=== PATIENT | female | born 1975 | race African-American/Black ===

== ENCOUNTER 2023-11-15 10:34 | Outpatient (CLI) | payer BC, SELFPAY ==
[2023-11-15 11:47] LABS: Influenza A QL RT-PCR Negative (Negative); Influenza B QL RT-PCR Negative (Negative); RSV RNA, RT-PCR Negative (Negative); SARS-CoV-2 RNA PCR Negative (Negative)
== END 2023-11-15 10:35 | disposition home or self-care (01) ==
LOC: ANHLAB 10:35
PROVIDERS: PCP Family Medicine; Visit Provider Physician Assistant
DX: J02.9 Acute pharyngitis, unspecified (principal); Z20.822 Contact with and (suspected) exposure to COVID-19
CPT/HCPCS: 87637

== ENCOUNTER 2024-03-08 01:44 | Day surgery (SDC) | payer BC, SELFPAY ==
[2024-02-22 13:15] VITALS: BMI 24.0
[2024-03-08 08:14] VITALS: BP 111/81; PULSE 88; RESP 20; TEMP 36.3; O2SAT 100
[2024-03-08] MEDS: LACTATED RINGERS 1,000 ML 150 ML IV CONT (08:57)
--- NOTE | 2024-03-08 09:19 | WPDANESEPPF ---
Anes - Initial Pre Proc Eval Procedure: Operation Date: 03/08/24 09:30 Proposed Procedures p Screening Colonoscopy - Sp Montes DO Date/Time: 03/08/24 09:19 Surgeon: Sp Montes DO Pre Op Diagnosis: Screening Neoplasm Patient Data Age: 48 Gender: F Height: 1.63 m Weight: 64.4 kg Last Vital Signs Temp 97.4 F L 03/08/24 08:14 Pulse 88 03/08/24 08:14 Resp 20 03/08/24 08:14 BP 111/81 03/08/24 08:14 Pulse Ox 100 03/08/24 08:14 O2 Del Method Nasal Cannula 03/08/24 08:14 O2 Flow Rate 3 03/08/24 08:14 Allergies Allergy/AdvReac Type Severity Reaction Status Date / Time Penicillins Allergy Mild sob Verified 03/08/24 08:13 Home Medications Medication Instructions Recorded Confirmed Type nebulizers (VixOne Nebulizer [facility] [place]) #1 ea 10/28/23 12/13/23 Rx pantoprazole 40 mg tablet,delayed 40 mg PO QAM #90 tabs 10/28/23 02/22/24 Rx release mycophenolate mofetil 500 mg tablet 1,500 mg PO Q12H 12/06/23 02/22/24 History prednisone 5 mg tablet 15 mg PO DIRECTED 12/06/23 02/22/24 History sulfamethoxazole 800 1 tablet PO DAILY 12/13/23 02/22/24 History mg-trimethoprim 160 mg tablet ferrous sulfate 325 mg (65 mg 325 mg PO DAILY #30 tabs 02/08/24 02/22/24 Rx iron) tablet Patient hx anesthesia problems: none Family hx anesthesia problems: none Results Review: All pre-operative results and documents have been reviewed as part of the pre-operative evaluation. [facility] Past Medical History Medical History Acute respiratory failure COVID-19 Influenza B Scleroderma Family History Family History (Updated 02/17/24 @ 12:17 by Radha Hutchinson RN) Mother Hypertension Asthma Grandparent Diabetes mellitus Asthma Father Colon cancer Grandparent Asthma Social History Social History Social History: Single Smoking status: Never smoker Second hand tobacco smoke exposure: No Alcohol intake: current Alcohol use details: Rarely Substance use: never Substance use type: does not use Do You Feel Safe in your Home?: Yes Lack of Transportation: No Lack of Food: Never True Current Housing: I Have Housing Concerned About Future Housing: No Difficulty Paying Gas/Electric Bills: No Difficulty Paying for Meds: No Currently Unemployed: No Education: Don't Know Difficulty w/ Childcare or Family Care: No Living arrangements: with family Occupation/Education: unemployed Gender identity (if verbalized by the patient): Female Sexual Orientation (if Verbalized by the Patient): Straight or Heterosexual Spiritual care concerns: No Anes - Eval Final PreProcedure Day of Procedure 03/08/24 09:19 Patient weight: normal Heart: regular rate and rhythm Lungs: clear to auscultation Airway: Mallampati scale class III Neurological: alert and oriented Last oral intake: >/= 8 hours ASA classification: IV Emergent: no Anesthetic plan: proceed Anesthesia type and monitoring: general GIVS and standard monitoring Results Review: All pre-operative results and documents have been reviewed as part of the pre-operative evaluation. Informed Consent: The patient's anesthetic plan and its attendant risks and benefits were discussed with the patient/family/POA. Questions were solicited and answers provided to the satisfaction of the patient/family/POA.
--- NOTE | 2024-03-08 09:29 | SUR.PREOP ---
DR BARRAGAN NOTIFIED PT HAD BREAKFAST 03/07/24 AT 0800, TOOK BOWEL PREP INSTRUCTED AND CLEAR LIQUID DIET FROM THAT POINT FORWARD, NO NEW ORDERS.
--- NOTE | 2024-03-08 09:34 | PM.IMHP ---
H&P: HPI History of Present Illness Date/Time: 03/08/24 09:34 Chief Complaint: family history of colon cancer Narrative: this is 48 year woman who presents for colonoscopy. She has never had a colonoscopy before. she does have a family history colon cancer in her father. She denies any hematochezia any melena. Review of Systems Review of Systems: All systems reviewed & are unremarkable except as noted in HPI and below Constitutional: Constitutional: Denies chills, Denies fever(s), Denies headache(s) and Denies weight loss Eyes: Eyes: Denies change in vision ENT: Denies dizziness, Denies headache(s), Denies neck mass and Denies throat swelling Cardiovascular: Cardiovascular: Denies chest pain, Denies lightheadedness and Denies dyspnea Respiratory: Respiratory: Denies cough, Denies dyspnea and Denies wheezing Gastrointestinal: Gastrointestinal: Denies abdominal pain, Denies change in bowel habits, Denies nausea and Denies vomiting Genitourinary: Genitourinary: Denies hematuria and Denies dysuria Musculoskeletal: Musculoskeletal: Reports as per HPI Integumentary/Breasts: Skin/Breast: Reports as per HPI Neurologic: Denies dizziness and Denies headache(s) Allergic/Immunologic: Allergic/Immunologic: Denies throat swelling and Denies wheezing [facility] Past Medical History Medical History Acute respiratory failure COVID-19 Influenza B Scleroderma Family History Family History (Updated 02/17/24 @ 12:17 by Radha Hutchinson RN) Mother Hypertension Asthma Grandparent Diabetes mellitus Asthma Father Colon cancer Grandparent Asthma Social History Social History Social History: Single Smoking status: Never smoker Second hand tobacco smoke exposure: No Alcohol intake: current Alcohol use details: Rarely Substance use: never Substance use type: does not use Do You Feel Safe in your Home?: Yes Lack of Transportation: No Lack of Food: Never True Current Housing: I Have Housing Concerned About Future Housing: No Difficulty Paying Gas/Electric Bills: No Difficulty Paying for Meds: No Currently Unemployed: No Education: Don't Know Difficulty w/ Childcare or Family Care: No Living arrangements: with family Occupation/Education: unemployed Gender identity (if verbalized by the patient): Female Sexual Orientation (if Verbalized by the Patient): Straight or Heterosexual Spiritual care concerns: No Meds Home Medications and Allergies Home Medications Medication Instructions Recorded Confirmed Type nebulizers (VixOne Nebulizer [facility] [place]) #1 ea 10/28/23 12/13/23 Rx pantoprazole 40 mg tablet,delayed 40 mg PO QAM #90 tabs 10/28/23 02/22/24 Rx release mycophenolate mofetil 500 mg tablet 1,500 mg PO Q12H 12/06/23 02/22/24 History prednisone 5 mg tablet 15 mg PO DIRECTED 12/06/23 02/22/24 History sulfamethoxazole 800 1 tablet PO DAILY 12/13/23 02/22/24 History mg-trimethoprim 160 mg tablet ferrous sulfate 325 mg (65 mg 325 mg PO DAILY #30 tabs 02/08/24 02/22/24 Rx iron) tablet Allergies Allergy/AdvReac Type Severity Reaction Status Date / Time Penicillins Allergy Mild sob Verified 03/08/24 08:13 Vital Signs Vital Signs - 24 hr 03/08/24 08:14 Temperature 36.3 C L Pulse Rate 88 Respiratory Rate 20 Blood Pressure 111/81 Pulse Oximetry 100 Oxygen Delivery Nasal Cannula Oxygen Flow Rate 3 Exam Const: General: no acute distress and alert Orientation/consciousness: patient oriented x3 HENMT: Head: normocephalic and atraumatic Ears: hearing grossly normal bilaterally Face/Nose/Sinus: Normal nares present Mouth: Yes Normal oral and palatal mucosa present Eyes: Periorbital: periorbital findings normal Sclera: sclerae normal EOM: EOMs intact bilaterally Neck: Neck: normal visual inspection, no lymphadenopathy and trachea
[2024-03-08 09:50] VITALS: BP 82/51; PULSE 88; RESP 15; O2SAT 100
[2024-03-08 10:00] VITALS: BP 92/49; PULSE 85; RESP 21; O2SAT 98
[2024-03-08 10:10] VITALS: BP 105/70; PULSE 87; RESP 22; O2SAT 97
== END 2024-03-08 10:22 | disposition home or self-care (01) ==
PROVIDERS: PCP Family Medicine; Visit Provider Surgery
PROC: 0DJD8ZZ Inspection of Lower Intestinal Tract, Via Natural or Artificial Opening Endoscopic (ICD-10-PCS; CPT 45378; principal; 2024-03-08 09:30)
DX: Z12.11 Encounter for screening for malignant neoplasm of colon (principal); Z80.0 Family history of malignant neoplasm of digestive organs; K52.89 Other specified noninfective gastroenteritis and colitis
CPT/HCPCS: 45380; 88305; J2704; J7120

== ENCOUNTER 2024-04-16 11:35 | Outpatient (CLI) | payer BC, SELFPAY ==
--- NOTE | ~2024-04-16 | MM_ITS ---
EXAMINATION: MM screening yesica BI w yomi HISTORY: Screening TECHNIQUE: Craniocaudal and mediolateral oblique 3-D tomosynthesis images were obtained and synthetic 2-D images were generated. CAD analysis was submitted and interpreted. COMPARISON: No prior mammogram is available for comparison at this institution. BREAST PARENCHYMAL COMPOSITION: Dense: The breasts are heterogeneously dense, which may obscure small masses FINDINGS: There are asymmetries of the left breast. There are no suspicious calcifications or archite ctural distortion. There is no mammographic evidence for malignancy in the right breast. IMPRESSION: 1. Left breast asymmetries. 2. Additional mammographic views and possible breast ultrasound are recommended. BI-RADS Category 0: Incomplete: Needs additional imaging evaluation. Reviewed, dictated and finalized at location B. IMPRESSION: 1. Left breast asymmetries. 2. Additional mammographic views and possible breast ultrasound are recommended . BI-RADS Category 0: Incomplete: Needs additional imaging evaluation.
== END 2024-04-16 11:36 ==
LOC: MICIMG 11:36
PROVIDERS: PCP Family Medicine; Visit Provider Family Medicine
DX: Z12.31 Encounter for screening mammogram for malignant neoplasm of breast (principal); R92.8 Other abnormal and inconclusive findings on diagnostic imaging of breast
CPT/HCPCS: 77063; 77067

== ENCOUNTER 2024-05-10 08:22 | Outpatient (CLI) | payer BC, SELFPAY ==
--- NOTE | ~2024-05-10 | MMUS_ITS ---
EXAMINATION: MM diagnostic yesica LT w yomi, US breast LT limited HISTORY: Upper, outer left breast asymmetry TECHNIQUE: Additional 3-D tomosynthesis images of the upper, outer left breast were performed and syn thetic 2-D images were generated. CAD analysis was submitted and interpreted. High resolution limited left breast ultrasound was performed. COMPARISON: 04/16/2024 BREAST PARENCHYMAL COMPOSITION:Dense: The breasts are heterogeneously dense, which may obscure small masses. FINDINGS: MAMMOGRAPHIC FINDINGS: Spot compression views confirm a persistent round, circumscribed 13 mm upper, outer left breast mass. ULTRASOUND: At the 3:00 position left breast, 8 cm from the nipple, there is a 5 mm circumscribed, wider than mike l, cyst. There is posterior through transmission. At the 2:00 position left breast, 9 cm from the nip ple, there is a similar-appearing 4 mm cyst. There is an additional adjacent 6 mm cyst at this locati on. At the 2:00 position left breast, 7 cm from the nipple, there is a 1.4 cm ovoid circumscribed ane choic simple cyst. There is an adjacent additional 0.5 cm simple cyst. At the 2:00 position, 5 cm fro m the nipple, there is an additional 1.1 cm simple cyst. There is a 4 mm hypoechoic circumscribed wid er than tall mass at the left breast 1:00 position, 5 cm from the nipple. IMPRESSION: Benign cysts and additional 4 mm probable benign mass at the 1:00 position left breast, 5 cm from th e nipple. Six-month follow-up ultrasound recommended to reassess. BI-RADS category 3, probably benign findings. Reviewed, dictated and finalized at location M. IMPRESSION: Benign cysts and additional 4 mm probable benign mass at the 1:00 position lef t breast, 5 cm from the nipple. Six-month follow-up ultrasound recommended to r linwoodteri. BI-RADS category 3, probably benign findings. IMPRESSION: Benign cysts and additional 4 mm probable benign mass at the 1:00 position lef t breast, 5 cm from the nipple. Six-month follow-up ultrasound recommended to r christine. BI-RADS category 3, probably benign findings.
== END 2024-05-10 08:23 | disposition home or self-care (01) ==
PROVIDERS: PCP Family Medicine; Visit Provider Student in an Organized Health Care Education/Training Program
DX: R92.8 Other abnormal and inconclusive findings on diagnostic imaging of breast (principal)
CPT/HCPCS: 76642; 77061; 77065; G0279

== ENCOUNTER 2024-06-15 09:30 | Outpatient (RCR) | payer BC, SELFPAY | END 2024-06-15 23:59 | disposition home or self-care (01) | LOC: ANHCPREHAB 09:30 | PROVIDERS: PCP Family Medicine; Visit Provider Internal Medicine Critical Care Medicine | DX: J84.10 Pulmonary fibrosis, unspecified (principal) | CPT/HCPCS: 94625; G0239 ==

== ENCOUNTER 2024-07-10 10:00 | Outpatient (RCR) | payer BC, SELFPAY | END 2024-07-18 15:46 | disposition home or self-care (01) | LOC: ANHCPREHAB 10:00 | PROVIDERS: PCP Family Medicine; Visit Provider Internal Medicine Critical Care Medicine | DX: J84.10 Pulmonary fibrosis, unspecified (principal) | CPT/HCPCS: G0239 ==

== ENCOUNTER 2024-08-03 09:57 | Outpatient (CLI) | payer BC, SELFPAY ==
--- NOTE | ~2024-08-03 | CT_ITS ---
CT Scan of the Chest without Contrast: Clinical Indication: Interstitial lung disease Technique: Contiguous sections were acquired throughout the chest without intravenous contrast. Dose reduction technique was used on this scan by utilizing automated exposure control and iterative recon struction technique. The dose-length product (DLP) was 144.30 mGy-cm. Findings: There is no evidence of any significant mediastinal, hilar or axillary lymphadenopathy. The mediastin al soft tissues appear normal. There is no evidence of pleural or pericardial effusion. There is bibasilar chronic interstitial disease, interstitial thickening and mild architectural disto rtion, mild bronchiolectasis. Images through the upper abdomen reveal no abnormalities. Impression: Bibasilar chronic interstitial disease, as detailed above. Reviewed, dictated and finalized at location . [employer] TECHNICIAN/DRIVER Impression: Bibasilar chronic interstitial disease, as detailed above.
== END 2024-08-03 09:58 | disposition home or self-care (01) ==
PROVIDERS: PCP Family Medicine
DX: J84.9 Interstitial pulmonary disease, unspecified (principal)
CPT/HCPCS: 71250

== ENCOUNTER 2024-08-08 07:57 | Outpatient (CLI) | payer BC, SELFPAY ==
--- NOTE | 2024-08-08 12:41 | WPDSIXMINUTE ---
Six Minute Walk Procedure Procedure Performed Pulmonary Stress Test (6 min walk) Six Minute Walk Six Minute Walk: This is a 6 minute walk test. The test was performed and interpreted in accordance with the 2014 ERS/ATS task force guidelines. Of note the patient used a wheeled walker and 3 L nasal cannula. Findings: The patient's resting 3 L nasal cannula oxygen saturation measured by pulse oximetry was 100%, the heart rate was 94 bpm, and the modified Nader dyspnea score was 2. Patient ambulated for 183 meters and oxygen saturation remained 99 to 100%. At the end of the study the heart rate was 110 bpm and the modified Nader dyspnea score was 4. The patient did not have hypoxemia at rest or with activity using 3 L nasal cannula. There are no prior studies for comparison.
== END 2024-08-08 07:58 | disposition home or self-care (01) ==
PROVIDERS: PCP Family Medicine; Visit Provider Internal Medicine Critical Care Medicine
DX: J84.10 Pulmonary fibrosis, unspecified (principal)
CPT/HCPCS: 94618

== ENCOUNTER 2024-09-07 10:54 | Outpatient (CLI) | payer MEDICAID, SELFPAY ==
--- NOTE | ~2024-09-07 | US_ITS ---
US pelvic complete w TV Ordering provider: Monique Molina APRN History: . N92.6 - Irregular menstruation, unspecified . Comparison: None. Technique: Transabdominal and endovaginal ultrasound of the pelvis (Doppler ultrasound interrogation techniques used as needed for this exam.) FINDINGS: CERVIX: Normal. UTERUS: Measures 11.1x 7.3x 7.2 cm in length which is within normal limits and is anteverted. Multip le lesions most likely fibroids with the largest measures 3.8 x 4.6 x 3.4 cm. ENDOMETRIUM: Normal in thickness measuring 10.3 mm. (Note: the premenopausal endometrium may measure up to 16 mm when in the secretory phase.) No endometrial masses, cysts or fluid. CUL DE SAC: No free fluid. RIGHT OVARY: Normal in size measuring 4.8x 3.1x 4.3 cm. Normal echotexture. Doppler vascular flow pre sent. Cyst is seen measuring 3.4 x 2.7 x 2.7 cm. LEFT OVARY: Status post oophorectomy according to history with a left adnexal complex lesion measurin g 4.1x 4.3x 3.9 centimeters. IMPRESSION: Multiple fibroids. Slightly prominent endometrium. Correlation with the menstrual stage is advised. R ight ovarian cyst. Left adnexal lesion which is most likely multilocular cyst. Follow-up ultrasound o r CT is advised. Otherwise, normal pelvic ultrasound. Reviewed, dictated and finalized at location A. NG CUTTER IMPRESSION: Multiple fibroids. Slightly prominent endometrium. Correlation with the menstru al stage is advised. Right ovarian cyst. Left adnexal lesion which is most like ly multilocular cyst. Follow-up ultrasound or CT is advised. Otherwise, normal pelvic ultrasound.
== END 2024-09-07 10:55 | disposition home or self-care (01) ==
PROVIDERS: PCP Nurse Practitioner Family; Visit Provider Nurse Practitioner Family
DX: N92.6 Irregular menstruation, unspecified (principal); D25.9 Leiomyoma of uterus, unspecified
CPT/HCPCS: 76830; 76856

== ENCOUNTER 2024-09-25 08:23 | Outpatient (CLI) | payer MEDICAID, SELFPAY ==
--- NOTE | ~2024-09-25 | CT_ITS ---
EXAMINATION: CT abdomen pelvis w con DATE: 09/25/2024 09:28 INDICATION: Left ovarian cyst TECHNIQUE: Computed tomography (CT) of the abdomen and pelvis was performed with 100 mL Omnipaque-350 intravenous contrast. Automated exposure control and iterative reconstruction technique were employe d. The dose-length product was 388.02 mGy-cm. COMPARISON: Pelvic ultrasound dated 09/07/2024 FINDINGS: Mild atelectasis in bilateral lower lungs with tiny left pleural effusion. Heart size is normal. No p ericardial effusion. Cholecystectomy clips at the gallbladder fossa. Liver, spleen, pancreas, bilater al adrenal glands and kidneys are normal. Bowels including the appendix are normal. Bladder is normal . Arcuate uterus with several uterine fibroids the largest a 4.8 x 4.0 cm subserosal fibroid at the l eft side of the fundus. There are complex cystic lesions at the bilateral adnexa which on the left ap pears to represent a serpiginous tubular fluid-filled structures consistent with hydrosalpinx. Left o vary is not visualized and reportedly absent. This could also represent a hydrosalpinx on the right h owever appearance is more equivocal and cannot exclude multiple separate ovarian cysts/follicles or a 4.0 x 2.6 cm complex cyst with a few thin internal septations. No definitive solid enhancing soft ti ssue component. 1.2 cm anechoic nabothian cyst at the cervix. No free intraperitoneal gas or fluid. N o pathologically enlarged abdominal or pelvic lymphadenopathy. Mild lumbar and lower thoracic spondyl osis. IMPRESSION: 1. Complex cystic structures at the bilateral adnexa corresponding to a left-sided hydrosalpinx. On t he right appearance is more equivocal for a second contralateral right-sided hydrosalpinx versus inde pendent ovarian cysts/follicles are complex ovarian cyst with several thin internal septations which could represent a cystadenoma. No solid nodular soft tissue component to raise concern for cystadenoc arcinoma. 2. Fibroid uterus. Reviewed, dictated and finalized at location A. [employer] K[employer]ITTER HAND FRAME IMPRESSION: 1. Complex cystic structures at the bilateral adnexa corresponding to a left-si ded hydrosalpinx. On the right appearance is more equivocal for a second contra lateral right-sided hydrosalpinx versus independent ovarian cysts/follicles are complex ovarian cyst with several thin internal septations which could represe nt a cystadenoma. No solid nodular soft tissue component to raise concern for c ystadenocarcinoma. 2. Fibroid uterus.
== END 2024-09-25 08:24 | disposition home or self-care (01) ==
LOC: MICIMG 08:23
PROVIDERS: PCP Nurse Practitioner Family; Visit Provider Nurse Practitioner Family
DX: N83.292 Other ovarian cyst, left side (principal); D25.2 Subserosal leiomyoma of uterus
CPT/HCPCS: 74177; Q9967

== ENCOUNTER 2024-10-17 14:28 | Outpatient (CLI) | payer MEDICAID, SELFPAY ==
--- OUTSIDE RECORDS SUMMARY | 2024-10-17 16:40 | XMS_ITS | Patient Health Summary ---
Author Organization [facility] Address [address] [place] [address] Care Team Providers Care Tourist Camp Attendant Name Role Phone Amelia Tamayo MD Primary Care Provider + Note from [facility],non-owned Affiliates and Associated Physician Practices is amultiple site organization consisting of ambulatory clinics and hospital sitesin [place], [place], [place]. This disclosure is being madepursuant to the Care Everywhere program and may not contain all information available regarding this patient. Last updated 18.[facility] Allergies * Penicillins(Itching) Medications * Be aware that medications may not be up to date on this document. Alwaysverify current medications with the patient. * FeroSul 325 (65 Fe) MG tablet Take 1 (one) tablet by mouth once daily * albuterol (Proventil;Ventolin) (2.5 MG/3ML) 0.083% nebulizer solution(Started 02/17/2024) Inhale 2.5 (two and one-half) mg by mouth every 4 hours as needed for Shortness of Breath or Wheezing 11 refills by 02/16/2025 * Multiple Vitamins-Minerals (Multi Vitamin/Minerals) TABS Take 1 (one) tablet by mouth once daily * NIFEdipine CR 24hr (Adalat CC) 30 MG tablet(Started 03/14/2024) Take 1 (one) tablet by mouth once daily Take on an empty stomach. 4 refills by 03/14/2025 * tocilizumab (Actemra) 162 MG/0.9ML auto-injector(Started 03/14/2024) Inject 0.9 mL subcutaneously every 7 days for 1 dose * hydrOXYzine HCl (Atarax) 25 MG tablet(Started 05/02/2024) Take 1 (one) tablet by mouth as needed for Itching * nintedanib (Ofev) 150 MG capsule(Started 05/09/2024) Take 1 (one) capsule by mouth 2 times daily with morning and evening meal 11 refills by 05/09/2025 * mycophenolate (Cellcept) 500 MG tablet(Started 08/17/2024) Take 3 (three) tablets by mouth 2 times daily for 90 days 2 refills by 08/17/2025 * pantoprazole EC (Protonix) 40 MG tablet(Started 08/21/2024) Take 1 (one) tablet by mouth once daily for 90 days * predniSONE (Deltasone) 2.5 MG tablet(Started 08/31/2024) Take 3 (three) tablets by mouth once daily for 14 days, THEN 2 (two) tablets once daily for 14 days, THEN 1 (one) tablet once daily for 14 days. * baclofen (Lioresal) 10 MG tablet(Started 09/13/2024) TAKE 1 TABLET BY MOUTH EVERY DAY AT BEDTIME NEEDED FOR MUSCLE SPASM * formoterol (Perforomist) 20 MCG/2ML nebulizer solution(Started 12/08/2023) Inhale 2 mL by mouth as needed * Nebulizers (Supremex[employer] Aerosol Delivery System) [facility](Started 11/01/2023) as directed * Progesterone 200 MG capsule(Started 09/13/2024) Take 1 (one) capsule by mouth at bedtime * albuterol HFA (Proventil; Ventolin; Proair) 108 (90 Base) MCG/ACT inhaler Inhale 2 (two) puffs by mouth every 6 hours as needed * metoclopramide (Reglan) 10 MG tablet(Started 09/21/2024) Take 1 (one) tablet by mouth 3 times daily before meals * nortriptyline (Pamelor) 10 MG capsule(Started 10/15/2024) Take 1 (one) capsule by mouth at bedtime 3 refills by 10/15/2025 * ubrogepant (Ubrelvy) 100 MG tablet(Started 10/15/2024) Take 1 (one) tablet by mouth daily as needed - may repeat one time for Migraine No more than 2 doses in 24 hours. 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 Interstitial lung disorders 02/28/2024 Autoimmune disease 10/12/2023 Pulmonary HTN 10/11/2023 Anemia 10/04/2023 GERD (gastroesophageal reflux disease) Lymphadenopathy 10/04/2023 Positive SHYLA (antinuclear antibody) 10/04/2023 Severe protein-calorie malnutrition 10/04/2023 Dyspnea 10/01/2023 Breast mass 07/27/2023 Menorrhagia 07/27/2023 Acute on chronic respiratory failure 07/26/2023 Chest pain 05/25/2023 Edema 05/25/2023 Acute bronchitis 09/07/2017 Resolved Problems Problem Noted Date Diagnosed Date Resolved Date Asthma exacerbation 12/15/2017 06/20/20 24 Immunizations * INFLUENZA VACCINE, QUADR. (AFLURIA, FLUZONE QUADRIVALENT; 6MO+) (IIV4)(Given 05/23/2018) * INFLUENZA VACCINE, TRIV. (FLUZONE; FLULAVAL; FLUARIX; AFLURIA TRIVALENT; 6MO+), 0.5 ML (IIV3)(Given 05/08/2024) * PNEUMOCOCCAL PCV20 CONJ VAC IM(Given 02/17/2024) Social History Tobacco Use Types Packs/Day Years Used Date Smoking Tobacco: Never Smokeless Tobacco: Never Alcohol Use Standard Drinks/Week Comments Not Currently 0 (1 standard drink = 0.6 oz pur e alcohol) PHQ-2 Answer Date Recorded Patient Health Questionnaire-2 Score 1 05/23/2024 Sex and Gender Information Value Date Recorded Sex Assigned at Not on file Gender Identity Not on file Sexual Orientation Not on file Last Filed Vital Signs Vital Sign Reading Time Taken Comments Blood Pressure 122/76 10/15/2024 2:03 PM [employer] Pulse 103 10/15/2024 2:03 PM [employer] Temperature 36.6 C (97.9 F) 09/25/2024 10:19 AM [employer] Respiratory Rate 22 09/25/2024 10:19 AM [employer] Oxygen Saturation 100% 09/25/2024 10:19 AM [employer] 3L of O2 Inhaled Oxygen Concentration - - Weight 69.9 kg (154 lb) 10/15/2024 2:03 PM [employer] Height 162.6 cm (5' 4 ) 10/15/2024 2:03 PM [employer] Body Mass Index 26.43 10/15/2024 2:03 PM [employer] Procedures * COMPREHENSIVE METABOLIC PANEL(Performed 10/02/2024) Performed for Scleroderma (HCC), ILD (interstitial lung disease) (HCC), Diffuse cutaneous systemic sclerosis (HCC), Therapeutic drug monitoring, 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 therapy (HCC) * CBC W AUTO DIFFERENTIAL(Performed 10/02/2024) Performed for Scleroderma (HCC), ILD (interstitial lung disease) (HCC), Diffuse cutaneous systemic sclerosis (HCC), Therapeutic drug monitoring, 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 therapy (HCC) * COMPREHENSIVE METABOLIC PANEL(Performed 09/26/2024) Performed for Scleroderma (HCC), ILD (interstitial lung disease) (HCC), Diffuse cutaneous systemic sclerosis (HCC), Therapeutic drug monitoring, 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 therapy (HCC) * CBC W AUTO DIFFERENTIAL(Performed 09/26/2024) Performed for Scleroderma (HCC), ILD (interstitial lung disease) (HCC), Diffuse cutaneous systemic sclerosis (HCC), Therapeutic drug monitoring, 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 therapy (HCC) * CT ANGIO BRAIN AND NECK(Performed 09/21/2024) Performed for Chest pain, unspecified type, Benign paroxysmal positional vertigo, unspecified laterality, Tinnitus of both ears, Acute nonintractable headache, unspecified headache type, Nausea and vomiting, unspecified vomiting type * MRI BRAIN WWO CONTRAST(Performed 09/21/2024) Performed for Chest pain, unspecified type * CT HEAD WO CONTRAST(Performed 09/20/2024) Performed for Chest pain, unspecified type * TROPONIN-I HIGH SENSITIVE BASELINE + 1HR(Performed 09/20/2024) * D-DIMER(Performed 09/20/2024) * COMPREHENSIVE METABOLIC PANEL(Performed 09/20/2024) * CBC W AUTO DIFFERENTIAL(Performed 09/20/2024) * SARS-COV-2 (COVID-19) FLU A/B RSV PCR RAPID(Performed 09/20/2024) * XR CHEST 2VW(Performed 09/20/2024) Performed for Chest pain, unspecified type * EKG 12-LEAD(Performed 09/20/2024) Performed for Chest pain, unspecified type * COMPREHENSIVE METABOLIC PANEL(Performed 09/19/2024) Performed for Scleroderma (HCC), ILD (interstitial lung disease) (HCC), Diffuse cutaneous systemic sclerosis (HCC), Therapeutic drug monitoring, 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 therapy (HCC) * CBC W AUTO DIFFERENTIAL(Performed 09/19/2024) Performed for Scleroderma (HCC), ILD (interstitial lung disease) (HCC), Diffuse cutaneous systemic sclerosis (HCC), Therapeutic drug monitoring, 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 therapy (HCC) * CBC W AUTO DIFFERENTIAL(Performed 09/12/2024) Performed for Lymphopenia * COMPREHENSIVE METABOLIC PANEL(Performed 09/12/2024) Performed for Scleroderma (HCC), ILD (interstitial lung disease) (HCC), Diffuse cutaneous systemic sclerosis (HCC), Therapeutic drug monitoring, 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 therapy (HCC) * CBC W AUTO DIFFERENTIAL(Performed 09/05/2024) Performed for Lymphopenia * COMPREHENSIVE METABOLIC PANEL(Performed 09/05/2024) Performed for Scleroderma (HCC), ILD (interstitial lung disease) (HCC), Diffuse cutaneous systemic sclerosis (HCC), Therapeutic drug monitoring, 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 therapy (HCC) * CBC W AUTO DIFFERENTIAL(Performed 08/30/2024) Performed for Lymphopenia * COMPREHENSIVE METABOLIC PANEL(Performed 08/30/2024) Performed for Scleroderma (HCC), ILD (interstitial lung disease) (HCC), Diffuse cutaneous systemic sclerosis (HCC), Therapeutic drug monitoring, 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 therapy (HCC) * CBC W AUTO DIFFERENTIAL(Performed 08/24/2024) Performed for Lymphopenia * COMPREHENSIVE METABOLIC PANEL(Performed 08/24/2024) Performed for Scleroderma (HCC), ILD (interstitial lung disease) (HCC), Diffuse cutaneous systemic sclerosis (HCC), Therapeutic drug monitoring, 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 therapy (HCC) * LIPID PROFILE(Performed 08/17/2024) Performed for Screening for lipoid disorders * COMPREHENSIVE METABOLIC PANEL(Performed 08/17/2024) Performed for Scleroderma (HCC), ILD (interstitial lung disease) (HCC), Diffuse cutaneous systemic sclerosis (HCC), Therapeutic drug monitoring, 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 therapy (HCC) * CBC W AUTO DIFFERENTIAL(Performed 08/17/2024) Performed for Scleroderma (HCC), ILD (interstitial lung disease) (HCC), Diffuse cutaneous systemic sclerosis (HCC), Therapeutic drug monitoring, 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 therapy (HCC) * CBC W AUTO DIFFERENTIAL(Performed 08/08/2024) Performed for Lymphopenia * COMPREHENSIVE METABOLIC PANEL(Performed 08/08/2024) Performed for Scleroderma (HCC), ILD (interstitial lung disease) (HCC), Diffuse cutaneous systemic sclerosis (HCC), Therapeutic drug monitoring, 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 therapy (HCC) * COMPREHENSIVE METABOLIC PANEL(Performed 08/01/2024) Performed for Scleroderma (HCC), ILD (interstitial lung disease) (HCC), Diffuse cutaneous systemic sclerosis (HCC), Therapeutic drug monitoring, 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 therapy (HCC) * CBC W AUTO DIFFERENTIAL(Performed 08/01/2024) Performed for Scleroderma (HCC), ILD (interstitial lung disease) (HCC), Diffuse cutaneous systemic sclerosis (HCC), Therapeutic drug monitoring, 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 therapy (HCC) * POTASSIUM URINE RANDOM(Performed 08/01/2024) Performed for Diffuse cutaneous systemic sclerosis (HCC), Scleroderma (HCC), ILD (interstitial lungdisease) (HCC), Therapeutic drug monitoring, 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 therapy (HCC) * BILIRUBIN DIRECT(Performed 07/20/2024) Performed for ILD (interstitial lung disease) (HCC), Scleroderma (HCC) * COMPREHENSIVE METABOLIC PANEL(Performed 07/20/2024) Performed for Scleroderma (HCC), ILD (interstitial lung disease) (HCC), Diffuse cutaneous systemic sclerosis (HCC), Therapeutic drug monitoring, 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 therapy (HCC) * CBC W AUTO DIFFERENTIAL(Performed 07/20/2024) Performed for Scleroderma (HCC), ILD (interstitial lung disease) (HCC), Diffuse cutaneous systemic sclerosis (HCC), Therapeutic drug monitoring, 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 therapy (HCC) * MAGNESIUM BLOOD(Performed 07/20/2024) Performed for Therapeutic drug monitoring * BILIRUBIN DIRECT(Performed 07/11/2024) Performed for ILD (interstitial lung disease) (HCC), Scleroderma (HCC) * COMPREHENSIVE METABOLIC PANEL(Performed 07/11/2024) Performed for Scleroderma (HCC), ILD (interstitial lung disease) (HCC), Diffuse cutaneous systemic sclerosis (HCC), Therapeutic drug monitoring, 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 therapy (HCC) * CBC W AUTO DIFFERENTIAL(Performed 07/11/2024) Performed for Scleroderma (HCC), ILD (interstitial lung disease) (HCC), Diffuse cutaneous systemic sclerosis (HCC), Therapeutic drug monitoring, 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 therapy (HCC) * ECHO COMPLETE(Performed 07/11/2024) Performed for Scleroderma (HCC), ILD (interstitial lung disease) (HCC), Diffuse cutaneous systemic sclerosis (HCC), Therapeutic drug monitoring, 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 therapy (HCC) * HOME O2 EVAL (DESATURATION SCREEN)(Performed 07/11/2024) Performed for ILD (interstitial lung disease) (HCC), Scleroderma (HCC), Chronic respiratory failurewith hypoxia (HCC) * PFT-LAB(Performed 07/11/2024) Performed for Scleroderma (HCC), ILD (interstitial lung disease) (HCC), Diffuse cutaneous systemic sclerosis (HCC), Therapeutic drug monitoring, 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 therapy (HCC) * BILIRUBIN DIRECT(Performed 05/23/2024) Performed for ILD (interstitial lung disease) (HCC), Scleroderma (HCC) * COMPREHENSIVE METABOLIC PANEL(Performed 05/23/2024) Performed for Scleroderma (HCC), ILD (interstitial lung disease) (HCC) * CBC W AUTO DIFFERENTIAL(Performed 05/23/2024) Performed for Scleroderma (HCC), ILD (interstitial lung disease) (HCC) * FL ESOPHAGRAM(Performed 04/25/2024) Performed for Scleroderma (HCC), ILD (interstitial lung disease) (HCC), Diffuse cutaneous systemic sclerosis (HCC), Therapeutic drug monitoring * COMPLETE PFT W/WO BRONCHODILATOR(Performed 04/12/2024) Performed for ILD (interstitial lung disease) (HCC), Scleroderma (HCC) * SIX MINUTE WALK(Performed 04/12/2024) Performed for ILD (interstitial lung disease) (HCC), Scleroderma (HCC) * CT CHEST WO CONT AND HIRES(Performed 03/21/2024) Performed for ILD (interstitial lung disease) (HCC), Scleroderma (HCC) * URINALYSIS W/MICROSCOPIC REFLEX TO CULTURE(Performed 02/24/2024) Performed for Scleroderma (HCC), ILD (interstitial lung disease) (HCC) * PROTEIN CREATININE RATIO URINE RANDOM PNL(Performed 02/24/2024) Performed for Scleroderma (HCC), ILD (interstitial lung disease) (HCC) * LAB MISC TEST(Performed 02/24/2024) Performed for Scleroderma (HCC) * SHYLA BLOOD SINGLE PATTERN(Performed 02/24/2024) Performed for Scleroderma (HCC), ILD (interstitial lung disease) (HCC) * SHYLA HEP-2 IGG BY IFA(Performed 02/24/2024) Performed for Scleroderma (HCC), ILD (interstitial lung disease) (HCC) * WANG/SAND WHEELER (SHORTY) ANTIBODY IGG(Performed 02/24/2024) Performed for Scleroderma (HCC) * HEPATITIS C ANTIBODY(Performed 02/24/2024) Performed for Scleroderma (HCC), ILD (interstitial lung disease) (HCC) * HEPATITIS B SURFACE ANTIGEN W RFLX CONFIRMATION(Performed 02/24/2024) Performed for Scleroderma (HCC), ILD (interstitial lung disease) (HCC) * HEPATITIS B SURFACE ANTIBODY(Performed 02/24/2024) Performed for Scleroderma (HCC), ILD (interstitial lung disease) (HCC) * HEPATITIS B CORE ANTIBODY TOTAL(Performed 02/24/2024) Performed for Scleroderma (HCC), ILD (interstitial lung disease) (HCC) * MYOSITIS ANTIBODY PANEL COMPREHENSIVE(Performed 02/24/2024) Performed for Scleroderma (HCC), ILD (interstitial lung disease) (HCC) * SCLERODERMA 70 (SCL) ANTIBODY(Performed 02/24/2024) Performed for Scleroderma (HCC), ILD (interstitial lung disease) (HCC) * RNA POLYMERASE III ANTIBODY IGG(Performed 02/24/2024) Performed for Scleroderma (HCC), ILD (interstitial lung disease) (HCC) * PM/SCL-100 ANTIBODY IGG(Performed 02/24/2024) Performed for Scleroderma (HCC), ILD (interstitial lung disease) (HCC) * CENTROMERE ANTIBODY(Performed 02/24/2024) Performed for Scleroderma (HCC), ILD (interstitial lung disease) (HCC) * SHYLA BLOOD SCREEN W/REFLEX TITER(Performed 02/24/2024) Performed for Scleroderma (HCC), ILD (interstitial lung disease) (HCC) * QUANTIFERON-TB GOLD PLUS 4-TUBE(Performed 02/24/2024) Performed for Scleroderma (HCC), ILD (interstitial lung disease) (HCC) * C-REACTIVE PROTEIN(Performed 02/24/2024) Performed for Scleroderma (HCC), ILD (interstitial lung disease) (HCC) * ERYTHROCYTE SEDIMENTATION RATE(Performed 02/24/2024) Performed for Scleroderma (HCC), ILD (interstitial lung disease) (HCC) * COMPREHENSIVE METABOLIC PANEL(Performed 02/24/2024) Performed for Scleroderma (HCC), ILD (interstitial lung disease) (HCC) * CBC W AUTO DIFFERENTIAL(Performed 02/24/2024) Performed for Scleroderma (HCC), ILD (interstitial lung disease) (HCC) Results * (ABNORMAL) CBC WITH DIFFERENTIAL (10/02/2024 10:09 AM [facility]) Only the most recent of15 resultswithin the time period is included. WBC 4.4 4.0 - 10.7 x10E9/L 10/02/2024 11:05 AM [facility] RBC Count 4.17 3.90 - 5.20 x10E12/L 10/02/2024 11:05 AM [facility] Hemoglobin 10.6(L) 11.9 - 15.8 g/dL 10/02/2024 11:05 AM [facility] Hematocrit 34.3(L) 34.8 - 46.1 % 10/02/2024 11:05 AM [facility] MCV 82.3 80.0 - 98.0 fL 10/02/2024 11:05 AM [facility] MCH 25.4(L) 26.7 - 33.6 pg 10/02/2024 11:05 AM [facility] MCHC 30.9(L) 31.7 - 36.3 g/dL 10/02/2024 11:05 AM [facility] RDW-CV 13.2 11.3 - 14.8 % 10/02/2024 11:05 AM [facility] Platelet Count 275 150 - 420 x10E9/L 10/02/2024 11:05 AM [facility] MPV 11.0 7.8 - 11.4 fL 10/02/2024 11:05 AM [facility] Neutrophil % 54.7 41.0 - 74.0 % 10/02/2024 11:05 AM [facility] Lymphocyte % 25.7 17.0 - 47.0 % 10/02/2024 11:05 AM [facility] Monocyte % 15.9(H) 3.0 - 11.0 % 10/02/2024 11:05 AM [facility] Eosinophil % 2.3 0.0 - 7.0 % 10/02/2024 11:05 AM [facility] Basophil % 0.7 0.0 - 1.6 % 10/02/2024 11:05 AM [facility] Immature Granulocytes % 0.7 0.0 - 1.0 % 10/02/2024 11:05 AM [facility] Neutrophil Absolute 2.38 1.60 - 7.50 x10E9/L 10/02/2024 11:05 AM [facility] Lymphocyte Absolute 1.12 1.00 - 4.40 x10E9/L 10/02/2024 11:05 AM [facility] Monocyte Absolute 0.69 0.15 - 1.00 x10E9/L 10/02/2024 11:05 AM [facility] Eosinophil Absolute 0.10 0.00 - 0.60 x10E9/L 10/02/2024 11:05 AM [facility] Basophil Absolute 0.03 0.00 - 0.13 x10E9/L 10/02/2024 11:05 AM [facility] Blood BLOOD SPECIMEN / Unknown Lab Venipuncture / Unknown 10/02/2024 10:09 AM [facility] 10/02/2024 10:51 AM [facility] Kelechi Herrera MD LAB - HEMATOLOGY ORDERABLES [facility] [address] [place] [id number], [facility] [phone] * (ABNORMAL) COMPREHENSIVE METABOLIC PANEL (10/02/2024 10:09 AM [facility]) Only the most recent of15 resultswithin the time period is included. BUN 10 7 - 26 mg/dL 10/02/2024 11:37 AM [facility] Creatinine 1.05(H) 0.56 - 0.96 mg/dL 10/02/2024 11:37 AM [facility] Sodium 137 136 - 145 mmol/L 10/02/2024 11:37 AM [facility] Potassium 4.4 3.5 - 4.5 mmol/L 10/02/2024 11:37 AM [facility] Comment:Hemolysis detected i n this specimen. Hemolysis may cause false elevations in potassium leading to pseudohyperkalemia or masked hypokalemia. Recommend repeat testing if clinically indicated. Chloride 110(H) 98 - 107 mmol/L 10/02/2024 11:37 AM [facility] CO2 20(L) 22 - 29 mmol/L 10/02/2024 11:37 AM [facility] Glucose 83 70 - 99 mg/dL 10/02/2024 11:37 AM [facility] Calcium 8.6 8.4 - 10.2 mg/dL 10/02/2024 11:37 AM [facility] Protein Total 6.8 6.0 - 8.3 g/dL 10/02/2024 11:37 AM [facility] Comment:Hemolysis detected i n this specimen. Hemolysis is known to cause elevations in this analyte. Caution should be exercised in the interpretation of this result. Recommend repeat testing if clinically indicated. Albumin 3.9 3.4 - 5.0 g/dL 10/02/2024 11:37 AM [facility] Bilirubin Total 0.3 0.2 - 1.2 mg/dL 10/02/2024 11:37 AM [facility] Alkaline Phosphatase 50 40 - 150 U/L 10/02/2024 11:37 AM [facility] ALT 14 5 - 55 U/L 10/02/2024 11:37 AM [facility] AST 25 5 - 34 U/L 10/02/2024 11:37 AM [facility] Comment:Hemolysis detected i n this specimen. Hemolysis is known to cause elevations in this analyte. Caution should be exercised in the interpretation of this result. Recommend repeat testing if clinically indicated. Anion Gap 7 6 - 16 10/02/2024 11:37 AM [facility] BUN/Creatinine Ratio 10 7 - 23 09/22 11:37 AM [facility] Osmolality Calculated 282 275 - 295 mOsm/kg 10/02/2024 11:37 AM [facility] Albumin/Globulin Ratio 1.3 1.1 - 2.3 10/02/2024 11:37 AM [facility] eGFR by CKD-EPI 65(L) >=90 mL/min/1 .73 m2 10/02/2024 11:37 AM [facility] Blood BLOOD SPECIMEN / Unknown Lab Venipuncture / Unknown 10/02/2024 10:09 AM [employer] 10/02/2024 11:04 AM [employer] Kelechi Herrera MD LAB - CHEMISTRY ORDERABLES [facility] [address] [place] [address], [facility] [phone] * CT Angio Brain And Neck (09/21/2024 4:17 PM [employer]) Anatomical Region Laterality Modality Head Computed Tomogra phy 09/21/2024 4:29 PM [employer] Impressions 09/21/2024 5:03 PM [employer] IMPRESSION: 1.No acute intracranial hemorrhage. 2.No large arterial occlusions or significant stenoses identified in the head or neck. 3.The dural sinuses appear normal without evidence of thrombus. Viz.AI was used for large vessel occlusion detection. Report dictated by Je Morrow MD, (Case Management Associate). I, Shara Henry MD have personally reviewed and interpreted this examination/study. > Interpreting Provider: Shara Henry MD on 09/21/2024 5:03 PM Narrative 09/21/2024 5:03 PM [employer] PROCEDURE: CT ANGIO BRAIN AND NECK, DATE/TIME OF EXAM: 09/21/2024 4:18 PM, LOCATION [facility] INDICATION: R07.9: Chest pain, unspecified type H81.10: Benign paroxysmal positional vertigo, unspecified laterality H93.13: Tinnitus of both ears R51.9: Acute nonintractable headache, unspecified headache type R11.2: Nausea and vomiting, unspecified vomiting type ADDITIONAL CLINICAL INFORMATION: Ordering Provider Reason For Exam: Aneurysm EXAMINATION: 1. Computed tomographic (CT) angiography of the head without and with contrast 2. CT angiography of the neck with contrast CONTRAST: IOPAMIDOL 76 % IV SOLN:75 mL TECHNIQUE: CT of the head was performed without contrast according to standard protocol. Then CT angiography and venography of the head and neck was obtained after the uneventful administration of 75 mL Isovue-370 intravenous contrast. Three dimensional postprocessing was performed by the technologist and sent to the workstation for review. Stenosis measurements are based on NASCET criteria. CT dose reduction technique was used, including Automated Exposure Control. COMPARISON: CT head 09/20/2024 FINDINGS: Non-angiographic findings: No acute intra- or extra-axial fluid collections are identified. The ventricles are of normal size, shape, and morphology. The basilar cisterns are patent. No mass effect or midline shift is seen. The gonsalves-white matter differentiation is normal. Periventricular white matter hypoattenuation is nonspecific, but can be seen in the setting of chronic small vessel ischemic disease. The visualized portions of the orbits, paranasal sinuses, and mastoids appear normal. No acute fracture is identified. Scattered airspace and dependent opacities in both lungs may represent multifocal pneumonia and associated atelectasis. Please refer to the prior CT of the chest from 08/2023 for details on the intrathoracic findings.. Angiographic findings: The visible aortic arch appears normal. The configuration of the brachiocephalic vessels is typical. The innominate artery and both subclavian arteries appear normal. The right common and internal carotid arteries as well as the right carotid bifurcation appear normal. The left common and internal carotid arteries as well as the left carotid bifurcation appear normal. The cervical vertebral arteries appear normal. The distal internal carotid arteries appear normal. The anterior and middle cerebral arteries appear normal. The distal vertebral arteries appear normal. The basilar artery and posterior cerebral arteries appear normal with origin of both posterior cerebral arteries. No aneurysms, vascular occlusions, or intracranial stenoses are identified. Venographic findings: The dural sinuses appear normal without evidence of thrombus. Procedure Note Shara Henry MD - 09/21/2024 PROCEDURE: CT ANGIO BRAIN AND NECK, DATE/TIME OF EXAM: 09/21/2024 4:18PM, LOCATION [facility] INDICATION: R07.9: Chest pain, unspecified type H81.10: Benign paroxysmal positional vertigo, unspecified laterality H93.13: Tinnitus of both ears R51.9: Acute nonintractable headache, unspecified headache type R11.2: Nausea and vomiting, unspecified vomiting type ADDITIONAL CLINICAL INFORMATION: Ordering Provider Reason For Exam: Aneurysm EXAMINATION: 1. Computed tomographic (CT) angiography of the head without and with contrast 2. CT angiography of the neck with contrast CONTRAST: IOPAMIDOL 76 % IV SOLN:75 mL TECHNIQUE: CT of the head was performed without contrast according to standard protocol. Then CT angiography and venography of the head andneck was obtained after the uneventful administration of 75 mL Isovue-370 intravenous contrast. Three dimensional postprocessing was performed bythe technologist and sent to the workstation for review. Stenosismeasurements are based on NASCET criteria. CT dose reduction technique was used, including Automated Exposure Control. COMPARISON: CT head 09/20/2024 FINDINGS: Non-angiographic findings: No acute intra- or extra-axial fluid collections are identified. The ventricles are of normal size, shape, and morphology. The basilarcisterns are patent. No mass effect or midline shift is seen. The gonsalves-whitematter differentiation is normal. Periventricular white matter hypoattenuationis nonspecific, but can be seen in the setting of chronic small vessel ischemic disease. The visualized portions of the orbits, paranasalsinuses, and mastoids appear normal. No acute fracture is identified. Scattered airspace and dependent opacities in both lungs may represent multifocal pneumonia and associated atelectasis. Please refer to theprior CT of the chest from 08/2023 for details on the intrathoracic findings.. Angiographic findings: The visible aortic arch appears normal. The configuration of the brachiocephalic vessels is typical. The innominate artery and both subclavian arteries appear normal. The right common and internal carotid arteries as well as the right carotid bifurcation appear normal. Theleft common and internal carotid arteries as well as the left carotid bifurcation appear normal. The cervical vertebral arteries appearnormal. The distal internal carotid arteries appear normal. The anterior andmiddle cerebral arteries appear normal. The distal vertebral arteries appear normal. The basilar artery and posterior cerebral arteries appear normal with origin of both posterior cerebral arteries. No aneurysms, vascular occlusions, or intracranial stenoses are identified. Venographic findings: The dural sinuses appear normal without evidence of thrombus. IMPRESSION: 1.No acute intracranial hemorrhage. 2.No large arterial occlusions or significant stenoses identified in the head or neck. 3.The dural sinuses appear normal without evidence of thrombus. Viz.AI was used for large vessel occlusion detection. Report dictated by Je Morrow MD, (Case Management Associate). IShara MD have personally reviewed and interpretedthis examination/study. > Interpreting Provider: Shara Henry MD on 09/21/2024 5:03 PM Bruna Farrell MD CT ORDERABLES * MRI Brain Wwo Contrast (09/21/2024 12:40 PM AUT[employer]OBI[employer]ATION MECHANIC) Anatomical Region Laterality Modality Head Magnetic Resonan ce 09/21/2024 12:5 9 PM [employer]OM[employer]ATION MECHANIC Impressions 09/21/2024 5:05 PM [employer]ATION MECHANIC IMPRESSION: 1.No evidence of restricted diffusion to suggest an acute infarction. 2.No evidence of acute intracranial findings or abnormal enhancement. > Interpreting Provider: Shara Henry MD on 09/21/2024 5:05 PM Narrative 09/21/2024 5:05 PM [employer]ATION MECHANIC PROCEDURE: MRI BRAIN WWO CONTRAST, DATE/TIME OF EXAM: 09/21/2024 12:40 PM, LOCATION [facility] INDICATION: R07.9: Chest pain, unspecified type ADDITIONAL CLINICAL INFORMATION: Ordering Provider Reason For Exam: tinnitus, vertigo Technologist Note: Does the patient have a pacemaker or defibrillator?->No Does the patient have metal implants or stents?->No Additional: None. EXAMINATION: Magnetic resonance imaging (MRI) of the brain without and with contrast CONTRAST: GADOBUTROL 1 MMOL/ML IV SSM SO:6 mL TECHNIQUE: MRI of the brain was performed prior to and following the uneventful administration of 6 mL intravenous GADAVIST contrast according to standard protocol. COMPARISON: CT of the head from 09/20/2024. FINDINGS: No evidence of acute or chronic hemorrhage is identified. No evidence of acute cerebral infarction is seen. The ventricles are of normal size, shape, and morphology. No mass effect or midline shift is seen. Trace periventricular white matter FLAIR hyperintensity is a nonspecific finding. No enhancing lesions are identified. The corpus callosum and sella appear normal. The posterior fossa, brainstem, and craniocervical junction appear normal. The visualized portions of the orbits, paranasal sinuses, and mastoids appear normal. Normal flow voids are demonstrated in the carotid arteries and basilar artery. The calvarium and visualized cervical spine appear normal. Procedure Note Shara Henry MD - 09/21/2024 PROCEDURE: MRI BRAIN WWO CONTRAST, DATE/TIME OF EXAM: 09/21/2024 12:40PM, LOCATION [facility] INDICATION: R07.9: Chest pain, unspecified type ADDITIONAL CLINICAL INFORMATION: Ordering Provider Reason For Exam: tinnitus, vertigo Technologist Note: Does the patient have a pacemaker ordefibrillator?->No Does the patient have metal implants or stents?->No Additional: None. EXAMINATION: Magnetic resonance imaging (MRI) of the brain without andwith contrast CONTRAST: GADOBUTROL 1 MMOL/ML IV SSM SO:6 mL TECHNIQUE: MRI of the brain was performed prior to and following the uneventful administration of 6 mL intravenous GADAVIST contrastaccording to standard protocol. COMPARISON: CT of the head from 09/20/2024. FINDINGS: No evidence of acute or chronic hemorrhage is identified. No evidence of acute cerebral infarction is seen. The ventricles are of normal size, shape, and morphology. No mass effect or midline shift is seen. Trace periventricular white matter FLAIR hyperintensity is a nonspecificfinding. No enhancing lesions are identified. The corpus callosum and sellaappear normal. The posterior fossa, brainstem, and craniocervical junctionappear normal. The visualized portions of the orbits, paranasal sinuses, and mastoids appear normal. Normal flow voids are demonstrated in the carotidarteries and basilar artery. The calvarium and visualized cervical spine appear normal. IMPRESSION: 1.No evidence of restricted diffusion to suggest an acute infarction. 2.No evidence of acute intracranial findings or abnormal enhancement. > Interpreting Provider: Shara Henry MD on 09/21/2024 5:05 PM Harry Monsivais MD MR ORDERABLES * CT HEAD WO CONTRAST ??? Intracranial hemorrhage (09/20/2024 5:50 PM AUT[employer]ATION MECHANIC) Anatomical Region Laterality Modality Head Computed Tomogra phy 09/20/2024 6:23 PM [employer]ATION MECHANIC Impressions 09/20/2024 7:37 PM [employer]ATION MECHANIC IMPRESSION: 1.No acute intracranial hemorrhage, midline shift, or significant mass effect. 2.Please note that CT is insensitive to nonhemorrhagic strokes and MRI of the brain should be considered, if there is clinical concern for acute cerebral infarction. > Dictated by Manas Sandoval DO (Case Management Associate), 09/20/2024 6:23 PM. Shara Mann MD have personally reviewed and interpreted this examination/study. > Interpreting Provider: Shara Henry MD on 09/20/2024 7:37 PM Narrative 09/20/2024 7:37 PM [employer] MECH[employer]IC PROCEDURE: CT HEAD WO CONTRAST, DATE/TIME OF EXAM: 09/20/2024 5:51 PM, LOCATION [facility] INDICATION: R07.9: Chest pain, unspecified type EXAMINATION: Computed tomography (CT) of the head without contrast ADDITIONAL CLINICAL INFORMATION: Ordering Provider Reason For Exam: dizziness TECHNIQUE: CT of the head was performed without contrast according to standard protocol. CT dose reduction technique was used, including Automated Exposure Control. COMPARISON: No prior study is available for comparison at the time of this dictation. FINDINGS: No acute intra- or extra-axial fluid collections are identified. Mild asymmetric enlargement of the right lateral ventricle. The basilar cisterns are patent. No mass effect or midline shift is seen. Physiologic calcification of the right basal ganglia. Nonspecific calcifications along the falx and tentorial leaflets. The gonsalves-white matter differentiation is normal. There is vascular calcification of the carotid siphons. No acute calvarial fracture is identified. The orbits appear normal. There is mild paranasal sinus disease. The mastoid air cells are clear. There are degenerative changes of the SI joints. No soft tissue abnormality is identified. Procedure Note Shara Henry MD - 09/20/2024 PROCEDURE: CT HEAD WO CONTRAST, DATE/TIME OF EXAM: 09/20/2024 5:51 PM, LOCATION [facility] INDICATION: R07.9: Chest pain, unspecified type EXAMINATION: Computed tomography (CT) of the head without contrast ADDITIONAL CLINICAL INFORMATION: Ordering Provider Reason For Exam: dizziness TECHNIQUE: CT of the head was performed without contrast according to standard protocol. CT dose reduction technique was used, including Automated Exposure Control. COMPARISON: No prior study is available for comparison at the time ofthis dictation. FINDINGS: No acute intra- or extra-axial fluid collections are identified. Mild asymmetric enlargement of the right lateral ventricle. The basilarcisterns are patent. No mass effect or midline shift is seen. Physiologic calcification of the right basal ganglia. Nonspecific calcificationsalong the falx and tentorial leaflets. The gonsalves-white matter differentiationis normal. There is vascular calcification of the carotid siphons. No acute calvarial fracture is identified. The orbits appear normal. There ismild paranasal sinus disease. The mastoid air cells are clear. There are degenerative changes of the SI joints. No soft tissue abnormality is identified. IMPRESSION: 1.No acute intracranial hemorrhage, midline shift, or significant mass effect. 2.Please note that CT is insensitive to nonhemorrhagic strokes and MRIof the brain should be considered, if there is clinical concern for acute cerebral infarction. > Dictated by Manas Sandoval DO (Case Management Associate), 09/20/2024 6:23PM. I, Shara Henry MD have personally reviewed and interpretedthis examination/study. > Interpreting Provider: Shara Henry MD on 09/20/2024 7:37 PM Taina Smallwood APRNLUZMARIA CT ORDERABLES * TROPONIN-I HIGH SENSITIVE BASELINE + 1HR (09/20/2024 5:38 PM [employer]ATION MECHANIC) Pathologist [facility] Troponin I High Sensitive <3 <=14 ng/L 09/20/2024 6:59 PM AUTOM[employer]ICE [employer]ATION MECHANIC [facility] Blood BLOOD SPECIMEN / Unknown Venipuncture / Unknown 09/20/2024 5:38 PM AUT[employer]ICE [employer]ATION MECHANIC 09/20/2024 6:07 PM AUTOM[employer]ATION MECHANIC Tania Smallwood APRNFORSYTH [facility] LAB - CONTINUOUS MINER RY ORDERABLES Performing Organization Address [facility]/State/[facility] Co de Phone Number [address] [address], [facility] [phone] * D-DIMER (09/20/2024 5:38 PM AUTOMOBILE SERVICE STATION MECHANIC) Pathologist [facility] D-Dimer Quantitative <0.27 <=0.50 mcg/mL FEU 09/20/2024 6:30 PM AUTOMO[employer]ICE STATION MECHANIC [facility] Comment: In the absence of clinical symptoms, a value less than or equal to 0.5 mcg/mL FEU significantly decreases the probability of PE/DVT (negative predictive value >95%). 1 mcg/mL FEU = 1 Fibrinogen Equivalent Unit (approximates 0.5 mcg/ml of D- Dimer). ISTH DIAGNOSTIC SCORING SYSTEM FOR DIC Score 0 1 2 3 Platelet Count(x10^3/uL) > 100 < 100 < 50 N/A PT Prolongation above upper limit of normal 0-3 3-6 > 6 N/A range (seconds) Fibrinogen (mg/dL) > 100 < 100 N/A N/A D-Dimer (mcg/mL FEU) < 0.50 N/A 0.50-5.0 > 5 Calculate Cumulative Score: > or = 5 :compatible with overt DIC < 5 :suggestive for non-overt DIC N/A = Non applicable Reference: Br. J. Haematol. 145:24-33,2009. Blood BLOOD SPECIMEN / Unknown Venipuncture / Unknown 09/20/2024 5:38 PM AUTOMO[employer]ICE STATION MECHANIC 09/20/2024 6:07 PM AUTOMOBILE [employer]ICE [employer]ATION MECHANIC Tania Lopez Cl MYRICK-INDUCTION MACHINE OPERATOR LAB - COAGULA TION ORDERABLES Performing Organization Address City/[facility]/ZIP Co de Phone Number [address] [phone], [facility] [phone] * SARS-COV-2 (COVID-19) FLU A/B RSV PCR RAPID (09/20/2024 5:36 PM AUTOMOBILE [employer]ICE [employer]ATION MECHANIC) COVID-19 PCR Not detected Not detected 09/20/19 6:44 PM AUTOMOBILE SERVICE STATION MECHANIC [facility] Influenza A PCR Not detected Not detected 09/20/2024 6:44 PM AUTOMOBILE [employer]ICE STATION MECHANIC [facility] Influenza B PCR Not detected Not detected 09/20/2024 6:44 PM [facility] RSV PCR Not detected Not detected 09/20/2024 6:44 PM [facility] Microbiology SPECIMEN FROM NASOPHARYNGEAL STRUCTURE / Unknown Collection / Unknown 09/20/2024 5:36 PM AUTOMOBILE SERVICE STATION MECHANIC 09/20/2024 5:59 PM AUTOMOBILE SERVICE STATION MECHANIC [facility] - 09/20/2024 6:44 PM AUTOMOBILE SERVICE STATION MECHANIC This nucleic acid amplification assay has been authorized by the Food and Drug administration (FDA) under an Emergency Use Authorization (EUA). This test is only authorized for the duration of time the declaration that circumstances exist justifying the authorization of emergency use of in vitro diagnostic tests for detection of SARS-CoV-2 virus and/or diagnosis of COVID-19 infection under section 564(b)(1) of the Act, 21 U.S.C 360bbb-3 (b)(1), unless the authorization is terminated or revoked sooner. Fact Sheets for this EUA assay are available upon request. Tania Lopez Cl BROWNN-INDUCTION MACHINE OPERATOR LAB - MICROBI OLOGY ORDERABLES Performing Organization Address City/[facility]/ZIP Co de Phone Number [address] [id number] [phone] * XR CHEST 2VW (09/20/2024 4:45 PM AUTOMOBILE SERVICE STATION MECHANIC) Anatomical Region Laterality Modality Chest Digital Radiogra phy 09/20/2024 5:49 PM AUTOMOBILE [employer]ICE STATION MECHANIC Narrative 09/21/2024 8:16 AM AUTOMOBILE [employer]ICE STATION MECHANIC PROCEDURE: XR CHEST 2VW, DATE/TIME OF EXAM: 09/20/2024 4:46 PM, LOCATION [facility] INDICATION: R07.9: Chest pain, unspecified type ADDITIONAL CLINICAL INFORMATION: Ordering Provider Reason For Exam: dizziness, chest pain COMPARISON: None. FINDINGS/IMPRESSION: Small left lower lobe infiltrate, which could represent pneumonia, versus atelectasis. Otherwise there is no focal consolidation, pleural effusion, or pneumothorax. The cardiomediastinal silhouette is normal. The bony thorax is intact. Cholecystectomy clips in the right upper quadrant of the abdomen > Dictated by Manas Sandoval DO (Case Management Associate), 09/20/2024 5:49 PM. Katelynn Mann MD have personally reviewed and interpreted this examination/study. > Interpreting Provider: Katelynn Thrasher MD on 09/21/2024 8:16 AM Procedure Note Katelynn Thrasher MD - 09/21/2024 PROCEDURE: XR CHEST 2VW, DATE/TIME OF EXAM: 09/20/2024 4:46 PM, LOCATION [facility] INDICATION: R07.9: Chest pain, unspecified type ADDITIONAL CLINICAL INFORMATION: Ordering Provider Reason For Exam: dizziness, chest pain COMPARISON: None. FINDINGS/IMPRESSION: Small left lower lobe infiltrate, which could represent pneumonia,versus atelectasis. Otherwise there is no focal consolidation, pleuraleffusion, or pneumothorax. The cardiomediastinal silhouette is normal. The bony thorax is intact. Cholecystectomy clips in the right upper quadrant of the abdomen > Dictated by Manas Sandoval DO (Case Management Associate), 09/20/2024 5:49 PM. Katelynn Mann MD have personally reviewed and interpreted this examination/study. > Interpreting Provider: Katelynn Thrasher MD on 09/21/2024 8:16 AM Tania Smallwood DISPUTE COORDINATOR-INDUCTION MACHINE OPERATOR DIAGNOSTIC IM AGING ORDERABLES * EKG 12-LEAD (09/20/2024 4:05 PM AUTOMOBILE [employer]ATION MECHANIC) Ventricular Rate 79 BPM [facility] MUSE Atrial Rate 79 BPM [facility] P-R Interval 160 ms [facility] QRS Duration ms 70 ms [facility] MUSE Q-T Interval ms 388 ms [facility] QTC Calculation (Bezet) 444 ms [facility] MUSE Calculated P [place] 32 degrees SL MUSE Calculated [place] -23 degrees [facility] MUSE Calculated [place] 5 degrees [facility] M[facility] Interpretation EKG NORMAL SINUS RHYTHM LOW VOLTAGE QRS CANNOT RULE OUT ANTERIOR INFARCT , AGE UNDETERMINED ABNORMAL ECG NO PREVIOUS ECGS AVAILABLE Confirmed by MONA MENDIOLA MD ([id number]) on 09/25/2024 8:53:41 PM [facility] MUSE 09/20/2024 4:05 PM [employer]ATION MECHANIC 09/25/2024 8:53 PM AUTOMOBILE [employer]ICE STATION MECHANIC Remigio Kaur MD ECG ORDERABLES [facility] * (ABNORMAL) LIPID PROFILE (08/17/2024 3:57 PM AUTOMOBILE [employer]ICE STATION MECHANIC) Cholesterol Total 273(H) <200 mg/dL 08/17/2024 5:03 PM [facility] HDL 78 >40 mg/dL 08/17/2024 5:03 PM [facility] Comment: ATP III Classification of HDL Cholesterol: <40 mg/dL: Considered a major risk factor. >60 mg/dL: Considered a negative risk factor. LDL Calculated 162(H) <100 mg/dL 08/17/2024 5:03 PM [facility] Comment: ATP III Classification of LDL Cholesterol: <100 mg/dL: Optimal 100 - 129 mg/dL: Near Optimal/Above Optimal 130 - 159 mg/dL: Borderline High 160 - 189 mg/dL: High >190 mg/dL: Very High Triglycerides 166(H) <150 mg/dL 08/17/2024 5:03 PM [facility] Comment: ATP III Classification of Triglycerides: <150 mg/dL: Normal 150 - 199 mg/dL: Borderline High 200 - 400 mg/dL: High >500 mg/dL: Very High Blood BLOOD SPECIMEN / Unknown Lab Venipuncture / Unknown 08/17/2024 3:57 PM [employer]ATION MECHANIC 08/17/2024 4:33 PM [employer]ICE [employer]ATION MECHANIC Ordering Provider Unlisted LAB - CHEM ISTRY ORDERABLES Performing Organization Address City/[facility]/ZIP Co de Phone Number [address] [address], [facility] [phone] * POTASSIUM URINE RANDOM (08/01/2024 2:03 PM AUTOMOBILE SERVICE STATION MECHANIC) Potassium Urine 17.3 Not Established mmol/L 08/01/2024 2:55 PM AUTOMOBILE SERVICE STATION MECHANIC [facility] Urine URINE SPECIMEN OBTAINED BY CLEAN CATCH PROCEDURE / Unknown Collection / Unknown 08/01/2024 2:03 PM AUTOMOBILE SERVICE STATION MECHANIC 08/01/2024 2:23 PM AUTOMOBILE SERVICE STATION MECHANIC Kelechi Herrera MD LAB - URINE CHEM ISTRY ORDERABLES Performing Organization Address [facility]/ZIP Co de Phone Number [address] [address], [facility] [phone] * MAGNESIUM BLOOD (07/20/2024 8:29 AM AUTOMOBILE SERVICE STATION MECHANIC) Magnesium 1.9 1.6 - 2.6 mg/dL 07/20/2024 9:51 AM AUTOMOBILE SERVICE STATION MECHANIC [facility] Blood BLOOD SPECIMEN / Unknown Lab Venipuncture / Unknown 07/20/2024 8:29 AM AUTOMOBILE SERVICE STATION MECHANIC 07/20/2024 9:24 AM AUTOMOBILE SERVICE STATION MECHANIC Kelechi Herrera MD LAB - CHEMISTRY ORDERABLES Performing Organization Address City/[facility]/ZIP Co de Phone Number [address] [phone], [facility] [phone] * BILIRUBIN DIRECT (07/20/2024 8:29 AM AUTOMOBILE SERVICE STATION MECHANIC) Only the most recent of3 resultswithin the time period is included. Bilirubin Conjugated 0.2 0.1 - 0.5 mg/dL 07/20/2024 9:51 AM AUTOMOBILE SERVICE STATION MECHANIC [facility] Blood BLOOD SPECIMEN / Unknown Lab Venipuncture / Unknown 07/20/2024 8:29 AM AUTOMOBILE SERVICE STATION MECHANIC 07/20/2024 9:24 AM AUTOMOBILE SERVICE STATION MECHANIC Mohan Rojas MD LAB - CHEMISTRY [facility] Organization Address City/State/ZIP Co de Phone Number [facility] [address] [place] [address], [facility] [phone] * ECHO COMPLETE (07/11/2024 11:54 AM AUTOMOBILE SERVICE STATION MECHANIC) IVSd 2D 0.901 cm SSM CV FUJ I PACS LVIDd 3.964 cm SSM CV FUJ I PACS LVIDs 2.531 cm SSM CV FUJ I PACS LVOT diam 1.975 cm SSM CV FUJ I PACS LVPWd 1 cm SSM CV FUJ I PACS LV biplane EF 62.561 % SSM CV FUJI PACS LV A2C EF 65.437 % SSM CV FUJ I PACS LV A4C EF 58.743 % SSM CV FUJ I PACS LV EDV A2C 58.326 ml SSM CV FU JI PACS LV EDV A4C 66.499 ml SSM CV FU JI PACS LV ESV A2C 20.159 ml SSM CV FU JI PACS LV ESV A4C 27.435 ml SSM CV FU JI PACS LVOT pk carlyle 119.414 cm/s SSM CV F UJI PACS LVOT VTI 21.662 cm SSM CV FUJ I PACS RVIDd 2.884 cm SSM CV FUJ I PACS RVOT diam Doppler 1.962 cm SSM CV FUJI PACS RVOT pk carlyle 56.675 cm/s SSM CV F UJI PACS RVOT VTI 10.808 cm SSM CV FUJ I PACS LA size 3.309 cm SSM CV FUJ I PACS LA vol BP 30.5 ml SSM CV FUJ I PACS RA area 11.75 cm SSM CV FUJI PACS AV mn grad 3.894 mmHg SSM CV FU JI PACS AV pk carlyle 138.163 cm/s SSM CV FUJ I PACS AV VTI 23.476 cm SSM CV FUJ I PACS MV A pk carlyle 57.89 cm/s SSM CV F UJI PACS MV E pk carllye 72.934 cm/s SSM CV F UJI PACS MV E' lateral carlyle 13.874 cm/s SSM CV FUJI PACS MV mn grad 1.858 mmHg SSM CV FU JI PACS MV VTI 22.129 cm SSM CV FUJ I PACS PV pk carlyle 107.45 cm/s SSM CV FUJ I PACS PV VTI 18.055 cm SSM CV FUJ I PACS TAPSE 2.162 cm SSM CV FUJ I PACS Ascending aorta 2.552 cm SSM CV FUJI PACS IVC Diam Expiration 1.579 cm SSM CV FUJI PACS LA vol index 0.017 l/m SSM CV FUJI PACS Myocardial strain charge 2 unitless SSM CV FUJI PACS Anatomical Region Laterality Modality Ultrasound 07/11/2024 12:2 0 PM [employer]LE [employer]ICE [employer]ATION MECHANIC Narrative 07/11/2024 1:43 PM [employer]ICE [employer]ATION MECHANIC Summary * The left ventricle is normal in size, with normal systolic function and an estimated ejection fraction of 63 % by biplane method of disks. Left ventricular wall motion is normal. * The left ventricular mass is normal with concentric remodeling. * The left ventricular diastolic function is normal. * Right ventricle is at the upper limits of normal in size with normal systolic function. * No hemodynamically significant valve disease. Patient Info Name: Azra Little Age: 48 years : 1975 Gender: Female Ht: 64 in Wt: 152 lb BSA: 1.78 m2 HR: 83 bpm BP: 119 / 75 mmHg Exam Date: 07/11/2024 12:20 PM Patient Status: O/P Study Site: [facility] Primary Location: [facility] Info Technical Quality: Adequate Exam Type: ECHO COMPLETE Indications Please refer to EHR for Exam Diagnosis Codes - Procedure(s) * A complete 2D, color Doppler, spectral Doppler, and M-Mode transthoracic echocardiogram was performed. Staff Referring Physician: Kelechi Herrera Ordering Provider: Kelechi Herrera Attending Physician: Kelechi Herrera On Air Host: Silver Schuler Left Ventricle The left ventricle is normal in size. Left ventricular systolic function is normal with an estimated ejection fraction of 63 % by biplane method of disks. The left ventricular mass is normal with concentric remodeling. Left ventricular segmental wall motion is normal. The left ventricular diastolic function is normal. Right Ventricle The right ventricle is at the upper limits of normal in size. Right ventricular systolic function is normal. Left Atrium The left atrium is normal in size with a left atrial volume index of 17 ml/m2 by BP MOD. Right Atrium The right atrium is normal in size. Atrial Septum Intact interatrial septum visualized by 2D and color Doppler imaging. Aortic Valve The aortic valve is trileaflet. There is no aortic valve stenosis. There is no significant aortic valve regurgitation. Pulmonic Valve The pulmonic valve is grossly normal. There is no pulmonic valve stenosis. There is trace pulmonic regurgitation. Mitral Valve The mitral valve is normal. There is no mitral valve stenosis. There is no significant mitral valve regurgitation. Tricuspid Valve The tricuspid valve is normal. There is no significant tricuspid valve regurgitation. Unable to assess pulmonary pressures due to a lack of tricuspid and pulmonic regurgitation. Inferior Vena Cava The inferior vena cava is normal in size (< 2.1 cm). Pericardium/Pleural There is no pericardial effusion. Aorta The aortic root at the sinus of Valsalva is normal in size. The ascending aorta is normal in size. Measurements Left Ventricular Outflow Tract Name Value Normal LVOT 2D LVOT Diameter 2.0 cm LVOT Area 3.1 cm2 LVOT Doppler LVOT Peak Velocity 1.2 m/s LVOT Peak Gradient 6 mmHg LVOT Mean Velocity 74.89 cm/s LVOT Mean Gradient 3 mmHg LVOT VTI 21.7 cm LVOT VTI/AV VTI Ratio 0.9 LVOT Stroke Volume 66 ml LVOT Stroke Volume Index 37 ml/m2 35-58 LVOT CO 5.5 l/min LVOT CI 3.1 l/min/m2 Pulmonic Valve Name Value Normal PV 2D RVOT Diameter (2D) 2.0 cm 1.7-2.7 RVOT Doppler RVOT Peak Velocity 0.6 m/s RVOT Peak Gradient 1 mmHg RVOT Mean Gradient 1 mmHg PV Doppler PV Peak Velocity 1.1 m/s PV Peak Gradient 5 mmHg PV Mean Gradient 2 mmHg PV Area (Cont Eq VTI) 1.81 cm2 PV Area Index (Cont Eq VTI) 1.02 cm2/m2 PV Area (Cont Eq Carlyle) 1.6 cm2 PV Area Index (Cont Eq Carllye) 0.90 cm2/m2 Mitral Valve Name Value Normal MV Doppler MV Peak Gradient 3 mmHg MV Mean Gradient 2 mmHg MV DI (VTI) 1.02 MV PHT 85 ms MV Area (PHT) 2.59 cm2 4.00-5.00 MV Area (Cont Eq VTI) 3.00 cm2 MV Diastolic Function MV E Peak Velocity 0.7 m/sec MV A Peak Velocity 0.6 m/sec MV E/A 1.3 MV Decel Time (PW) 227 ms MV Annular TDI MV Septal e' Velocity 8 cm/s >=8 MV E/e' (Septal) 9 <=8 MV Lateral e' Velocity 14 cm/s >=10 MV E/e' (Lateral) 5 <=8 MV e' Average 11 cm/s MV E/e' (Average) 7 Tricuspid Valve Name Value Normal TV Annular TDI TV Lateral Shanell s' Velocity 13 cm/s 10-19 Pulmonary Vessels Name Value Normal Pulmonary Veins Pulm Vein Peak Systolic Velocity 64.0 cm/s Pulm Vein Peak Diastolic Velocity 45.5 cm/s Pulm Vein S/D Velocity Ratio 1 Pulm Vein Ar Velocity 26.7 cm/s Aorta Name Value Normal Ascending Aorta Asc Ao Diameter 2.6 cm 1.9-3.5 Asc Ao Diameter Index 1.4 cm/m2 1.0-2.2 Septae/Shunt/Generic Name Value Normal Qp/Qs Qp/Qs 0.5 Venous Name Value Normal IVC/SVC IVC Diameter 1.6 cm <=2.1 Aortic Valve Name Value Normal AV Doppler AV Peak Velocity 1.38 m/s AV Peak Gradient 8 mmHg AV Mean Gradient 4 mmHg AV VTI 23 cm AV Area (Cont Eq VTI) 2.83 cm2 >=2.00 AV Area (Cont Eq Carlyle) 2.65 cm2 AV DI (VTI) 0.92 AV DI (Carlyle) 0.86 AV Regurgitation 2D LVOT Area 3.06 cm2 Ventricles Name Value Normal LV Dimensions 2D/MM IVS Diastolic Thickness (2D) 0.9 cm 0.6-0.9 LVID Diastole (2D) 4.0 cm 3.8-5.2 LVPW Diastolic Thickness (2D) 1.0 cm 0.6-0.9 IVS Systolic Thickness (2D) 1.2 cm LVID Systole (2D) 2.5 cm 2.2-3.5 LVPW Systolic Thickness (2D) 1.5 cm LV Mass (2D Cubed) 108 g 67-162 LV Mass Index (2D Cubed) 61 g/m2 43-95 Relative Wall Thickness (2D) 0.50 <=0.42 LV Fractional Shortening/Ejection Fraction 2D/MM LV Fractional Shortening (2D) 36 % 27-45 LV EF (2D Teicholz) 66 % 54-74 LV Diastolic Volume (4C MOD) 66 ml LV EF (4C MOD) 59 % LV Diastolic Volume (2C MOD) 58 ml LV EF (2C MOD) 65 % LV Diastolic Volume (BP MOD) 63 ml 46-106 LV Diastolic Volume Index (BP MOD) 35 ml/m2 29-61 LV Systolic Volume (BP MOD) 24 ml 14-42 LV Systolic Volume Index (BP MOD) 13 ml/m2 8-24 LV EF (BP MOD) 63 % 54-74 LV Diastolic Length (4C) 7.4 cm LV Systolic Length (4C) 5.9 cm LV Stroke Volume (4C MOD) 39 ml RV Dimensions 2D/MM RVID Diastole (2D) 2.9 cm 2.5-3.5 RVID Systole (2D) 2.3 cm TAPSE 2.2 cm >=1.7 Atria Name Value Normal LA Dimensions LA Dimension (2D) 3.3 cm 2.7-3.8 LA Dimen Index (2D) 1.9 cm/m2 LA Volume (BP MOD) 31 ml LA Volume Index (BP MOD) 17 ml/m2 16-34 RA Dimensions RA Area (4C) 12 cm2 <=18 RA Area (4C) Index 7 cm2/m2 Report Signatures Finalized by Jair Rashid on 07/11/2024 01:43 PM Procedure Note Jair Rashid MD - 07/11/2024 Summary * The left ventricle is normal in size, with normal systolic functionand an estimated ejection fraction of 63 % by biplane method of disks. Left ventricular wall motion is normal. * The left ventricular mass is normal with concentric remodeling. * The left ventricular diastolic function is normal. * Right ventricle is at the upper limits of normal in size with normal systolic function. * No hemodynamically significant valve disease. Patient Info Name: Azra Little Age: 48 years : 1975 Gender: Female Ht: 64 in Wt: 152 lb BSA: 1.78 m2 HR: 83 bpm BP: 119 / 75 mmHg Exam Date: 07/11/2024 12:20 PM Patient Status: O/P Study Site: [facility] Primary Location: [facility] Info Technical Quality: Adequate Exam Type: ECHO COMPLETE Indications Please refer to EHR for Exam Diagnosis Codes - Procedure(s) * A complete 2D, color Doppler, spectral Doppler, and M-Modetransthoracic echocardiogram was performed. Staff Referring Physician: Kelechi Herrera Ordering Provider: Kelechi Herrera Attending Physician: Kelechi Herrera On Air Host: Silver Schuler Left Ventricle The left ventricle is normal in size. Left ventricular systolic functionis normal with an estimated ejection fraction of 63 % by biplane method ofdisks. The left ventricular mass is normal with concentric remodeling. Left ventricular segmental wall motion is normal. The left ventriculardiastolic function is normal. Right Ventricle The right ventricle is at the upper limits of normal in size. Right ventricular systolic function is normal. Left Atrium The left atrium is normal in size with a left atrial volume index of17 ml/m2 by BP MOD. Right Atrium The right atrium is normal in size. Atrial Septum Intact interatrial septum visualized by 2D and color Doppler imaging. Aortic Valve The aortic valve is trileaflet. There is no aortic valve stenosis. Thereis no significant aortic valve regurgitation. Pulmonic Valve The pulmonic valve is grossly normal. There is no pulmonic valvestenosis. There is trace pulmonic regurgitation. Mitral Valve The mitral valve is normal. There is no mitral valve stenosis. There isno significant mitral valve regurgitation. Tricuspid Valve The tricuspid valve is normal. There is no significant tricuspid valve regurgitation. Unable to assess pulmonary pressures due to a lack oftricuspid and pulmonic regurgitation. Inferior Vena Cava The inferior vena cava is normal in size (< 2.1 cm). Pericardium/Pleural There is no pericardial effusion. Aorta The aortic root at the sinus of Valsalva is normal in size. Theascending aorta is normal in size. Measurements Left Ventricular Outflow Tract Name Value Normal LVOT 2D LVOT Diameter 2.0 cm LVOT Area 3.1 cm2 LVOT Doppler LVOT Peak Velocity 1.2 m/s LVOT Peak Gradient 6 mmHg LVOT Mean Velocity 74.89 cm/s LVOT Mean Gradient 3 mmHg LVOT VTI 21.7 cm LVOT VTI/AV VTI Ratio 0.9 LVOT Stroke Volume 66 ml LVOT Stroke Volume Index 37 ml/m2 35-58 LVOT CO 5.5 l/min LVOT CI 3.1 l/min/m2 Pulmonic Valve Name Value Normal PV 2D RVOT Diameter (2D) 2.0 cm 1.7-2.7 RVOT Doppler RVOT Peak Velocity 0.6 m/s RVOT Peak Gradient 1 mmHg RVOT Mean Gradient 1 mmHg PV Doppler PV Peak Velocity 1.1 m/s PV Peak Gradient 5 mmHg PV Mean Gradient 2 mmHg PV Area (Cont Eq VTI) 1.81 cm2 PV Area Index (Cont Eq VTI) 1.02 cm2/m2 PV Area (Cont Eq Carlyle) 1.6 cm2 PV Area Index (Cont Eq Carlyle) 0.90 cm2/m2 Mitral Valve Name Value Normal MV Doppler MV Peak Gradient 3 mmHg MV Mean Gradient 2 mmHg MV DI (VTI) 1.02 MV PHT 85 ms MV Area (PHT) 2.59 cm2 4.00-5.00 MV Area (Cont Eq VTI) 3.00 cm2 MV Diastolic Function MV E Peak Velocity 0.7 m/sec MV A Peak Velocity 0.6 m/sec MV E/A 1.3 MV Decel Time (PW) 227 ms MV Annular TDI MV Septal e' Velocity 8 cm/s >=8 MV E/e' (Septal) 9 <=8 MV Lateral e' Velocity 14 cm/s >=10 MV E/e' (Lateral) 5 <=8 MV e' Average 11 cm/s MV E/e' (Average) 7 Tricuspid Valve Name Value Normal TV Annular TDI TV Lateral Shanell s' Velocity 13 cm/s 10-19 Pulmonary Vessels Name Value Normal Pulmonary Veins Pulm Vein Peak Systolic Velocity 64.0 cm/s Pulm Vein Peak Diastolic Velocity 45.5 cm/s Pulm Vein S/D Velocity Ratio 1 Pulm Vein Ar Velocity 26.7 cm/s Aorta Name Value Normal Ascending Aorta Asc Ao Diameter 2.6 cm 1.9-3.5 Asc Ao Diameter Index 1.4 cm/m2 1.0-2.2 Septae/Shunt/Generic Name Value Normal Qp/Qs Qp/Qs 0.5 Venous Name Value Normal IVC/SVC IVC Diameter 1.6 cm <=2.1 Aortic Valve Name Value Normal AV Doppler AV Peak Velocity 1.38 m/s AV Peak Gradient 8 mmHg AV Mean Gradient 4 mmHg AV VTI 23 cm AV Area (Cont Eq VTI) 2.83 cm2 >=2.00 AV Area (Cont Eq Carlyle) 2.65 cm2 AV DI (VTI) 0.92 AV DI (Carlyle) 0.86 AV Regurgitation 2D LVOT Area 3.06 cm2 Ventricles Name Value Normal LV Dimensions 2D/MM IVS Diastolic Thickness (2D) 0.9 cm 0.6-0.9 LVID Diastole (2D) 4.0 cm 3.8-5.2 LVPW Diastolic Thickness (2D) 1.0 cm 0.6-0.9 IVS Systolic Thickness (2D) 1.2 cm LVID Systole (2D) 2.5 cm 2.2-3.5 LVPW Systolic Thickness (2D) 1.5 cm LV Mass (2D Cubed) 108 g 67-162 LV Mass Index (2D Cubed) 61 g/m2 43-95 Relative Wall Thickness (2D) 0.50 <=0.42 LV Fractional Shortening/Ejection Fraction 2D/MM LV Fractional Shortening (2D) 36 % 27-45 LV EF (2D Teicholz) 66 % 54-74 LV Diastolic Volume (4C MOD) 66 ml LV EF (4C MOD) 59 % LV Diastolic Volume (2C MOD) 58 ml LV EF (2C MOD) 65 % LV Diastolic Volume (BP MOD) 63 ml 46-106 LV Diastolic Volume Index (BP MOD) 35 ml/m2 29-61 LV Systolic Volume (BP MOD) 24 ml 14-42 LV Systolic Volume Index (BP MOD) 13 ml/m2 8-24 LV EF (BP MOD) 63 % 54-74 LV Diastolic Length (4C) 7.4 cm LV Systolic Length (4C) 5.9 cm LV Stroke Volume (4C MOD) 39 ml RV Dimensions 2D/MM RVID Diastole (2D) 2.9 cm 2.5-3.5 RVID Systole (2D) 2.3 cm TAPSE 2.2 cm >=1.7 Atria Name Value Normal LA Dimensions LA Dimension (2D) 3.3 cm 2.7-3.8 LA Dimen Index (2D) 1.9 cm/m2 LA Volume (BP MOD) 31 ml LA Volume Index (BP MOD) 17 ml/m2 16-34 RA Dimensions RA Area (4C) 12 cm2 <=18 RA Area (4C) Index 7 cm2/m2 Report Signatures Finalized by Jair Rashid on 07/11/2024 01:43 PM Kelechi Herrera MD ECHO CUPID * AMBULATORY OXIMETRY (07/11/2024 8:12 AM AUTOMOBILE [employer]ATION MECHANIC) [facility] 07/11/2024 8:12 AM AUTOMOBILE SERVICE STATION MECHANIC [facility] DEPARTMENT OF PULMONARY, CRITICAL CARE, AND SLEEP MEDICINE OXYGEN TITRATION STUDY Azra Little 07/14/2024 INTERPRETATION The test was performed on the treadmill at a speed of 1 mph at room air. The patient was able to complete 4 minutes with lowest SpO2 of 98%. Then the treadmill speed was increased to 2 mph, and oxygen saturation remained above 98 throughout the test. IMPRESSION 1. At the above level of activity the patient's oxygen saturation remained 98 % and above on room air. Manny Marques MD Pulmonary Diseases & Critical Care Fellow Division of Pulmonary, Critical Care and Sleep Medicine [facility] I have reviewed the above study and agree with the interpretation as listed above. Mohan Rojas MD Director Business Travel of Pulmonary & Critical Care Medicine [facility] Pager [phone] Narrative [facility] - 07/11/2024 8:12 AM [employer] MECHANIC Manny Bryant MD 07/14/2024 10:21 AM Mohan Rojas MD RESPIRATORY THERAPY ORDERABLES Performing Organization Address City/State/[facility] Co de Phone Number [facility] [address] [place] [address], [facility] * Complete PFT [facility] P[facility] Lab (07/11/2024 8:12 AM AUTOMOBI[employer] SERVICE [employer]ATION MECHANIC) [facility] - 07/11/2024 8:12 AM AUTOMOBILE SERVICE STATION MECHANIC [facility] DEPARTMENT OF PULMONARY, CRITICAL CARE, AND SLEEP MEDICINE PULMONARY FUNCTION TEST Please see technologist's comments mentioned in the report. INTERPRETATION: SPIROMETRY: FVC: mildly decreased (Z score -2.38). FEV1: mildly decreased (Z score - 2.03). FEV1/FVC ratio is decreased. BRONCHODILATOR RESPONSE: There is no significant response to bronchodilator therapy, however this does not mean the patient would not benefit from bronchodilator therapy. FLOW-VOLUME LOOPS: Inspection of the flow-volume loops shows normal flow-volume loops. LUNG VOLUMES: Lung volumes by body plethysmography show moderately decreased TLC (Z score - 2.81) and normal residual volume DIFFUSION CAPACITY DLCO: Unadjusted for Hb and COHb is severely decreased (Z score - 5.71). IMPRESSION: 1. Mild restrictive ventilatory limitation. 2. There is severely decreased uncorrected DLCO. 3. No significant bronchodilator response, however this does not preclude the use of bronchodilators. 4. Compared with previous study on 04/12/2024, FEV1 increased 240 ml, FVC, TLC, and DLCO all with no significant changes. Manny Marques MD Pulmonary Disease & Critical Care Fellow Division of Pulmonary, Critical Care and Sleep Medicine [facility] I have reviewed the above study and agree with the interpretation as listed above. Mohan Rojas MD Director Business Travel of Pulmonary & Critical Care Medicine [facility] Pager [phone] Narrative [facility] - 07/11/2024 8:12 AM [employer] MECHANIC Manny Bryant MD 07/14/2024 10:21 AM Kelechi Herrera MD RESPIRATORY THER APY ORDERABLES [facility] [address] [place] [address] * FL ESOPHAGRAM (04/25/2024 10:00 AM CDT) Anatomical Region Laterality Modality Chest Radiographic Keke ging 04/25/2024 11:1 2 AM CDT Impressions 04/25/2024 12:23 PM CDT IMPRESSION: Decreased esophageal motility with delayed esophageal emptying. Prominent folds in the distal esophagus suggesting inflammation. > Interpreting Provider: Melissa Lynn MD on 04/25/2024 12:23 PM Narrative 04/25/2024 12:23 PM CDT PROCEDURE: FL ESOPHAGRAM DATE/TIME OF EXAM: 04/25/2024 9:15 AM CLINICAL INFORMATION: None relevant/not provided if blank. 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 COMPARISON: None. TECHNIQUE: Single and double contrast technique with fluoroscopic imaging FLUOROSCOPY DOSE: 44.3 mGy Reference air kerma (ka,r). FINDINGS: Swallowing is normal. There is no aspiration. Esophageal contour and caliber are normal. Prominent folds are seen in the distal esophagus that may indicate inflammation. No esophageal mass, ulcer, or stricture is seen. The patient swallowed a 13 mm barium tablet which advanced to the stomach without delay. Motility is decreased with delayed clearance of contrast from the esophagus. The primary peristaltic wave is interrupted in the mid esophagus and retrograde flow is noted. There is no hiatal hernia. No gastroesophageal reflux is observed with or without provocative maneuvers. Limited imaging of the stomach and duodenum is unremarkable. Procedure Note Melissa Lynn MD - 04/25/2024 PROCEDURE: FL ESOPHAGRAM DATE/TIME OF EXAM: 04/25/2024 9:15 AM CLINICAL INFORMATION: None relevant/not provided if blank. 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 COMPARISON: None. TECHNIQUE: Single and double contrast technique with fluoroscopic imaging FLUOROSCOPY DOSE: 44.3 mGy Reference air kerma (ka,r). FINDINGS: Swallowing is normal. There is no aspiration. Esophageal contour and caliber are normal. Prominent folds are seen in the distal esophagusthat may indicate inflammation. No esophageal mass, ulcer, or stricture isseen. The patient swallowed a 13 mm barium tablet which advanced to thestomach without delay. Motility is decreased with delayed clearance of contrast from the esophagus. The primary peristaltic wave is interrupted in themid esophagus and retrograde flow is noted. There is no hiatal hernia. No gastroesophageal reflux is observed with or without provocativemaneuvers. Limited imaging of the stomach and duodenum is unremarkable. IMPRESSION: Decreased esophageal motility with delayed esophageal emptying. Prominent folds in the distal esophagus suggesting inflammation. > Interpreting Provider: Melissa Lynn MD on 04/25/2024 12:23 PM Kelechi Herrera MD FLUOROSCOPY ALMAZ GEORGE * COMPLETE PFT W/WO BRONCHODILATOR (04/12/2024 1:24 PM CDT) Impressions Roque, Rania, MD - 04/12/2024 1:[address] [facility] DEPARTMENT OF PULMONARY, CRITICAL CARE, AND SLEEP MEDICINE PULMONARY FUNCTION TEST Please see technologist's comments mentioned in the report. INTERPRETATION: SPIROMETRY: FVC: decreased. FEV1: decreased. FEV1/FVC ratio is decreased. BRONCHODILATOR RESPONSE: There is no significant response to bronchodilator therapy, however this does not mean the patient would not benefit from bronchodilator therapy. FLOW-VOLUME LOOPS: Inspection of the flow-volume loops shows small flow volume loop. LUNG VOLUMES: Lung volumes by body plethysmography show decreased TLC and normal residual volume. DIFFUSION CAPACITY DLCO: Unadjusted for Hb and COHb is decreased. DLCO: Corrected for Hb and COHb not performed. AIRWAY RESISTANCE The airway resistance is normal and the specific conductance is normal. ARTERIAL BLOOD GAS ANALYSIS: Not performed. IMPRESSION: 1. Mixed moderate obstructive and restrictive ventilatory limitation 2. There is severely decreased uncorrected DLCO. 3. No significant bronchodilator response, however this does not preclude the use of bronchodilators. 4. There is no previous study available for comparison. Jorge Bhagat MD Pulmonary & Critical Care Fellow Division of Pulmonary, Critical Care, and Sleep Medicine [facility] I have personally reviewed the fellow's interpretation of the test and made any necessary changes when needed. Jaquelin Nevarez MD Director Business Travelresource specialist Division of Pulmonary, Critical Care and Sleep Medicine [facility] Pager: [phone] Narrative Jaquelin Nevarez MD - 04/12/2024 1:24 PM CDT Jorge Grant MD 04/12/2024 1:32 PM Procedure Note Jorge Grant MD - 04/12/2024 1:24 PM CDT Images from the original note were not included. Mohan Rojas MD RESPIRATORY THERAPY ORDERABLES * Six Minute Walk Test [facility] PFT Lab (04/12/2024 11:47 AM CDT) Jaquelin Mello MD - 04/12/2024 11:[address] [facility] DEPARTMENT OF PULMONARY, CRITICAL CARE, AND SLEEP MEDICINE SIX MINUTE WALK TEST Azra Little 04/12/2024 Interpretation: The patient walked for 6 minutes on 4 L/min and covered total distance of 238 meters. On the Nader scale at baseline, reported dyspnea was 1 and fatigue was 3. At the end of the study, the Nader reported dyspnea was 3 and fatigue was 3. There were some tingling sensations in her feet reported, and oxygen saturation remained at 100% throughout the test. IMPRESSION: 1. Total 6 minute walk distance is 238 meters, which is below the lower limit of normal of 455 meters for this patient. 2. There is no available study for comparison. Jorge Bhagat MD Pulmonary & Critical Care Fellow Division of Pulmonary, Critical Care, and Sleep Medicine [facility] I have personally reviewed the fellow's interpretation of the test and made any necessary changes when needed. Jaquelin Nevarez MD Director Business Travelresource specialist Division of Pulmonary, Critical Care and Sleep Medicine [facility] Pager: [phone] Narrative Jaquelin Nevarez MD - 04/12/2024 11:47 AM CDT Jorge Grant MD 04/12/2024 1:32 PM Procedure Note Jorge Grant MD - 04/12/2024 11:47 AM CDT Images from the original note were not included. Mohan Rojas MD RESPIRATORY THERAPY ORDERABLES * CT CHEST WO CONT AND HIRES (03/21/2024 3:08 PM CDT) Anatomical Region Laterality Modality Chest Computed Tomogra phy 03/21/2024 8:59 PM CDT Impressions 03/21/2024 9:04 PM CDT Impression: 1.Reticulations, ground glass opacities and bronchiectasis predominantly involving both lower lobes and more along the periphery representing interstitial lung disease likely NSIP pattern related to the patient's known history of scleroderma. 2.Otherwise no acute process in the chest. > Interpreting Provider: Nik Jennings on 03/21/2024 9:04 PM Narrative 03/21/2024 9:04 PM CDT PROCEDURE: CT CHEST WO CONT AND HIRES, DATE/TIME OF EXAM: 03/21/2024 3:09 PM, LOCATION [facility] INDICATION: J84.9: ILD (interstitial lung disease) (HCC) M34.9: Scleroderma (HCC) ADDITIONAL CLINICAL INFORMATION: Ordering Provider Reason For Exam: Technologist Note: Additional: COMPARISON: None. TECHNIQUE: CT of the chest was performed without contrast according to standard protocol. Then, utilizing a high-resolution algorithm, 1 mm noncontiguous axial images of the chest were obtained in inspiration and expiration. Findings: Evaluation of visceral and vascular structures is degraded due to lack of intravenous contrast administration. Lower Neck and Axillae: Normal. Lungs: Reticulations, ground glass opacities with associated mild bronchiectasis predominantly involving both lower lobes and more along the periphery. No architectural distortion or honeycombing is visible. No air trapping is seen on expiratory images. No pleural fluid or pneumothorax is present. No focal consolidative changes. Heart and Pericardium: The cardiac chambers are normal in size. No pericardial fluid or thickening is present. Mediastinum and Aissatou: No enlarged lymph nodes are present. Thoracic Vasculature: No vascular abnormality is present. Bones and Chest Wall: Bone windows demonstrate no suspicious lytic or blastic lesions. The visible osseous structures are intact. Upper Abdomen: Status post cholecystectomy. Otherwise remaining visible portions of the upper abdominal organs are normal. Procedure Note Nik Jennings MD - 03/21/2024 PROCEDURE: CT CHEST CANDICE LEYVA ELSIE VALERA, DATE/TIME OF EXAM: 43:09 PM, LOCATION [facility] INDICATION: J84.9: ILD (interstitial lung disease) (HCC) M34.9: Scleroderma (HCC) ADDITIONAL CLINICAL INFORMATION: Ordering Provider Reason For Exam: Technologist Note: Additional: COMPARISON: None. TECHNIQUE: CT of the chest was performed without contrast according to standard protocol. Then, utilizing a high-resolution algorithm, 1 mm noncontiguous axial images of the chest were obtained in inspiration and expiration. Findings: Evaluation of visceral and vascular structures is degraded due to lackof intravenous contrast administration. Lower Neck and Axillae: Normal. Lungs: Reticulations, ground glass opacities with associated mildbronchiectasis predominantly involving both lower lobes and more along the periphery.No architectural distortion or honeycombing is visible. No air trapping is seen on expiratory images. No pleural fluid or pneumothorax is present.No focal consolidative changes. Heart and Pericardium: The cardiac chambers are normal in size. No pericardial fluid orthickening is present. Mediastinum and Aissatou: No enlarged lymph nodes are present. Thoracic Vasculature: No vascular abnormality is present. Bones and Chest Wall: Bone windows demonstrate no suspicious lytic or blastic lesions. The visible osseous structures are intact. Upper Abdomen: Status post cholecystectomy. Otherwise remaining visible portions ofthe upper abdominal organs are normal. Impression: 1.Reticulations, ground glass opacities and bronchiectasis predominantly involving both lower lobes and more along the periphery representing interstitial lung disease likely NSIP pattern related to the patient's known history of scleroderma. 2.Otherwise no acute process in the chest. > Interpreting Provider: Nik Jennings on 03/21/2024 9:04 PM Mohan Rojas MD CT ORDERABLES * URINALYSIS W/MICROSCOPIC REFLEX TO CULTURE (02/24/2024 3:26 PM CDT) Color UA Straw Straw, Yellow 02/24/2024 4:09 PM [facility] Clarity UA Clear Clear 02/24/2024 4:09 PM [facility] Specific [place] UA 1.009 1.005 - 1.030 02/24/2024 4:09 PM [facility] pH UA 5.0 5.0 - 8.0 pH 02/24/2024 4:09 PM [facility] Protein UA Negative Negative 02/24/2024 4:09 PM [facility] Glucose UA Negative Negative 02/24/2024 4:09 PM [facility] Ketone UA Negative Negative 02/24/2024 4:09 PM [facility] Bilirubin UA Negative Negative 02/24/2024 4:09 PM [facility] Blood UA Negative Negative 02/24/2024 4:09 PM [facility] Nitrite UA Negative Negative 02/24/2024 4:09 PM [facility] Leukocyte Esterase Negative Negative 02/24/2024 4:09 PM [facility] Urobilinogen UA Negative Negative mg/dL 02/24/2024 4:09 PM [facility] RBC UA 0-2 None Seen, 0-2, 3-5 /HPF 02/24/2024 4:09 PM [facility] WBC UA 0-5 None Seen, 0-5 /HPF 02/24/2024 4:09 PM T [facility] Squamous Epithelial Cells UA 3-5 None Seen, 0-2, 3-5 /HPF 02/24/2024 4:09 PM T [facility] Mucus UA 1+ /LPF 02/24/2024 4:09 PM T [facility] Urine URINE SPECIMEN OBTAINED BY CLEAN CATCH PROCEDURE / Unknown Collection / Unknown 02/24/2024 3:26 PM CDT 02/24/2024 3:58 PM CDT Narrative [facility] - 02/24/2024 4:09 PM CDT Culture Not Indicated Neeraj Sorto MD LAB - URINALYSIS ORD ERABLES Performing Organization Address City/[facility]/ZIP Co de Phone Number [address] [address], [place] [phone] * PROTEIN CREATININE RATIO URINE RANDOM PNL (02/24/2024 3:26 PM CDT) Protein Urine <7 Not Established mg/dL 02/24/2024 4:32 PM [facility] Creatinine Urine 52.80 Not Established mg/dL 02/24/2024 4:32 PM [facility] Protein/Creatinin e Ratio Urine 02/24/2024 4:32 PM T [facility] Comment:Unable to calculate ratio because the analyte concentration is outside the instrument measuring range. Urine URINE SPECIMEN OBTAINED BY CLEAN CATCH PROCEDURE / Unknown Collection / Unknown 02/24/2024 3:26 PM CDT 02/24/2024 3:58 PM CDT Neeraj Sorto MD LAB - URINE CHEMISTR Y ORDERABLES Performing Organization Address City/[facility]/ZIP Co de Phone Number [address] [address], [place] [phone] * LAB MISC TEST (02/24/2024 3:01 PM CDT) Pathologist [facility] Test Name Sclerosis 12 AB Panel 03/07/2024 6:48 AM CDT [facility] Test Result See Scanned Report 03/07/2024 6:48 AM CDT [facility] Comment Ref Lab [facility] 03/07/2024 6:48 AM CDT [facility] Blood BLOOD SPECIMEN / Unknown Lab Venipuncture / Unknown 02/24/2024 3:01 PM CDT 02/24/2024 3:57 PM CDT Neeraj Sorto MD LAB SEND OUT Performing Organization Address City/[facility]/ZIP Co de Phone Number [facility] [address] [place] [address] * (ABNORMAL) SHYLA BLOOD SINGLE PATTERN (02/24/2024 2:54 PM CDT) [facility] SHYLA Pattern Homogeneo us(A) 02/27/2024 10:32 PM CDT [facility] ([facility]) SHYLA Titer 1:2560(A) 02/27/2024 10:32 PM CDT [facility] ([facility]) Comment: Performed By: [facility] [address] [place] [address] Supervisor Elementary Education: Michele Latif MD, PhD CLIA Number: [id number] Blood BLOOD SPECIMEN / Unknown Lab Venipuncture / Unknown 02/24/2024 2:54 PM CDT 02/24/2024 3:56 PM CDT Neeraj Sorto MD LAB - CHEMISTRY ALMAZ GEORGE [facility] ([facility]) [address] * (ABNORMAL) SHYLA HEP-2 IGG BY IFA (02/24/2024 2:54 PM CDT) [facility] SHYLA HEp-2 IgG Detected (H) <1:80 02/27/2024 10:32 PM CDT [facility] ([facility]) SHYLA Interpretive Comment See Note 02/27/2024 10:32 PM CDT [facility] ([facility]) Comment: Homogeneous Pattern Clinical associations: SLE, drug-induced SLE or ALANNAH. Main autoantibodies: Anti-dsDNA, anti-histones or anti-chromatin (anti-nucleosome) List of Abbreviations Antisynthetase syndrome (ARS), chronic active hepatitis (CAH), inflammatory myopathies (IM) [dermatomyositis (DM), polymyositis (PM), necrotizing autoimmune myopathy (NAM)', interstitial lung disease (ILD), juvenile idiopathic arthritis (ALANNAH), mixed connective tissue disease (MCTD), primary biliary cholangitis (PBC), rheumatoid arthritis (RA), systemic autoimmune rheumatic diseases (SARD), Sjogren syndrome (SjS), systemic lupus erythematosus (SLE), systemic sclerosis (SSc), undifferentiated connective tissue disease (UCTD). INTERPRETIVE INFORMATION: SHYLA Interpretive Comment Presence of antinuclear antibodies (SHYLA) is a hallmark feature of systemic autoimmune rheumatic diseases (SARD). However, SHYLA lacks diagnostic specificity and is associated with a variety of diseases (cancers, autoimmune, infectious, and inflammatory conditions) and may also occur in healthy individuals in varying prevalence. The lack of diagnostic specificity requires confirmation of positive SHYLA by more specific serologic tests. SHYLA (nuclear reactivity) positive patterns reported include centromere, homogeneous, nuclear dots, nucleolar, or speckled. SHYLA (cytoplasmic reactivity) positive patterns reported include reticular/AMA, discrete/GW body-like, polar/golgi-like, cytoplasmic speckled or rods and rings. All positive patterns are reported to endpoint titers (1:2560). Reported patterns may help guide differential diagnosis, although they may not be specific for individual antibodies or diseases. Mitotic staining patterns not reported. Negative results do not necessarily rule out SARD. Performed By: [facility] [address] [place] [address] Supervisor Elementary Education: Michele Latif MD, PhD CLIA Number: [id number] Blood BLOOD SPECIMEN / Unknown Lab Venipuncture / Unknown 02/24/2024 2:54 PM CDT 02/24/2024 3:56 PM CDT Neeraj Sorto MD LAB - SEROLOGY ORDER JERE [facility] ([facility]) [address] [place] [address], [facility] * WAGN/SAND WHEELER (SHORTY) ANTIBODY IGG (02/24/2024 2:54 PM CDT) Pathologist [facility] Wang/SAND WHEELER (SHORTY) Antibody IgG 3 0 - 19 Units 02/27/2024 2:18 PM CDT [facility]) Comment: INTERPRETIVE INFORMATION: Wang/SAND WHEELER (SHORTY) Antibody, IgG 19 Units or Less ............. Negative 20 to 39 Units ............... Weak Positive 40 to 80 Units ............... Moderate Positive 81 Units or greater .......... Strong Positive Wang/SAND WHEELER antibodies are frequently seen in patients with mixed connective tissue disease (MCTD) and are also associated with other systemic autoimmune rheumatic diseases (SARDs) such as systemic lupus erythematosus (SLE), systemic sclerosis, and myositis. Antibodies targeting the Wang/SAND WHEELER antigenic complex also recognize Wang antigens, therefore, the Wang antibody response must be considered when interpreting these results. Performed By: [facility] [address] [place] [address] Supervisor Elementary Education: Michele Latif MD, PhD CLIA Number: [id number] Blood BLOOD SPECIMEN / Unknown Lab Venipuncture / Unknown 02/24/2024 2:54 PM CDT 02/24/2024 3:56 PM CDT Neeraj Sorto MD LAB - CHEMISTRY ALMAZ GEORGE [facility] Organization Address City/State/ZIP Co de Phone Number [facility]) [address] [place] [address], [facility] * QUANTIFERON-TB GOLD PLUS 4-TUBE (02/24/2024 2:54 PM CDT) [facility] QuantiFERON Mitogen Minus NIL 9.96 IU/mL 02/27/2024 12:03 AM CDT [facility]) QuantiFERON Nil Value 0.04 IU/mL 02/27/2024 12:03 AM CDT [facility]) QuantiFERON Plus TB1 Minus NIL 0.00 <=0.34 IU/mL 02/27/2024 12:03 AM CDT [facility] ([facility]) QuantiFERON Plus TB2 Minus NIL 0.00 <=0.34 IU/mL 02/27/2024 12:03 AM CDT [facility] ([facility]) QuantiFERON-TB Gold Plus Negative Negative 02/27/2024 12:03 AM CDT [facility]) Comment: INTERPRETIVE INFORMATION:Quantiferon TB Gold Plus Interferon gamma release is measured for specimens from each of the four collection tubes. A qualitative result (Negative, Positive, or Indeterminate) is based on interpretation of the four values: NIL, MITOGEN minus NIL (MITOGEN-NIL), TB1 minus NIL (TB1-NIL), and TB2 minus NIL (TB2-NIL). The NIL value represents nonspecific reactivity produced by the patient specimen. The MITOGEN-NIL value serves as the positive control for the patient specimen, demonstrating successful lymphocyte activity. The TB1-NIL tube specifically detects CD4+ lymphocyte reactivity, specifically stimulated by the TB1 antigens. The TB2-NIL tube detects both CD4+ and CD8+ lymphocyte reactivity, stimulated by TB2 antigens. An overall Negative result does not completely rule out TB infection. A false-positive result in the absence of other clinical evidence of TB infection is not uncommon. Refer to: Updated Guidelines for Using Interferon Gamma Release Assays to Detect Mycobacterium tuberculosis Infection -- [place], 2010 (http://www.cdc.gov/mmwr/preview/mmwrhtml/cj4444a9.htm), for more information concerning test performance in low-prevalence populations and use in occupational screening. Performed By: [facility] [address] [place] [address] Supervisor Elementary Education: Michele Latif MD, PhD CLIA Number: [id number] Blood BLOOD SPECIMEN / Unknown Lab Venipuncture / Unknown 02/24/2024 2:54 PM CDT 02/24/2024 3:58 PM CDT Neeraj Sorto MD LAB - CHEMISTRY AL[facility] GEOR[facility]) [address] [place] [address] * MYOSITIS ANTIBODY PANEL COMPREHENSIVE (02/24/2024 2:54 PM CDT) SAE1 (SUMO activating enzyme) Ab Negative Negative 03/05/2024 3:26 PM CDT [facility] ([facility]) NXP2 (Nuclear matrix protein-2) Ab Negative Negative 03/05/2024 3:26 PM CDT [facility] ([facility]) MDA5 (CADM-140) Ab Negative Negative 2023 3:26 PM CDT [facility] ([facility]) TIF-1 gamma (155 kDa) Ab Negative Negative 03/05/2024 3:26 PM CDT [facility] ([facility]) Myositis Panel Interpretive Data See Note 03/05/2024 3:26 PM CDT [facility] ([facility]) Comment: INTERPRETIVE INFORMATION: Extended Myositis Panel If present, myositis-specific antibodies (MSA) are specific for myositis, and may be useful in establishing diagnosis as well as prognosis. MSAs are generally regarded as mutually exclusive with rare exceptions; the occurrence of two or more MSAs should be carefully evaluated in the context of patient's clinical presentation. Myositis-associated antibodies (MAA) may be found in patients with CTD including overlap syndromes, and are generally not specific for myositis. The following table will help in identifying the association of any antibodies found as either MSAs or Mario. Antibody Specificity . . . . . . . . . . . . MSA . . . . MAA SSA 52 (Ro) (SHORTY) Antibody IgG . . . . . . . . . . . . . X SSA 60 (Ro) (SHORTY) Antibody IgG . . . . . . . . . . . . . X Wang/SAND WHEELER (SHORTY) Ab, IgG . . . . . . . . . . . . . . . . X Destiny-1 (histidyl-tRNA synthetase) Ab, IgG . . X PL-12 (alanyl-tRNA synthetase) Antibody . . X PL-7 (threonyl-tRNA synthetase) Antibody . . X EJ (glycyl-tRNA synthetase) Antibody . . . . X OJ (isoleucyl-tRNA synthetase) Antibody . . X SRP (Signal Recognition Particle) Ab . . . . X Ku Antibody . . . . . . . . . . . . . . . . . . . . . . X PM/SCL 100 Antibody, IgG . . . . . . . . . . . . . . . . X Fibrillarin (U3 SAND WHEELER) Ab, IgG . . . . . . . . . . . . . . X Mi-2 (nuclear helicase protein) Antibody . . X P155/140 Antibody . . . . . . . . . . . . . X TIF-1 gamma (155 kDa) Ab . . . . . . . . . . X SAE1 (SUMO activating enzyme) Ab . . . . . . X MDA5 (CADM-140) Ab . . . . . . . . . . . . X NXP2 (Nuclear matrix proten-2)Ab . . . . . . X This test was developed and its performance characteristics determined by [facility]. It has not been cleared or approved by the US Food and Drug Administration. This test was performed in a CLIA certified laboratory and is intended for clinical purposes. Mi-2 Antibody Negative Negative 03/05/2024 3:26 PM CDT [facility]) P155/140 Antibody Negative Negative 024 3:26 PM CDT [facility]) PL-12 Antibody Negative Negative 03/05/2024 3:26 PM CDT [facility]) PL-7 Antibody Negative Negative 03/05/2024 3:26 PM CDT [facility]) OJ Antibody Negative Negative 03/05/2024 3:26 PM CDT [facility]) EJ Antibody Negative Negative 03/05/2024 3:26 PM CDT [facility]) SRP Antibody Negative Negative 03/05/2024 3:26 PM CDT [facility]) Destiny-1 Antibody IgG 1 0 - 40 AU/mL 03/05/2024 3:26 PM CDT [facility]) Comment: INTERPRETIVE INFORMATION: Destiny-1 Antibody, IgG 29 AU/mL or less.........Negative 30-40 AU/mL..............Equivocal 41 AU/mL or greater......Positive Presence of Destiny-1 (antihistidyl transfer RNA [t-RNA' synthetase) antibody is associated with polymyositis and may also be seen in patients with dermatomyositis. Destiny-1 antibody is associated with pulmonary involvement (interstitial lung disease), Raynaud phenomenon, arthritis, and cooker mechanic's hands (implicated in antisynthetase syndrome). KU Antibody Negative Negative 03/05/2024 3:26 PM CDT [facility] ([facility]) Wang/SAND WHEELER (SHORTY) Antibody IgG 2 0 - 19 Units 03/05/2024 3:26 PM CDT [facility] ([facility]) Comment: INTERPRETIVE INFORMATION: Wang/SAND WHEELER (SHORTY) Antibody, IgG 19 Units or Less ............. Negative 20 to 39 Units ............... Weak Positive 40 to 80 Units ............... Moderate Positive 81 Units or greater .......... Strong Positive Wang/SAND WHEELER antibodies are frequently seen in patients with mixed connective tissue disease (MCTD) and are also associated with other systemic autoimmune rheumatic diseases (SARDs) such as systemic lupus erythematosus (SLE), systemic sclerosis, and myositis. Antibodies targeting the Wang/SAND WHEELER antigenic complex also recognize Wang antigens, therefore, the Wang antibody response must be considered when interpreting these results. PM/Scl 100 Antibody IgG Negative Negative 03/05/2024 3:26 PM CDT [facility] ([facility]) Comment: INTERPRETIVE INFORMATION: PM/Scl-100 Antibody, IgG by Immunoblot The presence of PM/Scl-100 IgG antibody along with a positive SHYLA IFA nucleolar pattern is associated with connective tissue diseases such as polymyositis (PM), dermatomyositis (DM), systemic sclerosis (SSc), and polymyositis/systemic sclerosis overlap syndrome. The clinical relevance of PM/Scl-100 IgG antibody with a negative SHYLA IFA nucleolar pattern is unknown. PM/Scl-100 is the main target epitope of the PM/Scl complex, although antibodies to other targets not detected by this assay may occur. This test was developed and its performance characteristics determined by [facility]. It has not been cleared or approved by the US Food and Drug Administration. This test was performed in a CLIA certified laboratory and is intended for clinical purposes. SS-A 52 Antibody 2 0 - 40 AU/mL 03/05/2024 3:26 PM CDT [facility] ([facility]) Comment: INTERPRETIVE INFORMATION: SSA-52 (Ro52) (SHORTY) Antibody, IgG 29 AU/mL or Less ............. Negative 30 - 40 AU/mL ................ Equivocal 41 AU/mL or Greater .......... Positive SSA-52 (Ro52) and/or SSA-60 (Ro60) antibodies are associated with a diagnosis of Sjogren syndrome, systemic lupus erythematosus (SLE), and systemic sclerosis. SSA-52 antibody overlaps significantly with the major SSc-related antibodies. SSA-52 (Ro52) antibody occurs frequently in patients with inflammatory myopathies, often in the presence of interstitial lung disease. SS-A 60 Antibody 0 0 - 40 AU/mL 03/05/2024 3:26 PM T [facility] ([facility]) Comment: REFERENCE INTERVAL: SSA-60 (Ro60) (SHORTY) Antibody, IgG 29 AU/mL or Less ............. Negative 30 - 40 AU/mL ................ Equivocal 41 AU/mL or Greater .......... Positive Fibrillarin (U3 SAND WHEELER) Antibody IgG Negative Negative 03/05/2024 3:26 PM T [facility] ([facility]) Comment: Interpretive Information: Fibrillarin (U3 SAND WHEELER) Antibody, IgG The presence of fibrillarin (U3-SAND WHEELER) IgG antibodies in association with an SHYLA IFA nucleolar pattern is suggestive of systemic sclerosis (SSc). In SSc, these antibodies are associated with distinct clinical features, such as younger age at disease onset, frequent internal organ involvement (pulmonary hypertension, myositis and renal disease). Fibrillarin antibodies are detected more frequently in patients with SSc compared to other ethnic groups. Strong correlation with SHYLA IFA results is recommended. In a multi-ethnic cohort of SSc patients (n=98), U3-SAND WHEELER antibodies detected by immunoblot had an agreement of 98.9 percent with the gold standard immunoprecipitation (IP) assay. Approximately 71 percent (5/7) of the borderline U3-SAND WHEELER results with SHYLA nucleolar pattern in this cohort were IP negative. This test was developed and its performance characteristics determined by [facility]. It has not been cleared or approved by the US Food and Drug Administration. This test was performed in a CLIA certified laboratory and is intended for clinical purposes. Performed By: [facility] [address] [place] [address] Supervisor Elementary Education: Michele Latif MD, PhD CLIA Number: [id number] Blood BLOOD SPECIMEN / Unknown Lab Venipuncture / Unknown 02/24/2024 2:54 PM CDT 02/24/2024 3:56 PM CDT Neeraj Sorto MD LAB - CHEMISTRY ALMAZ GEOR[facility]) [address] [place] [address], [facility] * RNA POLYMERASE III ANTIBODY IGG (02/24/2024 2:54 PM CDT) RNA Polymerase 3 Antibody IgG 15 0 - 19 Units 02/25/2024 11:06 PM CDT [facility] ([facility]) Comment: INTERPRETIVE INFORMATION: RNA Polymerase III Antibody, IgG 19 Units or less ......Negative 20 - 39 Units .........Weak Positive 40 - 80 Units .........Moderate Positive 81 Units or greater ...Strong Positive The presence of RNA polymerase III IgG antibody, when considered in conjunction with other laboratory and clinical findings, is an aid in the diagnosis of systemic sclerosis (SSc) with increased incidence of skin involvement and renal crisis with the diffuse cutaneous form of SSc. RNA polymerase III IgG antibody occur in about 11-23 percent of SSc patients, and typically in the absence of anti-centromere and anti-Scl-70 antibodies. A negative result indicates no detectable IgG antibodies to the dominant antigen of RNA polymerase III and does not rule out the possibility of SSc. False-positive results may also occur due to non-specific binding of immune complexes. Strong clinical correlation is recommended. If clinical suspicion remains, consider additional testing for other antibodies associated with SSc, including centromere, Scl-70, U3-SAND WHEELER, PM/Scl, or Th/To. Performed By: [facility] [address] [place] [address] Supervisor Elementary Education: Michele Latif MD, PhD CLIA Number: [id number] Blood BLOOD SPECIMEN / Unknown Lab Venipuncture / Unknown 02/24/2024 2:54 PM CDT 02/24/2024 3:56 PM CDT Neeraj Sorto MD LAB - SEROLOGY ORDER JERE [facility]) [address] * C-REACTIVE PROTEIN (02/24/2024 2:54 PM CDT) C-Reactive Protein <0.5 <=0.5 mg/dL 02/24/2024 4:57 PM CDT [facility] Blood BLOOD SPECIMEN / Unknown Lab Venipuncture / Unknown 02/24/2024 2:54 PM CDT 02/24/2024 4:05 PM CDT Neeraj Sorto MD LAB - CHEMISTRY ORDE RABLES [facility] [address] [address], [facility] [phone] * (ABNORMAL) SHYLA BLOOD SCREEN W/REFLEX TITER (02/24/2024 2:54 PM CDT) SHYLA IgG Detected (A) None Detected 02/25/2024 10:35 PM CDT [facility] ([facility]) Comment: Antibodies to Anti-Nuclear Antibodies (SHYLA) detected. Additional testing to follow. INTERPRETIVE INFORMATION: Anti-Nuclear Antibodies (SHYLA), IgG by MATIAS Antinuclear Antibodies (SHYLA), IgG by MATIAS: SHYLA specimens are screened using enzyme-linked immunosorbent assay (MATIAS) methodology. All MATIAS results reported as Detected are further tested by indirect fluorescent assay (IFA) using HEp-2 substrate with an IgG-specific conjugate. The SHYLA MATIAS screen is designed to detect antibodies against dsDNA, histones, SS-A (Ro), SS-B (La), Wang, Wang/SAND WHEELER, Scl-70, Destiny-1, centromeric proteins, other antigens extracted from the HEp-2 cell nucleus. SHYLA MATIAS assays have been reported to have lower sensitivities than SHYLA IFA for systemic autoimmune rheumatic diseases (SARD). Negative results do not necessarily rule out SARD. Performed By: [facility] [address] [place] [address] Supervisor Elementary Education: Michele Latif MD, PhD CLIA Number: [id number] Blood BLOOD SPECIMEN / Unknown Lab Venipuncture / Unknown 02/24/2024 2:54 PM CDT 02/24/2024 3:56 PM CDT Neeraj Sorto MD LAB - CHEMISTRY ORDE RABLES Performing Organization Address [facility] Co de Phone Number [facility]) [address] * PM/SCL-100 ANTIBODY IGG (02/24/2024 2:54 PM CDT) PM/Scl 100 Antibody IgG Negative Negative 02/26/2024 6:12 PM CDT [facility] ([facility]) Comment: INTERPRETIVE INFORMATION: PM/Scl-100 Antibody, IgG by Immunoblot The presence of PM/Scl-100 IgG antibody along with a positive SHYLA IFA nucleolar pattern is associated with connective tissue diseases such as polymyositis (PM), dermatomyositis (DM), systemic sclerosis (SSc), and polymyositis/systemic sclerosis overlap syndrome. The clinical relevance of PM/Scl-100 IgG antibody with a negative SHYLA IFA nucleolar pattern is unknown. PM/Scl-100 is the main target epitope of the PM/Scl complex, although antibodies to other targets not detected by this assay may occur. This test was developed and its performance characteristics determined by [facility]. It has not been cleared or approved by the [place] Food and Drug Administration. This test was performed in a CLIA certified laboratory and is intended for clinical purposes. Performed By: [facility] [address] [place] [address] Supervisor Elementary Education: Michele Latif MD, PhD CLIA Number: [id number] Blood BLOOD SPECIMEN / Unknown Lab Venipuncture / Unknown 02/24/2024 2:54 PM CDT 02/24/2024 3:57 PM CDT Neeraj Sorto MD LAB - SEROLOGY ORDER JERE Performing Organization Address City/[facility]/ZIP Co de Phone Number [facility] ([facility]) [address] * CENTROMERE ANTIBODY (02/24/2024 2:54 PM CDT) Centromere Antibody 1 0 - 40 AU/mL 02/26/2024 3:46 PM CDT [facility] [facility]) Comment: INTERPRETIVE INFORMATION: Centromere Ab, IgG 29 AU/mL or Less ............. Negative 30 - 40 AU/mL ................ Equivocal 41 AU/mL or Greater .......... Positive When detected by this multiplex bead assay, the presence of centromere antibodies is mainly associated with CREST syndrome, a variant of systemic sclerosis (SSc). These antibodies target the centromere B, a dominant antigen of the centromeric complex associated with the centromere pattern observed in antinuclear antibody (SHYLA) testing by IFA. Centromere antibodies may also be seen in a varying percentage of patients with other autoimmune diseases, including diffuse cutaneous SSc, Raynaud syndrome, interstitial pulmonary fibrosis, autoimmune liver disease, systemic lupus erythematosus (SLE) and rheumatoid arthritis (RA). A negative result indicates no detectable IgG antibodies to centromere B. If the result is negative but clinical suspicion for SSc is strong, consider testing for SHYLA by IFA along with other antibodies associated with SSc, including Scl-70, U3-SAND WHEELER, PM/Scl, or Th/To. Performed By: [facility] [address] [place] [address] Supervisor Elementary Education: Michele Latif MD, PhD CLIA Number: [id number] Blood BLOOD SPECIMEN / Unknown Lab Venipuncture / Unknown 02/24/2024 2:54 PM CDT 02/24/2024 3:56 PM CDT Neeraj Sorto MD LAB - CHEMISTRY ALMAZ [facility] Gust[facility]) [address] [place] [address], [facility] * (ABNORMAL) SCLERODERMA 70 (SCL) ANTIBODY (02/24/2024 2:54 PM CDT) Pathologist [facility] SCL-70 Antibody 178(H) 0 - 40 AU/mL 02/26/2024 3:46 PM CDT [facility] ([facility]) Comment: INTERPRETIVE INFORMATION: Scleroderma (Scl-70) (SHORTY) Ab, IgG 29 AU/mL or Less ............. Negative 30 - 40 AU/mL ................ Equivocal 41 AU/mL or Greater .......... Positive The presence of Scl-70 antibodies (also referred to as topoisomerase I, roxana-I or SAMUEL) is considered diagnostic for systemic sclerosis (SSc). Scl-70 antibodies alone are detected in about 20 percent of SSc patients and are associated with the diffuse form of the disease, which may include specific organ involvement and poor prognosis. Scl-70 antibodies have also been reported in a varying percentage of patients with systemic lupus erythematosus (SLE). Scl-70 (roxana-1) is a DNA binding protein and anti-DNA/DNA complexes in the sera of SLE patients may bind to roxana-I, leading to a false-positive result. The presence of Scl-70 antibody in sera may also be due to contamination of recombinant Scl-70 with DNA derived from cellular material used in immunoassays. Strong clinical correlation is recommended if both Scl-70 and dsDNA antibodies are detected. Negative results do not necessarily rule out the presence of SSc. If clinical suspicion remains, consider further testing for centromere, RNA polymerase III and U3-SAND WHEELER, PM/Scl, or Th/To antibodies. Performed By: [facility] [address] [place] [address] Supervisor Elementary Education: Michele Latif MD, PhD CLIA Number: [id number] Blood BLOOD SPECIMEN / Unknown Lab Venipuncture / Unknown 02/24/2024 2:54 PM CDT 02/24/2024 3:56 PM CDT Neeraj Sorto MD LAB - CHEMISTRY [facility] Organization Address City/State/ZIP Co de Phone Number [facility] ([facility]) [address] [place] [address], [facility] * (ABNORMAL) ERYTHROCYTE SEDIMENTATION RATE (02/24/2024 2:54 PM CDT) Erythrocyte Sedimentation Rate Westergren 62(H) 0 - 20 MM/HR 02/24/2024 4:56 PM CDT [facility] Blood BLOOD SPECIMEN / Unknown Lab Venipuncture / Unknown 02/24/2024 2:54 PM CDT 02/24/2024 4:06 PM CDT Neeraj Sorto MD LAB - HEMATOLOGY ORD KERI Performing Organization Address City/[facility]/ZIP Co de Phone Number [address] [address], [facility] [phone] * HEPATITIS B SURFACE ANTIBODY (02/24/2024 2:54 PM CDT) Hepatitis B Virus Surface Antibody Non-react roman Non-react roman 02/24/2024 5:13 PM CDT [facility] Comment: < 8 mIU/mL Hepatitis B surface Antibody (HBsAb). Nonreactive for HBsAb - individual is considered not immune to Hepatitis B Virus infection. Hepatitis B Surface Antibody Quantitative 1.2 <8.0 mIU/mL 02/24/2024 5:13 PM CDT [facility] Comment: Hepatitis B Surface Antibody Numeric Result Interpretation: Nonreactive: <8.0 mIU/mL Indeterminate: 8.0 - 12.0 mIU/mL Reactive: >12.0 mIU/mL Blood BLOOD SPECIMEN / Unknown Lab Venipuncture / Unknown 02/24/2024 2:54 PM CDT 02/24/2024 3:56 PM CDT Neeraj Sorto MD LAB - CHEMISTRY ORDBubba GEORGE [address] [address], [facility] [phone] * HEPATITIS B CORE ANTIBODY TOTAL (02/24/2024 2:54 PM CDT) HBc Antibody Total Non-reacti ve Non-reacti ve 02/24/2024 5:13 PM CDT [facility] Blood BLOOD SPECIMEN / Unknown Lab Venipuncture / Unknown 02/24/2024 2:54 PM CDT 02/24/2024 3:56 PM CDT Neeraj Sorto MD LAB - CHEMISTRY ORDBubba RABLES [facility] [address] [place] [address], [place] [phone] * HEPATITIS B SURFACE ANTIGEN W RFLX CONFIRMATION (02/24/2024 2:54 PM CDT) Hepatitis B Virus Surface Antigen Non-reacti ve Non-reacti ve 02/24/2024 5:13 PM CDT [facility] Blood BLOOD SPECIMEN / Unknown Lab Venipuncture / Unknown 02/24/2024 2:54 PM CDT 02/24/2024 3:56 PM CDT Neeraj Sorto MD LAB - CHEMISTRY [facility]MAZ [facility] Performing Organization Address City/[facility]/ZIP Co de Phone Number [address] [address], [place] [phone] * HEPATITIS C ANTIBODY (02/24/2024 2:54 PM CDT) Pathologist [facility] Hepatitis C Antibody Non-react roman Non-reac tive 02/24/2024 5:13 PM CDT [facility] Comment:Hepatitis C Antibody screen indicates no serologic evidence of past or current infection with Hepatitis C Virus. Patients with unexplained liver disease who are immunocompromised or suspected of having acute Hepatitis C infection may benefit from Nucleic Acid Test (MATT) for Hepatitis C Viral RNA to confirm Hepatitis C status. Blood BLOOD SPECIMEN / Unknown Lab Venipuncture / Unknown 02/24/2024 2:54 PM CDT 02/24/2024 3:56 PM CDT Neeraj Sorto MD LAB - CHEMISTRY [facility]MAZ [facility] [address] [address], [place] [phone] Care Teams Tourist [employer] Attendant Relationship Specialty Start Date End Date Amelia Tamayo MD [address] [facility] [address] [place] [id number] PCP - General Family Medicine 6/28/24
--- OUTSIDE RECORDS SUMMARY | 2024-10-17 16:40 | XMS_ITS | Referral Summary ---
Author Organization [facility] Address [address] [place] [address] Care Team Providers Care Medical Investigator Name Role Phone Amelia Tamayo MD Primary Care Provider + Source Comments [facility],non-owned Affiliates and Associated Physician Practices is amultiple site organization consisting of ambulatory clinics and hospital sitesin [place], [place], [place] and [place]. This disclosure is being madepursuant to the Care Everywhere program and may not contain all information available regarding this patient. Last updated 18.[facility] Encounters Date Type Department Care Team Description 10/15/2024 Travel 10/15/2024 2:00 PM RESIDENTIAL CARE OFFICER Office Visit [facility] - Neurology [address] [facility], [place] [address] Tricia Serrano MD Vestibular migraine (Primary Dx) 10/02/2024 Travel 10/02/2024 9:50 AM RESIDENTIAL CARE OFFICER - 10/02/2024 11:59 PM RESIDENTIAL CARE OFFICER Hospital Encounter [facility] [address] [place] [address] Discharge Disposition: Home or Self Care 09/26/2024 Travel 09/26/2024 11:45 AM RESIDENTIAL CARE OFFICER - 09/26/2024 11:59 PM RESIDENTIAL CARE OFFICER Hospital Encounter [facility] [address] [place] [address] Discharge Disposition: Home or Self Care 09/25/2024 Travel 09/25/2024 10:01 AM RESIDENTIAL CARE OFFICER - 09/25/2024 11:59 PM RESIDENTIAL CARE OFFICER Hospital Encounter [facility] [address] [place] [address] Unknown, Provider Kelechi Herrera MD Rheumatology Discharge Disposition: Home or Self Care 09/24/2024 Telephone [facility] - Rheumatology [address] [place] [phone] Kelechi Herrera MD Question 09/21/2024 2:16 AM RESIDENTIAL CARE OFFICER - 09/21/2024 8:34 PM [facility] Emergency [facility] EMERGENCY DEPARTMENT [address] [place] [phone] Harry Monsivais MD Bitter, Cindy C, MD Demars, Esteban Santoyo MD Benign paroxysmal positional vertigo, unspecified laterality (Primary Dx); Chest pain, unspecified type; Tinnitus of both ears; Acute nonintractable headache, unspecified headache type; Nausea and vomiting, unspecified vomiting type; Abnormal uterine bleeding Discharge Disposition: Home or Self Care 09/20/2024 Travel 09/20/2024 Telephone [facility] - Rheumatology [address] [place] [phone] Kelechi Herrera MD [facility] 09/19/2024 Travel 09/19/2024 11:05 AM RESIDENTIAL CARE OFFICER - 09/19/2024 11:59 PM [facility] Hospital Encounter [facility] [address] [place] [phone] Discharge Disposition: Home or Self Care 09/18/2024 Travel 09/18/2024 11:00 AM RESIDENTIAL CARE OFFICER Office Visit [facility] - Pulmonology [address], [address] [phone] Mohan Rojas MD ILD (interstitial lung disease) (HCC) (Primary Dx); Scleroderma (HCC); Chronic respiratory failure with hypoxia (HCC); Immunization counseling 09/12/2024 Travel 09/12/2024 11:30 AM RESIDENTIAL CARE OFFICER - 09/12/2024 11:59 PM RESIDENTIAL CARE OFFICER Hospital Encounter [facility] [address] [place] [address] Discharge Disposition: Home or Self Care 09/05/2024 Travel 09/05/2024 11:18 AM RESIDENTIAL CARE OFFICER - 09/05/2024 11:59 PM RESIDENTIAL CARE OFFICER Hospital Encounter [facility] [address] [place] [address] Discharge Disposition: Home or Self Care 08/31/2024 Orders Only [facility] - Rheumatology [address] [place] [phone] Kelechi Herrera MD Diffuse cutaneous systemic sclerosis (HCC); Scleroderma (HCC); ILD (interstitial lung disease) (HCC); Therapeutic drug monitoring; 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 therapy (HCC) 08/30/2024 1:10 PM RESIDENTIAL CARE OFFICER - 08/30/2024 11:59 PM RESIDENTIAL CARE OFFICER Hospital Encounter [facility] [address] [place] [address] Discharge Disposition: Home or Self Care 08/29/2024 Refill [facility] - Rheumatology [address] [place] [phone] Kelechi Herrera MD MEDICATION REFILL 08/28/2024 Travel 08/28/2024 11:00 AM RESIDENTIAL CARE OFFICER - 08/28/2024 11:59 PM RESIDENTIAL CARE OFFICER Hospital Encounter [facility] [address] [place] [phone] Unknown, Provider Discharge Disposition: Home or Self Care 08/24/2024 Travel 08/24/2024 3:25 PM RESIDENTIAL CARE OFFICER - 08/24/2024 11:59 PM RESIDENTIAL CARE OFFICER Hospital Encounter [facility] [address] [place] [address] Discharge Disposition: Home or Self Care 08/21/2024 Refill [facility] - Rheumatology [address] [place] [phone] Kelechi Herrera MD MEDICATION REFILL 08/17/2024 Travel 08/17/2024 3:10 PM RESIDENTIAL CARE OFFICER - 08/17/2024 11:59 PM RESIDENTIAL CARE OFFICER Hospital Encounter [facility] [address] [place] [address] Discharge Disposition: Home or Self Care 08/17/2024 Refill [facility] - Rheumatology [address] [place] [phone] Kelechi Herrera MD MEDICATION REFILL 08/16/2024 Refill [facility] - Rheumatology [address] [place] [phone] Kelechi Herrera MD MEDICATION REFILL 08/08/2024 Travel 08/08/2024 9:15 AM RESIDENTIAL CARE OFFICER - 08/08/2024 11:59 PM RESIDENTIAL CARE OFFICER Hospital Encounter [facility] [address] [place] [address] Discharge Disposition: Home or Self Care 08/02/2024 Telephone [facility] - Rheumatology [address] [place] [phone] Kelechi Herrera MD Update 08/01/2024 1:25 PM RESIDENTIAL CARE OFFICER - 08/01/2024 11:59 PM RESIDENTIAL CARE OFFICER Hospital Encounter [facility] [address] [place] [address] Discharge Disposition: Home or Self Care 08/01/2024 Travel 08/01/2024 11:30 AM RESIDENTIAL CARE OFFICER Office Visit [facility] - Rheumatology [address] [place] [phone] Kelechi Herrera MD Diffuse cutaneous systemic sclerosis (HCC) (Primary Dx); Scleroderma (HCC); ILD (interstitial lung disease) (HCC); Therapeutic drug monitoring; 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 therapy (HCC) 07/31/2024 Telephone [facility] - Rheumatology [address] [place] [phone] Kelechi Herrera MD General 07/31/2024 Telephone [facility] - Rheumatology [address] [place] [phone] Kelechi Herrera MD Imaging 07/30/2024 Telephone [facility] - Rheumatology [address] [place] [phone] Kelechi Herrera MD Referral Request 07/24/2024 Orders Only [facility] - Rheumatology [address] [place] [address] Kelechi Herrera MD ILD (interstitial lung disease) ([facility]) 07/24/2024 Travel 07/24/2024 10:05 AM RESIDENTIAL CARE OFFICER - 07/24/2024 11:59 PM RESIDENTIAL CARE OFFICER Hospital Encounter [facility] [address] [place] [address] Unknown, Provider Discharge Disposition: Home or Self Care 07/20/2024 Travel 07/20/2024 8:20 AM RESIDENTIAL CARE OFFICER - 07/20/2024 11:59 PM [facility] Hospital Encounter [facility] [address] [place] [address] Discharge Disposition: Home or Self Care from Last 3 Months Allergies Active Allergy Reactions Criticality Noted Date Comments Penicillins Itching 02/17/2024 Medications * Be aware that medications may not be up to date on this document. Alwaysverify current medications with the patient. Medication Sig Dispensed Refills Start Date End Date Status FeroSul 325 (65 Fe) MG tablet Take 1 (one) tablet by mouth once daily Active albuterol (Proventil;Mignon franco) (2.5 MG/3ML) 0.083% nebulizer solutionIndicati ons:ILD (interstitial lung disease) ([facility]),Scleroderm a ([facility]) Inhale 2.5 (two and one-half) mg by mouth every 4 hours as needed for Shortness of Breath or Wheezing 540 mL 11 02/17/2024 Active Additional Information Patient not taking.Reported on 09/18/2024 Multiple Vitamins-Mineral s (Multi Vitamin/Minerals ) TABS Take 1 (one) tablet by mouth once daily Active NIFEdipine CR 24hr (Adalat CC) 30 MG tabletIndication s:Scleroderma (HCC),ILD (interstitial lung disease) (HCC),Diffuse cutaneous systemic sclerosis (HCC),Therapeuti c drug monitoring Take 1 (one) tablet by mouth once daily Take on an empty stomach. 90 tablet 4 03/14/2024 Active tocilizumab (Actemra) 162 MG/0.9ML auto-injector Inject 0.9 mL subcutaneously every 7 days for 1 dose 03/14/2024 Active hydrOXYzine HCl (Atarax) 25 MG tablet Take 1 (one) tablet by mouth as needed for Itching 05/02/2024 Active nintedanib (Ofev) 150 MG capsuleIndicatio ns:ILD (interstitial lung disease) (HCC) Take 1 (one) capsule by mouth 2 times daily with morning and evening meal 60 capsule 11 05/09/2024 05/09/2025 Active Additional Information Patient not taking.Reported on 09/18/2024 mycophenolate (Cellcept) 500 MG tablet Take 3 (three) tablets by mouth 2 times daily for 90 days 180 tablet 2 08/17/2024 11/15/2024 Active pantoprazole EC (Protonix) 40 MG tabletIndication s:Scleroderma (HCC),ILD (interstitial lung disease) (HCC),Diffuse cutaneous systemic sclerosis (HCC),Therapeuti c drug monitoring Take 1 (one) tablet by mouth once daily for 90 days 90 tablet 08/21/2024 11/19/2024 Active predniSONE (Deltasone) 2.5 MG tabletIndication s:Diffuse cutaneous systemic sclerosis (HCC),Scleroderm a (HCC),ILD (interstitial lung disease) (HCC),Therapeuti c drug monitoring,Immun osuppression due to drug therapy (HCC) Take 3 (three) tablets by mouth once daily for 14 days, THEN 2 (two) tablets once daily for 14 days, THEN 1 (one) tablet once daily for 14 days. 84 tablet 08/31/2024 Active baclofen (Lioresal) 10 MG tablet TAKE 1 TABLET BY MOUTH EVERY DAY AT BEDTIME NEEDED FOR MUSCLE SPASM 09/13/2024 Active formoterol (Perforomist) 20 MCG/2ML nebulizer solution Inhale 2 mL by mouth as needed 12/08/2023 Active Nebulizers (Vios Aerosol Delivery System) MISC as directed 11/01/2023 Active Progesterone 200 MG capsule Take 1 (one) capsule by mouth at bedtime 09/13/2024 Active albuterol HFA (Proventil; Ventolin; Proair) 108 (90 Base) MCG/ACT inhaler Inhale 2 (two) puffs by mouth every 6 hours as needed Active metoclopramide (Reglan) 10 MG tablet Take 1 (one) tablet by mouth 3 times daily before meals 12 tablet 09/21/2024 Active nortriptyline (Pamelor) 10 MG capsuleIndicatio ns:Vestibular migraine Take 1 (one) capsule by mouth at bedtime 30 capsule 3 10/15/2024 Active ubrogepant (Ubrelvy) 100 MG tabletIndication s:Vestibular migraine Take 1 (one) tablet by mouth daily as needed - may repeat one time for Migraine No more than 2 doses in 24 hours. 12 tablet 3 10/15/2024 11/14/2024 Active Active Problems Problem Noted Date Diagnosed Date [...] Date Asthma exacerbation 12/15/2017 06/20/20 24 Immunizations Name Administration Dates Next Due INFLUENZA VACCINE, QUADR. (A FLURIA, FLUZONE QUADRIVALENT; 6MO+) (IIV4) 05/23/2018 INFLUENZA VACCINE, TRIV. (FL UZONE; FLULAVAL; FLUARIX; AFLURIA TRIVALENT; 6MO+), 0.5 ML (IIV3) 05/08/2024 PNEUMOCOCCAL PCV20 CONJ VAC IM 02/17/2024 Social History Tobacco Use Types Packs/Day Years [...] Comments Blood Pressure 122/76 10/15/2024 2:03 PM RESIDENTIAL CARE OFFICER Pulse 103 10/15/2024 2:03 PM RESIDENTIAL CARE OFFICER Temperature 36.6 C (97.9 F) 09/25/2024 10:19 AM RESIDENTIAL CARE OFFICER Respiratory Rate 22 09/25/2024 10:19 AM RESIDENTIAL CARE OFFICER Oxygen Saturation 100% 09/25/2024 10:19 AM RESIDENTIAL CARE OFFICER 3L of O2 Inhaled Oxygen Concentration - - Weight 69.9 kg (154 lb) 10/15/2024 2:03 PM RESIDENTIAL CARE OFFICER Height 162.6 cm (5' 4 ) 10/15/2024 2:03 PM RESIDENTIAL CARE OFFICER Body Mass Index 26.43 10/15/2024 2:03 PM RESIDENTIAL CARE OFFICER Plan of Treatment Upcoming Encounters Date Type Department Care Team (Late st Contact Info) Description 10/23/2024 11:00 AM RESIDENTIAL CARE OFFICER Hospital Encounter [facility] [address] [place] [phone] Unknown, Provider 10/31/2024 9:30 AM CDT Office Visit [facility] - Rheumatology [facility] [facility], [place] [phone] Kelechi Herrera MD [address] [place] [address] 11/20/2024 11:00 AM CDT Appointment [facility] [address] [place] [phone] Unknown, Provider 12/05/2024 9:30 AM CDT Office Visit [facility] - GI [facility] [facility], [place] [phone] Neeraj Pennington MD [address] [place] [phone] 12/11/2024 11:00 AM CDT Office Visit [facility] - Pulmonology [address], [facility] [address] [place] [phone] Mohan Rojas MD [address] [place] [address] [address] DIV OF PULM/[place] [address] 02/18/2025 1:00 PM CDT Office Visit [facility] - Neurology [address] [facility], [facility] [place] [phone] Tricia Serrano MD [address] [place] [address] Goals Goal Patient Goal Type Associated Problems Recent Progress Patient-Stated? Author Medication Management General On track( 024 11:23 AM CDT) No Meaghan Mead, RN Note: Expected end date: ongoing Interventions: Take all medications as prescribed Procedures Procedure Name Priority Date/Time Associated Diagnosis Comments COMPREHENSIVE METABOLIC PANEL Routine 10/02/2024 10:09 AM RESIDENTIAL CARE OFFICER Scleroderma (HCC) ILD (interstitial lung disease) (HCC) Diffuse cutaneous systemic sclerosis (HCC) Therapeutic drug monitoring 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 therapy (HCC) CBC W AUTO DIFFERENTIAL Routine 10/02/2024 10:09 AM RESIDENTIAL CARE OFFICER Scleroderma (HCC) ILD (interstitial lung disease) (HCC) Diffuse cutaneous systemic sclerosis (HCC) Therapeutic drug monitoring 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 therapy (HCC) COMPREHENSIVE METABOLIC PANEL Routine 09/26/2024 1:01 PM RESIDENTIAL CARE OFFICER Scleroderma (HCC) ILD (interstitial lung disease) (HCC) Diffuse cutaneous systemic sclerosis (HCC) Therapeutic drug monitoring 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 therapy (HCC) CBC W AUTO DIFFERENTIAL Routine 09/26/2024 1:01 PM RESIDENTIAL CARE OFFICER Scleroderma (HCC) ILD (interstitial lung disease) (HCC) Diffuse cutaneous systemic sclerosis (HCC) Therapeutic drug monitoring 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 therapy (HCC) CT ANGIO BRAIN AND NECK STAT 09/21/2024 4:17 PM RESIDENTIAL CARE OFFICER Chest pain, unspecified type Benign paroxysmal positional vertigo, unspecified laterality Tinnitus of both ears Acute nonintractable headache, unspecified headache type Nausea and vomiting, unspecified vomiting type MRI BRAIN WWO CONTRAST STAT 09/21/2024 12:40 PM RESIDENTIAL CARE OFFICER Chest pain, unspecified type CT HEAD WO CONTRAST STAT 09/20/2024 5 :50 PM RESIDENTIAL CARE OFFICER Chest pain, unspecified type TROPONIN-I HIGH SENSITIVE BASELINE + 1HR STAT 09/20/2024 5:38 PM RESIDENTIAL CARE OFFICER D-DIMER STAT 09/20/2024 5:38 PM RESIDENTIAL CARE OFFICER COMPREHENSIVE METABOLIC PANEL STAT 09/20/2024 5:38 PM RESIDENTIAL CARE OFFICER CBC W AUTO DIFFERENTIAL STAT 09/20/2024 5:38 PM RESIDENTIAL CARE OFFICER SARS-COV-2 (COVID-19) FLU A/B RSV PCR RAPID STAT 09/20/2024 5:36 PM RESIDENTIAL CARE OFFICER XR CHEST 2VW STAT 09/20/2024 4:45 PM RESIDENTIAL CARE OFFICER Chest pain, unspecified type EKG 12-LEAD Routine 09/20/2024 4:05 PM RESIDENTIAL CARE OFFICER Chest pain, unspecified type COMPREHENSIVE METABOLIC PANEL Routine 09/19/2024 11:22 AM RESIDENTIAL CARE OFFICER Scleroderma (HCC) ILD (interstitial lung disease) (HCC) Diffuse cutaneous systemic sclerosis (HCC) Therapeutic drug monitoring 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 therapy (HCC) CBC W AUTO DIFFERENTIAL Routine 09/19/2024 11:22 AM RESIDENTIAL CARE OFFICER Scleroderma (HCC) ILD (interstitial lung disease) (HCC) Diffuse cutaneous systemic sclerosis (HCC) Therapeutic drug monitoring 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 therapy (HCC) CBC W AUTO DIFFERENTIAL Routine 09/12/2024 12:33 PM RESIDENTIAL CARE OFFICER Lymphopenia COMPREHENSIVE METABOLIC PANEL Routine 09/12/2024 12:33 PM RESIDENTIAL CARE OFFICER Scleroderma (HCC) ILD (interstitial lung disease) (HCC) Diffuse cutaneous systemic sclerosis (HCC) Therapeutic drug monitoring 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 therapy (HCC) CBC W AUTO DIFFERENTIAL Routine 09/05/2024 11:47 AM RESIDENTIAL CARE OFFICER Lymphopenia COMPREHENSIVE METABOLIC PANEL Routine 09/05/2024 11:47 AM RESIDENTIAL CARE OFFICER Scleroderma (HCC) ILD (interstitial lung disease) (HCC) Diffuse cutaneous systemic sclerosis (HCC) Therapeutic drug monitoring 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 therapy (HCC) CBC W AUTO DIFFERENTIAL Routine 08/30/2024 1:31 PM RESIDENTIAL CARE OFFICER Lymphopenia COMPREHENSIVE METABOLIC PANEL Routine 08/30/2024 1:31 PM RESIDENTIAL CARE OFFICER Scleroderma (HCC) ILD (interstitial lung disease) (HCC) Diffuse cutaneous systemic sclerosis (HCC) Therapeutic drug monitoring 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 therapy (HCC) CBC W AUTO DIFFERENTIAL Routine 08/24/2024 3:51 PM RESIDENTIAL CARE OFFICER Lymphopenia COMPREHENSIVE METABOLIC PANEL Routine 08/24/2024 3:51 PM RESIDENTIAL CARE OFFICER Scleroderma (HCC) ILD (interstitial lung disease) (HCC) Diffuse cutaneous systemic sclerosis (HCC) Therapeutic drug monitoring 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 therapy (HCC) LIPID PROFILE Routine 08/17/2024 3:57 PM RESIDENTIAL CARE OFFICER Screening for lipoid disorders COMPREHENSIVE METABOLIC PANEL Routine 08/17/2024 3:57 PM RESIDENTIAL CARE OFFICER Scleroderma (HCC) ILD (interstitial lung disease) (HCC) Diffuse cutaneous systemic sclerosis (HCC) Therapeutic drug monitoring 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 therapy (HCC) CBC W AUTO DIFFERENTIAL Routine 08/17/2024 3:57 PM RESIDENTIAL CARE OFFICER Scleroderma (HCC) ILD (interstitial lung disease) (HCC) Diffuse cutaneous systemic sclerosis (HCC) Therapeutic drug monitoring 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 therapy (HCC) CBC W AUTO DIFFERENTIAL Routine 08/08/2024 9:32 AM RESIDENTIAL CARE OFFICER Lymphopenia COMPREHENSIVE METABOLIC PANEL Routine 08/08/2024 9:32 AM RESIDENTIAL CARE OFFICER Scleroderma (HCC) ILD (interstitial lung disease) (HCC) Diffuse cutaneous systemic sclerosis (HCC) Therapeutic drug monitoring 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 therapy (HCC) COMPREHENSIVE METABOLIC PANEL Routine 08/01/2024 2:03 PM RESIDENTIAL CARE OFFICER Scleroderma (HCC) ILD (interstitial lung disease) (HCC) Diffuse cutaneous systemic sclerosis (HCC) Therapeutic drug monitoring 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 therapy (HCC) CBC W AUTO DIFFERENTIAL Routine 08/01/2024 2:03 PM RESIDENTIAL CARE OFFICER Scleroderma (HCC) ILD (interstitial lung disease) (HCC) Diffuse cutaneous systemic sclerosis (HCC) Therapeutic drug monitoring 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 therapy (HCC) POTASSIUM URINE RANDOM Routine 08/01/2024 2:03 PM RESIDENTIAL CARE OFFICER Diffuse cutaneous systemic sclerosis (HCC) Scleroderma (HCC) ILD (interstitial lung disease) (HCC) Therapeutic drug monitoring 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 therapy (HCC) BILIRUBIN DIRECT Routine 07/20/2024 8:29 AM RESIDENTIAL CARE OFFICER ILD (interstitial lung disease) (HCC) Scleroderma (HCC) COMPREHENSIVE METABOLIC PANEL Routine 07/20/2024 8:29 AM RESIDENTIAL CARE OFFICER Scleroderma (HCC) ILD (interstitial lung disease) (HCC) Diffuse cutaneous systemic sclerosis (HCC) Therapeutic drug monitoring 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 therapy (HCC) CBC W AUTO DIFFERENTIAL Routine 07/20/2024 8:29 AM RESIDENTIAL CARE OFFICER Scleroderma (HCC) ILD (interstitial lung disease) (HCC) Diffuse cutaneous systemic sclerosis (HCC) Therapeutic drug monitoring 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 therapy (HCC) MAGNESIUM BLOOD Routine 07/20/2024 8:29 AM RESIDENTIAL CARE OFFICER Therapeutic drug monitoring HEPATITIS C ANTIBODY Routine 02/24/2024 2:54 PM CDT Scleroderma (HCC) ILD (interstitial lung disease) (HCC) from Last 3 Months or Most Recently Relevant to Health Maintenance Results * (ABNORMAL) CBC WITH DIFFERENTIAL (10/02/2024 10:09 AM RESIDENTIAL CARE OFFICER) Only the most recent of12 resultswithin the time period is included. Pathologist [facility] WBC 4.4 4.0 - 10.7 x10E9/L 10/02/2024 11:05 AM [facility] RBC Count 4.17 3.90 - 5.20 x10E12/L 10/02/2024 11:05 AM [facility] Hemoglobin 10.6(L) 11.9 - 15.8 g/dL 10/02/2024 11:05 AM [facility] Hematocrit 34.3(L) 34.8 - 46.1 % 10/02/2024 11:05 AM [facility] MCV 82.3 80.0 - 98.0 fL 10/02/2024 11:05 AM [facility] MCH 25.4(L) 26.7 - 33.6 pg 10/02/2024 11:05 AM [facility] MCHC 30.9(L) 31.7 - 36.3 g/dL 10/02/2024 11:05 AM [facility] RDW-CV 13.2 11.3 - 14.8 % 10/02/2024 11:05 AM [facility] Platelet Count 275 150 - 420 x10E9/L 10/02/2024 11:05 AM [facility] MPV 11.0 7.8 - 11.4 fL 10/02/2024 11:05 AM [facility] Neutrophil % 54.7 41.0 - 74.0 % 10/02/2024 11:05 AM [facility] Lymphocyte % 25.7 17.0 - 47.0 % 10/02/2024 11:05 AM [facility] Monocyte % 15.9(H) 3.0 - 11.0 % 10/02/2024 11:05 AM [facility] Eosinophil % 2.3 0.0 - 7.0 % 10/02/2024 11:05 AM [facility] Basophil % 0.7 0.0 - 1.6 % 10/02/2024 11:05 AM [facility] Immature Granulocytes % 0.7 0.0 - 1.0 % 10/02/2024 11:05 AM [facility] Neutrophil Absolute 2.38 1.60 - 7.50 x10E9/L 10/02/2024 11:05 AM [facility] Lymphocyte Absolute 1.12 1.00 - 4.40 x10E9/L 10/02/2024 11:05 AM [facility] Monocyte Absolute 0.69 0.15 - 1.00 x10E9/L 10/02/2024 11:05 AM [facility] Eosinophil Absolute 0.10 0.00 - 0.60 x10E9/L 10/02/2024 11:05 AM [facility] Basophil Absolute 0.03 0.00 - 0.13 x10E9/L 10/02/2024 11:05 AM [facility] Blood BLOOD SPECIMEN / Unknown Lab Venipuncture / Unknown 10/02/2024 10:09 AM [facility] 10/02/2024 10:51 AM [facility] Kelechi Herrera MD LAB - HEMATOLOGY [facility] [address] [place] [phone], [facility] [phone] * (ABNORMAL) COMPREHENSIVE METABOLIC PANEL (10/02/2024 10:09 AM [facility]) Only the most recent of12 resultswithin the time period is included. BUN 10 7 - 26 mg/dL 10/02/2024 11:37 AM [facility] Creatinine 1.05(H) 0.56 - 0.96 mg/dL 10/02/2024 11:37 AM [facility] Sodium 137 136 - 145 mmol/L 10/02/2024 11:37 AM [facility] Potassium 4.4 3.5 - 4.5 mmol/L 10/02/2024 11:37 AM [facility] Comment:Hemolysis detected i n this specimen. Hemolysis may cause false elevations in potassium leading to pseudohyperkalemia or masked hypokalemia. Recommend repeat testing if clinically indicated. Chloride 110(H) 98 - 107 mmol/L 10/02/2024 11:37 AM [facility] CO2 20(L) 22 - 29 mmol/L 10/02/2024 11:37 AM [facility] Glucose 83 70 - 99 mg/dL 10/02/2024 11:37 AM [facility] Calcium 8.6 8.4 - 10.2 mg/dL 10/02/2024 11:37 AM [facility] Protein Total 6.8 6.0 - 8.3 g/dL 10/02/2024 11:37 AM [facility] Comment:Hemolysis detected i n this specimen. Hemolysis is known to cause elevations in this analyte. Caution should be exercised in the interpretation of this result. Recommend repeat testing if clinically indicated. Albumin 3.9 3.4 - 5.0 g/dL 10/02/2024 11:37 AM [facility] Bilirubin Total 0.3 0.2 - 1.2 mg/dL 10/02/2024 11:37 AM [facility] Alkaline Phosphatase 50 40 - 150 U/L 10/02/2024 11:37 AM [facility] ALT 14 5 - 55 U/L 10/02/2024 11:37 AM [facility] AST 25 5 - 34 U/L 10/02/2024 11:37 AM [facility] Comment:Hemolysis detected i n this specimen. Hemolysis is known to cause elevations in this analyte. Caution should be exercised in the interpretation of this result. Recommend repeat testing if clinically indicated. Anion Gap 7 6 - 16 10/02/2024 11:37 AM [facility] BUN/Creatinine Ratio 10 7 - 23 09/22 11:37 AM [facility] Osmolality Calculated 282 275 - 295 mOsm/kg 10/02/2024 11:37 AM [facility] Albumin/Globulin Ratio 1.3 1.1 - 2.3 10/02/2024 11:37 AM [facility] eGFR by CKD-EPI 65(L) >=90 mL/min/1 .73 m2 10/02/2024 11:37 AM [facility] Blood BLOOD SPECIMEN / Unknown Lab Venipuncture / Unknown 10/02/2024 10:09 AM RESIDENTIAL CARE OFFICER 10/02/2024 11:04 AM [facility] Kelechi Herrera MD LAB - CHEMISTRY ORDERABLES [facility] [address] [place] [address], [facility] [phone] * CT Angio Brain And Neck (09/21/2024 4:17 PM RESIDENTIAL CARE OFFICER) Anatomical Region Laterality Modality Head Computed Tomogra phy 09/21/2024 4:29 PM RESIDENTIAL CARE OFFICER Impressions 09/21/2024 5:03 PM RESIDENTIAL CARE OFFICER IMPRESSION: 1.No acute intracranial hemorrhage. 2.No large arterial occlusions or significant stenoses identified in the head or neck. 3.The dural sinuses appear normal without evidence of thrombus. Viz.AI was used for large vessel occlusion detection. Report dictated by Je Morrow MD, (Card Stripper). I, Shara Henry MD have personally reviewed and interpreted this examination/study. > Interpreting Provider: Shara Henry MD on 09/21/2024 5:03 PM Narrative 09/21/2024 5:03 PM RESIDENTIAL CARE OFFICER PROCEDURE: CT ANGIO BRAIN AND NECK, DATE/TIME OF EXAM: 09/21/2024 4:18 PM, LOCATION [facility] INDICATION: R07.9: Chest pain, unspecified type [...] NECK, DATE/TIME OF EXAM: 09/21/2024 4:18PM, LOCATION [facility] INDICATION: R07.9: Chest pain, unspecified type [...] detection. Report dictated by Je Morrow MD, (Card Stripper). I, Shara Henry MD have personally reviewed and interpretedthis examination/study. > Interpreting Provider: Shara Henry MD on 09/21/2024 5:03 PM [address]una Farrell MD CT ORDERABLES * MRI Brain Wwo Contrast (09/21/2024 12:40 PM RESIDENTIAL CARE OFFICER) Anatomical Region Laterality Modality Head Magnetic Resonan ce 09/21/2024 12:5 9 PM RESIDENTIAL CARE OFFICER Impressions 09/21/2024 5:05 PM RESIDENTIAL CARE OFFICER IMPRESSION: 1.No evidence of restricted diffusion to suggest an acute infarction. 2.No evidence of acute intracranial findings or abnormal enhancement. > Interpreting Provider: Shara Henry MD on 09/21/2024 5:05 PM Narrative 09/21/2024 5:05 PM RESIDENTIAL CARE OFFICER PROCEDURE: MRI BRAIN WWO CONTRAST, DATE/TIME OF EXAM: 09/21/2024 12:40 PM, LOCATION [facility] INDICATION: R07.9: Chest pain, unspecified type [...] CONTRAST, DATE/TIME OF EXAM: 09/21/2024 12:40PM, LOCATION [facility] INDICATION: R07.9: Chest pain, unspecified type [...] CONTRAST ??? Intracranial hemorrhage (09/20/2024 5:50 PM RESIDENTIAL CARE OFFICER) Anatomical Region Laterality Modality Head Computed Tomogra phy 09/20/2024 6:23 PM RESIDENTIAL CARE OFFICER Impressions 09/20/2024 7:37 PM RESIDENTIAL CARE OFFICER IMPRESSION: 1.No acute intracranial hemorrhage, midline shift, or significant mass effect. 2.Please note that CT is insensitive to nonhemorrhagic strokes and MRI of the brain should be considered, if there is clinical concern for acute cerebral infarction. > Dictated by Manas Sandoval DO (Card Stripper), 09/20/2024 6:23 PM. IShara MD have personally reviewed and interpreted this examination/study. > Interpreting Provider: Shara Henry MD on 09/20/2024 7:37 PM Narrative 09/20/2024 7:37 PM RESIDENTIAL CARE OFFICER PROCEDURE: CT HEAD WO CONTRAST, DATE/TIME OF EXAM: 09/20/2024 5:51 PM, LOCATION [facility] INDICATION: R07.9: Chest pain, unspecified type [...] DATE/TIME OF EXAM: 09/20/2024 5:51 PM, LOCATION [facility] INDICATION: R07.9: Chest pain, unspecified type [...] infarction. > Dictated by Manas Sandoval DO (Card Stripper), 09/20/2024 6:23PM. I, Shara Henry MD have personally reviewed and interpretedthis examination/study. > Interpreting Provider: Shara Henry MD on 09/20/2024 7:[address] ORDERABLES * TROPONIN-I HIGH SENSITIVE BASELINE + 1HR (09/20/2024 5:38 PM RESIDENTIAL CARE OFFICER) [facility] Troponin I High Sensitive <3 <=14 ng/L 09/20/2024 6:59 PM RESIDENTIAL CARE OFFICER [facility] Blood BLOOD SPECIMEN / Unknown Venipuncture / Unknown 09/20/2024 5:38 PM RESIDENTIAL CARE OFFICER 09/20/2024 6:07 PM RESIDENTIAL CARE OFFICER [facility] - SOLDERING MACHINE OPERATOR RY ORDERABLES Performing Organization Address City/State/[facility] Co de Phone Number [facility] [address] [place] [phone], [facility] [phone] * D-DIMER (09/20/2024 5:38 PM RESIDENTIAL CARE OFFICER) [facility] D-Dimer Quantitative <0.27 <=0.50 mcg/mL FEU 09/20/2024 6:30 PM RESIDENTIAL CARE OFFICER [facility] Comment: In the absence of clinical symptoms, [...] Unknown Venipuncture / Unknown 09/20/2024 5:38 PM RESIDENTIAL CARE OFFICER 09/20/2024 6:07 PM RESIDENTIAL CARE OFFICER Tania Smallwood SENIOR SOFTWARE QA ANALYST-PROBATION AND PAROLE OFFICER LAB - [facility] ORDERABLES [address] [address], [facility] [phone] * SARS-COV-2 (COVID-19) FLU A/B RSV PCR RAPID (09/20/2024 5:36 PM RESIDENTIAL CARE OFFICER) COVID-19 PCR Not detected Not detected 09/20/19 6:44 PM RESIDENTIAL CARE OFFICER [facility] Influenza A PCR Not detected Not detected 09/20/2024 6:44 PM RESIDENTIAL CARE OFFICER [facility] Influenza B PCR Not detected Not detected 09/20/2024 6:44 PM RESIDENTIAL CARE OFFICER [facility] RSV PCR Not detected Not detected 09/20/2024 6:44 PM RESIDENTIAL CARE OFFICER [facility] Microbiology SPECIMEN FROM NASOPHARYNGEAL STRUCTURE / Unknown Collection / Unknown 09/20/2024 5:36 PM RESIDENTIAL CARE OFFICER 09/20/2024 5:59 PM RESIDENTIAL CARE OFFICER Narrative [facility] - 09/20/2024 6:44 PM RESIDENTIAL CARE OFFICER This nucleic acid amplification assay has been [...] EUA assay are available upon request. Tania Smallwood SENIOR SOFTWARE QA ANALYST-PROBATION AND PAROLE OFFICER LAB - [facility] OLOGY ORDERABLES Performing Organization Address City/State/[facility] Co de Phone Number [facility] [address] [place] [phone], [facility] [phone] * XR CHEST 2VW (09/20/2024 4:45 PM RESIDENTIAL CARE OFFICER) Anatomical Region Laterality Modality Chest Digital Radiogra phy 09/20/2024 5:49 PM RESIDENTIAL CARE OFFICER Narrative 09/21/2024 8:16 AM RESIDENTIAL CARE OFFICER PROCEDURE: XR CHEST 2VW, DATE/TIME OF EXAM: 09/20/2024 4:46 PM, LOCATION [facility] INDICATION: R07.9: Chest pain, unspecified type [...] abdomen > Dictated by Manas Sandoval DO (Card Stripper), 09/20/2024 5:49 PM. Katelynn Mann MD have personally reviewed and interpreted this examination/study. > Interpreting Provider: Katelynn Thrasher MD on 09/21/2024 8:16 AM Procedure Note Katelynn Thrasher MD - 09/21/2024 PROCEDURE: XR CHEST 2VW, DATE/TIME OF EXAM: 09/20/2024 4:46 PM, LOCATION [facility] INDICATION: R07.9: Chest pain, unspecified type [...] abdomen > Dictated by Manas Sandoval DO (Card Stripper), 09/20/2024 5:49 PM. Katelynn Mann MD have personally reviewed and interpreted this examination/study. > Interpreting Provider: Katelynn Thrasher MD on 09/21/2024 8:16 AM Tania Smallwood APRN-PROBATION AND PAROLE OFFICER DIAGNOSTIC IM AGING ORDERABLES * EKG 12-LEAD (09/20/2024 4:05 PM RESIDENTIAL CARE OFFICER) Ventricular Rate 79 BPM [facility] Atrial Rate 79 BPM [facility] P-R Interval 160 ms [facility] QRS Duration ms 70 ms [facility] Q-T Interval ms 388 ms [facility] QTC Calculation (Bezet) 444 ms [facility] Calculated P [place] 32 degrees [facility] Calculated R [place] -23 degrees [facility] Calculated T [place] 5 degrees [facility] MUSE Interpretation EKG NORMAL SINUS RHYTHM LOW VOLTAGE QRS CANNOT RULE OUT ANTERIOR INFARCT , AGE UNDETERMINED ABNORMAL ECG NO PREVIOUS ECGS AVAILABLE Confirmed by MONA MENDIOLA MD ([id number]) on 09/25/2024 8:53:41 PM [facility] MUSE 09/20/2024 4:05 PM RESIDENTIAL CARE OFFICER 09/25/2024 8:53 PM RESIDENTIAL CARE OFFICER Remigio Kaur MD ECG ORDERABLES [facility] MUSE * (ABNORMAL) LIPID PROFILE (08/17/2024 3:57 PM RESIDENTIAL CARE OFFICER) Cholesterol Total 273(H) <200 mg/dL 08/17/2024 5:03 PM [facility] HDL 78 >40 mg/dL 08/17/2024 5:03 PM [facility] Comment: ATP III Classification of HDL Cholesterol: <40 mg/dL: Considered a major risk factor. >60 mg/dL: Considered a negative risk factor. LDL Calculated 162(H) <100 mg/dL 08/17/2024 5:03 PM [facility] Comment: ATP III Classification of LDL Cholesterol: <100 mg/dL: Optimal 100 - 129 mg/dL: Near Optimal/Above Optimal 130 - 159 mg/dL: Borderline High 160 - 189 mg/dL: High >190 mg/dL: Very High Triglycerides 166(H) <150 mg/dL 08/17/2024 5:03 PM [facility] Comment: ATP III Classification of Triglycerides: <150 mg/dL: Normal 150 - 199 mg/dL: Borderline High 200 - 400 mg/dL: High >500 mg/dL: Very High Blood BLOOD SPECIMEN / Unknown Lab Venipuncture / Unknown 08/17/2024 3:57 PM RESIDENTIAL CARE OFFICER 08/17/2024 4:33 PM RESIDENTIAL CARE OFFICER Ordering Provider Unlisted LAB - CHEM ISTRY ORDERABLES [facility] [address] [place] [address], [facility] [phone] * POTASSIUM URINE RANDOM (08/01/2024 2:03 PM RESIDENTIAL CARE OFFICER) Potassium Urine 17.3 Not Established mmol/L 08/01/2024 2:55 PM RESIDENTIAL CARE OFFICER [facility] Urine URINE SPECIMEN OBTAINED BY CLEAN CATCH PROCEDURE / Unknown Collection / Unknown 08/01/2024 2:03 PM RESIDENTIAL CARE OFFICER 08/01/2024 2:23 PM RESIDENTIAL CARE OFFICER Kelechi Herrera MD LAB - URINE CHEM ISTRY ORDERABLES Performing Organization Address City/[facility]/ZIP Co de Phone Number [address] [address], [facility] [phone] * MAGNESIUM BLOOD (07/20/2024 8:29 AM RESIDENTIAL CARE OFFICER) Magnesium 1.9 1.6 - 2.6 mg/dL 07/20/2024 9:51 AM RESIDENTIAL CARE OFFICER [facility] Blood BLOOD SPECIMEN / Unknown Lab Venipuncture / Unknown 07/20/2024 8:29 AM RESIDENTIAL CARE OFFICER 07/20/2024 9:24 AM RESIDENTIAL CARE OFFICER Kelechi Herrera MD LAB - CHEMISTRY ORDERABLES Performing Organization Address [facility]/ZIP Co de Phone Number [address] [address], [place] [phone] * BILIRUBIN DIRECT (07/20/2024 8:29 AM RESIDENTIAL CARE OFFICER) Bilirubin Conjugated 0.2 0.1 - 0.5 mg/dL 07/20/2024 9:51 AM RESIDENTIAL CARE OFFICER [facility] Blood BLOOD SPECIMEN / Unknown Lab Venipuncture / Unknown 07/20/2024 8:29 AM RESIDENTIAL CARE OFFICER 07/20/2024 9:24 AM RESIDENTIAL CARE OFFICER Mohan Rojas MD LAB - CHEMISTRY [facility] Performing Organization Address City/[facility]/ZIP Co de Phone Number [address] [address], [place] [phone] * HEPATITIS C ANTIBODY (02/24/2024 2:54 PM CDT) Hepatitis C Antibody Non-react roman Non-reac tive 02/24/2024 5:13 PM CDT [facility] Comment:Hepatitis C Antibody screen indicates no [...] Sorto MD LAB - CHEMISTRY [facility] [address] [place] [address], [facility] [phone] from Last 3 Months or Most Recently Relevant to Health Maintenance Care Teams Medical Investigator Relationship Specialty Start Date End Date Amelia Tamayo MD [address] [place] [address] PCP - General Family Medicine 02/17/24
--- OUTSIDE RECORDS SUMMARY | 2024-10-17 16:40 | XMS_ITS | Referral Summary ---
Author Organization [facility] al Address [address] [place] [address] Care Team Providers Care Partner Marketing Intern Name Role Phone Amelia Tamayo MD Primary Care Provider Titi Moss MD Unavailable [phone] Allergies Active Allergy Reactions Criticality Noted Date Comments Penicillins Rash,Unknown Medium 07/21/2014 Rash Medications fluticasone propionate (FLONASE) 50 mcg/actuation nasal spray Administer 2 sprays into each nostril daily 1 each 4 Active guaiFENesin (ROBITUSSIN) syrup 100 mg/5 mL Take 20 mL (400 mg total) by mouth 4 (four) times a day as needed for cough 473 mL 4 Active lidocaine (ASPERCREME) 4 % adhesive patch,medicated Place 1 patch on the skin daily 30 patch 4 Active loperamide (IMODIUM) 2 mg capsule Take 1 capsule (2 mg total) by mouth 4 (four) times a day as needed for diarrhea 30 capsule [address] (PROTONIX) 40 mg EC tabletIndication s:Stress Ulcer Prophylaxis Take 1 tablet (40 mg total) by mouth daily 90 tablet 4 Active ramelteon (ROZEREM) 8 mg tabletIndication s:Sleep-Onset Insomnia Take 1 tablet (8 mg total) by mouth nightly as needed for sleep 30 tablet 4 Active sodium chloride (OCEAN) 0.65 % nasal spray Administer 1 spray into each nostril every 2 (two) hours as needed for congestion 15 mL 11 4 10/21/19 25 Active albuterol HFA (PROVENTIL HFA,VENTOLIN HFA,PROAIR HFA) 90 mcg/actuation inhaler Inhale 2 puffs every 6 (six) hours as needed for wheezing 4 Active oxygenIndication s:Dyspnea,may increase to 9 L as needed for dyspnea Inhale 3 L/min continuously. Indications: trouble breathing, may increase to 9 L as needed for dyspnea Active mycophenolate mofetil (CELLCEPT) 500 mg tabletIndication s:Interstitial Lung Disease,Sclerode rma,scleroderma Take 3 tablets (1,500 mg total) by mouth 2 (two) times a day 180 tablet 3 4 Active sulfamethoxazole -trimethoprim (BACTRIM DS) 800-160 mg per tablet Take one tablet daily 90 tablet 4 Active Active Problems Problem Noted Date Diagnosed Date ILD (interstitial lung disease) ([facility]) 2023 Assessment & Plan (11/29/2023 10:49 AM CDT): -Continue Cellcept 3gm total daily, prednisone 15mg daily -w/ fibrotic change on imaging, NSIP pattern. Diffuse systemic sclerosis ([facility]) 11/05/2023 Assessment & Plan (11/29/2023 11:52 AM CDT): Previously presented with worsening dyspnea and weight loss, diagnosed with diffuse systemic sclerosis at 10/15 admission. Was to follow with Rheumatology outpatient, but seems to have issues regarding her insurance. - continue PPI prophylaxis, Bactrim prophylaxis - given history and CXR, will opt to continue MMF at this current time - cont 15 mg pred Autoimmune disease ([facility]) 10/12/2023 Assessment & Plan (10/19/2023 5:46 PM CONFIGURATION ANALYST): Dffuse systemic sclerosis, s/p IVIG for progressive UE skin tightening. SHYLA 1:1280, +SHORTY, +Scl-70, sclerodactyly, skin tightening distal UE, weakness, hand joint pains, hand skin roughness, hand and back increased pigmentation, posterior neck vitelligo, Raynaud's, patulous esophagus, dry mouth, ILD, PH, pleural and pericardial effusions, UA w PRBC and protein. Recommendations: See acute respiratory failure problem regarding immunosuppression (steroids, mycophenolate, and s/p IVIG). Follow up and immunosuppression per rheum. Myomarker panel pending. Evaluation of esophageal function as an outpatient Assessment & Plan (10/18/2023 12:59 PM CONFIGURATION ANALYST): Dffuse systemic sclerosis, s/p IVIG for progressive UE skin tightening. SHYLA 1:1280, +SHORTY, +Scl-70, sclerodactyly, skin tightening distal UE, weakness, hand joint pains, hand skin roughness, hand and back increased pigmentation, posterior neck vitelligo, Raynaud's, patulous esophagus, dry mouth, ILD, PH, pleural and pericardial effusions, UA w PRBC and protein. Recommendations: See acute respiratory failure problem regarding immunosuppression (steroids, mycophenolate, and s/p IVIG). Follow up and immunosuppression per rheum. Myomarker panel pending. Evaluation of esophageal function as an outpatient Assessment & Plan (10/12/2023 12:44 PM CONFIGURATION ANALYST): Dffuse systemic sclerosis, s/p IVIG for progressive UE skin tightening. SHYLA 1:1280, +SHORTY, +Scl-70, sclerodactyly, skin tightening distal UE, weakness, hand joint pains, hand skin roughness, hand and back increased pigmentation, Raynaud's, patulous esophagus, dry mouth, ILD, PH, pleural and pericardial effusions, UA w PRBC and protein. -Followup and immunosuppression per rheum. -Followup ANCAreflex testing. -Check myomarker panel. -Check spot urine protein. -Evaluation of esophageal function as an outpatient Pulmonary HTN 10/11/2023 Assessment & Plan (11/30/2023 4:19 PM CDT): Prior TTE 10/14 during acute illness showed elevated right-sided pressures, likely iso hypoxemia (organizing pneumonia) and some degree of volume overload. Repeat TTE this admission (4/8) was unremarkable. Given her systemic sclerosis, she underwent RHC 11/29 that was essentially unremarkable CI 3.3 (Alex), 4.4 (Thermodilution); PCWP 6; mean PAP 21; RAP 4. - Serial outpatient TTEs as part of systemic sclerosis management to screen for development of pHTN in the future. Assessment & Plan (11/29/2023 10:48 AM CDT): -prior TTE 10/14 during acute illness w/ elevated right-sided pressures, resolved on TTE 11/27 -discussed with PH service, given persistent O2 requirement and scleroderma, proceed wit RHC 11/27. Assessment & Plan (10/19/2023 5:46 PM CONFIGURATION ANALYST): TTE this admission with e/o acute RV strain and PASP 50 mmHg. Bubble study negative. Prior TTE in July normal. PE protocol CT negative for PE and bilateral LE venous duplex neg for DVT. FH unprovoked recurrent VTE. Suspect her elevated pulmonary pressures and RV strain are likely 2/2 her acute lung injury, but she may have some underlying CTD-associated PH. Recommendations: Maintain euvolemia. Recommend further evaluation as an outpatient once her acute lung injury has resolved, including repeat TTE. Assessment & Plan (10/18/2023 12:57 PM CONFIGURATION ANALYST): TTE this admission with e/o acute RV strain and PASP 50 mmHg. Bubble study negative. Prior TTE in July normal. PE protocol CT negative for PE and bilateral LE venous duplex neg for DVT. FH unprovoked recurrent VTE. Suspect her elevated pulmonary pressures and RV strain are likely 2/2 her acute lung injury, but she may have some underlying CTD-associated PH. Recommendations: Maintain euvolemia. Recommend further evaluation as an outpatient once her acute lung injury has resolved, including repeat TTE. Assessment & Plan (10/12/2023 12:32 PM CONFIGURATION ANALYST): TTE this admission with e/o acute RV strain and PASP 50 mmHg. Prior TTE in July normal. PE protocol CT negative for PE and bilateral LE venous duplex neg for DVT. FH unprovoked recurrent VTE. Suspect her elevated pulmonary pressures and RV strain are likely 2/2 her acute lung injury. However, given her history of scleroderma she warrants further evaluation as an outpatient once her acute lung injury has resolved. - Check ANCAreflex. - Check spot urine protein. - Maintain euvolemia. - Will plan for outpatient pulmonary follow up with repeat TTE at that time. Acute respiratory failure 10/04/2023 Assessment & Plan (10/21/2023 6:30 PM CONFIGURATION ANALYST): Azra Little is a 48 year old female with a history of recently diagnosed systemic sclerosis currently admitted with acute hypoxemic respiratory failure which appears to primarily be caused by post-viral organizing pneumonia (recent COVID19 and influenza infections). Contributing factors have included underlying ILD, atelectasis, volume overload with pleural effusions, and possible underlying pulmonary HTN. Her hypoxemia at rest has improved, following treated for influenza with oseltamivir, treatment of COVID19 with remdesivir, empiric pneumonia coverage (vancomycin/cefepime), and initiation of steroids, both for COVID19 infection and organizing pneumonia. She is now stable on room air at rest, though significantly short of breath and hypoxemic with exertion. She appears to be responding to steroids; however, prolonged use poses a risk of scleroderma renal crisis. Thus, per discussion with rheumatology, plan is to dose escalate mycophenolate as tolerated in effort to reduce steroid regimen. Steroids received to date: Dexamethasone 6 mg daily (10/08-10/11). Prednisone 40 mg daily daily (10/12-10/17), 30 mg (10/18-). Mycophenolate, as per rheumatology Recommendations: Continue prednisone 30 mg daily for 7 days, then reduce to 20 mg daily until seen by pulmonology in clinic. Bactrim for PJP prophylaxis. Mycophenolate management per rheumatology. Supplemental O2 9 LPM w/ exertion via HFNC. Maintain euvolemia. DVT prophylaxis. PT/OT PFT, 6 min walk, and chest CT as an outpatient Assessment & Plan (10/18/2023 12:51 PM CONFIGURATION ANALYST): Azra Little is a 48 year old female with a history of recently diagnosed systemic sclerosis currently admitted with acute hypoxemic respiratory failure which appears to primarily be caused by post-viral organizing pneumonia (recent COVID19 and influenza infections). Contributing factors have included underlying ILD, atelectasis, volume overload with pleural effusions, and possible underlying pulmonary HTN. Her hypoxemia at rest has improved, following treated for influenza with oseltamivir, treatment of COVID19 with remdesivir, empiric pneumonia coverage (vancomycin/cefepime), and initiation of steroids, both for COVID19 infection and organizing pneumonia. She is now stable on room air at rest, though significantly short of breath and hypoxemic with exertion. She appears to be responding to steroids; however, prolonged use poses a risk of scleroderma renal crisis. Thus, per discussion with rheumatology, plan is to dose escalate mycophenolate as tolerated in effort to reduce steroid regimen. Steroids received to date: Dexamethasone 6 mg daily (10/08-10/11). Prednisone 40 mg daily daily (10/12-10/17), 30 mg (10/18). Mycophenolate Recommendations: Continue Prednisone at current dose for at least a week Monitor renal function and blood pressure closely. Bactrim for PJP prophylaxis. Mycophenolate management per rheumatology. Supplemental O2 9 LPM w exertion via HFNC. Maintain euvolemia. DVT prophylaxis. PT/OT PFT, 6 min walk, and chest CT as an outpatient Assessment & Plan (10/12/2023 12:22 PM CONFIGURATION ANALYST): Admitted with acute hypoxemic respiratory failure requiring ICU admission and BiPAP. Acute hypoxemic respiratory failure has a multifactorial in etiology, and is due to influenza infection with pneumonia and possibly secondary bacterial pneumonia, hospital-acquired COVID-19 with probable organizing pneumonia (OP), atelectasis, volume overload with pleural effusions, and pulmonary HTN. May have had some underlying ILD. Hypoxemia at rest improved, but may have hypoxemia with exertion. Still very dyspneic, tachypneic, and tachycardic, especially with exertion. -See COVID-19 problem re steroid Rx. - Finish course of oseltamivir. - Supplemental oxygen, as needed. - Maintain euvolemia - DVT prophlaxis - PT/OT - Follow SpO2 - Oxygen assessment prior to hospital discharge Assessment & Plan (10/09/2023 9:53 AM CONFIGURATION ANALYST): -presenting with shortness of breath for approximately 6 months, worsening two days prior to presentation -RVP + influenza A, continue oseltamivir (Getting a total of 20 doses -> did extend a few days based on full dosing calculations) -stop Cefe/Vanc (received 5 days) -chest CT (10/04) consistent with airspace opacities consistent with worsening organizing lung injury and new moderate right and small left effusions -Sputum on 10/08 with Flu and COVID -TTE (10/05) with new pulmonary hypertension and RV dysfunction -limited TTE negative for PFO -PRN diuresis for goal net negative ~500cc to 1L -continues on 2L NC, continue to wean as tolerated for SpO2 >92%. -see COVID Assessment & Plan (10/06/2023 1:11 PM CONFIGURATION ANALYST): Acute-onset SOB on subacute SOB/NICHOLAS/BLEE x 4-6 months. Arrived to ED febrile 39.8 is respiratory distress RR 50+, required BIPAP. Troponin peaked 59 then down- trended. CTPE negative for PE but with patchy posterior GGOs and multifocal injury, likely PNA, less likely ILD. Positive for Flu B. - Flu B positive, droplet precautions, continue tamiflu for full course - TTE 08/13 with normal RV, LVEF 65%, normal diatolic function , BCx NGTD, UA with w 0-5 WBCs - s/p vanc x 1, then CTX/azithro. Abx stopped due to Flu+ then patient re- fevered, so CTX restarted. - weaned from BIPAP -> 2L NC, but increased to 4l on 10/03 as she was hypoxic. continue to wean as tolerated with aggressive pulmonary toilet/nebulizers , will obtain walking O2 before discharge -Patient complains of worsening shortness of breath since arriving to the floor. She had hypoxic episode overnight which required increasing the oxygen from 2 L to 4 L and improvement in saturations. She also spiked a fever yesterday evening. Blood cultures were obtained. reports intermittent fever at home for months -CT chest on 10/04 showed Interval progression of extensive airspace opacities consistentwith worsening organizing lung injury/diffuse alveolar damage that may be related to patient's influenza diagnosis. 2. New moderate right and small left effusions. New small pericardial fluid. Findings are suggestive of generalized volume overload. -switched antibiotics from ceftriaxone to vancomycin and cefepime(already received 3 days of azithromycin) --unable to perform pleurocentesis due to inadequate fluid pocket -rheumatology is consulted, plan as in scleroderma -TTE pending to evaluate pericardial effusion Positive SHYLA (antinuclear antibody), probable sc leroderma 10/04/2023 Assessment & Plan (10/09/2023 9:52 AM CONFIGURATION ANALYST): -presenting with progressive NICHOLAS and exercise intolerance, episodic ALEJANDRO, episodic rash on upper extremities and chest. -serologies notable for positive SHYLA and anti-Scl70. -s/p IVIG for 4 days -rheumatology following Assessment & Plan (10/04/2023 5:37 PM CONFIGURATION ANALYST): Presenting with 5-6 months of progressive NICHOLAS and exercise intolerance, episodic ALEJANDRO, episodic rash on upper extremities and chest. Saw PCP, serologies w/ positive SHYLA, anti-Scl70. Rx HCQ but never took. Here w/ skin thickening, new GERD, progressive NICHOLAS, now resp failure. No pulm HTN on TTE Jul 2023. - rheumatology is consulted, recommended IVIG for 4 days. -will obtain T spot, hepatitis panel, antiphospholipid antibody panel before starting IVIG. Anemia 10/04/2023 Assessment & Plan (10/07/2023 11:15 AM CONFIGURATION ANALYST): -baseline Hgb 9-10. -continue enteral iron q48 hours -cbc daily Assessment & Plan (10/04/2023 12:25 AM CONFIGURATION ANALYST): Recent baseline Hgb 9-10s, admitted at 10.5 -> 8.8, likely secondary to admission hemoconcentration and subsequent phlebotomy, no clinical signs of bleeding. Fe 12, ferritin 133, TIBC 198, Tsat 6. - on PO iron, space to every other day - can consider IV iron after no longer infected GERD (gastroesophageal reflux disease) Assessment & Plan (10/07/2023 11:15 AM CONFIGURATION ANALYST): -daily PPI Assessment & Plan (10/04/2023 12:26 AM CONFIGURATION ANALYST): Having reflux symptoms, concerning for relation to scleroderma. - start PPI (new med) Lymphadenopathy 10/04/2023 Assessment & Plan (10/12/2023 12:26 PM CONFIGURATION ANALYST): Chest and axillary adenopathy probably reactive. To be reassessed with next chest CT. Assessment & Plan (10/07/2023 11:15 AM CONFIGURATION ANALYST): -recurrent scans with mediastinal LAD, questionable breast LAD. -recommend outpatient mammogram Assessment & Plan (10/04/2023 12:26 AM CONFIGURATION ANALYST): Recurrent scans with mediastinal LAD, questionable breast LAD. - outpatient mammogram Severe protein-calorie malnutrition (CMS/HCC) Assessment & Plan (10/07/2023 11:15 AM CONFIGURATION ANALYST): -nutrition consult -encourage PO intake and nutritional supplements Dyspnea, unspecified type 10/01/2023 Breast mass 07/27/2023 Assessment & Plan (07/27/2023 10:50 AM CONFIGURATION ANALYST): CT with breast asymmetry with axillary LN enlargement, suspicious given location at upper outer quadrant of breast. Has a prior history of having bilateral cystic changes in breast and dense breast on mammogram 2019, but unilaterally and axillary LN was not present and hence is new. - US breast pending - Oncology follow up as needed after US on discharge Menorrhagia 07/27/2023 Assessment & Plan (07/27/2023 10:27 AM CONFIGURATION ANALYST): Associated with metromenorrhagia in setting if uterine fibroids. CBC with hemoglobin at 10 from 12 2 months ago in setting of menorrhagia. Has been on iron supplement but haven't been taking it. - rec follow up with her SUIT ATTENDANT Acute on chronic respiratory failure (CMS/HCC) 1 09/26/2022 Assessment & Plan (11/30/2023 4:16 PM CDT): 48F w/ recently-diagnosed diffuse systemic sclerosis (anti-SCL70+), GERD/patulous esophagus likely 2/2 SS, PARAG, and childhood asthma. She was diagnosed with diffuse SS while admitted Sep 2023 with acute hypox resp failure felt primarily 2/2 post- viral organizing pneumonia (recent COVID-19, influenza infections). Additional contributing factors of ILD, atelectasis, volume overload with pleural effusions, and possible pHTN. Following treatment with oseltamivir, remdes, cefe/vanc, and steroids, she had walking O2 assessment of 0L rest, 3L exertion, and she was discharged 10/21. She was readmitted 11/23 with mildly worsened hypoxemia. Overall, the inflammatory changes (GGOs / consolidations) on Ms. Little's CT have improved from prior. There are some newer fibrotic changes, which may be progression of previously-seen inflammation. From a pulm standpoint, we are okay with decreased prednisone dosing (20 => 15 qDay) to decrease risk of scleroderma renal crisis, as advised by rheumatology. Similarly, we have a lower concern for infection; other than her home TMP-SMX, defer abx and bronchoscopy at this time. Admission NT-proBNP 81 and repeat TTE 11/27 unremarkable (including normal PASP), but given her systemic sclerosis and persistent dyspnea/hypoxemia with minimal exertion, RHC was performed. RHC 11/29 was essentially unremarkable, with CI 3.3 (Alex), 4.4 (Thermodilution); PCWP 6; mean PAP 21; RAP 4. She is pending PFTs, mostly to establish a baseline, which ideally would be completed prior to discharge. Unfortunately, she is still trying to coordinate with her insurance to find out whether she can follow with [facility] rheum/pulm as an outpatient; if so, we are happy to see her in clinic, and this would be optimal since the majority of her workup has been performed at [facility]. In summary, our recommendations are as follows: - Would discharge on current immunosuppression (MMF 1500 BID, prednisone 15 qDay). - Would discharge on TMP-SMX PPx and PPI. - Hope to complete PFTs prior to discharge to establish baseline. - Outpatient f/u with pulm and rheum within 1-2 months; as discussed above, this is pending patient's insurance, but ideally she would follow-up in our pulmonary clinic for continuity of care. Assessment & Plan (11/29/2023 10:47 AM CDT): 48F w/ recently-diagnosed diffuse systemic sclerosis (anti-SCL70+), GERD/patulous esophagus likely 2/2 SS, PARAG, and childhood asthma. She was diagnosed with diffuse SS while admitted Sep 2023 with acute hypox resp failure felt primarily 2/2 post- viral organizing pneumonia (recent COVID-19, influenza infections). Additional contributing factors of ILD, atelectasis, volume overload with pleural effusions, and possible pHTN. Following treatment with oseltamivir, remdes, cefe/vanc, and steroids, she had walking O2 assessment of 0L rest, 3L exertion, and she was discharged 10/21. She is now readmitted 11/23 with mildly worsened hypoxemia. Overall, the inflammatory changes (GGOs / consolidations) on Ms. Little's CT have improved from prior. There are some newer fibrotic changes, which may be progression of previously-seen inflammation. From a pulm standpoint, we are okay with decreased prednisone dosing (20 => 15 qDay) to decrease risk of scleroderma renal crisis, as advised by rheumatology. Similarly, we have a lower concern for infection; other than her home TMP-SMX, defer abx and bronchoscopy at this time. Admission NT-proBNP 81 and repeat TTE 11/27 unremarkable (including normal PASP), but given that if she does have pHTN on RHC, she likely would be a candidate for pulmonary vasodilators, will plan to perform RHC. In summary, our recommendations are as follows: - RHC pending (ordered 11/27) - From a pulm standpoint, okay to decrease pred 20 => 15 mg daily ; continue MMF 1500 BID. - PFTs pending. - Continue TMP-SMX PPx and PPI. - needs outpatient pulmonary follow-up Assessment & Plan (12/01/2023 10:36 AM CDT): Patient with known recent diagnosis of systemic sclerosis and prior lung injury from flu/COVID with concern for interstitial lung disease presenting with progressive worsening shortness of breath, NICHOLAS, orthopnea. Home 4L rest, 5L exertion. On bedside evaluation on admission with 4 L oxygen requirement since baseline but clearly short of breath. Differential includes worsening interstitial lung disease in setting of rheumatologic process, infectious process on immunosuppression, organizing pneumonia given recent infection, worsening pulmonary hypertension, consider PE. HRCT with contrast showed no PE, but groundglass opacity and consolidative lung opacities, traction bronchiectasis and new volume loss in a nonspecific interstitial PNA pattern, possible interstitial PNA. She also had improving volume overload, with decreasing bl pleural effusions and decreased pericardial fluid pneumonia pattern. RVP negative. - per pulm and rheum c/s: - lower c/f infection at this time, will hold off on Ab and cont immunosuppression - sputum pneumonia PCR neg and PJP DFA ordered but not collected - histo/blasto negative - PFTs pending-- to be done today - decreased prednisone 20 to 15 per pulm/rheum, cont at 15 mg/day - nl TTE w bubble, nl PASP - RHC nl, no pHTN - Pulm has signed off, okay for dc, will likely be medically ready for dc later today Assessment & Plan (07/28/2023 1:19 PM CONFIGURATION ANALYST): Admitted with worsening exertional dyspnea, orthopnea, bendopnea, PND. COVID-19 negative. Exam with labored breathing / tachypnea, mild lower extremity edema. Chest x-ray with bibasilar atelectasis. CT contrast without PE with enlarged left axillary lymph node and asymmetry of left breast tissue with possible new 1.5 cm nodule in the left outer upper quadrant. - monitoring for observation of chest pain / dyspnea - telemetry - LE DOP w/o DVT - TTE > LVEF 65%, normal diastolic function - delta trop negative, BNP 58, TSH 1.04, VBG normal, CMP w/o Gap - may require amb ref to pulmonology / PFT / spirometry. - recent rheum panel now positive for Scl70 and SHYLA > amb ref to rheumatology Chest pain 05/25/2023 Edema 05/25/2023 Assessment & Plan (07/27/2023 2:41 PM CONFIGURATION ANALYST): Mild, intermittent LE edema. Patient endorses current upper extremity edema I cannot recognize on exam. - continue compression stocking - LE dop negative Asthma exacerbation 12/15/2017 Assessment & Plan (07/28/2023 1:20 PM CONFIGURATION ANALYST): Prior asthma history, reporting shortness of breath, tachypnea. Has not had an recognizable exacerbation since age 16, typically with chest tightness and wheezing. - DuoNebs - Prednisone 40 mg > will not continue at discharge - She is not been on inhaler, may benefit from combined albuterol / ICS flovent- like inhaler on discharge. Acute bronchitis 09/07/2017 Resolved Problems Problem Noted Date Diagnosed Date Resolved Date Flu 10/09/2023 10/14/2023 Assessment & Plan (10/18/2023 12:55 PM CONFIGURATION ANALYST): Diagnosed on admission after presenting with AHRF requiring ICU admission and BiPAP. Treated with Tamiflu 09/30-10/12. See acute hypoxemic respiratory failure problem. Assessment & Plan (10/11/2023 1:09 PM CONFIGURATION ANALYST): Diagnosed on admission after presenting with AHRF requiring ICU admission and BiPAP. Has been on Tamiflu since 09/30. - Continue Tamiflu Assessment & Plan (10/09/2023 10:35 AM CONFIGURATION ANALYST): -Will receive a total of 20 doses of tamiflu COVID 10/09/2023 10/14/2023 Assessment & Plan (10/18/2023 1:13 PM CONFIGURATION ANALYST): Patient developed worsening SOB with worsening infiltrates on CT on 10/04, requiring transfer to the ICU. Repeat RVP on 10/08 positive for COVID. Received remdesivir and dexamethasone. 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 See acute hypoxemic respiratory failure problem. Assessment & Plan (10/18/2023 12:54 PM CONFIGURATION ANALYST): Patient developed worsening SOB with worsening infiltrates on CT on 10/04, requiring transfer to the ICU. Repeat RVP on 10/08 positive for COVID. +COVID Ab test. Received remdesivir and dexamethasone. 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 See acute hypoxemic respiratory failure problem. Assessment & Plan (10/12/2023 12:25 PM CONFIGURATION ANALYST): Patient developed worsening SOB with worsening infiltrates on CT on 10/04, requiring transfer to the ICU. Repeat RVP on 10/08 positive for COVID. Received remdesivir and dexamethasone. - Recommend transition from dexamethsone 6mg daily for now to oral prednisone 40 mg po daily for organizing pneumonia, with plans for a steroids taper over a few months (depends on clinical course). - Watch for scleroderma renal crisis. - May warrant PJP prophylaxis based on final steroid plan. Assessment & Plan (10/10/2023 2:47 PM CONFIGURATION ANALYST): + 10/08 -Dexamethasone (discussed with rheumatology and monitoring for scleroderma renal crisis) and remdesivir -IS and OOBTC and acapella Pulmonary hypertension 10/06/202310/07 Assessment & Plan (10/06/2023 6:21 PM CONFIGURATION ANALYST): -Noted on TTE 10/06 EF 66%, PASP 50, with small effusion -Pulmonology consulted Acute kidney injury 10/04/2023 10/07/19 24 Assessment & Plan (10/06/2023 10:19 PM CONFIGURATION ANALYST): Creatine down trending Assessment & Plan (10/04/2023 12:25 AM CONFIGURATION ANALYST): Baseline normal, arrived 1.2, resolved to baseline after 2L IVF in ED. Immunizations Immunization Administration Dates Next Due Influenza, Quadrivalent, Split, Intramuscular Social History Tobacco Use Types Packs/Day Years Used Date Smoking Tobacco: Never Tobacco Cessation:Counseling Given: Not Answered Alcohol Use Standard Drinks/Week Comments Yes 0 (1 standard drink = 0.6 oz pur e alcohol) occassionaly OASIS D0700: Social Isolation Answer Da te Recorded Frequency of experiencing loneliness or isolatio n Never 10/28/2023 [facility] Utilities Answer Date Recorded In the past 12 months has th e [employer], gas, oil, or water [employer] threatened to shut off services in your home? No 12/02/2023 Social Connection and Isolat ion Panel [NHANES] Answer Date Recorded In a typical week, how many times do you talk on the phone with family, friends, or neighbors? More than three times a week 12/02/2023 How often do you get togethe r with friends or relatives? More than three times a week 12/02/2023 How often do you attend chur ch or episcopal services? 1 to 4 times per year 12/02/2023 Do you belong to any clubs o r organizations such as tenriism groups, unions, fraternal or athletic groups, or school groups? Yes 12/02/2023 How often do you attend meet ings of the clubs or organizations you belong to? More than 4 times per year 12/02/2023 Are you , , di vorced, , never , or living with a partner? Never 12/02/2023 AUDIT-C Answer Date Recorded Q1: How often do you have a drink containing alcohol? Never 11/30/2023 Q2: How many drinks containi ng alcohol do you have on a typical day when you are drinking? Patient does not drink Q3: How often do you have si x or more drinks on one occasion? Never 11/30/2023 Overall Financial Resource Strain (CARDIA) Answe r Date Recorded How hard is it for you to pa y for the very basics like food, housing, medical care, and heating? Not very hard 12/02/2023 Hunger Vital Sign Answer Date Recorded Within the past 12 months, y ou worried that your food would run out before you got the money to buy more. Never true 12/02/19 24 Within the past 12 months, t he food you bought just didn't last and you didn't have money to get more. Never true 12/02/2023 PRAPARE - Transportation Answer Date Re corded In the past 12 months, has l ack of transportation kept you from medical appointments or from getting medications? No 11/20 In the past 12 months, has l ack of transportation kept you from meetings, work, or from getting things needed for daily living? No 12/02/2023 Housing Stability Vital Sign Answer Kike e Recorded In the last 12 months, was t here a time when you were not able to pay the mortgage or rent on time? No 12/02/2023 In the last 12 months, how many places have you lived? 1 12/02/2023 In the last 12 months, was t here a time when you did not have a steady place to sleep or slept in a mcc (including now)? No 12/02/2023 Personal Safety Answer Date Recorded Have you ever been in or are you currently in a harmful physical or emotional relationship or is someone making you feel afraid or unsafe? Denies 11/24/2023 Comments Unknown Sex and Gender Information Value Date Recorded Sex Assigned at Not on file Legal Sex Female 9:11 PM CONFIGURATION ANALYST Gender Identity Not on file Sexual Orientation Not on file Last Filed Vital Signs Vital Sign Reading Time Taken Comments Blood Pressure 123/78 12/21/2023 1:07 PM CDT Pulse 100 12/21/2023 1:07 PM CDT Temperature 36.5 C (97.7 F) 12/21/2023 1:07 PM CDT Respiratory Rate 19 12/21/2023 1:07 PM CDT Oxygen Saturation 97% 12/21/2023 1:07 PM CDT Inhaled Oxygen Concentration - - Weight 62.5 kg (137 lb 11.2 oz) 11/24/2023 7:14 PM CDT Height 162.6 cm (5' 4 ) 11/24/2023 6:44 PM CDT Body Mass Index 23.64 11/24/2023 6:44 PM CDT Plan of Treatment Not on file Procedures Procedure Name Priority Date/Time Associated Diagnosis Comments HEPATITIS PANEL, ACUTE STAT 10/04/2023 5:46 PM CONFIGURATION ANALYST SCREENING MAMMOGRAM BILATERAL W PAOLO 05/14/2019 8:21 AM CDT from Last 3 Months or Most Recently Relevant to Health Maintenance Results * (ABNORMAL) Hepatitis panel, acute Blood (10/04/2023 5:46 PM CONFIGURATION ANALYST) Hep A IgM Reactive(A) Nonreactive [facility] Hep B core IgM Nonreactive Nonreactive [facility] Hep C Ab Nonreactive Nonreactive [facility] Comment:Antibodies to HCV no t detected. Does NOT exclude the possibility of recent exposure to HCV. Current interpretive data was last revised on 22 HepBsAg Nonreactive Nonreactive [facility] Blood 10/04/2023 5:46 PM CONFIGURATION ANALYST 10/04/2023 6:23 PM CONFIGURATION ANALYST us Chelly Salcido MD LAB MICROBIOLOGY - GENERAL O RDERABLES Final Result [facility] Department [place] [address] * Screening Mammogram Bilateral W Paolo (05/14/2019 8:21 AM CDT) Anatomical Region Laterality Modality Breast Bilateral Mammography 05/14/2019 8:27 AM CDT Narrative 05/14/2019 9:18 AM CDT Patient Name: AZRA LITTLE Dr: Naila Franklin MDO.B: 1975 Exam Date: 05/14/19820 Age: 43 Sex: Female MR#: [id number] Loc: RADIOLOGY REPORT Order #[id number] [facility] Argelia Bilat Screening 3D Signed - MG BILATERAL DIGITAL SCREENING MAMMOGRAM 3D/2D WITH MEDIOLATERAL OBLIQUE CRANIOCAUDAL: 05/14/2019 The study was acquired using full field digital technology and interpreted from soft copy. 2D digital mammographic views, as well as 3D digital tomosynthesis were performed in the CC and MLO projections. CLINICAL: Routine mammogram. Denies any problems today. No personal history of breast cancer. No family history of breast cancer. COMPARISONS: Comparison is made to exam dated: 03/06/2018 mammogram - [facility]. BREAST TISSUE: The tissue of both breasts is heterogeneously dense, which may obscure small masses. FINDINGS: There are multiple waxing/waning, round/oval masses with partially circumscribed, partially obscured margins present within both breasts. These are considered benign (favored to represent cysts) given their morphology, multiplicity, bilaterally, and fluctuating nature. No suspicious masses, suspicious calcifications, or other suspicious findings are seen in either breast. There has been no suspicious change involving either breast. IMPRESSION: BI-RAD 2 BENIGN There is no mammographic evidence of malignancy. A 1 year screening mammogram is recommended. The patient has been or will be contacted. We recommend annual screening mammography for women at average risk of breast cancer beginning at age 40, based on guidelines of the [employer] (ACR Practice Parameter for the Performance of Screening and Diagnostic Mammography) and [employer]. For women with an elevated risk of breast cancer, please refer to the ACR Practice Parameter for specific screening recommendations. The patient will be entered into a reminder system with a target due date of 1 year for her next screening exam. Electronically signed by: Esdras Salgado M.D., md/:05/14/2019 09:18:42 Supervisor Assembly And Packing: Gail RAMIRES(R)(Jcarlos), [facility] letter sent: Normal Exam Reading location: BI-RADS: 2 Benign REPORT ELECTRONICALLY SIGNED IN OTHER VENDOR SYSTEM Resulting Agency Comment O Procedure Note Esdras Salgado MD - 05/14/2019 Patient Name: AZRA LITTLE Dr: Naila Franklin MD D.O.B: 1975 Exam Date: 05/14/19 0821 Age: 43 Sex: Female MR#: [id number] Loc: RADIOLOGY REPORT Order #[id number] [facility] Argelia Bilat Screening 3D Signed - MG BILATERAL DIGITAL SCREENING MAMMOGRAM 3D/2D WITH MEDIOLATERAL OBLIQUE CRANIOCAUDAL: 05/14/2019 The study was acquired using full field digital technology andinterpreted from soft copy. 2D digital mammographic views, as well as 3D digital tomosynthesis were performed in the CC and MLO projections. CLINICAL: Routine mammogram. Denies any problems today. No personalhistory of breast cancer. No family history of breast cancer. COMPARISONS: Comparison is made to exam dated: 03/06/2018 [facility]. BREAST TISSUE: The tissue of both breasts is heterogeneously dense, whichmay obscure small masses. FINDINGS: There are multiple waxing/waning, round/oval masses withpartially circumscribed, partially obscured margins present within both breasts.These are considered benign (favored to represent cysts) given theirmorphology, multiplicity, bilaterally, and fluctuating nature. No suspicious masses, suspicious calcifications, or other suspicious findings are seen ineither breast. There has been no suspicious change involving either breast. IMPRESSION: BI-RAD 2 BENIGN There is no mammographic evidence of malignancy. A 1 year screeningmammogram is recommended. The patient has been or will be contacted. We recommend annual screening mammography for women at average risk ofbreast cancer beginning at age 40, based on guidelines of the [employer] (ACR Practice Parameter for the Performance of Screening and Diagnostic Mammography) and [employer]. For women with an elevated risk of breast cancer, pleaserefer to the ACR Practice Parameter for specific screening recommendations. The patient will be entered into a reminder system with a target due dateof 1 year for her next screening exam. Electronically signed by: Esdras Salgado M.D., md/:05/14/2019 09:18:42 Supervisor Assembly And Packing: Gail Dominguez RT(R)(M), [facility] letter sent: Normal Exam Reading location: BI-RADS: 2 Benign REPORT ELECTRONICALLY SIGNED IN OTHER VENDOR SYSTEM Naila Franklin MD IMG MAMMO PROCEDURES Final Re sult from Last 3 Months or Most Recently Relevant to Health Maintenance Insurance [facility] Advance Directives For more information, please contact: [phone] * Full Code (Latest Code Status on File) Date Activated Date Inactivated Comments 11/24/2023 7:16 PM 12/01/2023 9:01 PM * Full Code Date Activated Date Inactivated Comments 10/01/2023 3:54 PM 10/22/2023 5:23 PM * Full Code Date Activated Date Inactivated Comments 07/26/2023 9:54 PM 07/28/2023 9:43 PM Care Teams Partner Marketing Intern Relationship Specialty Start Date End Date Amelia Tamayo MD [address] [facility] [address] [facility] [address] [place] [address] PCP - General Family Medicine 10/31/23 Titi Moss MD [address] [facility] [address] [place] [address] Family Medicine 12/28/23
--- OUTSIDE RECORDS SUMMARY | 2024-10-17 16:40 | XMS_ITS | Clinical Summary ---
Author Organization [facility] Address [address] [facility] [place] [address] Care Team Providers Care Clinical Specialty Rep Name Role Phone Amelia Tamayo MD Primary Care Provider + Source Comments [facility],non-owned Affiliates and Associated Physician Practices is amultiple site organization consisting of ambulatory clinics and hospital sitesin [place], [place], [place] and [place]. This disclosure is being madepursuant to the Care Everywhere program and may not contain all information available regarding this patient. Last updated 18.[employer] [facility] Allergies Active Allergy Reactions Criticality Noted Date [...] 0.083% nebulizer solutionIndicati ons:ILD (interstitial lung disease) (HCC),Scleroderm a (HCC) Inhale 2.5 (two and one-half) mg by [...] Resolved Date Asthma exacerbation 12/15/2017 06/20/20 24 Encounters Date Type Department Care Team Description 10/15/2024 2:00 PM SAFETY MANAGER Office Visit [facility] - Neurology [address] [facility] [place] [address] Tricia Serrano MD Vestibular migraine (Primary Dx) 10/15/2024 Travel 10/02/2024 9:50 AM SAFETY MANAGER - 10/02/2024 11:59 PM [facility] Hospital Encounter [facility] [address] [place] [address] Discharge Disposition: Home or Self Care 10/02/2024 Travel 09/26/2024 11:45 AM SAFETY MANAGER - 09/26/2024 11:59 PM SAFETY MANAGER Hospital Encounter [facility] [address] [place] [address] Discharge Disposition: Home or Self Care 09/26/2024 Travel 09/25/2024 10:01 AM SAFETY MANAGER - 09/25/2024 11:59 PM SAFETY MANAGER Hospital Encounter [facility] [address] [place] [address] Unknown, Provider Kelechi Herrera MD Rheumatology Discharge Disposition: Home or Self Care 09/25/2024 Travel 09/24/2024 Telephone [facility] - Rheumatology [address] [place] [phone] Kelechi Herrera MD [facility] 09/21/2024 2:16 AM SAFETY MANAGER - 09/21/2024 8:34 PM [facility] Emergency [facility] [address] [place] [address] Harry Monsivais MD Bitter, Cindy C, MD Demars, Andrew Hamilton, MD Benign paroxysmal positional vertigo, unspecified laterality (Primary Dx); Chest pain, unspecified type; Tinnitus of both ears; Acute nonintractable headache, unspecified headache type; Nausea and vomiting, unspecified vomiting type; Abnormal uterine bleeding Discharge Disposition: Home or Self Care 09/20/2024 Travel 09/20/2024 Telephone [facility] - Rheumatology [address] [place] [phone] Kelechi Herrera MD [facility] 09/19/2024 11:05 AM SAFETY MANAGER - 09/19/2024 11:59 PM SAFETY MANAGER Hospital Encounter [facility] [address] [place] [address] Discharge Disposition: Home or Self Care 09/19/2024 Travel 09/18/2024 11:00 AM SAFETY MANAGER Office Visit [facility] - Pulmonology [address], [facility] [address] [place] [address] Mohan Rojas MD ILD (interstitial lung disease) (HCC) (Primary Dx); Scleroderma (HCC); Chronic respiratory failure with hypoxia (HCC); Immunization counseling 09/18/2024 Travel 09/12/2024 11:30 AM SAFETY MANAGER - 09/12/2024 11:59 PM SAFETY MANAGER Hospital Encounter [facility] [address] [place] [address] Discharge Disposition: Home or Self Care 09/12/2024 Travel 09/05/2024 11:18 AM SAFETY MANAGER - 09/05/2024 11:59 PM SAFETY MANAGER Hospital Encounter [facility] [address] [place] [address] Discharge Disposition: Home or Self Care 09/05/2024 Travel 08/31/2024 Orders Only [facility] - Rheumatology [address] [place] [phone] Kelechi Herrera MD Diffuse cutaneous systemic sclerosis (HCC); Scleroderma (HCC); ILD (interstitial lung disease) (HCC); Therapeutic drug monitoring; 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 therapy (HCC) 08/30/2024 1:10 PM SAFETY MANAGER - 08/30/2024 11:59 PM SAFETY MANAGER Hospital Encounter [facility] [address] [place] [address] Discharge Disposition: Home or Self Care 08/29/2024 Refill [facility] Rheumatology [address] [place] [phone] Kelechi Herrera MD MEDICATION REFILL 08/28/2024 11:00 AM SAFETY MANAGER - 08/28/2024 11:59 PM SAFETY MANAGER Hospital Encounter [facility] [address] [place] [address] Unknown, Provider Discharge Disposition: Home or Self Care 08/28/2024 Travel 08/24/2024 3:25 PM SAFETY MANAGER - 08/24/2024 11:59 PM SAFETY MANAGER Hospital Encounter [facility] [address] [place] [address] Discharge Disposition: Home or Self Care 08/24/2024 Travel 08/21/2024 Refill [facility] Rheumatology [address] [place] [phone] Kelechi Herrera MD MEDICATION REFILL 08/17/2024 3:10 PM SAFETY MANAGER - 08/17/2024 11:59 PM SAFETY MANAGER Hospital Encounter [facility] [address] [place] [address] Discharge Disposition: Home or Self Care 08/17/2024 Travel 08/17/2024 Refill [facility] Rheumatology [address] [place] [phone] Kelechi Herrera MD MEDICATION REFILL 08/16/2024 Refill [facility] Rheumatology [address] [place] [phone] Kelechi Herrera MD MEDICATION REFILL 08/08/2024 9:15 AM SAFETY MANAGER - 08/08/2024 11:59 PM SAFETY MANAGER Hospital Encounter [facility] [address] [place] [address] Discharge Disposition: Home or Self Care 08/08/2024 Travel 08/02/2024 Telephone [facility] - Rheumatology [address] [place] [phone] Kelechi Herrera MD Update 08/01/2024 1:25 PM SAFETY MANAGER - 08/01/2024 11:59 PM SAFETY MANAGER Hospital Encounter [facility] [address] [place] [address] Discharge Disposition: Home or Self Care 08/01/2024 11:30 AM SAFETY MANAGER Office Visit [facility] - Rheumatology [address] [place] [phone] Kelechi Herrera MD Diffuse cutaneous systemic sclerosis (HCC) (Primary Dx); Scleroderma (HCC); ILD (interstitial lung disease) (HCC); Therapeutic drug monitoring; 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 therapy (HCC) 08/01/2024 Travel 07/31/2024 Telephone [facility] [address] [place] [phone] Kelechi Herrera MD General 07/31/2024 Telephone [facility] - Rheumatology [address] [place] [address] Kelechi Herrera MD Imaging 07/30/2024 Telephone [facility]umatology [address] [place] [phone] Kelechi Herrera MD Referral Request 07/24/2024 10:05 AM SAFETY MANAGER - 07/24/2024 11:59 PM SAFETY MANAGER Hospital Encounter [facility] [address] [place] [address] Unknown, Provider Discharge Disposition: Home or Self Care 07/24/2024 Orders Only [facility] - Rheumatology [address] [place] [phone] Kelechi Herrera MD ILD (interstitial lung disease) ([facility]) 07/24/2024 Travel 07/20/2024 8:20 AM SAFETY MANAGER - 07/20/2024 11:59 PM SAFETY MANAGER Hospital Encounter [facility] [address] [place] [address] Discharge Disposition: Home or Self Care 07/20/2024 Travel from Last 3 Months Immunizations Name Administration Dates Next Due INFLUENZA VACCINE, QUADR. (A FLURIA, FLUZONE QUADRIVALENT; 6MO+) (IIV4) 05/23/2018 INFLUENZA VACCINE, TRIV. (FL UZONE; FLULAVAL; FLUARIX; AFLURIA TRIVALENT; 6MO+), 0.5 ML (IIV3) 05/08/2024 PNEUMOCOCCAL PCV20 CONJ VAC IM 02/17/2024 Family History Medical History Relation Name Comments Asthma Father of status asthmaticus Cancer - Colon Father Asthma Maternal Grandmother Asthma Paternal Grandfather Diabetes - Type 2 Paternal Grandmother Arthritis - Rheumatoid Neg Hx CAD (Coronary Artery Disease) Neg Hx CVA Neg Hx Lupus Neg Hx Scleroderma Neg Hx Relation Name Status Comments Father Maternal Grandmother Paternal Grandfather Paternal Grandmother Social History Tobacco Use Types Packs/Day Years [...] Comments Blood Pressure 122/76 10/15/2024 2:03 PM SAFETY MANAGER Pulse 103 10/15/2024 2:03 PM SAFETY MANAGER Temperature 36.6 C (97.9 F) 09/25/2024 10:19 AM SAFETY MANAGER Respiratory Rate 22 09/25/2024 10:19 AM SAFETY MANAGER Oxygen Saturation 100% 09/25/2024 10:19 AM SAFETY MANAGER 3L of O2 Inhaled Oxygen Concentration - - Weight 69.9 kg (154 lb) 10/15/2024 2:03 PM SAFETY MANAGER Height 162.6 cm (5' 4 ) 10/15/2024 2:03 PM SAFETY MANAGER Body Mass Index 26.43 10/15/2024 2:03 PM SAFETY MANAGER Plan of Treatment Upcoming Encounters Date Type Department Care Team (Late st Contact Info) Description 10/23/2024 11:00 AM SAFETY MANAGER Hospital Encounter [facility] [address] [place] [address] Unknown, Provider 10/31/2024 9:30 AM CDT Office Visit [facility] - Rheumatology [address] [place] [address] Kelechi Herrera MD [address] [place] [address] 11/20/2024 11:00 AM CDT Appointment [facility] [address] [place] [address] Unknown, Provider 12/05/2024 9:30 AM CDT Office Visit [facility] - GI [address] [place] [address] Neeraj Pennington MD [facility] [place] [address] 12/11/2024 11:00 AM CDT Office Visit [facility] - Pulmonology [address] [place] [address] Mohan Rojas MD [facility] [facility] 2L DIV OF PULM/[place] [address] 02/18/2025 1:00 PM CDT Office Visit [facility] - Neurology [address] [facility] [place] [phone] Tricia Serrano MD [address] [place] [address] Health Maintenance Due Date Last Done Comments COLOGUARD (AGES 45-75) - COLON CA SCREENING 1974 COLON MONITORING 1974 COLONOSCOPY - COLON CA SCREENING 1974 CT COLONOGRAPHY - COLON CA SCREENING 1974 Colorectal Cancer Screening 1974 FIT - COLON CA SCREENING 1974 FLEX SIG - COLON CA SCREENING 1974 PAP SMEAR 1974 HIV SCREENING 1989 DTAP/TDAP/TD VACCINES (1 - Tdap) 1993 HEPATITIS B VACCINE (1 of 3 - 19+ 3-dose series) 1993 ZOSTER VACCINE (1 of 2) 1993 MAMMOGRAM 05/14/2021 05/14/2019, 04/23, 03/06/2018 COVID-19 VACCINE (2 - Moderna risk series) 06/22/2024 05/25/2024 DEPRESSION SCREENING 08/22/2024 02/24/2024 SCREENING FOR DIABETES 10/02/2027 , 09/26/2024, 09/20/2024, Additional history exists LIPID TESTING 08/17/2029 08/17/2024 PNEUMOCOCCAL VACCINE 50+ Completed 02/17/2024 HEPATITIS C SCREENING Completed 02/24/2024 INFLUENZA VACCINE Completed 05/08/2024, 05/23/2018 HIB VACCINE Aged Out No longer eligi ble based on patient's age to complete this topic HPV VACCINE Aged Out No longer eligi ble based on patient's age to complete this topic MENINGOCOCCAL (Group B) VACCINE Aged Out No longer eligible based on patient's age to complete this topic MENINGOCOCCAL VACCINE Aged Out No cyndi dionicio eligible based on patient's age to complete this topic Goals Goal Patient Goal Type Associated Problems Recent Progress Patient-Stated? Author Medication Management General On track( 024 11:23 AM CDT) No Meaghan Mead RN Note: Expected end date: ongoing Interventions: Take all medications as prescribed Procedures Procedure Name Priority Date/Time Associated Diagnosis Comments COMPREHENSIVE METABOLIC PANEL Routine 10/02/2024 10:09 AM SAFETY MANAGER Scleroderma (HCC) ILD (interstitial lung disease) (HCC) Diffuse cutaneous systemic sclerosis (HCC) Therapeutic drug monitoring 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 therapy (HCC) CBC W AUTO DIFFERENTIAL Routine 10/02/2024 10:09 AM SAFETY MANAGER Scleroderma (HCC) ILD (interstitial lung disease) (HCC) Diffuse cutaneous systemic sclerosis (HCC) Therapeutic drug monitoring 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 therapy (HCC) COMPREHENSIVE METABOLIC PANEL Routine 09/26/2024 1:01 PM SAFETY MANAGER Scleroderma (HCC) ILD (interstitial lung disease) (HCC) Diffuse cutaneous systemic sclerosis (HCC) Therapeutic drug monitoring 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 therapy (HCC) CBC W AUTO DIFFERENTIAL Routine 09/26/2024 1:01 PM SAFETY MANAGER Scleroderma (HCC) ILD (interstitial lung disease) (HCC) Diffuse cutaneous systemic sclerosis (HCC) Therapeutic drug monitoring 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 therapy (HCC) CT ANGIO BRAIN AND NECK STAT 09/21/2024 4:17 PM SAFETY MANAGER Chest pain, unspecified type Benign paroxysmal positional vertigo, unspecified laterality Tinnitus of both ears Acute nonintractable headache, unspecified headache type Nausea and vomiting, unspecified vomiting type MRI BRAIN WWO CONTRAST STAT 09/21/2024 12:40 PM SAFETY MANAGER Chest pain, unspecified type CT HEAD WO CONTRAST STAT 09/20/2024 5 :50 PM SAFETY MANAGER Chest pain, unspecified type TROPONIN-I HIGH SENSITIVE BASELINE + 1HR STAT 09/20/2024 5:38 PM SAFETY MANAGER D-DIMER STAT 09/20/2024 5:38 PM SAFETY MANAGER COMPREHENSIVE METABOLIC PANEL STAT 09/20/2024 5:38 PM SAFETY MANAGER CBC W AUTO DIFFERENTIAL STAT 09/20/2024 5:38 PM SAFETY MANAGER SARS-COV-2 (COVID-19) FLU A/B RSV PCR RAPID STAT 09/20/2024 5:36 PM SAFETY MANAGER XR CHEST 2VW STAT 09/20/2024 4:45 PM SAFETY MANAGER Chest pain, unspecified type EKG 12-LEAD Routine 09/20/2024 4:05 PM SAFETY MANAGER Chest pain, unspecified type COMPREHENSIVE METABOLIC PANEL Routine 09/19/2024 11:22 AM SAFETY MANAGER Scleroderma (HCC) ILD (interstitial lung disease) (HCC) Diffuse cutaneous systemic sclerosis (HCC) Therapeutic drug monitoring 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 therapy (HCC) CBC W AUTO DIFFERENTIAL Routine 09/19/2024 11:22 AM SAFETY MANAGER Scleroderma (HCC) ILD (interstitial lung disease) (HCC) Diffuse cutaneous systemic sclerosis (HCC) Therapeutic drug monitoring 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 therapy (HCC) CBC W AUTO DIFFERENTIAL Routine 09/12/2024 12:33 PM SAFETY MANAGER Lymphopenia COMPREHENSIVE METABOLIC PANEL Routine 09/12/2024 12:33 PM SAFETY MANAGER Scleroderma (HCC) ILD (interstitial lung disease) (HCC) Diffuse cutaneous systemic sclerosis (HCC) Therapeutic drug monitoring 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 therapy (HCC) CBC W AUTO DIFFERENTIAL Routine 09/05/2024 11:47 AM SAFETY MANAGER Lymphopenia COMPREHENSIVE METABOLIC PANEL Routine 09/05/2024 11:47 AM SAFETY MANAGER Scleroderma (HCC) ILD (interstitial lung disease) (HCC) Diffuse cutaneous systemic sclerosis (HCC) Therapeutic drug monitoring 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 therapy (HCC) CBC W AUTO DIFFERENTIAL Routine 08/30/2024 1:31 PM SAFETY MANAGER Lymphopenia COMPREHENSIVE METABOLIC PANEL Routine 08/30/2024 1:31 PM SAFETY MANAGER Scleroderma (HCC) ILD (interstitial lung disease) (HCC) Diffuse cutaneous systemic sclerosis (HCC) Therapeutic drug monitoring 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 therapy (HCC) CBC W AUTO DIFFERENTIAL Routine 08/24/2024 3:51 PM SAFETY MANAGER Lymphopenia COMPREHENSIVE METABOLIC PANEL Routine 08/24/2024 3:51 PM SAFETY MANAGER Scleroderma (HCC) ILD (interstitial lung disease) (HCC) Diffuse cutaneous systemic sclerosis (HCC) Therapeutic drug monitoring 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 therapy (HCC) LIPID PROFILE Routine 08/17/2024 3:57 PM SAFETY MANAGER Screening for lipoid disorders COMPREHENSIVE METABOLIC PANEL Routine 08/17/2024 3:57 PM SAFETY MANAGER Scleroderma (HCC) ILD (interstitial lung disease) (HCC) Diffuse cutaneous systemic sclerosis (HCC) Therapeutic drug monitoring 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 therapy (HCC) CBC W AUTO DIFFERENTIAL Routine 08/17/2024 3:57 PM SAFETY MANAGER Scleroderma (HCC) ILD (interstitial lung disease) (HCC) Diffuse cutaneous systemic sclerosis (HCC) Therapeutic drug monitoring 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 therapy (HCC) CBC W AUTO DIFFERENTIAL Routine 08/08/2024 9:32 AM SAFETY MANAGER Lymphopenia COMPREHENSIVE METABOLIC PANEL Routine 08/08/2024 9:32 AM SAFETY MANAGER Scleroderma (HCC) ILD (interstitial lung disease) (HCC) Diffuse cutaneous systemic sclerosis (HCC) Therapeutic drug monitoring 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 therapy (HCC) COMPREHENSIVE METABOLIC PANEL Routine 08/01/2024 2:03 PM SAFETY MANAGER Scleroderma (HCC) ILD (interstitial lung disease) (HCC) Diffuse cutaneous systemic sclerosis (HCC) Therapeutic drug monitoring 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 therapy (HCC) CBC W AUTO DIFFERENTIAL Routine 08/01/2024 2:03 PM SAFETY MANAGER Scleroderma (HCC) ILD (interstitial lung disease) (HCC) Diffuse cutaneous systemic sclerosis (HCC) Therapeutic drug monitoring 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 therapy (HCC) POTASSIUM URINE RANDOM Routine 08/01/2024 2:03 PM SAFETY MANAGER Diffuse cutaneous systemic sclerosis (HCC) Scleroderma (HCC) ILD (interstitial lung disease) (HCC) Therapeutic drug monitoring 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 therapy (HCC) BILIRUBIN DIRECT Routine 07/20/2024 8:29 AM SAFETY MANAGER ILD (interstitial lung disease) (HCC) Scleroderma (HCC) COMPREHENSIVE METABOLIC PANEL Routine 07/20/2024 8:29 AM SAFETY MANAGER Scleroderma (HCC) ILD (interstitial lung disease) (HCC) Diffuse cutaneous systemic sclerosis (HCC) Therapeutic drug monitoring 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 therapy (HCC) CBC W AUTO DIFFERENTIAL Routine 07/20/2024 8:29 AM SAFETY MANAGER Scleroderma (HCC) ILD (interstitial lung disease) (HCC) Diffuse cutaneous systemic sclerosis (HCC) Therapeutic drug monitoring 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 therapy (HCC) MAGNESIUM BLOOD Routine 07/20/2024 8:29 AM SAFETY MANAGER Therapeutic drug monitoring HEPATITIS C ANTIBODY Routine 02/24/2024 2:54 PM CDT Scleroderma (HCC) ILD (interstitial lung disease) (HCC) from Last 3 Months or Most Recently Relevant to Health Maintenance Results * (ABNORMAL) CBC WITH DIFFERENTIAL (10/02/2024 10:09 AM SAFETY MANAGER) Only the most recent of12 resultswithin the time period is included. WBC 4.4 4.0 - 10.7 x10E9/L 10/02/2024 11:05 AM [facility] RBC Count 4.17 3.90 - 5.20 x10E12/L 10/02/2024 11:05 AM [facility] Hemoglobin 10.6(L) 11.9 - 15.8 g/dL 10/02/2024 11:05 AM [facility] Hematocrit 34.3(L) 34.8 - 46.1 % 10/02/2024 11:05 AM [facility] MCV 82.3 80.0 - 98.0 fL 10/02/2024 11:05 AM [facility] MCH 25.4(L) 26.7 - 33.6 pg 10/02/2024 11:05 AM [facility] MCHC 30.9(L) 31.7 - 36.3 g/dL 10/02/2024 11:05 AM [facility] RDW-CV 13.2 11.3 - 14.8 % 10/02/2024 11:05 AM [facility] Platelet Count 275 150 - 420 x10E9/L 10/02/2024 11:05 AM [facility] MPV 11.0 7.8 - 11.4 fL 10/02/2024 11:05 AM [facility] Neutrophil % 54.7 41.0 - 74.0 % 10/02/2024 11:05 AM [facility] Lymphocyte % 25.7 17.0 - 47.0 % 10/02/2024 11:05 AM [facility] Monocyte % 15.9(H) 3.0 - 11.0 % 10/02/2024 11:05 AM [facility] Eosinophil % 2.3 0.0 - 7.0 % 10/02/2024 11:05 AM [facility] Basophil % 0.7 0.0 - 1.6 % 10/02/2024 11:05 AM [facility] Immature Granulocytes % 0.7 0.0 - 1.0 % 10/02/2024 11:05 AM [facility] Neutrophil Absolute 2.38 1.60 - 7.50 x10E9/L 10/02/2024 11:05 AM [facility] Lymphocyte Absolute 1.12 1.00 - 4.40 x10E9/L 10/02/2024 11:05 AM [facility] Monocyte Absolute 0.69 0.15 - 1.00 x10E9/L 10/02/2024 11:05 AM [facility] Eosinophil Absolute 0.10 0.00 - 0.60 x10E9/L 10/02/2024 11:05 AM [facility] Basophil Absolute 0.03 0.00 - 0.13 x10E9/L 10/02/2024 11:05 AM [facility] Blood BLOOD SPECIMEN / Unknown Lab Venipuncture / Unknown 10/02/2024 10:09 AM SAFETY MANAGER 10/02/2024 10:51 AM [facility] Kelechi Herrera MD LAB - HEMATOLOGY ORDERABLES [facility] [address] [place] [address], [facility] [phone] * (ABNORMAL) COMPREHENSIVE METABOLIC PANEL (10/02/2024 10:09 AM [facility]) Only the most recent of12 resultswithin the time period is included. BUN 10 7 - 26 mg/dL 10/02/2024 11:37 AM [facility] Creatinine 1.05(H) 0.56 - 0.96 mg/dL 10/02/2024 11:37 AM [facility] Sodium 137 136 - 145 mmol/L 10/02/2024 11:37 AM [facility] Potassium 4.4 3.5 - 4.5 mmol/L 10/02/2024 11:37 AM [facility] Comment:Hemolysis detected i n this specimen. Hemolysis may cause false elevations in potassium leading to pseudohyperkalemia or masked hypokalemia. Recommend repeat testing if clinically indicated. Chloride 110(H) 98 - 107 mmol/L 10/02/2024 11:37 AM [facility] CO2 20(L) 22 - 29 mmol/L 10/02/2024 11:37 AM [facility] Glucose 83 70 - 99 mg/dL 10/02/2024 11:37 AM [facility] Calcium 8.6 8.4 - 10.2 mg/dL 10/02/2024 11:37 AM [facility] Protein Total 6.8 6.0 - 8.3 g/dL 10/02/2024 11:37 AM [facility] Comment:Hemolysis detected i n this specimen. Hemolysis is known to cause elevations in this analyte. Caution should be exercised in the interpretation of this result. Recommend repeat testing if clinically indicated. Albumin 3.9 3.4 - 5.0 g/dL 10/02/2024 11:37 AM [facility] Bilirubin Total 0.3 0.2 - 1.2 mg/dL 10/02/2024 11:37 AM [facility] Alkaline Phosphatase 50 40 - 150 U/L 10/02/2024 11:37 AM [facility] ALT 14 5 - 55 U/L 10/02/2024 11:37 AM [facility] AST 25 5 - 34 U/L 10/02/2024 11:37 AM [facility] Comment:Hemolysis detected i n this specimen. Hemolysis is known to cause elevations in this analyte. Caution should be exercised in the interpretation of this result. Recommend repeat testing if clinically indicated. Anion Gap 7 6 - 16 10/02/2024 11:37 AM [facility] BUN/Creatinine Ratio 10 7 - 23 09/22 11:37 AM [facility] Osmolality Calculated 282 275 - 295 mOsm/kg 10/02/2024 11:37 AM [facility] Albumin/Globulin Ratio 1.3 1.1 - 2.3 10/02/2024 11:37 AM [facility] eGFR by CKD-EPI 65(L) >=90 mL/min/1 .73 m2 10/02/2024 11:37 AM [facility] Blood BLOOD SPECIMEN / Unknown Lab Venipuncture / Unknown 10/02/2024 10:09 AM SAFETY MANAGER 10/02/2024 11:04 AM SAFETY MANAGER Kelechi Herrera MD LAB - CHEMISTRY ORDERABLES [facility] [address] [place] [address], [facility] [phone] * CT Angio Brain And Neck (09/21/2024 4:17 PM SAFETY MANAGER) Anatomical Region Laterality Modality Head Computed Tomogra phy 09/21/2024 4:29 PM SAFETY MANAGER Impressions 09/21/2024 5:03 PM SAFETY MANAGER IMPRESSION: 1.No acute intracranial hemorrhage. 2.No large arterial occlusions or significant stenoses identified in the head or neck. 3.The dural sinuses appear normal without evidence of thrombus. Viz.AI was used for large vessel occlusion detection. Report dictated by Je Morrow MD, (Senior Copywriter). IShara MD have personally reviewed and interpreted this examination/study. > Interpreting Provider: Shara Henry MD on 09/21/2024 5:03 PM Narrative 09/21/2024 5:03 PM SAFETY MANAGER PROCEDURE: CT ANGIO BRAIN AND NECK, DATE/TIME OF EXAM: 09/21/2024 4:18 PM, LOCATION [facility] INDICATION: R07.9: Chest pain, unspecified type [...] NECK, DATE/TIME OF EXAM: 09/21/2024 4:18PM, LOCATION [facility] INDICATION: R07.9: Chest pain, unspecified type [...] detection. Report dictated by Je Morrow MD, (Senior Copywriter). IShara MD have personally reviewed and interpretedthis examination/study. > Interpreting Provider: Shara Henry MD on 09/21/2024 5:03 PM Bruna Farrell MD CT ORDERABLES * MRI Brain Wwo Contrast (09/21/2024 12:40 PM SAFETY MANAGER) Anatomical Region Laterality Modality Head Magnetic Resonan ce 09/21/2024 12:5 9 PM SAFETY MANAGER Impressions 09/21/2024 5:05 PM SAFETY MANAGER IMPRESSION: 1.No evidence of restricted diffusion to suggest an acute infarction. 2.No evidence of acute intracranial findings or abnormal enhancement. > Interpreting Provider: Shara Henry MD on 09/21/2024 5:05 PM Narrative 09/21/2024 5:05 PM SAFETY MANAGER PROCEDURE: MRI BRAIN WWO CONTRAST, DATE/TIME OF EXAM: 09/21/2024 12:40 PM, LOCATION [facility] INDICATION: R07.9: Chest pain, unspecified type [...] CONTRAST, DATE/TIME OF EXAM: 09/21/2024 12:40PM, LOCATION [facility] INDICATION: R07.9: Chest pain, unspecified type [...] CONTRAST ??? Intracranial hemorrhage (09/20/2024 5:50 PM SAFETY MANAGER) Anatomical Region Laterality Modality Head Computed Tomogra phy 09/20/2024 6:23 PM SAFETY MANAGER Impressions 09/20/2024 7:37 PM SAFETY MANAGER IMPRESSION: 1.No acute intracranial hemorrhage, midline shift, or significant mass effect. 2.Please note that CT is insensitive to nonhemorrhagic strokes and MRI of the brain should be considered, if there is clinical concern for acute cerebral infarction. > Dictated by Manas Sandoval DO (Senior Copywriter), 09/20/2024 6:23 PM. I, Shara Henry MD have personally reviewed and interpreted this examination/study. > Interpreting Provider: Shara Henry MD on 09/20/2024 7:37 PM Narrative 09/20/2024 7:37 PM SAFETY MANAGER PROCEDURE: CT HEAD WO CONTRAST, DATE/TIME OF EXAM: 09/20/2024 5:51 PM, LOCATION [facility] INDICATION: R07.9: Chest pain, unspecified type [...] DATE/TIME OF EXAM: 09/20/2024 5:51 PM, LOCATION [facility] INDICATION: R07.9: Chest pain, unspecified type [...] infarction. > Dictated by Manas Sandoval DO (Senior Copywriter), 09/20/2024 6:23PM. Shara Mann MD have personally reviewed and interpretedthis examination/study. > Interpreting Provider: Shara Henry MD on 09/20/2024 7:[address] ORDERABLES * TROPONIN-I HIGH SENSITIVE BASELINE + 1HR (09/20/2024 5:38 PM SAFETY MANAGER) Pathologist [facility] Troponin I High Sensitive <3 <=14 ng/L 09/20/2024 6:59 PM SAFETY MANAGER [facility] Blood BLOOD SPECIMEN / Unknown Venipuncture / Unknown 09/20/2024 5:38 PM SAFETY MANAGER 09/20/2024 6:07 PM SAFETY MANAGER [facility] G[facility] - HEAV[employer] CUSTODIAN RY ORDERABLES [address] [address], [facility] [phone] * D-DIMER (09/20/2024 5:38 PM SAFETY MANAGER) [facility] D-Dimer Quantitative <0.27 <=0.50 mcg/mL FEU 09/20/2024 6:30 PM SAFETY MANAGER [facility] Comment: In the absence of clinical [...] Unknown Venipuncture / Unknown 09/20/2024 5:38 PM SAFETY MANAGER 09/20/2024 6:07 PM SAFETY MANAGER Tania Smallwood APRN-DIRECTOR OF SALES AND MARKETING LAB - [place] [facility] ORDERABLES [address] [address], [facility] [phone] * SARS-COV-2 (COVID-19) FLU A/B RSV PCR RAPID (09/20/2024 5:36 PM SAFETY MANAGER) COVID-19 PCR Not detected Not detected 09/20/19 6:44 PM SAFETY MANAGER [facility] Influenza A PCR Not detected Not detected 09/20/2024 6:44 PM [facility] Influenza B PCR Not detected Not detected 09/20/2024 6:44 PM [facility] RSV PCR Not detected Not detected 09/20/2024 6:44 PM SAFETY MANAGER [facility] Microbiology SPECIMEN FROM NASOPHARYNGEAL STRUCTURE / Unknown Collection / Unknown 09/20/2024 5:36 PM SAFETY MANAGER 09/20/2024 5:59 PM SAFETY MANAGER Narrative [facility] - 09/20/2024 6:44 PM SAFETY MANAGER This nucleic acid amplification assay has been [...] assay are available upon request. Tania Smallwood BELLING MACHINE OPERATOR-DIRECTOR OF SALES AND MARKETING LAB - [facility] OLOGY ORDERABLES [facility] [address] [place] [address], [facility] [phone] * XR CHEST 2VW (09/20/2024 4:45 PM SAFETY MANAGER) Anatomical Region Laterality Modality Chest Digital Radiogra phy 09/20/2024 5:49 PM SAFETY MANAGER Narrative 09/21/2024 8:16 AM SAFETY MANAGER PROCEDURE: XR CHEST 2VW, DATE/TIME OF EXAM: 09/20/2024 4:46 PM, LOCATION [facility] INDICATION: R07.9: Chest pain, unspecified type [...] abdomen > Dictated by Manas Sandoval DO (Senior Copywriter), 09/20/2024 5:49 PM. Katelynn Mann MD have personally reviewed and interpreted this examination/study. > Interpreting Provider: Katelynn Thrasher MD on 09/21/2024 8:16 AM Procedure Note Katelynn Thrasher MD - 09/21/2024 PROCEDURE: XR CHEST 2VW, DATE/TIME OF EXAM: 09/20/2024 4:46 PM, LOCATION [facility] INDICATION: R07.9: Chest pain, unspecified type [...] abdomen > Dictated by Manas Sandoval DO (Senior Copywriter), 09/20/2024 5:49 PM. Katelynn Mann MD have personally reviewed and interpreted this examination/study. > Interpreting Provider: Katelynn Thrasher MD on 09/21/2024 8:16 AM Tania Smallwood APRN-DIRECTOR OF SALES AND MARKETING DIAGNOSTIC IM [facility]ING ORDERABLES * EKG 12-LEAD (09/20/2024 4:05 PM SAFETY MANAGER) Ventricular Rate 79 BPM [facility] Atrial Rate 79 BPM [facility] P-R Interval 160 ms [facility] QRS Duration ms 70 ms [facility] Q-T Interval ms 388 ms [facility] QTC Calculation (Bezet) 444 ms [facility] Calculated P [place] 32 degrees [facility] Calculated R [place] -23 degrees [facility] Calculated T [place] 5 degrees [facility] Interpretation EKG NORMAL SINUS RHYTHM LOW VOLTAGE QRS CANNOT RULE OUT ANTERIOR INFARCT , AGE UNDETERMINED ABNORMAL ECG NO PREVIOUS ECGS AVAILABLE Confirmed by MONA MENDIOLA MD ([id number]) on 09/25/2024 8:53:41 PM [facility] MUSE 09/20/2024 4:05 PM SAFETY MANAGER 09/25/2024 8:53 PM SAFETY MANAGER Remigio Kaur MD ECG ORDERABLES Performing Organization Address City/[facility]/ZIP Co de Phone Number [facility] MUSE * (ABNORMAL) LIPID PROFILE (08/17/2024 3:57 PM SAFETY MANAGER) Cholesterol Total 273(H) <200 mg/dL 08/17/2024 5:03 PM [facility] HDL 78 >40 mg/dL 08/17/2024 5:03 PM [facility] Comment: ATP III Classification of HDL Cholesterol: <40 mg/dL: Considered a major risk factor. >60 mg/dL: Considered a negative risk factor. LDL Calculated 162(H) <100 mg/dL 08/17/2024 5:03 PM [facility] Comment: ATP III Classification of LDL Cholesterol: <100 mg/dL: Optimal 100 - 129 mg/dL: Near Optimal/Above Optimal 130 - 159 mg/dL: Borderline High 160 - 189 mg/dL: High >190 mg/dL: Very High Triglycerides 166(H) <150 mg/dL 08/17/2024 5:03 PM [facility] Comment: ATP III Classification of Triglycerides: <150 mg/dL: Normal 150 - 199 mg/dL: Borderline High 200 - 400 mg/dL: High >500 mg/dL: Very High Blood BLOOD SPECIMEN / Unknown Lab Venipuncture / Unknown 08/17/2024 3:57 PM SAFETY MANAGER 08/17/2024 4:33 PM SAFETY MANAGER Ordering Provider Unlisted LAB - CHEM ISTRY ORDERABLES [facility] [address] [place] [id number], [facility] [phone] * POTASSIUM URINE RANDOM (08/01/2024 2:03 PM SAFETY MANAGER) Potassium Urine 17.3 Not Established mmol/L 08/01/2024 2:55 PM SAFETY MANAGER [facility] Urine URINE SPECIMEN OBTAINED BY CLEAN CATCH PROCEDURE / Unknown Collection / Unknown 08/01/2024 2:03 PM SAFETY MANAGER 08/01/2024 2:23 PM SAFETY MANAGER Kelechi Herrera MD LAB - URINE CHEM ISTRY ORDERABLES Performing Organization Address City/[facility]/ZIP Co de Phone Number [address] [address], [place] [phone] * MAGNESIUM BLOOD (07/20/2024 8:29 AM SAFETY MANAGER) Magnesium 1.9 1.6 - 2.6 mg/dL 07/20/2024 9:51 AM SAFETY MANAGER [facility] Blood BLOOD SPECIMEN / Unknown Lab Venipuncture / Unknown 07/20/2024 8:29 AM SAFETY MANAGER 07/20/2024 9:24 AM SAFETY MANAGER Kelechi Herrera MD LAB - CHEMISTRY ORDERABLES Performing Organization Address [facility]/ZIP Co de Phone Number [address] [address], [place] [phone] * BILIRUBIN DIRECT (07/20/2024 8:29 AM SAFETY MANAGER) Bilirubin Conjugated 0.2 0.1 - 0.5 mg/dL 07/20/2024 9:51 AM SAFETY MANAGER [facility] Blood BLOOD SPECIMEN / Unknown Lab Venipuncture / Unknown 07/20/2024 8:29 AM SAFETY MANAGER 07/20/2024 9:24 AM SAFETY MANAGER Mohan Rojas MD LAB - CHEMISTRY [place] [place] Performing Organization Address City/[facility]/ZIP Co de Phone Number [address] [address], [place] [phone] * HEPATITIS C ANTIBODY (02/24/2024 2:54 PM CDT) Hepatitis C Antibody Non-react roman Non-reac tive 02/24/2024 5:13 PM CDT [facility] Comment:Hepatitis C Antibody screen indicates no [...] Sorto MD LAB - CHEMISTRY [place] [facility] [address] [place] [address], [facility] [phone] from Last 3 Months or Most Recently Relevant to Health Maintenance Care Teams Clinical Specialty Rep Relationship Specialty Start Date End Date Amelia Tamayo MD [address] [place] [id number] PCP - General Family Medicine 02/17/24
--- OUTSIDE RECORDS SUMMARY | 2024-10-17 16:40 | XMS_ITS | Clinical Summary ---
Author Organization [facility] Address [address] [place] [address] Care Team Providers Care Mobile Solutions Architect Name Role Phone Titi Moss MD Primary Care Provider Allergies Active Allergy Reactions Criticality Noted Date Comments Penicillins Unknown 05/10/2020 Medications multi vitamin/mineral s (THERA-M ENHANCED) tablet Take 1 tablet by mouth daily. Active vitamin D3, cholecalciferol , 10 mcg tablet Take 1 tablet (10 mcg total) by mouth daily. Active ferrous sulfate, 65 mg elemental, 325 (65 FE) MG tablet Take 1 tablet (325 mg total) by mouth daily with breakfast. Active albuterol sulfate HFA (VENTOLIN HFA) 108 (90 Base) MCG/ACT inhaler every 4 (four) hours. Active omega-3 fatty acid (FISH OIL) 500 MG capsule Take 1 capsule (500 mg total) by mouth daily. Active Ascorbic Acid (ANALI-C OR) Take by mouth daily. Active Active Problems Problem Noted Date Diagnosed Date Chest pain 05/25/2023 Edema 05/25/2023 Family History Medical History Relation Comments Cancer Father Relation Status Comments Father Social History Tobacco Use Types Packs/Day Years Used Date Smoking Tobacco: Never Smokeless Tobacco: Never Tobacco Cessation:Counseling Given: Not Answered Alcohol Use Standard Drinks/Week Comments Yes 0 (1 standard drink = 0.6 oz pur e alcohol) Socially Comments No Sex and Gender Information Value Date Recorded Sex Assigned at Not on file Legal Sex Female 8:15 PM CDT Gender Identity Not on file Sexual Orientation Not on file Last Filed Vital Signs Vital Sign Reading Time Taken Comments Blood Pressure 108/70 05/25/2023 10:52 AM CDT Pulse 82 05/25/2023 10:52 AM CDT Temperature 36.7 C (98.1 F) 05/15/2023 6:30 PM CDT Respiratory Rate 17 05/15/2023 5:40 PM CDT Oxygen Saturation 97% 05/25/2023 10:52 AM CDT Inhaled Oxygen Concentration - - Weight 76.2 kg (168 lb) 05/25/2023 10:52 AM CDT Height 162.6 cm (5' 4 ) 05/25/2023 10:52 AM CDT Body Mass Index 28.84 05/25/2023 10:52 AM CDT Plan of Treatment Health Maintenance Due Date Last Done Comments Cervical Cancer Screening Pa p Smear (Age 30 to 64) Every 3 Years 1974 Colorectal Cancer Screening Colonoscopy (10 Years) 1974 Annual Physical 1977 Hepatitis C 1992 DTaP, Tdap and Td Vaccines ( 1 - Tdap) 1993 Hepatitis B Vaccines (1 of 3 - 19+ 3-dose series) 1993 Cervical Cancer Screening Pa p with HPV Testing (Age 30 to 64) Every 5 Years 2004 Cervical Cancer Screening with HPV 2004 Mammogram Screening 2014 COVID-19 Vaccine ( - 2023-2 5 season) 2024 Influenza Adult (#1) 2024 05/23/2018 Zoster Vaccines (1 of 2) 2024 Meningococcal B Vaccine Aged Out No l onger eligible based on patient's age to complete this topic Meningococcal Vaccine Aged Out No cyndi dionicio eligible based on patient's age to complete this topic Pneumococcal Vaccine: Pediat rics (0 to 5 Years) and At-Risk Patients (6 to 64 Years) Aged Out No longer eligi ble based on patient's age to complete this topic RSV Immunizations Under 20 Months Aged Out No longer eligible based on patient's age to complete this topic Insurance [facility] Care Teams Mobile Solutions Architect Relationship Specialty Start Date End Date Titi Moss MD [address] [id number] PCP - General FAMILY PRACTICE 09/08/23
--- OUTSIDE RECORDS SUMMARY | 2024-10-17 16:40 | XMS_ITS | Clinical Summary ---
Author Organization [facility] al Address [address] [place] [address] Care Team Providers Care Instrument Engineer Name Role Phone Amelia Tamayo MD Primary Care Provider Titi Moss MD Unavailable [phone] Allergies Active Allergy Reactions Criticality Noted [...] Date Diagnosed Date ILD (interstitial lung disease) ([facility]) 2023 Assessment & Plan (11/29/2023 10:49 AM CDT): -Continue Cellcept 3gm total daily, prednisone 15mg daily -w/ fibrotic change on imaging, NSIP pattern. 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 Assessment & Plan (10/19/2023 5:46 PM ENVIRONMENTAL SERVICES MANAGER): TTE this admission with e/o acute RV [...] TTE. Assessment & Plan (10/18/2023 12:57 PM ENVIRONMENTAL SERVICES MANAGER): TTE this admission with e/o acute RV [...] TTE. Assessment & Plan (10/12/2023 12:32 PM ENVIRONMENTAL SERVICES MANAGER): TTE this admission with e/o acute RV [...] 10/04/2023 Assessment & Plan (10/21/2023 6:30 PM ENVIRONMENTAL SERVICES MANAGER): Azra Little is a 48 year old [...] outpatient Assessment & Plan (10/18/2023 12:51 PM ENVIRONMENTAL SERVICES MANAGER): Azra Little is a 48 year old [...] outpatient Assessment & Plan (10/12/2023 12:22 PM ENVIRONMENTAL SERVICES MANAGER): Admitted with acute hypoxemic respiratory failure requiring [...] discharge Assessment & Plan (10/09/2023 9:53 AM ENVIRONMENTAL SERVICES MANAGER): -presenting with shortness of breath for approximately [...] COVID Assessment & Plan (10/06/2023 1:11 PM ENVIRONMENTAL SERVICES MANAGER): Acute-onset SOB on subacute SOB/NICHOLAS/BLEE x 4-6 [...] 10/04/2023 Assessment & Plan (10/09/2023 9:52 AM ENVIRONMENTAL SERVICES MANAGER): -presenting with progressive NICHOLAS and exercise intolerance, episodic ALEJANDRO, episodic rash on upper extremities and chest. -serologies notable for positive SHYLA and anti-Scl70. -s/p IVIG for 4 days -rheumatology following Assessment & Plan (10/04/2023 5:37 PM ENVIRONMENTAL SERVICES MANAGER): Presenting with 5-6 months of progressive NICHOLAS [...] 10/04/2023 Assessment & Plan (10/07/2023 11:15 AM ENVIRONMENTAL SERVICES MANAGER): -baseline Hgb 9-10. -continue enteral iron q48 hours -cbc daily Assessment & Plan (10/04/2023 12:25 AM ENVIRONMENTAL SERVICES MANAGER): Recent baseline Hgb 9-10s, admitted at 10.5 -> 8.8, likely secondary to admission hemoconcentration and subsequent phlebotomy, no clinical signs of bleeding. Fe 12, ferritin 133, TIBC 198, Tsat 6. - on PO iron, space to every other day - can consider IV iron after no longer infected GERD (gastroesophageal reflux disease) Assessment & Plan (10/07/2023 11:15 AM ENVIRONMENTAL SERVICES MANAGER): -daily PPI Assessment & Plan (10/04/2023 12:26 AM ENVIRONMENTAL SERVICES MANAGER): Having reflux symptoms, concerning for relation to scleroderma. - start PPI (new med) Lymphadenopathy 10/04/2023 Assessment & Plan (10/12/2023 12:26 PM ENVIRONMENTAL SERVICES MANAGER): Chest and axillary adenopathy probably reactive. To be reassessed with next chest CT. Assessment & Plan (10/07/2023 11:15 AM ENVIRONMENTAL SERVICES MANAGER): -recurrent scans with mediastinal LAD, questionable breast LAD. -recommend outpatient mammogram Assessment & Plan (10/04/2023 12:26 AM ENVIRONMENTAL SERVICES MANAGER): Recurrent scans with mediastinal LAD, questionable breast LAD. - outpatient mammogram Severe protein-calorie malnutrition (CMS/HCC) Assessment & Plan (10/07/2023 11:15 AM ENVIRONMENTAL SERVICES MANAGER): -nutrition consult -encourage PO intake and nutritional supplements Dyspnea, unspecified type 10/01/2023 Breast mass 07/27/2023 Assessment & Plan (07/27/2023 10:50 AM ENVIRONMENTAL SERVICES MANAGER): CT with breast asymmetry with axillary LN [...] 07/27/2023 Assessment & Plan (07/27/2023 10:27 AM ENVIRONMENTAL SERVICES MANAGER): Associated with metromenorrhagia in setting if uterine fibroids. CBC with hemoglobin at 10 from 12 2 months ago in setting of menorrhagia. Has been on iron supplement but haven't been taking it. - rec follow up with her [employer] Acute on chronic respiratory failure (CMS/HCC) 1 [...] find out whether she can follow with [facility] rheum/pulm as an outpatient; if so, we are happy to see her in clinic, and this would be optimal since the majority of her workup has been performed at [facility]. In summary, our recommendations are as follows: [...] today Assessment & Plan (07/28/2023 1:19 PM ENVIRONMENTAL SERVICES MANAGER): Admitted with worsening exertional dyspnea, orthopnea, bendopnea, [...] 05/25/2023 Assessment & Plan (07/27/2023 2:41 PM ENVIRONMENTAL SERVICES MANAGER): Mild, intermittent LE edema. Patient endorses current upper extremity edema I cannot recognize on exam. - continue compression stocking - LE dop negative Asthma exacerbation 12/15/2017 Assessment & Plan (07/28/2023 1:20 PM ENVIRONMENTAL SERVICES MANAGER): Prior asthma history, reporting shortness of breath, [...] 10/14/2023 Assessment & Plan (10/18/2023 12:55 PM ENVIRONMENTAL SERVICES MANAGER): Diagnosed on admission after presenting with AHRF requiring ICU admission and BiPAP. Treated with Tamiflu 09/30-10/12. See acute hypoxemic respiratory failure problem. Assessment & Plan (10/11/2023 1:09 PM ENVIRONMENTAL SERVICES MANAGER): Diagnosed on admission after presenting with AHRF requiring ICU admission and BiPAP. Has been on Tamiflu since 09/30. - Continue Tamiflu Assessment & Plan (10/09/2023 10:35 AM ENVIRONMENTAL SERVICES MANAGER): -Will receive a total of 20 doses of tamiflu COVID 10/09/2023 10/14/2023 Assessment & Plan (10/18/2023 1:13 PM ENVIRONMENTAL SERVICES MANAGER): Patient developed worsening SOB with worsening infiltrates on CT on 10/04, requiring transfer to the ICU. Repeat RVP on 10/08 positive for COVID. Received remdesivir and dexamethasone. 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 See acute hypoxemic respiratory failure problem. Assessment & Plan (10/18/2023 12:54 PM ENVIRONMENTAL SERVICES MANAGER): Patient developed worsening SOB with worsening infiltrates on CT on 10/04, requiring transfer to the ICU. Repeat RVP on 10/08 positive for COVID. +COVID Ab test. Received remdesivir and dexamethasone. 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 See acute hypoxemic respiratory failure problem. Assessment & Plan (10/12/2023 12:25 PM ENVIRONMENTAL SERVICES MANAGER): Patient developed worsening SOB with worsening infiltrates [...] plan. Assessment & Plan (10/10/2023 2:47 PM ENVIRONMENTAL SERVICES MANAGER): + 10/08 -Dexamethasone (discussed with rheumatology and monitoring for scleroderma renal crisis) and remdesivir -IS and OOBTC and acapella Pulmonary hypertension 10/06/202310/07 Assessment & Plan (10/06/2023 6:21 PM ENVIRONMENTAL SERVICES MANAGER): -Noted on TTE 10/06 EF 66%, PASP 50, with small effusion -Pulmonology consulted Acute kidney injury 10/04/2023 10/07/19 24 Assessment & Plan (10/06/2023 10:19 PM ENVIRONMENTAL SERVICES MANAGER): Creatine down trending Assessment & Plan (10/04/2023 12:25 AM ENVIRONMENTAL SERVICES MANAGER): Baseline normal, arrived 1.2, resolved to baseline after 2L IVF in ED. Immunizations Immunization Administration Dates Next Due Influenza, Quadrivalent, Split, Intramuscular Surgical History Surgery Date Site/Laterality Comments PARTIAL HYSTERECTOMY CHOLECYSTECTOMY Medical History Medical History Date Comments Asthma Anemia Social History Tobacco Use Types Packs/Day Years Used Date Smoking Tobacco: Never Tobacco Cessation:Counseling Given: Not Answered Alcohol Use Standard Drinks/Week Comments Yes 0 (1 standard drink = 0.6 oz pur e alcohol) occassionaly OASIS D0700: Social Isolation Answer Da te Recorded Frequency of experiencing loneliness or isolatio n Never 10/28/2023 [facility] Utilities Answer Date Recorded In the past 12 months has e [employer], gas, oil, or water [employer] threatened to shut off services in your [...] often do you attend chur ch or religion services? 1 to 4 times per year 12/02/2023 Do you belong to any clubs o r organizations such as yarsani groups, unions, fraternal or athletic groups, or [...] place to sleep or slept in a [place] (including now)? No 12/02/2023 Personal Safety Answer Date Recorded Have you ever been in or are you currently in a harmful physical or emotional relationship or is someone making you feel afraid or unsafe? Denies 11/24/2023 Comments Unknown Sex and Gender Information Value Date Recorded Sex Assigned at Not on file Legal Sex Female 9:11 PM ENVIRONMENTAL SERVICES MANAGER Gender Identity Not on file Sexual Orientation Not on file Obstetrics History Last Filed Vital Signs Vital Sign Reading [...] 11/24/2023 6:44 PM CDT Plan of Treatment Health Maintenance Due Date Last Done Comments Cervical Cancer Screening 1974 Colon Cancer Screening-Colonoscopy 1974 Depression Screening 1974 DTaP/Tdap/Td Vaccine (1 - Tdap) 1985 Hepatitis B Screening 1992 Regular Well Visit/Exam 18-64 1992 Pneumococcal vaccine <65 (1 of 2 - PCV) 1993 Zoster Vaccine (1 of 2) 1993 Breast Cancer Screening-Mammogram 05/14/2020 05/14/2019, 05/14/2019, 03/06/2018 Hepatitis C Screening Completed 10/04/2023 Influenza Vaccine Completed 05/08/2024, 05/23/2018 Procedures Procedure Name Priority Date/Time Associated Diagnosis Comments HEPATITIS PANEL, ACUTE STAT 10/04/2023 5:46 PM ENVIRONMENTAL SERVICES MANAGER SCREENING MAMMOGRAM BILATERAL W [place]OLO 05/14/2019 8:21 AM CDT from Last 3 Months or Most Recently Relevant to Health Maintenance Results * (ABNORMAL) Hepatitis panel, acute Blood (10/04/2023 5:46 PM ENVIRONMENTAL SERVICES MANAGER) Hep A IgM Reactive(A) Nonreactive [facility] Hep B core IgM Nonreactive Nonreactive [facility] Hep C Ab Nonreactive Nonreactive [facility] Comment:Antibodies to HCV no t detected. Does NOT exclude the possibility of recent exposure to HCV. Current interpretive data was last revised on 22 HepBsAg Nonreactive Nonreactive [facility] Blood 10/04/2023 5:46 PM ENVIRONMENTAL SERVICES MANAGER 10/04/2023 6:23 PM ENVIRONMENTAL SERVICES MANAGER us Chelly Salcido MD LAB MICROBIOLOGY - GENERAL O RDERABLES Final Result [facility] Department [place] [address] * Screening Mammogram Bilateral [place] (05/14/2019 8:21 AM CDT) Anatomical Region Laterality Modality Breast Bilateral Mammography 05/14/2019 8:27 AM CDT Narrative 05/14/2019 9:18 AM CDT Patient Name: AZRA LITTLE Dr: Naila Franklin MD D.O.B: 1975 Exam Date: 05/14/19820 Age: 43 Sex: Female MR#: [id number] Loc: RADIOLOGY REPORT Order #[id number] [facility] Argelia Bilat Screening 3D Signed - MG [...] made to exam dated: 03/06/2018 mammogram - [facility]. BREAST TISSUE: The tissue of both breasts [...] age 39, based on guidelines of the [place] [employer] (ACR Practice Parameter for the Performance of Screening and Diagnostic Mammography) and [place] [employer]. For women with an elevated risk of breast cancer, please refer to the ACR Practice Parameter for specific screening recommendations. The patient will be entered into a reminder system with a target due date of 1 year for her next screening exam. Electronically signed by: Esdras Salgado M.D., md/:05/14/2019 09:18:42 [employer] Sales Representative: Gail ROSENBERG (R)), [facility] letter sent: Normal Exam Reading location: BI-RADS: 2 Benign REPORT ELECTRONICALLY SIGNED IN OTHER VENDOR SYSTEM Resulting Agency Comment O Procedure Note Esdras Salgado MD - 05/14/2019 Patient Name: AZRA LITTLE Dr: Naila Franklin MD D.O.B: 1975 Exam Date: 05/14/19820 Age: 43 Sex: Female MR#: [id number] Loc: RADIOLOGY REPORT Order #[id number] [facility] Argelia Bilat Screening 3D Signed - MG [...] is made to exam dated: 03/06/2018 mammogram -[facility]. BREAST TISSUE: The tissue of both breasts [...] age 40, based on guidelines of the [place] [employer] (ACR Practice Parameter for the Performance of Screening and Diagnostic Mammography) and [place] [employer]. For women with an elevated risk of breast cancer, pleaserefer to the ACR Practice Parameter for specific screening recommendations. The patient will be entered into a reminder system with a target due dateof 1 year for her next screening exam. Electronically signed by: Esdras Salgado M.D., md/:05/14/2019 09:18:42 [employer] Sales Representative: Gail LAWRENCE)(M), [facility] letter sent: Normal Exam Reading location: BI-RADS: 2 Benign REPORT ELECTRONICALLY SIGNED IN OTHER VENDOR SYSTEM Naila Franklin MD IMG MAMMO PROCEDURES Final Re sult from Last 3 Months or Most Recently Relevant to Health Maintenance Insurance [facility] Advance Directives For more information, please contact: [phone] * Full Code (Latest Code Status on File) Date Activated Date Inactivated Comments 11/24/2023 7:16 PM 12/01/2023 9:01 PM * Full Code Date Activated Date Inactivated Comments 10/01/2023 3:54 PM 10/22/2023 5:23 PM * Full Code Date Activated Date Inactivated Comments 07/26/2023 9:54 PM 07/28/2023 9:43 PM Care Teams Instrument Engineer Relationship Specialty Start Date End Date Amelia Tamayo MD [address] [place] [id number] PCP - General Family Medicine 10/31/23 Titi Moss MD [address] [address] Family Medicine 12/28/23
[2024-10-18 09:53] LABS: CA-125 16 U/mL (<35)
== END 2024-10-17 14:29 | disposition home or self-care (01) ==
LOC: ANHLAB 14:29
PROVIDERS: PCP Nurse Practitioner Family; Visit Provider Nurse Practitioner Obstetrics & Gynecology
DX: R19.09 Other intra-abdominal and pelvic swelling, mass and lump (principal)
CPT/HCPCS: 36415; 86304

== ENCOUNTER 2024-10-25 07:47 | Outpatient (CLI) | payer OTHER, SELFPAY ==
--- OUTSIDE RECORDS SUMMARY | 2024-10-25 07:52 | XMS_ITS | Data Portability ---
[facility] [address] [place] [address] Care Team Providers Care Criminal Investigator Customs Name Role Phone TITI BLACK Primary Care Provider Assessment No assessment recorded. Plan of Treatment Reminders Order Date Submit Date Provider Last Modified By Organization Details Last Modified Time Details Appointments None recorded. Lab pap, IG + reflex HPV 2023 024 [facility], [address] [place] [address], [address], [place], [address], 4 11:12:00 inflammatio n panel, serum or plasma 2022 023 [facility], [address] [place] [address], [address], [place], [address], 3 05:10:[address] referral - Systemic sclerosis with worsening SOB, to rule out ILD 2023 024 [facility], [address] [place] [address], [id number], 4 08:44:44 Procedures None recorded. Surgeries None recorded. Imaging XR, chest, 2 view 2023 024 [facility], [facility], [place], [address], 4 13:23:59 MAMMO, diagnostic, digital, unilateral 2022 023 [facility], [facility], [place], [address], 3 13:27:24 MAMMO, screening, bilateral 2018 019 RONI Not available 9 10:34:52 Medication Orders hydroxychlo roquine 200 mg tablet 2023 024 [id number], [address] [place] [address], [id number], 4 17:10:54 prednisone 20 mg tablet 2022 023 [facility][id number], [address] [place] [address], [id number], 3 12:08:13 Bactrim DS 800 mg-160 mg tablet 2019 020 [facility], [facility], [address] [place] [address], [id number], 11:48:33 Patient TargetsNo targets recorded. Patient Instructions Encounter Date Encounter Id Patient Instructions Last Modified By Organization Details Last Modified Time 06/24/2023 [id number] I was present and available in the family medicine clinic to discuss the patient's care during the appointment and the case was discussed with me. I agree with the resident's assessment and plan as documented. HL [email or web address] Not available 06/29/2023 10:51:01 08/03/2023 [id number] I certify that I was present for case discussion in the Family Medicine preceptor room at the time of this encounter. I have reviewed the note and agree with the findings, assessment, and plan except as I have documented below. Follow up as listed. All labs/imaging/con sults to be followed by the ordering provider. Festus Perkins, , [facility], Staff Physician. juan Not available 08/08/2023 14:13:36 09/08/2023 [id number] I certify that I was present for case discussion in the Family Medicine preceptor room at the time of this encounter. I have reviewed the note and agree with the findings, assessment, and plan except as I have documented below. Follow up as listed. All labs/imaging/con sults to be followed by the ordering provider. Festus Perkins, , [facility], Staff Physician. juan Not available 2023 14:00:56 Reason for Referral Community Manager Referral for D yspnea Systemic sclerosis with worsening SOB, to rule out ILD Referring Physician: Titi Black, Sap Pp Consultant, Encounter Date: 09/08/2023 Results Created Date Observation Date Name Description Value Unit Range Abnormal Flag Note LastModifiedBy Organization Detail LastModifiedTime 06/24/2006/25/2023 ESR-W ES+CR P sedimentatio n rate-westerg erica 35 mm/HR 0-32 above high normal Not Available [facility] [address] [place], [address], 06/25/2023 05:10:33 06/24/2006/25/2023 ESR-W ES+CR P C-reactive protein, quant 7 mg/L 0-10 Not Available [facility] [address] [place], [address], 06/25/2023 05:10:33 07/01/20 23 07/04/2023 SHYLA W/RFX TO ALL IF POSIT ROXANN SHYLA direct Positi ve negati ve abnormal Not Available [facility] [address] [place], [address], 07/04/2023 13:09:19 07/01/2007/02/2023 RHEUM ATOID FACTO R (RF) rheumatoid factor (rf) <10.0 IU/mL <14.0 Not Available [facility] [address] [place], [address], 07/04/2023 13:09:19 07/01/20 23 07/04/2023 ANTIN UCLEA R AB 11 BY MULTI PLEX anti-DNA (ds) Ab qn 1 IU/mL 0-9 Negat roxann <5 Equiv ocal 5 - 9 Posit roxann >9 Not Available [facility] [address] [place], [address], 07/04/2023 13:09:18 07/01/20 23 07/04/2023 ANTIN UCLEA R AB 11 BY MULTI PLEX preparer antibodies <0.2 ai 0.0-0. 9 Not Available [facility] [address] [place], [address], 07/04/2023 13:09:18 07/01/20 23 07/04/2023 ANTIN UCLEA R AB 11 BY MULTI PLEX varela antibodies <0.2 Not Available [facility] [address] [facility], , [address], 07/04/2023 13:09:18 07/01/20 23 07/04/2023 ANTIN UCLEA R AB 11 BY MULTI PLEX varela/preparer antibodies <0.2 Not Available [facility] [address] [place], [address], 07/04/2023 13:09:18 07/01/20 23 07/04/2023 ANTIN UCLEA R AB 11 BY MULTI PLEX antisclerode rma-70 antibodies >8.0 above high normal Not Available [facility] [address] [place], [address], 07/04/2023 13:09:18 07/01/20 23 07/04/2023 ANTIN UCLEA R AB 11 BY MULTI PLEX sjogren's anti-ss-A 0.2 ai 0.0-0. 9 Not Available [facility] [address] [place], [address], 07/04/2023 13:09:18 07/01/20 23 07/04/2023 ANTIN UCLEA R AB 11 BY MULTI PLEX sjogren's anti-ss-B <0.2 ai 0.0-0. 9 Not Available [facility] [address] [facility], , [address], 07/04/2023 13:09:18 07/01/2007/04/2023 ANTIN UCLEA R AB 11 BY MULTI PLEX antichromati n antibodies <0.2 Not Available [facility] [address] [facility], , [address], 07/04/2023 13:09:18 07/01/2007/04/2023 ANTIN UCLEA R AB 11 BY MULTI PLEX antiribosoma l P antibodies <0.2 Not Available [facility] [address] [facility], , [address], 07/04/2023 13:09:18 07/01/20 23 07/04/2023 ANTIN UCLEA R AB 11 BY MULTI PLEX anti-destiny-1 <0.2 Not Available [facility] [address] [facility], , [address], 07/04/2023 13:09:18 07/01/20 23 07/04/2023 ANTIN UCLEA R AB 11 BY MULTI PLEX anti-centrom ere B antibodies <0.2 Not Available [facility] ([facility] [address] [facility], , [address], 07/04/2023 13:09:18 07/01/2007/04/2023 ANTIN UCLEA R AB 11 BY MULTI PLEX see below: Anival Marshall ntibo dy Disea se Assoc iatio n Condi tion Frequ ency _ ____ ____ Antin uclea r Antib allie, SLE, mixed conne ctive Direc t (SHYLA- D) tissu e disea ses _ ____ ____ dsDNA SLE 40 - 60% _ ____ ____ Chrom atin Drug induc ed SLE 90% SLE 48 - 97% _ ____ ____ SSA (Ro) SLE 25 - 35% Sjogr en's Syndr ome 40 - 70% Neona mike Lupus 100% _ ____ ____ SSB (La) SLE 10% Sjogr en's Syndr ome 30% _ ___ ____ Sm (anti -Chucky h) SLE 15 - 30% _ ___ ____ CUSTOMER STRATEGY MANAGER Mixed Conne ctive Tissu e Disea se 95% (U1 nRNP, SLE 30 - 50% anti- ribon ucleo prote in) Polym yosit is and/o r Chapin tomyo sitis 20% _ ____ ____ Scl-7 0 (anti DNA Scler oderm a (diff use) 20 - 35% topoi josep ase) Crest 13% _ ____ ____ Destiny-1 Polym yosit is and/o r Chapin tomyo sitis 20 - 40% _ ____ ____ Centr omere B Scler oderm a - Crest varia nt 80% _ ____ ____ Ribos omal P SLE 10 - 20% Not Available [facility] ([facility]) [address] [place], [address], 07/04/2023 13:09:18 09/08/19 24 09/08/2023 IGP,A PTIMA HPV,A GE GDLN age gdln acog testing 30-65 Not Available [facility] ([facility]) [address] [place], [address], 09/12/2023 11:11:59 09/08/19 24 09/09/2023 IGP, APTIM A HPV, RFX 16/18 ,45 HPV aptima Negati ve negati ve This nucle ic acid ampli ficat ion test detec ts fourt een high- risk HPV types (16,1 8,31, 33,35 ,39,4 5,51, 52,56 ,58,5 9,66, 68) witho ut diffe renti ation . Not Available [facility] [address] [place], [address], 09/12/2023 11:12:10 09/08/19 24 09/12/2023 IGP, APTIM A HPV, RFX 16/18 ,45 diagnosis: Anival rob NEGAT ROXANN FOR INTRA EPITH ELIAL RUBA Pulliam OR FLORENTINO ALEJO . Not Available [facility] [address] [facility], , [address], 09/12/2023 11:12:10 09/08/19 24 09/12/2023 IGP, APTIM A HPV, RFX 16/18 ,45 specimen adequacy: Anival t Satis facto ry for evalu ation . Endoc ervic al and/o r squam ous metap lasti c cells (endo cervi claudia compo nent) are prese nt. Not Available [facility] [address] [facility], , [address], 09/12/2023 11:12:10 09/08/19 24 09/12/2023 IGP, APTIM A HPV, RFX 16/18 ,45 clinician provided ICD10: Anival rob Z12.4 Not Available [facility] [address] [place], [address], 09/12/2023 11:12:10 09/08/19 24 09/12/2023 IGP, APTIM A HPV, RFX 16/18 ,45 performed by: Anival pulliam, Cytot echmichael colin t (ASCP ) Not Available [facility] [address] [place], [address], 09/12/2023 11:12:10 09/08/19 24 09/12/2023 IGP, APTIM A HPV, RFX 16/18 ,45 . . Not Available [facility] [address] [facility], , [address], 09/12/2023 11:12:10 09/08/19 24 09/12/2023 IGP, APTIM A HPV, RFX 16/18 ,45 note: Commen t The Pap smear is a scree dinh test desig trang to aid in the detec tion of curt ligna nt and malig nant condi tions of the uteri ne cervi x. It is not a diagn ostic proce dure and shoul d not be used as the sole means of detec ting cervi claudia cance r. Both false -posi tive and false -nega tive repor ts do occur . Not Available [facility] [address] [facility], , [address], 09/12/2023 11:12:10 09/08/19 24 09/12/2023 IGP, APTIM A HPV, RFX 16/18 ,45 test methodology: Commen t This liqui d based ThinP rep(R ) pap test was scree trang with the use of an image guide newton systyuly m. Not Available [facility] [address] [facility], , [address], 09/12/2023 11:12:10 09/08/19 24 09/12/2023 IGP, APTIM A HPV, RFX 16/18 ,45 HPV genotype reflex Commen t Crite shivam not met, HPV Genot ype not perfo rmed. Not Available [facility] [address] [facility], , [address], 09/12/2023 11:12:10 05/14/20 19 05/14/2019 MAMMO , carl tao, bilat eral No observ ation record ed. [email or web address] [facility] [address] [place], [address], 05/17/2019 15:59:36 07/10/20 23 xr hand RT 3V [facility] [address] [facility] [place] [address] INDICA TION: Swelli ng of finger s of both hands COMPAR KAVITHA: None TECHNI QUE: PA, obliqu e, and latera l right hand views; PA, obliqu e, and latera l right wrist views FINDIN GS: No acute fractu re, disloc ation, or other acute bony abnorm ality identi fied. No eviden ce of bone erosio n or elda bone destru ction. No remark able arthri tic change s. Soft tissue s unrema rkable . IMPRES JONO: 1. Negati ve right hand series . 2. Negati ve right wrist series . Referr ed By: Rhonda turner Signed By: David peterson on 2022 1:19 AM Interp reted By: David peterson, 2022 1:18 AM h[facility] [address] [facility], [place], [address], 07/13/2023 17:06:52 07/10/20 23 xr wrist RT min 3V [facility] [place] [address] INDICA TION: Swelli ng of finger s of both hands COMPAR KAVITHA: None TECHNI QUE: PA, obliqu e, and latera l right hand views; PA, obliqu e, and latera l right wrist views FINDIN GS: No acute fractu re, disloc ation, or other acute bony abnorm ality identi fied. No eviden ce of bone erosio n or elda bone destru ction. No remark able arthri tic change s. Soft tissue s unrema rkable . IMPRES JONO: 1. Negati ve right hand series . 2. Negati ve right wrist series . Referr ed By: Electr onical ly Signed By: David peterson on 2022 1:19 AM Interp reted By: David peterson, 2022 1:18 AM [facility] [address] [facility], [place], [address], 07/13/2023 17:06:53 07/10/20 23 XR, wrist + hand [facility] [place] [address] INDICA TION: Swelli ng of finger s of both hands COMPAR KAVITHA: None TECHNI QUE: PA, obliqu e, and latera l hand views; PA, obliqu e, and latera l left wrist views. FINDIN GS: No acute fractu re, disloc ation, or other acute bony abnorm ality identi fied. No eviden ce of bone erosio n or elda bone destru ction. No remark able arthri tic change s. Soft tissue s unrema rkable . IMPRES JONO: 1. Negati ve left hand series . 2. Negati ve left wrist series . Referr ed By: Rhonda onical ly Signed By: David peterson on 2022 1:20 AM Interp reted By: David peterson, 2022 1:20 AM [facility] Scheduling [facility], [place], [address], 09/02/2023 16:21:55 07/10/20 23 XR, wrist + hand [facility] [place] [address] INDICA TION: Swelli ng of finger s of both hands COMPAR KAVITHA: None TECHNI QUE: PA, obliqu e, and latera l hand views; PA, obliqu e, and latera l left wrist views. FINDIN GS: No acute fractu re, disloc ation, or other acute bony abnorm ality identi fied. No eviden ce of bone erosio n or elda bone destru ction. No remark able arthri tic change s. Soft tissue s unrema rkable . IMPRES JONO: 1. Negati ve left hand series . 2. Negati ve left wrist series . Referr ed By: Rhonda onnitin ly Signed By: David peterson on 2022 1:20 AM Interp reted By: David peterson, 2022 1:20 [facility], [place], [address], 07/13/2023 17:06:53 09/08/19 24 XR, chest , 2 view [facility] [address] [facility] [address] Examin ation: Chest x-ray 2 view Access ion: [id number] Exam date/t ritika: 024 4:22 PM Reason For Exam: dyspne a Compar kavitha: 023 Techni que: PA and latera l views of the chest were obtain ed. Findin gs: The cardia c silhou ette, medias tinal contou rs, and pulmon janis vessel s appear normal . The lungs are clear. No pneumo thorax . No consol idatio ns or effusi ons are seen. =====I MPRESS ION:== === 1. No radiog raphic eviden ce of active diseas e the chest. ====== ====== ====== === Ordere d By: LETY cardenasical ly Signed By: Selena pulliam MD on 5:01 PM Interp reted By: Selena pulliam MD, 5:01 PM nasima [facility] Scheduling [address] [facility] [address] [facility], [place], [address], 10/25/2023 13:24:00 Result Notes None recorded. Problems Name Problem SNOMED Code Status Onset Date Resolution Date Notes Provider Name and Address Organization Details Recorded Time Acute bronchitis 63425900 Active 2017 Denton Isaacs PA-C Attn: Accounting ,[address] , [place], [address] , [facility] 8 20:17:20 Asthma 673806738 Active 2017 Seema Jamil [place] null, [place] - [place] 8 11:54:06 Problem Notes None recorded. Procedures Surgical History Date Name Laterality Status Provider Name and Address Organization Details Recorded Time 02/18/20 18 Most Recent Mammogram completed Taras Garcia MA [facility] 03/29/2018 11:42:52 01/18/20 18 Date of Last Pap Smear completed Taras Garcia MA [facility] 03/29/2018 11:42:43 08/22/18 94 Cholecystectomy completed Naila Franklin [place] - [facility] 03/09/2018 12:59:38 Imaging Results Imaging Date Name Status LastModified by Organiz ation Details LastModified Time 05/14/2019 MAMMO, screening, bilateral completed [address] [place], [address], 05/17/2019 15:59:36 07/10/2023 xr hand RT 3V completed [address], [address], 07/13/2023 17:06:52 07/10/2023 xr wrist RT min 3V completed [address], [address], 07/13/2023 17:06:53 07/10/2023 XR, wrist + hand completed [facility], [place], [address], 09/02/2023 16:21:55 07/10/2023 XR, wrist + hand completed [facility] [address] [facility] [facility] [address], [place], [address], 07/13/2023 17:06:53 09/08/2023 XR, chest, 2 view completed [email or web address] [address] [facility], [place], [address], 10/25/2023 13:24:00 Procedure Notes None recorded. Medical Equipment None Reported. Allergies Allergen ID Allergen Name Allergen Category Reaction Reaction Severity Criticality Documentation Date Start Date Code Code System Note Provider Name and Address Organization Details Recorded Time 479513 Product containin g penicilli n (product) medicatio n rash Not available Not available 09/08/2017 93020 8001 SNOMED Not Available Not Available Not Available Medications Name Sig Start Date Stop Date Status Note LastModified by Organization Details LastModified Time promethazin e-DM 6.25 mg-15 mg/5 mL oral syrup Take 5 mL every 6 hours by oral route as needed for 10 days. 03/09 completed Not Available Not Available Not Available azithromyci n 250 mg tablet TAKE 2 TABLETS (500 MG) BY ORAL ROUTE ONCE DAILY FOR 1 DAY THEN 1 TABLET (250 MG) BY ORAL ROUTE ONCE DAILY FOR 4 DAYS 12/15 completed Not Available Not Available Not Available ibuprofen 800 mg tablet Take 1 tablet 3 times a day by oral route with meals for 10 days. 06/24 completed Not Available Not Available Not Available fluconazole 150 mg tablet Take 1 tablet 3 times a week by oral route for 7 days. 03/09 completed Not Available Not Available Not Available prednisone 20 mg tablet Take 2 tablets every day by oral route as directed for 5 days. 08/10 completed Not Available Not Available Not Available Pyridium 100 mg tablet Take 1 tablet 3 times a day by oral route for 3 days. 03/09 completed Not Available Not Available Not Available metronidazo le 500 mg tablet Take 1 tablet twice a day by oral route as directed for 7 days. 03/09 completed Not Available Not Available Not Available sulfamethox azole 800 mg-trimetho prim 160 mg tablet TAKE 1 TABLET BY MOUTH TWICE DAILY 06/24 completed Not Available Not Available Not Available benzonatate 100 mg capsule TAKE 1 CAPSULE BY MOUTH THREE TIMES DAILY FOR 10 DAYS 08/03 completed Not Available Not Available Not Available ferrous sulfate 325 mg (65 mg iron) tablet TAKE 1 TABLET BY MOUTH TWICE DAILY BEFORE MEALS 08/03 completed Not Available Not Available Not Available nystatin 100,000 unit/gram topical cream APLLY ONE APPLICATI ON TOPICALLY THREE TIMES DAILY FOR 7 -14 DAYS 08/03 completed Not Available Not Available Not Available polymyxin B sulfate 10,000 unit-trimet hoprim 1 mg/mL eye drops INSTILL 1 DROP IN LEFT EYE EVERY 4 HOURS FOR 7 DAYS 08/03 completed Not Available Not Available Not Available furosemide 20 mg tablet TAKE 1/2 TABLET BY MOUTH EVERY MORNING FOR 5 DAYS 06/24 completed Not Available Not Available Not Available ergocalcife rol (vitamin D2) 1,250 mcg (50,000 unit) capsule TAKE ONE CAPSULE BY MOUTH EVERY WEEK 08/03 completed Not Available Not Available Not Available hydroxychlo roquine 200 mg tablet TAKE 1 TABLET BY MOUTH EVERY DAY WITH A MEAL active Not Available Not Available No t Available cefdinir 300 mg capsule TAKE 1 CAPSULE BY MOUTH EVERY 12 HOURS FOR 10 DAYS 06/24 completed Not Available Not Available Not Available naproxen 500 mg tablet Take 1 tablet twice a day by oral route. active Not Available Not Available No t Available Ventolin HFA 90 mcg/actuati on aerosol inhaler Inhale 2 puffs every 4 hours by inhalatio n route as directed. 2017 active Not Available Not Available Not Avai lable nitrofurant oin monohydrate /macrocryst als 100 mg capsule TAKE 1 CAPSULE BY MOUTH TWICE DAILY FOR 7 DAYS 08/03 completed Not Available Not Available Not Available Vitals Date Recorded Body height Body mass index (BMI) Body weight Systolic blood pressure Diastolic blood pressure Provider Name and Address Organization Details Last Updated DateTime 04/02/2019 162.56 cm 27.9 kg/m2 99399.1 2 g 120 mm[Hg] 72 mm[Hg] Darnisheontae Fawn, MA [facility] 9 11:56:59 Date Recorded Body height Body mass index (BMI) Body weight Heart rate Oxygen saturation Oxygen saturation in Arterial blood by Pulse oximetry Body temperature Systolic blood pressure Diastolic blood pressure Provider Name and Address Organization Details Last Updated DateTime 3 162.56 cm 28.7 kg/m2 02459.9 8 g 101 /min 96 % 96 % 98 [degF] 109 mm[Hg] 74 mm[Hg] Gordo Aguilar MA [facility] 3 10:49:52 Date Recorded Heart rate Systolic blood pressure Diastolic blood pressure Provider Name and Address Organization Details Last Updated DateTime 06/24/2023 99 /min 113 mm[Hg] 76 mm[Hg] Titi Black MD Attn: Accounting,[address] [place] [address], [phone], [facility] 06/24/2023 11:29:44 Date Recorded Body height Body mass index (BMI) Body weight Body temperature Oxygen saturation Oxygen saturation in Arterial blood by Pulse oximetry Heart rate Systolic blood pressure Diastolic blood pressure Provider Name and Address Organization Details Last Updated DateTime 3 162.56 cm 29.4 kg/m2 85310.3 5 g 98.2 [degF] 96 % 96 % 102 /min 120 mm[Hg] 73 mm[Hg] Jennifer Pool MA [facility] 3 11:14:17 Date Recorded Body height Body mass index (BMI) Body weight Oxygen saturation Oxygen saturation in Arterial blood by Pulse oximetry Heart rate Body temperature Systolic blood pressure Diastolic blood pressure Provider Name and Address Organization Details Last Updated DateTime 4 162.56 cm 26 kg/m2 13318.9 g 98 % 98 % 92 /min 98.2 [degF] 104 mm[Hg] 69 mm[Hg] Veronica Kirkland MA [facility] 4 16:21:05 Social History Question Answer Notes LastModified by Organizat ion Details LastModified Time Tobacco Smoking Status Never Smoker Kedar renee, [facility] 09/08/2017 20:08:41 Do You Have An Advance Directive? No No Blood Card Information not available 01/17/2018 What Is Your Level Of Alcohol Consumption? Occasional Information not available 01/17/2018 Is Blood Transfusion Acceptable In An Emergency? No Information not available 01/17/2018 What Is Your Level Of Caffeine Consumption? Moderate Mostly Tea Every Now And Then Soda. PT Stated She Is Trying To Stick With Water Information not available 01/17/2018 How Much Tobacco Do You Chew? None Information not available 01/17/2018 Are You Currently Employed? Yes Information not available 01/17/2018 What Type Of Diet Are You Following? 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 Alone Information not available 01/17/2018 What Was The Date Of Your Most Recent Tobacco Screening? 09/08/2023 [email or web address] Information not available 09/08/2023 How Many Children Do You Have? 1 Information not available 01/17/2018 Performs Monthly Self-breast Exam? No Information not available 01/17/2018 Do You Use Protection During Sex? Usually Information not available 01/17/2018 What Is Your Relationship Status? Information not available 01/17/2018 Seat Belts Used Routinely Yes Information not available 01/17/2018 Are You Sexually Active? Yes Information not available 01/17/2018 How Much Tobacco Do You Smoke? No [email or web address] Information not available 12/15/2017 General Stress Level Medium Information not available 01/17/2018 Do You Use Any Illicit Or Recreational Drugs? No [email or web address] Information not available 06/24/2023 Do You Use Sunscreen Routinely? No Information not available 01/17/2018 Sex: Unknown Functional Status Question Answer Note LastModified by Organizat ion Details LastModified Time What is your exercise level? Occasional Got new trademil pt plans on more Information not available 01/17/2018 Mental Status None recorded. Family History Relationship Description Onset Age of this Age Resolved Age Notes LastModified by Organization Details LastModified Time Mother Essential hypertension [email or web address] Not available 11:54:22 Mother Pulmonary embolism [email or web address] Not available 12/15 11:54:49 Father Asthma [email or web address] Not available 12/15/2017 11:54:59 Father Malignant tumor of colon [email or web address] Not available 12/15 11:55:08 Medical History Condition Response Coronary Artery Disease N Other N High Blood Pressure N Atrial Fibrillation N Breast Cancer N Lung Disease N Depression N COPD N Blood Clots N Breast Problem N Anesthesia Complications N Headaches/Migraines N Anxiety Disorder N Muscle, Joint, or Bone Problems N Infertility N Polyps N Acid Reflux (GERD) N Cancer N Stroke N Endometriosis N High Cholesterol N Liver Disease N Headaches N Thyroid Problems N Kidney or Bladder Problems N GI Problems N Acne N Eating Disorder N Skin Problems N Anemia N Heart Attack ([place]) N Diabetes N Ovarian Cancer N Blood Transfusions N Seizures/Epilepsy N Abuse/Domestic Violence N Asthma Y Allergies N Hepatitis N Heart Disease N Pre-Eclampsia N Heart Failure N Osteoporosis N Gynecological History Statement/Question Response Flow Moderate STIs/STDs N HPV Vaccine N Duration of Flow (days) 5 Most Recent Mammogram 02/17/2018 Age at Menarche 12 Current Control Method None Age at First Child 22 Frequency of Cycle (Q days) 28 Sexually Active? Y Menses Monthly Y Date of Last Pap Smear 01/17/2018 Sexual Problems? N LMP Definite Desired Control Method Condoms Obstetrics History GPAL:G 1 P 1 0 0 1 Type Value Full Term 1 Living 1 Total 1 Immunizations Vaccine Type Date Status Note Provider Nam e and Address Organization Details Recorded Time Influenza, split virus, quadrivalent, preservative 8 completed Not Available [facility] 09/08/2019 02:46:10 Past Encounters Encounter ID Performer Location Encounter Start Date Encounter Closed Date Diagnosis/Indication Diagnosis SNOMED-CT Code Diagnosis ICD10 Code Diagnosis Note [id number] Denton Isaacs PA-C [address] [address] 09/08/2017 19:51:30 09/12/2017 15:43:03 Acute bronchitis 82395292 J20.9 [id number] Destini David [address] [address] 11/26/2017 12:35:32 11/28/2017 09:01:06 Acute urinary tract infection 610064779 N39.0 [id number] Selena [place], [address] [address] 12/15/2017 11:36:51 12/30/2017 09:06:43 Dysuria 56375587 R30.0 w/ back pain and trace hematuria. Will culture Body mass index 25-29 - overweight 762705564 Z68.27 BMI=27.5, discussed increasing physical activity and incorporat ing healthier meal choices. Depression screening 171 442769 Z13.89 PHQ9=0, negative Mild inter mittent asthma 302791342 J45.20 Stable, refilled inhaler Bacterial vaginosis 4197 31281 N76.0 pos. hx. Discussed treatment and PRN follow-up, in addition to hygeine. [id number] Selena Samayoa [address] [address] 01/13/2018 11:03:40 01/23/2018 15:30:18 Urinary tract infectious disease 95805150 N39.0 dysuria and trace leukocytes and blood on dip Fatigue 43352729 R53.83 worsening. Discussed workup. Discussed sleep hygeine and stress reduction/ management . Mild inter mittent asthma 772778189 J45.20 Stable, Discussed rescue inhaler use PRN [id number] Naila [address] [address] 01/17/2018 10:53:29 01/17/2018 16:12:26 Gynecologic examination 27357182 Z01.419 Enlarged uterus 07276708 4 N85.2 Pelvic US. RTC to discuss results 2 - 3 weeks. [id number] Selena [place], [address] [address] 02/09/2018 16:12:50 02/10/2018 09:03:19 Microscopic hematuria 545184162 R31.21 UA positive for moderate blood in urineNo CVA tenderness /STDs negatie on papHad trasvagina l ultrasound with results of fibroids. Has an appt with [facility] on 02/14 to follow-up with results Anemia 928627937 D64.9 Iron saturation 12Hg 11.4, Hct 33.5Discus sed management and required follow-up. .. as per above she does have some hematuria, which can all be playing a role in anemia.Pt verbalized understand hilario ofproposed plan of care. Vitamin D deficiency 347 95276 E55.9 Vit level 19Pt verbalized understand ing and importance of follow-up [id number] [address] [address] 02/14/2018 14:01:09 02/16/2018 12:59:35 Uterine leiomyoma 43558506 D25.9 Mass of ovary 677925912 R19.09 RTC in 2-3 weeks. [id number] [place] [address] 03/09/2018 12:32:56 03/29/2018 11:38:42 Pelvic mass 25914939 R19.00 MRI with7 cm left dermoid cyst and uterine fibroids. Discussed the nature of dermoids as noncancero us growths. Will need surgical interventi on to possibly include hysterecto my. [id number] [address] [address] 03/29/2018 11:29:13 03/29/2018 12:07:43 Benign teratoma of ovary 096163109 D27.9 Discussed size of dermoid with possible abdominal procedure instead of laproscopy . Will get surgical clearance and RTC for scheduling . Will think about hysterecto my. [id number] SRIDEVI Wan [address] [address] 03/31/2018 11:40:57 04/03/2018 09:20:30 Pre-surgery evaluation 782852946 Z01.818 Will have surgery to correct/re move Vitamin D deficiency 347 59075 E55.9 Last Vit level 19Repeat level, continue 50,000 units once weekly [id number] [address] [address] 04/20/2018 12:18:51 05/23/2018 11:21:37 Benign teratoma of ovary 151497771 D27.9 Discussed size of dermoid. Plans for laproscopy with possible conversion to laprotomy. Reviewed risks, benefits and alternativ es. Does not want hysterecto my. [id number] SRIDEVI Wan [address] [address] 05/23/2018 09:45:04 05/25/2018 09:47:06 Hypercholesterolemia 56163262 E78.00 CH 231; LDL 170. She is eating a lot of pork. Discussed cutting back. Pt. wants to trial lifestyle chnages and exercise for 3 months Administra tion of influenza vaccine 25484919 Z23 Informed consent. Discussed care instructio n Overweight 994400578 E66 .3 27.3, encouraged exercise 3-5 days a week. [id number] [address] [address] 06/27/2018 12:54:11 06/28/2018 14:25:25 Endometriosis of pelvic peritoneum 992619856 N80.3 Postoperative visit 1836 42710 Z09 No signs of infection. Discussed final pathology. Continue NSAIDs prn for pain. RTC in 2 weeks, sooner if problems. Dysuria 58474278 R30.0 Dipstick without nitrites. Small wbcs. [id number] [address] [address] 07/11/2018 10:56:54 07/12/2018 09:49:35 Postoperative visit 289563794 Z09 No signs of infection. Return to work next week. F/U prn [id number] [address] [address] 04/02/2019 11:31:03 04/02/2019 14:42:58 Screening mammography 64172410 Z12.[id number] [address] 01/08/2020 10:36:03 01/08/2020 18:33:22 Dysuria 91793810 R30.0 -Phone visit during COVID 19 -presumed UTI. -Bactrim X 5 days. -Contact office if no improvemen t. [id number] Monique sinclair MD [place] [address] [address] [facility] [address] [place] [address] 06/24/2023 10:13:53 07/05/2023 10:34:52 Swelling of bilateral lower limbs 295122765 M79.89 Swelling of bilateral LL present for 3 weeks. Had 2 ER visits on 05/15 and 06/06 and all workup is negative including trops, pro-BNP, EKG and D-dimer, albumin and Hemoglobin . Seen Cardiology (Dr. Hall) for further workup and pt can't afford to pay the cost of Echo. O/E 1+ pitting edema extending from ankle to lower 2/3rd of leg. 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 Encouraged to use compressio n stockings and order placed Bilateral swelling of finger of hands 1488785303 7102481 R22.33 H/o swollen fingers of both hands x 3 weeks with intermitte nt pain and stiffness during morning. Differenti als would be RA and OA- Pending ESR and CRP [id number] ANDRE PERKINS , [place] [address] [address] [facility] [address] [place] [address] 08/03/2023 11:06:47 08/10/2023 11:18:42 Mass of left breast 5949154358 7472440 N63.20 possible breast nodule - 07/28 CT showed prominent L axillary LN with asymmetric tissue and possible 1.5 cm nodule in left upper outer breast, recommende d correlatio n with dedicated breast imaging. A breast ultrasound was not able to be done inpatient. Also, Mammograms also not done inpatient. Tachycardia 6406580 R00. 0 This is likely 2/2 to anemia.Had full cardiac work up during hospitaliz ation that showed ECHO with > LVEF 65%, normal diastolic function. Delta trop negative, BNP 58, TSH 1.04, VBG normal, CMP w/o Gap. EKG normal as well.Needs to see rheum for futher eval Pain of bi lateral hands 2538899663 9697818 M79.641 2/2 to scleroderm a. physical exams findings present too,. There is a struggle with insurance and paying to get into see rheum for DMARDs. Will trial steroids for right now until she is able to figure out how to see rheum. I dont think MRI is warrented right now as it would not change disease management right now. [id number] ANDRE PERKINS , [facility] [address] [facility] [address] [place] [address] 09/08/2023 16:02:33 09/15/2023 09:24:25 Screening for malignant neoplasm of cervix 046262379 Z12.4 Last pap smear in 2018, results normalPap smear done today in the clinic. pt denied STD testingF/u with results. Dyspnea 333434800 R06.00 Acute, worsening recently. Not sure what was the cause. Pt complains of intermitte nt tactile temps with SOB. Denies cough with sputum, sore throat or sick contacts. Denied testing for COVID and FLU in clinic. Covid and Flu vaccinated OSH. So, the differenti als this time would be worsening systemic sclerosis ( component of Pulm fibrosis) vs URTI vs less likely cardiac origin- Chest x ray pending- Pulmonolog y referral to rule out Pulmonary fibrosis with PFTs Systemic sclerosis 27289 008 M34.9 Pt recently diagnosed with systemic sclerosis with Scl-70 positive abs. Currently working on insurance approval for Rheum referral. States her hand pain and stiffness better. Has worsening SOB recently. pt knew the prognosis of systemic sclerosis with out treatment and requested to be started on medication s until she sees Rheum- Hydroxychl oroquine started Health Concerns Section Related Observation LastModified by Organization Detai ls LastModified Time None Recorded Concern Status LastModified by Organization Details LastModified Time None Recorded Advance Directives Directive N: No Blood card Payers Encounter Date Sequence Insurance Name Policy Number Policy Costello Covered Member ID Costello Member ID Guarantor Name 04/02/2019 1 *SELF PAY* Ly nna Leyva-Pay ne 01/08/2020 1 *SELF PAY* Ly nna Leyva-Pay ne 06/24/2023 1 *SELF PAY* Ly nna Leyva-Pay ne 08/03/2023 1 *SELF PAY* Ly nna Leyva-Pay ne 09/08/2023 1 *SELF PAY* Ly nna Leyva-Pay ne Notes Date Note Type Note Provider Name and Address Organization Details Recorded Time 9 text/html 43 y.o.here with [facility] for breast exam and MMG order. No complaints. Some pain with cycles. History of uterine fibroids. Naila renee, [facility] 04/02/2019 14:42:50 0 text/html 44 y.o. for phone visit. Reports that she thinks she has a UTI. Feels similar to other UTIs. Has back pain and dysuria. No fever, chills or N/V. Naila renee, [facility] 01/08/2020 18:33:14 3 text/html Ms. Oquendo is a new patient here for ER f/u swollen legs and hands. Has been present for 3 weeks. was in the ED on 06/06 and her workup has been negative including trops, d-dimer, pro-BNP. Noticed increased swollen legs at the end of the day and better after propping up the legs with pillows at night. Has noticing swollen fingers bilaterally and her finger rings is not fitting her any more. has pain her fingers intermittently. Family history negative for connective disorders including RAHer job includes Mostly sitting and works as a school bus driverDenies CP, SOB, Palpitations, fever, skin rashes, blurred vision, weakness, tingling, numbness or LOC Monique Rodrigez MD Attn: Accounting,[address] [place], [address], [facility] 07/01/2023 09:01:16 3 text/html 47 year old female with a medical history significant for pediatric asthma and menorrhagia her for ED follow up from 07/26/23 with CC of 3 month hx of progressive shortness of breath and exercise intolerance, episodic lower extremity edema, swelling and skin change at upper extremities, episodes of rash at chest and upper extremities resulting in hyperpigmentation, and AM knee pain that warms up with use. PCP office visit showed SHYLA pos and anti-Scl70 positive She also had SOB and worsening exertional dyspnea, orthopnea, bendopnea, PND. COVID-19 negative in ED. Chest x-ray with bibasilar atelectasis. CT contrast without PE with enlarged left axillary lymph node and asymmetry of left breast tissue with possible new 1.5 cm nodule in the left outer upper quadrant. Also had some noted anemia and Mild, intermittent LE edema. She says that since she is self pay, she has been unable to get into rheum and is working on getting signed up for insurance so she can see them. Says her hand pain is improved with gloves still has sx's. the swelling in her legs has gone done too with compression socks. No N/V today SOB is improved. No severe radiatign chest pain. Still able to ambulate and work with her hands. Has some fatigue. FESTUS PERKINS DO Attn: Accounting,[address] [facility], [place], [address], [facility] 08/08/2023 14:13:40 4 text/html Ms. Little is here for pap smear. PMHx of systemic sclerosis , currently working on establishing care with RheumatologyDenies abnormal vaginal discharge or pruritis of vulva. Last pap 2018 and normalC/o increased SOB recently and worsening with walking. Has intermittent tactile fevers. Denies sick contacts or recent travel. Mentions her hand pain better and has been taking aleve intermittently 1-2 pills/dayCovid and flu shot was taken OSH FESTUS PERKINS DO Attn: Accounting,[address] [facility], [place], [address], [place] [facility] 2023 14:01:04 OBGyn Episode No OBEpisode recorded.
--- OUTSIDE RECORDS SUMMARY | 2024-10-25 07:52 | XMS_ITS | Clinical Summary ---
Author Organization [facility] Address [address] [place] [address] Care Team Providers Care Nursing Specialist Name Role Phone Titi Moss MD Primary Care Provider [phone] Allergies Active Allergy Reactions Criticality Noted Date [...] patient's age to complete this topic Insurance [facility] Care Teams Nursing Specialist Relationship Specialty Start Date End Date Titi Moss MD PCP - General FAMILY PRACTICE 09/08/23
--- OUTSIDE RECORDS SUMMARY | 2024-10-25 07:53 | XMS_ITS | Clinical Summary ---
Author Organization [facility] al Address [address] [place] [address] Care Team Providers Care Transmission Engineer Name Role Phone Amelia Tamayo MD Primary Care Provider Titi Moss MD Unavailable Allergies Active Allergy Reactions Criticality Noted Date [...] needed for sleep 30 tablet 4 Active albuterol HFA (PROVENTIL HFA,VENTOLIN HFA,PROAIR HFA) [...] one tablet daily 90 tablet 4 Active sodium chloride (OCEAN) 0.65 % nasal spray Administer 1 spray into each nostril every 2 (two) hours as needed for congestion 15 mL 11 4 10/21/19 25 Active Problems Problem Noted Date Diagnosed Date ILD (interstitial lung disease) 11/24/2023 Assessment & Plan (11/29/2023 10:49 AM CDT): -Continue Cellcept 3gm total daily, prednisone 15mg daily -w/ fibrotic change on imaging, NSIP pattern. Diffuse systemic sclerosis 11/05/2023 Assessment & Plan (11/29/2023 11:52 AM [...] - cont 15 mg pred Autoimmune disease 10/12/2023 Assessment & Plan (10/19/2023 5:46 PM STATISTICAL ENGINEER): Dffuse systemic sclerosis, s/p IVIG for progressive [...] outpatient Assessment & Plan (10/18/2023 12:59 PM STATISTICAL ENGINEER): Dffuse systemic sclerosis, s/p IVIG for progressive [...] outpatient Assessment & Plan (10/12/2023 12:44 PM STATISTICAL ENGINEER): Dffuse systemic sclerosis, s/p IVIG for progressive [...] of volume overload. Repeat TTE this admission (11/27) was unremarkable. Given her systemic sclerosis, she [...] 11/27. Assessment & Plan (10/19/2023 5:46 PM STATISTICAL ENGINEER): TTE this admission with e/o acute RV [...] TTE. Assessment & Plan (10/18/2023 12:57 PM STATISTICAL ENGINEER): TTE this admission with e/o acute RV [...] TTE. Assessment & Plan (10/12/2023 12:32 PM STATISTICAL ENGINEER): TTE this admission with e/o acute RV [...] 10/04/2023 Assessment & Plan (10/21/2023 6:30 PM STATISTICAL ENGINEER): Azra Little is a 48 year old [...] outpatient Assessment & Plan (10/18/2023 12:51 PM STATISTICAL ENGINEER): Azra Little is a 48 year old [...] outpatient Assessment & Plan (10/12/2023 12:22 PM STATISTICAL ENGINEER): Admitted with acute hypoxemic respiratory failure requiring [...] discharge Assessment & Plan (10/09/2023 9:53 AM STATISTICAL ENGINEER): -presenting with shortness of breath for approximately [...] COVID Assessment & Plan (10/06/2023 1:11 PM STATISTICAL ENGINEER): Acute-onset SOB on subacute SOB/NICHOLAS/BLEE x 4-6 [...] 10/04/2023 Assessment & Plan (10/09/2023 9:52 AM STATISTICAL ENGINEER): -presenting with progressive NICHOLAS and exercise intolerance, episodic ALEJANDRO, episodic rash on upper extremities and chest. -serologies notable for positive SHYLA and anti-Scl70. -s/p IVIG for 4 days -rheumatology following Assessment & Plan (10/04/2023 5:37 PM STATISTICAL ENGINEER): Presenting with 5-6 months of progressive NICHOLAS [...] 10/04/2023 Assessment & Plan (10/07/2023 11:15 AM STATISTICAL ENGINEER): -baseline Hgb 9-10. -continue enteral iron q48 hours -cbc daily Assessment & Plan (10/04/2023 12:25 AM STATISTICAL ENGINEER): Recent baseline Hgb 9-10s, admitted at 10.5 -> 8.8, likely secondary to admission hemoconcentration and subsequent phlebotomy, no clinical signs of bleeding. Fe 12, ferritin 133, TIBC 198, Tsat 6. - on PO iron, space to every other day - can consider IV iron after no longer infected GERD (gastroesophageal reflux disease) Assessment & Plan (10/07/2023 11:15 AM STATISTICAL ENGINEER): -daily PPI Assessment & Plan (10/04/2023 12:26 AM STATISTICAL ENGINEER): Having reflux symptoms, concerning for relation to scleroderma. - start PPI (new med) Lymphadenopathy 10/04/2023 Assessment & Plan (10/12/2023 12:26 PM STATISTICAL ENGINEER): Chest and axillary adenopathy probably reactive. To be reassessed with next chest CT. Assessment & Plan (10/07/2023 11:15 AM STATISTICAL ENGINEER): -recurrent scans with mediastinal LAD, questionable breast LAD. -recommend outpatient mammogram Assessment & Plan (10/04/2023 12:26 AM STATISTICAL ENGINEER): Recurrent scans with mediastinal LAD, questionable breast LAD. - outpatient mammogram Severe protein-calorie malnutrition 10/04/2023 Assessment & Plan (10/07/2023 11:15 AM STATISTICAL ENGINEER): -nutrition consult -encourage PO intake and nutritional supplements Dyspnea, unspecified type 10/01/2023 Breast mass 07/27/2023 Assessment & Plan (07/27/2023 10:50 AM STATISTICAL ENGINEER): CT with breast asymmetry with axillary LN [...] 07/27/2023 Assessment & Plan (07/27/2023 10:27 AM STATISTICAL ENGINEER): Associated with metromenorrhagia in setting if uterine fibroids. CBC with hemoglobin at 10 from 12 2 months ago in setting of menorrhagia. Has been on iron supplement but haven't been taking it. - rec follow up with her [employer]PER[employer] Acute on chronic respiratory failure 07/26/2023 Assessment & Plan (11/30/2023 4:16 PM CDT): [...] find out whether she can follow with [facility] rheum/pulm as an outpatient; if so, we are happy to see her in clinic, and this would be optimal since the majority of her workup has been performed at [facility]. In summary, our recommendations are as follows: [...] today Assessment & Plan (07/28/2023 1:19 PM STATISTICAL ENGINEER): Admitted with worsening exertional dyspnea, orthopnea, bendopnea, [...] 05/25/2023 Assessment & Plan (07/27/2023 2:41 PM STATISTICAL ENGINEER): Mild, intermittent LE edema. Patient endorses current upper extremity edema I cannot recognize on exam. - continue compression stocking - LE dop negative Asthma exacerbation 12/15/2017 Assessment & Plan (07/28/2023 1:20 PM STATISTICAL ENGINEER): Prior asthma history, reporting shortness of breath, [...] 10/14/2023 Assessment & Plan (10/18/2023 12:55 PM STATISTICAL ENGINEER): Diagnosed on admission after presenting with AHRF requiring ICU admission and BiPAP. Treated with Tamiflu 09/30-10/12. See acute hypoxemic respiratory failure problem. Assessment & Plan (10/11/2023 1:09 PM STATISTICAL ENGINEER): Diagnosed on admission after presenting with AHRF requiring ICU admission and BiPAP. Has been on Tamiflu since 09/30. - Continue Tamiflu Assessment & Plan (10/09/2023 10:35 AM STATISTICAL ENGINEER): -Will receive a total of 20 doses of tamiflu COVID 10/09/2023 10/14/2023 Assessment & Plan (10/18/2023 1:13 PM STATISTICAL ENGINEER): Patient developed worsening SOB with worsening infiltrates on CT on 10/04, requiring transfer to the ICU. Repeat RVP on 10/08 positive for COVID. Received remdesivir and dexamethasone. 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 See acute hypoxemic respiratory failure problem. Assessment & Plan (10/18/2023 12:54 PM STATISTICAL ENGINEER): Patient developed worsening SOB with worsening infiltrates on CT on 10/04, requiring transfer to the ICU. Repeat RVP on 10/08 positive for COVID. +COVID Ab test. Received remdesivir and dexamethasone. 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 See acute hypoxemic respiratory failure problem. Assessment & Plan (10/12/2023 12:25 PM STATISTICAL ENGINEER): Patient developed worsening SOB with worsening infiltrates [...] plan. Assessment & Plan (10/10/2023 2:47 PM STATISTICAL ENGINEER): + / -Dexamethasone (discussed with rheumatology and monitoring for scleroderma renal crisis) and remdesivir -IS and OOBTC and acapella Pulmonary hypertension 10/06/202310/07 Assessment & Plan (10/06/2023 6:21 PM STATISTICAL ENGINEER): -Noted on TTE 10/06 EF 66%, PASP 50, with small effusion -Pulmonology consulted Acute kidney injury 10/04/2023 10/07/19 24 Assessment & Plan (10/06/2023 10:19 PM STATISTICAL ENGINEER): Creatine down trending Assessment & Plan (10/04/2023 12:25 AM STATISTICAL ENGINEER): Baseline normal, arrived 1.2, resolved to baseline [...] experiencing loneliness or isolatio n Never 10/28/2023 [facility] Utilities Answer Date Recorded In the past 12 months has e [place], gas, oil, or water [employer] threatened to shut off services in your [...] often do you attend chur ch or nondenominational services? 1 to 4 times per year 12/02/2023 Do you belong to any clubs o r organizations such as zoroastrian groups, unions, fraternal or athletic groups, or [...] place to sleep or slept in a jail (including now)? No 12/02/2023 Personal Safety Answer Date Recorded Have you ever been in or are you currently in a harmful physical or emotional relationship or is someone making you feel afraid or unsafe? Denies 11/24/2023 Comments Unknown Sex and Gender Information Value Date Recorded Sex Assigned at Not on file Legal Sex Female 9:11 PM STATISTICAL ENGINEER Gender Identity Not on file Sexual Orientation [...] HEPATITIS PANEL, ACUTE STAT 10/04/2023 5:46 PM STATISTICAL ENGINEER SCREENING MAMMOGRAM BILATERAL W PAOLO 05/14/2019 8:21 AM CDT from Last 3 Months or Most Recently Relevant to Health Maintenance Results * (ABNORMAL) Hepatitis panel, acute Blood (10/04/2023 5:46 PM STATISTICAL ENGINEER) Hep A IgM Reactive(A) Nonreactive [facility] Hep B core IgM Nonreactive Nonreactive [facility] Hep C Ab Nonreactive Nonreactive [facility] Comment:Antibodies to HCV no t detected. Does NOT exclude the possibility of recent exposure to HCV. Current interpretive data was last revised on 22 HepBsAg Nonreactive Nonreactive [facility] Blood 10/04/2023 5:46 PM STATISTICAL ENGINEER 10/04/2023 6:23 PM STATISTICAL ENGINEER us Chelly Salcido MD LAB MICROBIOLOGY - GENERAL O RDERABLES Final Result [facility] Department [place] [address] * Screening Mammogram Bilateral [place] (05/14/2019 8:21 AM CDT) Anatomical Region Laterality Modality Breast Bilateral Mammography 05/14/2019 8:27 AM CDT Narrative 05/14/2019 9:18 AM CDT Patient Name: AZRA LITTLE Dr: Naila Franklin MD D.O.B: 1975 Exam Date: 05/14/19820 Age: 43 Sex: Female MR#: [id number] Loc: RADIOLOGY REPORT Order #[id number] [facility] Argelia Bilat Screening 3D Signed - MG [...] made to exam dated: 03/06/2018 mammogram - [facility]. BREAST TISSUE: The tissue of both [...] age 39, based on guidelines of the [employer] (ACR Practice Parameter for the Performance of Screening and Diagnostic Mammography) and [employer]. For women with an elevated risk of breast cancer, please refer to the ACR Practice Parameter for specific screening recommendations. The patient will be entered into a reminder system with a target due date of 1 year for her next screening exam. Electronically signed by: Esdras Salgado M.D., md/:05/14/2019 09:18:42 Class C Driver: Gail LAWRENCE)(M), [facility] letter sent: Normal Exam Reading location: BI-RADS: 2 Benign REPORT ELECTRONICALLY SIGNED IN OTHER VENDOR SYSTEM Resulting Agency Comment O Procedure Note Esdras Salgado MD - 05/14/2019 Patient Name: AZRA LITTLE Sherine Dr: Naila Franklin MD D.O.B: 1975 Exam Date: 05/14/19820 Age: 43 Sex: Female MR#: [id number] Loc: RADIOLOGY REPORT Order #[id number] [facility] Bilat Screening 3D Signed - MG BILATERAL [...] is made to exam dated: 03/06/2018 mammogram -[facility]. BREAST TISSUE: The tissue of both breasts [...] age 39, based on guidelines of the [employer] (ACR Practice Parameter for the Performance of Screening and Diagnostic Mammography) and [employer]. For women with an elevated risk of breast cancer, pleaserefer to the ACR Practice Parameter for specific screening recommendations. The patient will be entered into a reminder system with a target due dateof 1 year for her next screening exam. Electronically signed by: Esdras Salgado M.D., md/:05/14/2019 09:18:42 Class C Driver: Gail Dominguez RT(R)(M), [facility] letter sent: Normal Exam Reading location: BI-RADS: 2 Benign REPORT ELECTRONICALLY SIGNED IN OTHER VENDOR SYSTEM Naila Franklin MD IMG MAMMO PROCEDURES Final Re sult from Last 3 Months or Most Recently Relevant to Health Maintenance Insurance [facility] Advance Directives For more information, please contact: [phone] * Full Code (Latest Code Status on File) Date Activated Date Inactivated Comments 11/24/2023 7:16 PM 12/01/2023 9:01 PM * Full Code Date Activated Date Inactivated Comments 10/01/2023 3:54 PM 10/22/2023 5:23 PM * Full Code Date Activated Date Inactivated Comments 07/26/2023 9:54 PM 07/28/2023 9:43 PM Care Teams Transmission Engineer Relationship Specialty Start Date End Date Amelia Tamayo MD [address] [facility] [address] [place] [address] PCP - General Family Medicine 10/31/23 Titi Moss MD [address] [address] Family Medicine 12/28/23
--- OUTSIDE RECORDS SUMMARY | 2024-10-25 07:53 | XMS_ITS | Referral Summary ---
Author Organization [facility] Address [address] [place] [address] Care Team Providers Care Visual Inspector Name Role Phone Amelia Tamayo MD Primary Care Provider + Source Comments [facility],non-owned Affiliates and Associated Physician Practices is amultiple site organization consisting of ambulatory clinics and hospital sitesin [place], [place], [place] and [place]. This disclosure is being madepursuant to the Care Everywhere program and may not contain all information available regarding this patient. Last updated 18.[facility] Encounters Date Type Department Care Team Description 10/23/2024 Travel 10/23/2024 11:00 AM MANAGER RESORT - 10/23/2024 11:59 PM MANAGER RESORT Hospital Encounter [facility] [address] [place] [address] Unknown, Provider Rheumatology Discharge Disposition: Home or Self Care 10/15/2024 Travel 10/15/2024 2:00 PM MANAGER RESORT Office Visit [facility] - Neurology [address] [facility], [facility] [place] [address] Tricia Serrano MD Vestibular migraine (Primary Dx); Iron deficiency anemia due to chronic blood loss 10/02/2024 Travel 10/02/2024 9:50 AM MANAGER RESORT - 10/02/2024 11:59 PM MANAGER RESORT Hospital Encounter [facility] [address] [place] [address] Discharge Disposition: Home or Self Care 09/26/2024 Travel 09/26/2024 11:45 AM MANAGER RESORT - 09/26/2024 11:59 PM MANAGER RESORT Hospital Encounter [facility] [address] [place] [address] Discharge Disposition: Home or Self Care 09/25/2024 Travel 09/25/2024 10:01 AM MANAGER RESORT - 09/25/2024 11:59 PM MANAGER RESORT Hospital Encounter [facility] [address] [place] [address] Unknown, Provider Kelechi Herrera MD Rheumatology Discharge Disposition: Home or Self Care 09/24/2024 Telephone [facility] - Rheumatology [facility] [place] [address] Kelechi Herrera MD Question 09/21/2024 2:16 AM MANAGER RESORT - 09/21/2024 8:34 PM [facility] Emergency [facility]PARTMENT [address] [place] [address] Harry Monsivais MD Bitter, Cindy C, MD Demars, Esteban Santoyo MD Benign paroxysmal positional vertigo, unspecified laterality (Primary Dx); Chest pain, unspecified type; Tinnitus of both ears; Acute nonintractable headache, unspecified headache type; Nausea and vomiting, unspecified vomiting type; Abnormal uterine bleeding Discharge Disposition: Home or Self Care 09/20/2024 Travel 09/20/2024 Telephone [facility] - Rheumatology [address] [place] [phone] Kelechi Herrera MD [facility] 09/19/2024 Travel 09/19/2024 11:05 AM MANAGER RESORT - 09/19/2024 11:59 PM MANAGER RESORT Hospital Encounter [facility] [address] [place] [address] Discharge Disposition: Home or Self Care 09/18/2024 Travel 09/18/2024 11:00 AM MANAGER RESORT Office Visit [facility] - Pulmonology [address], [facility] [address] [place] [address] Mohan Rojas MD ILD (interstitial lung disease) (HCC) (Primary Dx); Scleroderma (HCC); Chronic respiratory failure with hypoxia (HCC); Immunization counseling 09/12/2024 Travel 09/12/2024 11:30 AM MANAGER RESORT - 09/12/2024 11:59 PM MANAGER RESORT Hospital Encounter [facility] [address] [place] [address] Discharge Disposition: Home or Self Care 09/05/2024 Travel 09/05/2024 11:18 AM MANAGER RESORT - 09/05/2024 11:59 PM MANAGER RESORT Hospital Encounter [facility] [address] [place] [address] Discharge Disposition: Home or Self Care 08/31/2024 Orders Only [facility] - Rheumatology [address] [place] [phone] Kelechi Herrera MD Diffuse cutaneous systemic sclerosis (HCC); Scleroderma (HCC); ILD (interstitial lung disease) (HCC); Therapeutic drug monitoring; 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 therapy (HCC) 08/30/2024 1:10 PM MANAGER RESORT - 08/30/2024 11:59 PM MANAGER RESORT Hospital Encounter [facility] [address] [place] [address] Discharge Disposition: Home or Self Care 08/29/2024 Refill [facility] - Rheumatology [address] [place] [phone] Kelechi Herrera MD MEDICATION REFILL 08/28/2024 Travel 08/28/2024 11:00 AM MANAGER RESORT - 08/28/2024 11:59 PM MANAGER RESORT Hospital Encounter [facility] [address] [place] [phone] Unknown, Provider Discharge Disposition: Home or Self Care 08/24/2024 Travel 08/24/2024 3:25 PM MANAGER RESORT - 08/24/2024 11:59 PM MANAGER RESORT Hospital Encounter [facility] [address] [place] [address] Discharge Disposition: Home or Self Care 08/21/2024 Refill [facility] Rheumatology [address] [place] [phone] Kelechi Herrera MD MEDICATION REFILL 08/17/2024 Travel 08/17/2024 3:10 PM MANAGER RESORT - 08/17/2024 11:59 PM MANAGER RESORT Hospital Encounter [facility] [address] [place] [address] Discharge Disposition: Home or Self Care 08/17/2024 Refill [facility] - Rheumatology [address] [place] [phone] Kelechi Herrera MD MEDICATION REFILL 08/16/2024 Refill [facility] Rhe[facility] [address] [place] [phone] Kelechi Herrera MD MEDICATION REFILL 08/08/2024 Travel 08/08/2024 9:15 AM MANAGER RESORT - 08/08/2024 11:59 PM MANAGER RESORT Hospital Encounter [facility] [address] [place] [address] Discharge Disposition: Home or Self Care 08/02/2024 Telephone [facility] - Rheumatology [address] [place] [phone] Kelechi Herrera MD Update 08/01/2024 1:25 PM MANAGER RESORT - 08/01/2024 11:59 PM MANAGER RESORT Hospital Encounter [facility] [address] [place] [address] Discharge Disposition: Home or Self Care 08/01/2024 Travel 08/01/2024 11:30 AM MANAGER RESORT Office Visit [facility] - Rheumatology [address] [place] [phone] Kelechi Herrera MD Diffuse cutaneous systemic sclerosis (HCC) (Primary Dx); Scleroderma (HCC); ILD (interstitial lung disease) (HCC); Therapeutic drug monitoring; 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 therapy (HCC) 07/31/2024 Telephone [facility] - Rheumatology [address] [place] [phone] Kelechi Herrera MD General 07/31/2024 Telephone [facility] - Rheumatology [address] [place] [address], [facility] [place] [phone] Kelechi Herrera MD Imaging 07/30/2024 Telephone [facility] - Rheumatology [address] [place] [address], [facility] [place] [phone] Kelechi Herrera MD Referral Request from Last 3 Months Allergies Active Allergy [...] with morning and evening meal 60 capsule 05/09/2024 05/09/2025 Active Additional Information Patient not [...] Date Resolved Date Asthma exacerbation 12/15/2017 06/20/20 Immunizations Name Administration Dates Next Due INFLUENZA [...] Sign Reading Time Taken Comments Blood Pressure 130/80 10/23/2024 11:17 AM MANAGER RESORT Pulse 92 10/23/2024 11:17 AM MANAGER RESORT Temperature 36.7 C (98.1 F) 10/23/2024 11:17 AM MANAGER RESORT Respiratory Rate 20 10/23/2024 11:17 AM MANAGER RESORT Oxygen Saturation 95% 10/23/2024 11:17 AM MANAGER RESORT 3L of o2 Inhaled Oxygen Concentration - - Weight 69.9 kg (154 lb) 10/23/2024 11:17 AM MANAGER RESORT Height 162.6 cm (5' 4 ) 10/15/2024 2:03 PM MANAGER RESORT Body Mass Index 26.43 10/15/2024 2:03 PM MANAGER RESORT Plan of Treatment Upcoming Encounters Date Type Department Care Team (Late st Contact Info) Description 10/31/2024 9:30 AM CDT Office Visit [facility] - Rheumatology [address] [place] [address], [place] [address] Kelechi Herrera MD [address] [place] [address] 11/20/2024 11:00 AM CDT Appointment [facility] [address] [place] [address] Unknown, Provider 12/05/2024 9:30 AM CDT Office Visit [facility] - GI [address] [place] [address], [place] [address] Neeraj Pennington MD [address] [place] [phone] 12/11/2024 11:00 AM CDT Office Visit [facility] - Pulmonology [address], [facility] [address] [place] [phone] Mohan Rojas MD [address] [place] [address] [address] DIV OF PULM/[place] [address] 02/18/2025 1:00 PM CDT Office Visit [facility] - Neurology [address] [place] [address], [place] [phone] Tricia Serrano MD [address] [place] [address] Goals Goal Patient Goal Type Associated Problems Recent Progress Patient-Stated? Author Medication Management General On track( 024 11:23 AM CDT) No Meaghan Mead, RN Note: Expected end date: ongoing Interventions: Take all medications as prescribed Procedures Procedure Name Priority Date/Time Associated Diagnosis Comments COMPREHENSIVE METABOLIC PANEL Routine 10/02/2024 10:09 AM MANAGER RESORT Scleroderma (HCC) ILD (interstitial lung disease) (HCC) Diffuse cutaneous systemic sclerosis (HCC) Therapeutic drug monitoring 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 therapy (HCC) CBC W AUTO DIFFERENTIAL Routine 10/02/2024 10:09 AM MANAGER RESORT Scleroderma (HCC) ILD (interstitial lung disease) (HCC) Diffuse cutaneous systemic sclerosis (HCC) Therapeutic drug monitoring 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 therapy (HCC) COMPREHENSIVE METABOLIC PANEL Routine 09/26/2024 1:01 PM MANAGER RESORT Scleroderma (HCC) ILD (interstitial lung disease) (HCC) Diffuse cutaneous systemic sclerosis (HCC) Therapeutic drug monitoring 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 therapy (HCC) CBC W AUTO DIFFERENTIAL Routine 09/26/2024 1:01 PM MANAGER RESORT Scleroderma (HCC) ILD (interstitial lung disease) (HCC) Diffuse cutaneous systemic sclerosis (HCC) Therapeutic drug monitoring 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 therapy (HCC) CT ANGIO BRAIN AND NECK STAT 09/21/2024 4:17 PM MANAGER RESORT Chest pain, unspecified type Benign paroxysmal positional vertigo, unspecified laterality Tinnitus of both ears Acute nonintractable headache, unspecified headache type Nausea and vomiting, unspecified vomiting type MRI BRAIN WWO CONTRAST STAT 09/21/2024 12:40 PM MANAGER RESORT Chest pain, unspecified type CT HEAD WO CONTRAST STAT 09/20/2024 5 :50 PM MANAGER RESORT Chest pain, unspecified type TROPONIN-I HIGH SENSITIVE BASELINE + 1HR STAT 09/20/2024 5:38 PM MANAGER RESORT D-DIMER STAT 09/20/2024 5:38 PM MANAGER RESORT COMPREHENSIVE METABOLIC PANEL STAT 09/20/2024 5:38 PM MANAGER RESORT CBC W AUTO DIFFERENTIAL STAT 09/20/2024 5:38 PM MANAGER RESORT SARS-COV-2 (COVID-19) FLU A/B RSV PCR RAPID STAT 09/20/2024 5:36 PM MANAGER RESORT XR CHEST 2VW STAT 09/20/2024 4:45 PM MANAGER RESORT Chest pain, unspecified type EKG 12-LEAD Routine 09/20/2024 4:05 PM MANAGER RESORT Chest pain, unspecified type COMPREHENSIVE METABOLIC PANEL Routine 09/19/2024 11:22 AM MANAGER RESORT Scleroderma (HCC) ILD (interstitial lung disease) (HCC) Diffuse cutaneous systemic sclerosis (HCC) Therapeutic drug monitoring 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 therapy (HCC) CBC W AUTO DIFFERENTIAL Routine 09/19/2024 11:22 AM MANAGER RESORT Scleroderma (HCC) ILD (interstitial lung disease) (HCC) Diffuse cutaneous systemic sclerosis (HCC) Therapeutic drug monitoring 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 therapy (HCC) CBC W AUTO DIFFERENTIAL Routine 09/12/2024 12:33 PM MANAGER RESORT Lymphopenia COMPREHENSIVE METABOLIC PANEL Routine 09/12/2024 12:33 PM MANAGER RESORT Scleroderma (HCC) ILD (interstitial lung disease) (HCC) Diffuse cutaneous systemic sclerosis (HCC) Therapeutic drug monitoring 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 therapy (HCC) CBC W AUTO DIFFERENTIAL Routine 09/05/2024 11:47 AM MANAGER RESORT Lymphopenia COMPREHENSIVE METABOLIC PANEL Routine 09/05/2024 11:47 AM MANAGER RESORT Scleroderma (HCC) ILD (interstitial lung disease) (HCC) Diffuse cutaneous systemic sclerosis (HCC) Therapeutic drug monitoring 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 therapy (HCC) CBC W AUTO DIFFERENTIAL Routine 08/30/2024 1:31 PM MANAGER RESORT Lymphopenia COMPREHENSIVE METABOLIC PANEL Routine 08/30/2024 1:31 PM MANAGER RESORT Scleroderma (HCC) ILD (interstitial lung disease) (HCC) Diffuse cutaneous systemic sclerosis (HCC) Therapeutic drug monitoring 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 therapy (HCC) CBC W AUTO DIFFERENTIAL Routine 08/24/2024 3:51 PM MANAGER RESORT Lymphopenia COMPREHENSIVE METABOLIC PANEL Routine 08/24/2024 3:51 PM MANAGER RESORT Scleroderma (HCC) ILD (interstitial lung disease) (HCC) Diffuse cutaneous systemic sclerosis (HCC) Therapeutic drug monitoring 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 therapy (HCC) LIPID PROFILE Routine 08/17/2024 3:57 PM MANAGER RESORT Screening for lipoid disorders COMPREHENSIVE METABOLIC PANEL Routine 08/17/2024 3:57 PM MANAGER RESORT Scleroderma (HCC) ILD (interstitial lung disease) (HCC) Diffuse cutaneous systemic sclerosis (HCC) Therapeutic drug monitoring 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 therapy (HCC) CBC W AUTO DIFFERENTIAL Routine 08/17/2024 3:57 PM MANAGER RESORT Scleroderma (HCC) ILD (interstitial lung disease) (HCC) Diffuse cutaneous systemic sclerosis (HCC) Therapeutic drug monitoring 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 therapy (HCC) CBC W AUTO DIFFERENTIAL Routine 08/08/2024 9:32 AM MANAGER RESORT Lymphopenia COMPREHENSIVE METABOLIC PANEL Routine 08/08/2024 9:32 AM MANAGER RESORT Scleroderma (HCC) ILD (interstitial lung disease) (HCC) Diffuse cutaneous systemic sclerosis (HCC) Therapeutic drug monitoring 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 therapy (HCC) COMPREHENSIVE METABOLIC PANEL Routine 08/01/2024 2:03 PM MANAGER RESORT Scleroderma (HCC) ILD (interstitial lung disease) (HCC) Diffuse cutaneous systemic sclerosis (HCC) Therapeutic drug monitoring 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 therapy (HCC) CBC W AUTO DIFFERENTIAL Routine 08/01/2024 2:03 PM MANAGER RESORT Scleroderma (HCC) ILD (interstitial lung disease) (HCC) Diffuse cutaneous systemic sclerosis (HCC) Therapeutic drug monitoring 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 therapy (HCC) POTASSIUM URINE RANDOM Routine 08/01/2024 2:03 PM MANAGER RESORT Diffuse cutaneous systemic sclerosis (HCC) Scleroderma (HCC) ILD (interstitial lung disease) (HCC) Therapeutic drug monitoring 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 therapy (HCC) HEPATITIS C ANTIBODY Routine 02/24/2024 2:54 PM CDT Scleroderma (HCC) ILD (interstitial lung disease) (HCC) from Last 3 Months or Most Recently Relevant to Health Maintenance Results * (ABNORMAL) CBC WITH DIFFERENTIAL (10/02/2024 10:09 AM [facility]) Only the most recent of11 resultswithin the time period is included. WBC 4.4 4.0 - 10.7 x10E9/L 10/02/2024 11:05 AM [facility] RBC Count 4.17 3.90 - 5.20 x10E12/L 10/02/2024 11:05 AM [facility] Hemoglobin 10.6(L) 11.9 - 15.8 g/dL 10/02/2024 11:05 AM [facility] Hematocrit 34.3(L) 34.8 - 46.1 % 10/02/2024 11:05 AM [facility] MCV 82.3 80.0 - 98.0 fL 10/02/2024 11:05 AM [facility] MCH 25.4(L) 26.7 - 33.6 pg 10/02/2024 11:05 AM [facility] MCHC 30.9(L) 31.7 - 36.3 g/dL 10/02/2024 11:05 AM [facility] RDW-CV 13.2 11.3 - 14.8 % 10/02/2024 11:05 AM [facility] Platelet Count 275 150 - 420 x10E9/L 10/02/2024 11:05 AM [facility] MPV 11.0 7.8 - 11.4 fL 10/02/2024 11:05 AM [facility] Neutrophil % 54.7 41.0 - 74.0 % 10/02/2024 11:05 AM [facility] Lymphocyte % 25.7 17.0 - 47.0 % 10/02/2024 11:05 AM [facility] Monocyte % 15.9(H) 3.0 - 11.0 % 10/02/2024 11:05 AM [facility] Eosinophil % 2.3 0.0 - 7.0 % 10/02/2024 11:05 AM [facility] Basophil % 0.7 0.0 - 1.6 % 10/02/2024 11:05 AM [facility] Immature Granulocytes % 0.7 0.0 - 1.0 % 10/02/2024 11:05 AM [facility] Neutrophil Absolute 2.38 1.60 - 7.50 x10E9/L 10/02/2024 11:05 AM [facility] Lymphocyte Absolute 1.12 1.00 - 4.40 x10E9/L 10/02/2024 11:05 AM [facility] Monocyte Absolute 0.69 0.15 - 1.00 x10E9/L 10/02/2024 11:05 AM [facility] Eosinophil Absolute 0.10 0.00 - 0.60 x10E9/L 10/02/2024 11:05 AM [facility] Basophil Absolute 0.03 0.00 - 0.13 x10E9/L 10/02/2024 11:05 AM [facility] Blood BLOOD SPECIMEN / Unknown Lab Venipuncture / Unknown 10/02/2024 10:09 AM [facility] 10/02/2024 10:51 AM [facility] Kelechi Herrera MD LAB - HEMATOLOGY ORDERABLES Performing Organization Address [facility]/ZIP Co de Phone Number [address] [address], [facility] [phone] * (ABNORMAL) COMPREHENSIVE METABOLIC PANEL (10/02/2024 10:09 AM [facility]) Only the most recent of11 resultswithin the time period is included. BUN 10 7 - 26 mg/dL 10/02/2024 11:37 AM [facility] Creatinine 1.05(H) 0.56 - 0.96 mg/dL 10/02/2024 11:37 AM [facility] Sodium 137 136 - 145 mmol/L 10/02/2024 11:37 AM [facility] Potassium 4.4 3.5 - 4.5 mmol/L 10/02/2024 11:37 AM [facility] Comment:Hemolysis detected i n this specimen. Hemolysis may cause false elevations in potassium leading to pseudohyperkalemia or masked hypokalemia. Recommend repeat testing if clinically indicated. Chloride 110(H) 98 - 107 mmol/L 10/02/2024 11:37 AM [facility] CO2 20(L) 22 - 29 mmol/L 10/02/2024 11:37 AM [facility] Glucose 83 70 - 99 mg/dL 10/02/2024 11:37 AM [facility] Calcium 8.6 8.4 - 10.2 mg/dL 10/02/2024 11:37 AM [facility] Protein Total 6.8 6.0 - 8.3 g/dL 10/02/2024 11:37 AM [facility] Comment:Hemolysis detected i n this specimen. Hemolysis is known to cause elevations in this analyte. Caution should be exercised in the interpretation of this result. Recommend repeat testing if clinically indicated. Albumin 3.9 3.4 - 5.0 g/dL 10/02/2024 11:37 AM [facility] Bilirubin Total 0.3 0.2 - 1.2 mg/dL 10/02/2024 11:37 AM [facility] Alkaline Phosphatase 50 40 - 150 U/L 10/02/2024 11:37 AM [facility] ALT 14 5 - 55 U/L 10/02/2024 11:37 AM [facility] AST 25 5 - 34 U/L 10/02/2024 11:37 AM [facility] Comment:Hemolysis detected i n this specimen. Hemolysis is known to cause elevations in this analyte. Caution should be exercised in the interpretation of this result. Recommend repeat testing if clinically indicated. Anion Gap 7 6 - 16 10/02/2024 11:37 AM [facility] BUN/Creatinine Ratio 10 7 - 23 09/22 11:37 AM [facility] Osmolality Calculated 282 275 - 295 mOsm/kg 10/02/2024 11:37 AM [facility] Albumin/Globulin Ratio 1.3 1.1 - 2.3 10/02/2024 11:37 AM [facility] eGFR by CKD-EPI 65(L) >=90 mL/min/1 .73 m2 10/02/2024 11:37 AM MANAGER RESORT [facility] Blood BLOOD SPECIMEN / Unknown Lab Venipuncture / Unknown 10/02/2024 10:09 AM MANAGER RESORT 10/02/2024 11:04 AM MANAGER RESORT Kelechi Herrera MD LAB - CHEMISTRY ORDERABLES Performing Organization Address City/State/[facility] Co de Phone Number [facility] [address] [place] [address], [facility] [phone] * CT Angio Brain And Neck (09/21/2024 4:17 PM MANAGER RESORT) Anatomical Region Laterality Modality Head Computed Tomogra phy 09/21/2024 4:29 PM MANAGER RESORT Impressions 09/21/2024 5:03 PM MANAGER RESORT IMPRESSION: 1.No acute intracranial hemorrhage. 2.No large arterial occlusions or significant stenoses identified in the head or neck. 3.The dural sinuses appear normal without evidence of thrombus. Viz.AI was used for large vessel occlusion detection. Report dictated by Je Morrow MD, (Chief Substation Operator). I, Shara Henry MD have personally reviewed and interpreted this examination/study. > Interpreting Provider: Shara Henry MD on 09/21/2024 5:03 PM Narrative 09/21/2024 5:03 PM MANAGER RESORT PROCEDURE: CT ANGIO BRAIN AND NECK, DATE/TIME OF EXAM: 09/21/2024 4:18 PM, LOCATION [facility] INDICATION: R07.9: Chest pain, unspecified type H81.10: [...] NECK, DATE/TIME OF EXAM: 09/21/2024 4:18PM, LOCATION [facility] INDICATION: R07.9: Chest pain, unspecified type H81.10: [...] detection. Report dictated by Je Morrow MD, (Chief Substation Operator). I, Shara Henry MD have personally reviewed and interpretedthis examination/study. > Interpreting Provider: Shara Henry MD on 09/21/2024 5:03 PM Bruna Farrell MD CT ORDERABLES * MRI Brain Wwo Contrast (09/21/2024 12:40 PM MANAGER RESORT) Anatomical Region Laterality Modality Head Magnetic Resonan ce 09/21/2024 12:5 9 PM MANAGER RESORT Impressions 09/21/2024 5:05 PM MANAGER RESORT IMPRESSION: 1.No evidence of restricted diffusion to suggest an acute infarction. 2.No evidence of acute intracranial findings or abnormal enhancement. > Interpreting Provider: Shara Henry MD on 09/21/2024 5:05 PM Narrative 09/21/2024 5:05 PM MANAGER RESORT PROCEDURE: MRI BRAIN WWO CONTRAST, DATE/TIME OF EXAM: 09/21/2024 12:40 PM, LOCATION [facility] INDICATION: R07.9: Chest pain, unspecified type ADDITIONAL [...] CONTRAST, DATE/TIME OF EXAM: 09/21/2024 12:40PM, LOCATION [facility] INDICATION: R07.9: Chest pain, unspecified type ADDITIONAL [...] CONTRAST ??? Intracranial hemorrhage (09/20/2024 5:50 PM MANAGER RESORT) Anatomical Region Laterality Modality Head Computed Tomogra phy 09/20/2024 6:23 PM MANAGER RESORT Impressions 09/20/2024 7:37 PM MANAGER RESORT IMPRESSION: 1.No acute intracranial hemorrhage, midline shift, or significant mass effect. 2.Please note that CT is insensitive to nonhemorrhagic strokes and MRI of the brain should be considered, if there is clinical concern for acute cerebral infarction. > Dictated by Manas Sandoval DO (Chief Substation Operator), 09/20/2024 6:23 PM. Shara Mann MD have personally reviewed and interpreted this examination/study. > Interpreting Provider: Shara Henry MD on 09/20/2024 7:37 PM Narrative 09/20/2024 7:37 PM MANAGER RESORT PROCEDURE: CT HEAD WO CONTRAST, DATE/TIME OF EXAM: 09/20/2024 5:51 PM, LOCATION [facility] INDICATION: R07.9: Chest pain, unspecified type EXAMINATION: [...] DATE/TIME OF EXAM: 09/20/2024 5:51 PM, LOCATION [facility] INDICATION: R07.9: Chest pain, unspecified type EXAMINATION: [...] infarction. > Dictated by Manas Sandoval DO (Chief Substation Operator), 09/20/2024 6:23PM. IShara MD have personally reviewed and interpretedthis examination/study. > Interpreting Provider: Shara Henry MD on 09/20/2024 7:37 PM Tania Smallwood APRN-JUVENILE CORRECTIONS OFFICER CT ORDERABLES * TROPONIN-I HIGH SENSITIVE BASELINE + 1HR (09/20/2024 5:38 PM MANAGER RESORT) [facility] Troponin I High Sensitive <3 <=14 ng/L 09/20/2024 6:59 PM MANAGER RESORT [facility] Blood BLOOD SPECIMEN / Unknown Venipuncture / Unknown 09/20/2024 5:38 PM MANAGER RESORT 09/20/2024 6:07 PM MANAGER RESORT Tania Smallwood APRN-JUVENILE CORRECTIONS OFFICER LAB - EXTRUSION PRESS OPERATOR RY ORDERABLES [address] [address], [facility] [phone] * D-DIMER (09/20/2024 5:38 PM MANAGER RESORT) Pathologist [facility] D-Dimer Quantitative <0.27 <=0.50 mcg/mL FEU 09/20/2024 6:30 PM MANAGER RESORT [facility] Comment: In the absence of clinical [...] Unknown Venipuncture / Unknown 09/20/2024 5:38 PM MANAGER RESORT 09/20/2024 6:07 PM MANAGER RESORT Tania Smallwood COIL ASSEMBLER-JUVENILE CORRECTIONS OFFICER LAB - COAGULA TION ORDERABLES [facility] [address] [place] [id number], [facility] [phone] * SARS-COV-2 (COVID-19) FLU A/B RSV PCR RAPID (09/20/2024 5:36 PM MANAGER RESORT) COVID-19 PCR Not detected Not detected 09/20/19 6:44 PM MANAGER RESORT [facility] Influenza A PCR Not detected Not detected 09/20/2024 6:44 PM [facility] Influenza B PCR Not detected Not detected 09/20/2024 6:44 PM [facility] RSV PCR Not detected Not detected 09/20/2024 6:44 PM MANAGER RESORT [facility] Microbiology SPECIMEN FROM NASOPHARYNGEAL STRUCTURE / Unknown Collection / Unknown 09/20/2024 5:36 PM MANAGER RESORT 09/20/2024 5:59 PM MANAGER RESORT Narrative [facility] - 09/20/2024 6:44 PM MANAGER RESORT This nucleic acid amplification assay has been [...] assay are available upon request. Tania Smallwood COIL ASSEMBLER-JUVENILE CORRECTIONS OFFICER LAB - MICROBI OLOGY ORDERABLES [address] [address], [facility] [phone] * XR CHEST 2VW (09/20/2024 4:45 PM MANAGER RESORT) Anatomical Region Laterality Modality Chest Digital Radiogra phy 09/20/2024 5:49 PM MANAGER RESORT Narrative 09/21/2024 8:16 AM MANAGER RESORT PROCEDURE: XR CHEST 2VW, DATE/TIME OF EXAM: 09/20/2024 4:46 PM, LOCATION [facility] INDICATION: R07.9: Chest pain, unspecified type ADDITIONAL [...] abdomen > Dictated by Manas Sandoval DO (Chief Substation Operator), 09/20/2024 5:49 PM. Katelynn Mann MD have personally reviewed and interpreted this examination/study. > Interpreting Provider: Katelynn Thrasher MD on 09/21/2024 8:16 AM Procedure Note Katelynn Thrasher MD - 09/21/2024 PROCEDURE: XR CHEST 2VW, DATE/TIME OF EXAM: 09/20/2024 4:46 PM, LOCATION [facility] INDICATION: R07.9: Chest pain, unspecified type ADDITIONAL [...] abdomen > Dictated by Manas Sandoval DO (Chief Substation Operator), 09/20/2024 5:49 PM. I, Katelynn Thrasher MD have personally reviewed and interpreted this examination/study. > Interpreting Provider: Katelynn Thrasher MD on 09/21/2024 8:16 AM Tania Lopez Smallwood [facility] DIAGNOSTIC IM AGING ORDERABLES * EKG 12-LEAD (09/20/2024 4:05 PM MANAGER RESORT) Ventricular Rate 79 BPM [facility] Atrial Rate 79 BPM [facility] P-R Interval 160 ms [facility] QRS Duration ms 70 ms [facility] Q-T Interval ms 388 ms [facility] MUSE QTC Calculation (Bezet) 444 ms [facility] MUSE Calculated P [place] 32 degrees [facility] Calculated R [place] -23 degrees [facility] Calculated T [place] 5 degrees [facility] Interpretation EKG NORMAL SINUS RHYTHM LOW VOLTAGE QRS CANNOT RULE OUT ANTERIOR INFARCT , AGE UNDETERMINED ABNORMAL ECG NO PREVIOUS ECGS AVAILABLE Confirmed by MARLENA GARCIA, MONA MCCARTY ([id number]) on 09/25/2024 8:53:41 PM [facility] MUSE 09/20/2024 4:05 PM MANAGER RESORT 09/25/2024 8:53 PM [facility] Remigio Kaur MD ECG ORDERABLES [facility] MUSE * (ABNORMAL) LIPID PROFILE (08/17/2024 3:57 PM MANAGER RESORT) Cholesterol Total 273(H) <200 mg/dL 08/17/2024 5:03 PM [facility] HDL 78 >40 mg/dL 08/17/2024 5:03 PM [facility] Comment: ATP III Classification of HDL Cholesterol: <40 mg/dL: Considered a major risk factor. >60 mg/dL: Considered a negative risk factor. LDL Calculated 162(H) <100 mg/dL 08/17/2024 5:03 PM [facility] Comment: ATP III Classification of LDL Cholesterol: <100 mg/dL: Optimal 100 - 129 mg/dL: Near Optimal/Above Optimal 130 - 159 mg/dL: Borderline High 160 - 189 mg/dL: High >190 mg/dL: Very High Triglycerides 166(H) <150 mg/dL 08/17/2024 5:03 PM MANAGER RESORT [facility] Comment: ATP III Classification of Triglycerides: <150 mg/dL: Normal 150 - 199 mg/dL: Borderline High 200 - 400 mg/dL: High >500 mg/dL: Very High Blood BLOOD SPECIMEN / Unknown Lab Venipuncture / Unknown 08/17/2024 3:57 PM MANAGER RESORT 08/17/2024 4:33 PM MANAGER RESORT Ordering Provider Unlisted LAB - CHEM ISTRY ORDERABLES [address] [address], [facility] [phone] * POTASSIUM URINE RANDOM (08/01/2024 2:03 PM MANAGER RESORT) Potassium Urine 17.3 Not Established mmol/L 08/01/2024 2:55 PM MANAGER RESORT [facility] Urine URINE SPECIMEN OBTAINED BY CLEAN CATCH PROCEDURE / Unknown Collection / Unknown 08/01/2024 2:03 PM MANAGER RESORT 08/01/2024 2:23 PM MANAGER RESORT Kelechi Herrera MD LAB - URINE CHEM ISTRY ORDERABLES Performing Organization Address City/[facility]/ZIP Co de Phone Number [address] [address], [place] [phone] * HEPATITIS C ANTIBODY (02/24/2024 2:54 PM CDT) Hepatitis C Antibody Non-react roman Non-reac tive 02/24/2024 5:13 PM CDT [facility] Comment:Hepatitis C Antibody screen indicates no [...] Sorto MD LAB - CHEMISTRY [facility] [address] [place] [address], [facility] [phone] from Last 3 Months or Most Recently Relevant to Health Maintenance Care Teams Visual Inspector Relationship Specialty Start Date End Date Amelia Tamayo MD [address] [place] [address] PCP - General Family Medicine 02/17/24
--- OUTSIDE RECORDS SUMMARY | 2024-10-25 07:53 | XMS_ITS | Referral Summary ---
Author Organization [facility] al Address [address] [place] [address] Care Team Providers Care Printing Press Operator Apprentice Name Role Phone Amelia Tamayo MD Primary Care Provider Titi Moss MD Unavailable [phone] Allergies Active Allergy Reactions Criticality Noted [...] 10/12/2023 Assessment & Plan (10/19/2023 5:46 PM FISHER DIVING): Dffuse systemic sclerosis, s/p IVIG for progressive [...] outpatient Assessment & Plan (10/18/2023 12:59 PM FISHER DIVING): Dffuse systemic sclerosis, s/p IVIG for progressive [...] outpatient Assessment & Plan (10/12/2023 12:44 PM FISHER DIVING): Dffuse systemic sclerosis, s/p IVIG for progressive [...] 11/27. Assessment & Plan (10/19/2023 5:46 PM FISHER DIVING): TTE this admission with e/o acute RV [...] TTE. Assessment & Plan (10/18/2023 12:57 PM FISHER DIVING): TTE this admission with e/o acute RV [...] TTE. Assessment & Plan (10/12/2023 12:32 PM FISHER DIVING): TTE this admission with e/o acute RV [...] 10/04/2023 Assessment & Plan (10/21/2023 6:30 PM FISHER DIVING): Azra Little is a 48 year old [...] outpatient Assessment & Plan (10/18/2023 12:51 PM FISHER DIVING): Azra Little is a 48 year old [...] outpatient Assessment & Plan (10/12/2023 12:22 PM FISHER DIVING): Admitted with acute hypoxemic respiratory failure requiring [...] discharge Assessment & Plan (10/09/2023 9:53 AM FISHER DIVING): -presenting with shortness of breath for approximately [...] COVID Assessment & Plan (10/06/2023 1:11 PM FISHER DIVING): Acute-onset SOB on subacute SOB/NICHOLAS/BLEE x 4-6 [...] 10/04/2023 Assessment & Plan (10/09/2023 9:52 AM FISHER DIVING): -presenting with progressive NICHOLAS and exercise intolerance, episodic ALEJANDRO, episodic rash on upper extremities and chest. -serologies notable for positive SHYLA and anti-Scl70. -s/p IVIG for 4 days -rheumatology following Assessment & Plan (10/04/2023 5:37 PM FISHER DIVING): Presenting with 5-6 months of progressive NICHOLAS [...] 10/04/2023 Assessment & Plan (10/07/2023 11:15 AM FISHER DIVING): -baseline Hgb 9-10. -continue enteral iron q48 hours -cbc daily Assessment & Plan (10/04/2023 12:25 AM FISHER DIVING): Recent baseline Hgb 9-10s, admitted at 10.5 -> 8.8, likely secondary to admission hemoconcentration and subsequent phlebotomy, no clinical signs of bleeding. Fe 12, ferritin 133, TIBC 198, Tsat 6. - on PO iron, space to every other day - can consider IV iron after no longer infected GERD (gastroesophageal reflux disease) Assessment & Plan (10/07/2023 11:15 AM FISHER DIVING): -daily PPI Assessment & Plan (10/04/2023 12:26 AM FISHER DIVING): Having reflux symptoms, concerning for relation to scleroderma. - start PPI (new med) Lymphadenopathy 10/04/2023 Assessment & Plan (10/12/2023 12:26 PM FISHER DIVING): Chest and axillary adenopathy probably reactive. To be reassessed with next chest CT. Assessment & Plan (10/07/2023 11:15 AM FISHER DIVING): -recurrent scans with mediastinal LAD, questionable breast LAD. -recommend outpatient mammogram Assessment & Plan (10/04/2023 12:26 AM FISHER DIVING): Recurrent scans with mediastinal LAD, questionable breast LAD. - outpatient mammogram Severe protein-calorie malnutrition 10/04/2023 Assessment & Plan (10/07/2023 11:15 AM FISHER DIVING): -nutrition consult -encourage PO intake and nutritional supplements Dyspnea, unspecified type 10/01/2023 Breast mass 07/27/2023 Assessment & Plan (07/27/2023 10:50 AM FISHER DIVING): CT with breast asymmetry with axillary LN [...] 07/27/2023 Assessment & Plan (07/27/2023 10:27 AM FISHER DIVING): Associated with metromenorrhagia in setting if uterine fibroids. CBC with hemoglobin at 10 from 12 2 months ago in setting of menorrhagia. Has been on iron supplement but haven't been taking it. - rec follow up with her [employer]CHO[employer] A[employer]LET[employer] DIRECTOR Acute on chronic respiratory failure 07/26/2023 Assessment [...] find out whether she can follow with [facility] rheum/pulm as an outpatient; if so, we are happy to see her in clinic, and this would be optimal since the majority of her workup has been performed at [facility]. In summary, our recommendations are as follows: [...] today Assessment & Plan (07/28/2023 1:19 PM FISHER DIVING): Admitted with worsening exertional dyspnea, orthopnea, bendopnea, [...] 05/25/2023 Assessment & Plan (07/27/2023 2:41 PM FISHER DIVING): Mild, intermittent LE edema. Patient endorses current upper extremity edema I cannot recognize on exam. - continue compression stocking - LE dop negative Asthma exacerbation 12/15/2017 Assessment & Plan (07/28/2023 1:20 PM FISHER DIVING): Prior asthma history, reporting shortness of breath, [...] 10/14/2023 Assessment & Plan (10/18/2023 12:55 PM FISHER DIVING): Diagnosed on admission after presenting with AHRF requiring ICU admission and BiPAP. Treated with Tamiflu 09/30-10/12. See acute hypoxemic respiratory failure problem. Assessment & Plan (10/11/2023 1:09 PM FISHER DIVING): Diagnosed on admission after presenting with AHRF requiring ICU admission and BiPAP. Has been on Tamiflu since 09/30. - Continue Tamiflu Assessment & Plan (10/09/2023 10:35 AM FISHER DIVING): -Will receive a total of 20 doses of tamiflu COVID 10/09/2023 10/14/2023 Assessment & Plan (10/18/2023 1:13 PM FISHER DIVING): Patient developed worsening SOB with worsening infiltrates on CT on 10/04, requiring transfer to the ICU. Repeat RVP on 10/08 positive for COVID. Received remdesivir and dexamethasone. 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 See acute hypoxemic respiratory failure problem. Assessment & Plan (10/18/2023 12:54 PM FISHER DIVING): Patient developed worsening SOB with worsening infiltrates on CT on 10/04, requiring transfer to the ICU. Repeat RVP on 10/08 positive for COVID. +COVID Ab test. Received remdesivir and dexamethasone. 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 See acute hypoxemic respiratory failure problem. Assessment & Plan (10/12/2023 12:25 PM FISHER DIVING): Patient developed worsening SOB with worsening infiltrates [...] plan. Assessment & Plan (10/10/2023 2:47 PM FISHER DIVING): + 10/08 -Dexamethasone (discussed with rheumatology and monitoring for scleroderma renal crisis) and remdesivir -IS and OOBTC and acapella Pulmonary hypertension 10/06/202310/07 Assessment & Plan (10/06/2023 6:21 PM FISHER DIVING): -Noted on TTE 10/06 EF 66%, PASP 50, with small effusion -Pulmonology consulted Acute kidney injury 10/04/2023 10/07/19 24 Assessment & Plan (10/06/2023 10:19 PM FISHER DIVING): Creatine down trending Assessment & Plan (10/04/2023 12:25 AM FISHER DIVING): Baseline normal, arrived 1.2, resolved to baseline [...] experiencing loneliness or isolatio n Never 10/28/2023 [facility] Utilities Answer Date Recorded In the past 12 months has e [employer], gas, oil, or water [employer] threatened to shut off services in your [...] often do you attend chur ch or muslim services? 1 to 4 times per year 12/02/2023 Do you belong to any clubs o r organizations such as pentecostal groups, unions, fraternal or athletic groups, or [...] place to sleep or slept in a assisted (including now)? No 12/02/2023 Personal Safety Answer Date Recorded Have you ever been in or are you currently in a harmful physical or emotional relationship or is someone making you feel afraid or unsafe? Denies 11/24/2023 Comments Unknown Sex and Gender Information Value Date Recorded Sex Assigned at Not on file Legal Sex Female 9:11 PM [employer] Gender Identity Not on file Sexual Orientation [...] HEPATITIS PANEL, ACUTE STAT 10/04/2023 5:46 PM FISHER DIVING SCREENING MAMMOGRAM BILATERAL W PAOLO 05/14/2019 8:21 AM CDT from Last 3 Months or Most Recently Relevant to Health Maintenance Results * (ABNORMAL) Hepatitis panel, acute Blood (10/04/2023 5:46 PM FISHER DIVING) Hep A IgM Reactive(A) Nonreactive [facility] Hep B core IgM Nonreactive Nonreactive [facility] Hep C Ab Nonreactive Nonreactive [facility] Comment:Antibodies to HCV no t detected. Does NOT exclude the possibility of recent exposure to HCV. Current interpretive data was last revised on 22 HepBsAg Nonreactive Nonreactive [facility] Blood 10/04/2023 5:46 PM FISHER DIVING 10/04/2023 6:23 PM FISHER DIVING Chelly Salcido MD LAB MICROBIOLOGY - GENERAL O RDKERI Final Result [facility] [place] [address] * Screening Mammogram Bilateral W Paolo (05/14/2019 8:21 AM CDT) Anatomical Region Laterality Modality Breast Bilateral Mammography 05/14/2019 8:27 AM CDT Narrative 05/14/2019 9:18 AM CDT Patient Name: AZRA LITTLE Dr: Naila Franklin MD D.O.B: 1975 Exam Date: 05/14/19820 Age: 43 Sex: Female MR#: [id number] Loc: Acc#: [id number] RADIOLOGY REPORT Order #[id number] [facility] Argelia Bilat Screening 3D Signed - [...] made to exam dated: 03/06/2018 mammogram - [facility]. BREAST TISSUE: The tissue of both breasts [...] age 39, based on guidelines of the [employer] (ACR Practice Parameter for the Performance of Screening and Diagnostic Mammography) and [employer]. For women with an elevated risk of breast cancer, please refer to the ACR Practice Parameter for specific screening recommendations. The patient will be entered into a reminder system with a target due date of 1 year for her next screening exam. Electronically signed by: Esdras Salgado M.D., md/:05/14/2019 09:18:42 Clinical Laboratory Director: Gail LAWRENCE)(Jcarlos), [facility] letter sent: Normal Exam Reading location: BI-RADS: 2 Benign REPORT ELECTRONICALLY SIGNED IN OTHER VENDOR SYSTEM Resulting Agency Comment O Procedure Note Esdras Salgado MD - 05/14/2019 Patient Name: AZRA LITTLE Dr: Naila Franklin MD D.O.B: 1975 Exam Date: 05/14/19 0821 Age: 43 Sex: Female MR#: [id number] Loc: RADIOLOGY REPORT Order #[id number] [facility] Argelia Bilat Screening 3D Signed - [...] is made to exam dated: 03/06/2018 mammogram -[facility]. BREAST TISSUE: The tissue of both breasts [...] age 39, based on guidelines of the [employer] (ACR Practice Parameter for the Performance of Screening and Diagnostic Mammography) and [employer]. For women with an elevated risk of breast cancer, pleaserefer to the ACR Practice Parameter for specific screening recommendations. The patient will be entered into a reminder system with a target due dateof 1 year for her next screening exam. Electronically signed by: Esdras Salgado M.D., md/:05/14/2019 09:18:42 Clinical Laboratory Director: Gail RAMIRES(R)(Jcarlos), [facility] letter sent: Normal Exam Reading location: BI-RADS: 2 Benign REPORT ELECTRONICALLY SIGNED IN OTHER VENDOR SYSTEM Naila Franklin MD IMG MAMMO PROCEDURES Final Re sult from Last 3 Months or Most Recently Relevant to Health Maintenance [place] [address] [address] [place] [id number] [facility] Advance Directives For more information, please contact: [phone] * Full Code (Latest Code Status on File) Date Activated Date Inactivated Comments 11/24/2023 7:16 PM 12/01/2023 9:01 PM * Full Code Date Activated Date Inactivated Comments 10/01/2023 3:54 PM 10/22/2023 5:23 PM * Full Code Date Activated Date Inactivated Comments 07/26/2023 9:54 PM 07/28/2023 9:43 PM Care Teams Printing Press Operator Apprentice Relationship Specialty Start Date End Date Amelia Tamayo MD [address] [facility] [address] [facility] [address] [place] [address] PCP - General Family Medicine 10/31/23 Titi Moss MD [address] [facility] [address] [place] [address] Family Medicine 12/28/23
--- OUTSIDE RECORDS SUMMARY | 2024-10-25 07:53 | XMS_ITS | Clinical Summary ---
Author Organization [facility] Address [address] [place] [address] Care Team Providers Care Double Needle Operator Lockstitch Name Role Phone Amelia Tamayo MD Primary Care Provider + Source Comments [facility],non-owned Affiliates and Associated Physician Practices is amultiple site organization consisting of ambulatory clinics and hospital sitesin [place], [place], [place] and [place]. This disclosure is being madepursuant to the Care Everywhere program and may not contain all information available regarding this patient. Last updated [email or web address] Allergies Active Allergy Reactions Criticality Noted Date [...] Date Type Department Care Team Description 10/23/2024 11:00 AM DIRECTOR OF HUMAN RESOURCES - 10/23/2024 11:59 PM DIRECTOR OF HUMAN RESOURCES Hospital Encounter [facility] [address] [place] [phone] Unknown, Provider Rheumatology Discharge Disposition: Home or Self Care 10/23/2024 Travel 10/15/2024 2:00 PM DIRECTOR OF HUMAN RESOURCES Office Visit [facility] - Neurology [address] [place] [phone] Tricia Serrano MD Vestibular migraine (Primary Dx); Iron deficiency anemia due to chronic blood loss 10/15/2024 Travel 10/02/2024 9:50 AM DIRECTOR OF HUMAN RESOURCES - 10/02/2024 11:59 PM DIRECTOR OF HUMAN RESOURCES Hospital Encounter [facility] [address] [place] [address] Discharge Disposition: Home or Self Care 10/02/2024 Travel 09/26/2024 11:45 AM DIRECTOR OF HUMAN RESOURCES - 09/26/2024 11:59 PM DIRECTOR OF HUMAN RESOURCES Hospital Encounter [facility] [address] [place] [address] Discharge Disposition: Home or Self Care 09/26/2024 Travel 09/25/2024 10:01 AM DIRECTOR OF HUMAN RESOURCES - 09/25/2024 11:59 PM DIRECTOR OF HUMAN RESOURCES Hospital Encounter [facility] [address] [place] [phone] Unknown, Provider Kelechi Herrera MD Rheumatology Discharge Disposition: Home or Self Care 09/25/2024 Travel 09/24/2024 Telephone [facility] - Rheumatology [address] [place] [phone] Kelechi Herrera MD Question 09/21/2024 2:16 AM DIRECTOR OF HUMAN RESOURCES - 09/21/2024 8:34 PM [facility] Emergency [facility] [address] [place] [phone] Harry Monsivais MD Bitter, MD Quirino Roldan, Esteban Santoyo MD Benign paroxysmal positional vertigo, unspecified laterality (Primary Dx); Chest pain, unspecified type; Tinnitus of both ears; Acute nonintractable headache, unspecified headache type; Nausea and vomiting, unspecified vomiting type; Abnormal uterine bleeding Discharge Disposition: Home or Self Care 09/20/2024 Travel 09/20/2024 Telephone [facility] - Rheumatology [address] [place] [phone] Kelechi Herrera MD [facility] 09/19/2024 11:05 AM [facility] - 09/19/2024 11:59 PM DIRECTOR OF HUMAN RESOURCES Hospital Encounter [facility] [address] [place] [address] Discharge Disposition: Home or Self Care 09/19/2024 Travel 09/18/2024 11:00 AM DIRECTOR OF HUMAN RESOURCES Office Visit [facility] - Pulmonology [address], [facility] [address] [place] [phone] Mohan Rojas MD ILD (interstitial lung disease) (HCC) (Primary Dx); Scleroderma (HCC); Chronic respiratory failure with hypoxia (HCC); Immunization counseling 09/18/2024 Travel 09/12/2024 11:30 AM DIRECTOR OF HUMAN RESOURCES - 09/12/2024 11:59 PM DIRECTOR OF HUMAN RESOURCES Hospital Encounter [facility] [address] [place] [address] Discharge Disposition: Home or Self Care 09/12/2024 Travel 09/05/2024 11:18 AM DIRECTOR OF HUMAN RESOURCES - 09/05/2024 11:59 PM DIRECTOR OF HUMAN RESOURCES Hospital Encounter [facility] [address] [place] [address] Discharge Disposition: Home or Self Care 09/05/2024 Travel 08/31/2024 Orders Only [facility] - Rheumatology [address] [place] [phone] Kelechi Herrera MD Diffuse cutaneous systemic sclerosis (HCC); Scleroderma (HCC); ILD (interstitial lung disease) (HCC); Therapeutic drug monitoring; 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 therapy (HCC) 08/30/2024 1:10 PM DIRECTOR OF HUMAN RESOURCES - 08/30/2024 11:59 PM DIRECTOR OF HUMAN RESOURCES Hospital Encounter [facility] [address] [place] [address] Discharge Disposition: Home or Self Care 08/29/2024 Refill [facility] - Rheumatology [address] [place] [phone] Kelechi Herrera MD MEDICATION REFILL 08/28/2024 11:00 AM DIRECTOR OF HUMAN RESOURCES - 08/28/2024 11:59 PM DIRECTOR OF HUMAN RESOURCES Hospital Encounter [facility] [address] [place] [address] Unknown, Provider Discharge Disposition: Home or Self Care 08/28/2024 Travel 08/24/2024 3:25 PM DIRECTOR OF HUMAN RESOURCES - 08/24/2024 11:59 PM DIRECTOR OF HUMAN RESOURCES Hospital Encounter [facility] [address] [place] [address] Discharge Disposition: Home or Self Care 08/24/2024 Travel 08/21/2024 Refill [facility] - Rheumatology [address] [place] [phone] Kelechi Herrera MD MEDICATION REFILL 08/17/2024 3:10 PM DIRECTOR OF HUMAN RESOURCES - 08/17/2024 11:59 PM DIRECTOR OF HUMAN RESOURCES Hospital Encounter [facility] [address] [place] [address] Discharge Disposition: Home or Self Care 08/17/2024 Travel 08/17/2024 Refill [facility] - Rheumatology [address] [place] [phone] Kelechi Herrera MD MEDICATION REFILL 08/16/2024 Refill [facility] - Rheumatology [address] [place] [phone] Kelechi Herrera MD MEDICATION REFILL 08/08/2024 9:15 AM DIRECTOR OF HUMAN RESOURCES - 08/08/2024 11:59 PM DIRECTOR OF HUMAN RESOURCES Hospital Encounter [facility] [place] [address] Discharge Disposition: Home or Self Care 08/08/2024 Travel 08/02/2024 Telephone [facility] - Rheumatology [address] [place] [phone] Kelechi Herrera MD Update 08/01/2024 1:25 PM DIRECTOR OF HUMAN RESOURCES - 08/01/2024 11:59 PM DIRECTOR OF HUMAN RESOURCES Hospital Encounter [facility] [address] [place] [address] Discharge Disposition: Home or Self Care 08/01/2024 11:30 AM DIRECTOR OF HUMAN RESOURCES Office Visit [facility] - Rheumatology [address] [place] [phone] Kelechi Herrera MD Diffuse cutaneous systemic sclerosis (HCC) (Primary Dx); Scleroderma (HCC); ILD (interstitial lung disease) (HCC); Therapeutic drug monitoring; 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 therapy (HCC) 08/01/2024 Travel 07/31/2024 Telephone [facility] - Rheumatology [address] [place] [phone] Kelechi Herrera MD General 07/31/2024 Telephone [facility] - Rheumatology [address] [place] [phone] Kelechi Herrera MD Imaging 07/30/2024 Telephone [facility] - Rheumatology [address] [place] [phone] Kelechi Herrera MD Referral Request from Last 3 Months Immunizations Name Administration [...] Comments Blood Pressure 130/80 10/23/2024 11:17 AM DIRECTOR OF HUMAN RESOURCES Pulse 92 10/23/2024 11:17 AM DIRECTOR OF HUMAN RESOURCES Temperature 36.7 C (98.1 F) 10/23/2024 11:17 AM DIRECTOR OF HUMAN RESOURCES Respiratory Rate 20 10/23/2024 11:17 AM DIRECTOR OF HUMAN RESOURCES Oxygen Saturation 95% 10/23/2024 11:17 AM DIRECTOR OF HUMAN RESOURCES 3L of o2 Inhaled Oxygen Concentration - - Weight 69.9 kg (154 lb) 10/23/2024 11:17 AM DIRECTOR OF HUMAN RESOURCES Height 162.6 cm (5' 4 ) 10/15/2024 2:03 PM DIRECTOR OF HUMAN RESOURCES Body Mass Index 26.43 10/15/2024 2:03 PM DIRECTOR OF HUMAN RESOURCES Plan of Treatment Upcoming Encounters Date Type Department Care Team (Late st Contact Info) Description 10/31/2024 9:30 AM CDT [facility] - Rhe[facility]ology [address] [place] [address], [place] [phone] Kelechi Herrera MD [facility] [place] [address] 11/20/2024 11:00 AM CDT Appointment [facility] [address] [place] [phone] Unknown, Provider 12/05/2024 9:30 AM CDT [facility] - GI [address] [place] [address], [place] [phone] Neeraj Pennington MD [address] [place] [phone] 12/11/2024 11:00 AM CDT Office Visit [facility] - Pulmonology [address], [facility] [address] [place] [phone] Mohan Rojas MD [address] [place] [address] 2L DIV OF PULM/[place] [address] 02/18/2025 1:00 PM CDT Office Visit [facility] - Neurology [address] [place] [address], [place] [phone] Tricia Serrano MD [address] [place] [phone] Health Maintenance Due Date Last Done Comments [...] COMPREHENSIVE METABOLIC PANEL Routine 10/02/2024 10:09 AM DIRECTOR OF HUMAN RESOURCES Scleroderma (HCC) ILD (interstitial lung disease) (HCC) Diffuse cutaneous systemic sclerosis (HCC) Therapeutic drug monitoring 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 therapy (HCC) CBC W AUTO DIFFERENTIAL Routine 10/02/2024 10:09 AM DIRECTOR OF HUMAN RESOURCES Scleroderma (HCC) ILD (interstitial lung disease) (HCC) Diffuse cutaneous systemic sclerosis (HCC) Therapeutic drug monitoring 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 therapy (HCC) COMPREHENSIVE METABOLIC PANEL Routine 09/26/2024 1:01 PM DIRECTOR OF HUMAN RESOURCES Scleroderma (HCC) ILD (interstitial lung disease) (HCC) Diffuse cutaneous systemic sclerosis (HCC) Therapeutic drug monitoring 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 therapy (HCC) CBC W AUTO DIFFERENTIAL Routine 09/26/2024 1:01 PM DIRECTOR OF HUMAN RESOURCES Scleroderma (HCC) ILD (interstitial lung disease) (HCC) Diffuse cutaneous systemic sclerosis (HCC) Therapeutic drug monitoring 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 therapy (HCC) CT ANGIO BRAIN AND NECK STAT 09/21/2024 4:17 PM DIRECTOR OF HUMAN RESOURCES Chest pain, unspecified type Benign paroxysmal positional vertigo, unspecified laterality Tinnitus of both ears Acute nonintractable headache, unspecified headache type Nausea and vomiting, unspecified vomiting type MRI BRAIN WWO CONTRAST STAT 09/21/2024 12:40 PM DIRECTOR OF HUMAN RESOURCES Chest pain, unspecified type CT HEAD WO CONTRAST STAT 09/20/2024 5 :50 PM DIRECTOR OF HUMAN RESOURCES Chest pain, unspecified type TROPONIN-I HIGH SENSITIVE BASELINE + 1HR STAT 09/20/2024 5:38 PM DIRECTOR OF HUMAN RESOURCES D-DIMER STAT 09/20/2024 5:38 PM DIRECTOR OF HUMAN RESOURCES COMPREHENSIVE METABOLIC PANEL STAT 09/20/2024 5:38 PM DIRECTOR OF HUMAN RESOURCES CBC W AUTO DIFFERENTIAL STAT 09/20/2024 5:38 PM DIRECTOR OF HUMAN RESOURCES SARS-COV-2 (COVID-19) FLU A/B RSV PCR RAPID STAT 09/20/2024 5:36 PM DIRECTOR OF HUMAN RESOURCES XR CHEST 2VW STAT 09/20/2024 4:45 PM DIRECTOR OF HUMAN RESOURCES Chest pain, unspecified type EKG 12-LEAD Routine 09/20/2024 4:05 PM DIRECTOR OF HUMAN RESOURCES Chest pain, unspecified type COMPREHENSIVE METABOLIC PANEL Routine 09/19/2024 11:22 AM DIRECTOR OF HUMAN RESOURCES Scleroderma (HCC) ILD (interstitial lung disease) (HCC) Diffuse cutaneous systemic sclerosis (HCC) Therapeutic drug monitoring 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 therapy (HCC) CBC W AUTO DIFFERENTIAL Routine 09/19/2024 11:22 AM DIRECTOR OF HUMAN RESOURCES Scleroderma (HCC) ILD (interstitial lung disease) (HCC) Diffuse cutaneous systemic sclerosis (HCC) Therapeutic drug monitoring 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 therapy (HCC) CBC W AUTO DIFFERENTIAL Routine 09/12/2024 12:33 PM DIRECTOR OF HUMAN RESOURCES Lymphopenia COMPREHENSIVE METABOLIC PANEL Routine 09/12/2024 12:33 PM DIRECTOR OF HUMAN RESOURCES Scleroderma (HCC) ILD (interstitial lung disease) (HCC) Diffuse cutaneous systemic sclerosis (HCC) Therapeutic drug monitoring 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 therapy (HCC) CBC W AUTO DIFFERENTIAL Routine 09/05/2024 11:47 AM DIRECTOR OF HUMAN RESOURCES Lymphopenia COMPREHENSIVE METABOLIC PANEL Routine 09/05/2024 11:47 AM DIRECTOR OF HUMAN RESOURCES Scleroderma (HCC) ILD (interstitial lung disease) (HCC) Diffuse cutaneous systemic sclerosis (HCC) Therapeutic drug monitoring 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 therapy (HCC) CBC W AUTO DIFFERENTIAL Routine 08/30/2024 1:31 PM DIRECTOR OF HUMAN RESOURCES Lymphopenia COMPREHENSIVE METABOLIC PANEL Routine 08/30/2024 1:31 PM DIRECTOR OF HUMAN RESOURCES Scleroderma (HCC) ILD (interstitial lung disease) (HCC) Diffuse cutaneous systemic sclerosis (HCC) Therapeutic drug monitoring 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 therapy (HCC) CBC W AUTO DIFFERENTIAL Routine 08/24/2024 3:51 PM DIRECTOR OF HUMAN RESOURCES Lymphopenia COMPREHENSIVE METABOLIC PANEL Routine 08/24/2024 3:51 PM DIRECTOR OF HUMAN RESOURCES Scleroderma (HCC) ILD (interstitial lung disease) (HCC) Diffuse cutaneous systemic sclerosis (HCC) Therapeutic drug monitoring 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 therapy (HCC) LIPID PROFILE Routine 08/17/2024 3:57 PM DIRECTOR OF HUMAN RESOURCES Screening for lipoid disorders COMPREHENSIVE METABOLIC PANEL Routine 08/17/2024 3:57 PM DIRECTOR OF HUMAN RESOURCES Scleroderma (HCC) ILD (interstitial lung disease) (HCC) Diffuse cutaneous systemic sclerosis (HCC) Therapeutic drug monitoring 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 therapy (HCC) CBC W AUTO DIFFERENTIAL Routine 08/17/2024 3:57 PM DIRECTOR OF HUMAN RESOURCES Scleroderma (HCC) ILD (interstitial lung disease) (HCC) Diffuse cutaneous systemic sclerosis (HCC) Therapeutic drug monitoring 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 therapy (HCC) CBC W AUTO DIFFERENTIAL Routine 08/08/2024 9:32 AM DIRECTOR OF HUMAN RESOURCES Lymphopenia COMPREHENSIVE METABOLIC PANEL Routine 08/08/2024 9:32 AM DIRECTOR OF HUMAN RESOURCES Scleroderma (HCC) ILD (interstitial lung disease) (HCC) Diffuse cutaneous systemic sclerosis (HCC) Therapeutic drug monitoring 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 therapy (HCC) COMPREHENSIVE METABOLIC PANEL Routine 08/01/2024 2:03 PM DIRECTOR OF HUMAN RESOURCES Scleroderma (HCC) ILD (interstitial lung disease) (HCC) Diffuse cutaneous systemic sclerosis (HCC) Therapeutic drug monitoring 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 therapy (HCC) CBC W AUTO DIFFERENTIAL Routine 08/01/2024 2:03 PM DIRECTOR OF HUMAN RESOURCES Scleroderma (HCC) ILD (interstitial lung disease) (HCC) Diffuse cutaneous systemic sclerosis (HCC) Therapeutic drug monitoring 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 therapy (HCC) POTASSIUM URINE RANDOM Routine 08/01/2024 2:03 PM DIRECTOR OF HUMAN RESOURCES Diffuse cutaneous systemic sclerosis (HCC) Scleroderma (HCC) ILD (interstitial lung disease) (HCC) Therapeutic drug monitoring 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 therapy (HCC) HEPATITIS C ANTIBODY Routine 02/24/2024 2:54 PM CDT Scleroderma (HCC) ILD (interstitial lung disease) (HCC) from Last 3 Months or Most Recently Relevant to Health Maintenance Results * (ABNORMAL) CBC WITH DIFFERENTIAL (10/02/2024 10:09 AM [facility]) Only the most recent of11 resultswithin the time period is included. WBC 4.4 4.0 - 10.7 x10E9/L 10/02/2024 11:05 AM [facility] RBC Count 4.17 3.90 - 5.20 x10E12/L 10/02/2024 11:05 AM [facility] Hemoglobin 10.6(L) 11.9 - 15.8 g/dL 10/02/2024 11:05 AM [facility] Hematocrit 34.3(L) 34.8 - 46.1 % 10/02/2024 11:05 AM [facility] MCV 82.3 80.0 - 98.0 fL 10/02/2024 11:05 AM [facility] MCH 25.4(L) 26.7 - 33.6 pg 10/02/2024 11:05 AM [facility] MCHC 30.9(L) 31.7 - 36.3 g/dL 10/02/2024 11:05 AM [facility] RDW-CV 13.2 11.3 - 14.8 % 10/02/2024 11:05 AM [facility] Platelet Count 275 150 - 420 x10E9/L 10/02/2024 11:05 AM [facility] MPV 11.0 7.8 - 11.4 fL 10/02/2024 11:05 AM [facility] Neutrophil % 54.7 41.0 - 74.0 % 10/02/2024 11:05 AM [facility] Lymphocyte % 25.7 17.0 - 47.0 % 10/02/2024 11:05 AM [facility] Monocyte % 15.9(H) 3.0 - 11.0 % 10/02/2024 11:05 AM [facility] Eosinophil % 2.3 0.0 - 7.0 % 10/02/2024 11:05 AM [facility] Basophil % 0.7 0.0 - 1.6 % 10/02/2024 11:05 AM [facility] Immature Granulocytes % 0.7 0.0 - 1.0 % 10/02/2024 11:05 AM [facility] Neutrophil Absolute 2.38 1.60 - 7.50 x10E9/L 10/02/2024 11:05 AM [facility] Lymphocyte Absolute 1.12 1.00 - 4.40 x10E9/L 10/02/2024 11:05 AM [facility] Monocyte Absolute 0.69 0.15 - 1.00 x10E9/L 10/02/2024 11:05 AM [facility] Eosinophil Absolute 0.10 0.00 - 0.60 x10E9/L 10/02/2024 11:05 AM [facility] Basophil Absolute 0.03 0.00 - 0.13 x10E9/L 10/02/2024 11:05 AM [facility] Blood BLOOD SPECIMEN / Unknown Lab Venipuncture / Unknown 10/02/2024 10:09 AM [facility] 10/02/2024 10:51 AM [facility] Kelechi Herrera MD LAB - HEMATOLOGY ORDERABLES [facility] [address] [place] [phone] [phone] * (ABNORMAL) COMPREHENSIVE METABOLIC PANEL (10/02/2024 10:09 AM [facility]) Only the most recent of11 resultswithin the time period is included. BUN 10 7 - 26 mg/dL 10/02/2024 11:37 AM [facility] Creatinine 1.05(H) 0.56 - 0.96 mg/dL 10/02/2024 11:37 AM [facility] Sodium 137 136 - 145 mmol/L 10/02/2024 11:37 AM [facility] Potassium 4.4 3.5 - 4.5 mmol/L 10/02/2024 11:37 AM [facility] Comment:Hemolysis detected i n this specimen. Hemolysis may cause false elevations in potassium leading to pseudohyperkalemia or masked hypokalemia. Recommend repeat testing if clinically indicated. Chloride 110(H) 98 - 107 mmol/L 10/02/2024 11:37 AM [facility] CO2 20(L) 22 - 29 mmol/L 10/02/2024 11:37 AM [facility] Glucose 83 70 - 99 mg/dL 10/02/2024 11:37 AM [facility] Calcium 8.6 8.4 - 10.2 mg/dL 10/02/2024 11:37 AM [facility] Protein Total 6.8 6.0 - 8.3 g/dL 10/02/2024 11:37 AM [facility] Comment:Hemolysis detected i n this specimen. Hemolysis is known to cause elevations in this analyte. Caution should be exercised in the interpretation of this result. Recommend repeat testing if clinically indicated. Albumin 3.9 3.4 - 5.0 g/dL 10/02/2024 11:37 AM [facility] Bilirubin Total 0.3 0.2 - 1.2 mg/dL 10/02/2024 11:37 AM [facility] Alkaline Phosphatase 50 40 - 150 U/L 10/02/2024 11:37 AM [facility] ALT 14 5 - 55 U/L 10/02/2024 11:37 AM [facility] AST 25 5 - 34 U/L 10/02/2024 11:37 AM [facility] Comment:Hemolysis detected i n this specimen. Hemolysis is known to cause elevations in this analyte. Caution should be exercised in the interpretation of this result. Recommend repeat testing if clinically indicated. Anion Gap 7 6 - 16 10/02/2024 11:37 AM [facility] BUN/Creatinine Ratio 10 7 - 23 09/22 11:37 AM [facility] Osmolality Calculated 282 275 - 295 mOsm/kg 10/02/2024 11:37 AM [facility] Albumin/Globulin Ratio 1.3 1.1 - 2.3 10/02/2024 11:37 AM [facility] eGFR by CKD-EPI 65(L) >=90 mL/min/1 .73 m2 10/02/2024 11:37 AM [facility] Blood BLOOD SPECIMEN / Unknown Lab Venipuncture / Unknown 10/02/2024 10:09 AM [employer] 10/02/2024 11:04 AM [employer]OURCES Kelechi Herrera MD LAB - CHEMISTRY ORDERABLES [facility] [address] [place] [address], [facility] [phone] * CT Angio Brain And Neck (09/21/2024 4:17 PM DIRECTOR OF HUMAN RESOURCES) Anatomical Region Laterality Modality Head Computed Tomogra phy 09/21/2024 4:29 PM DIRECTOR OF HUMAN RESOURCES Impressions 09/21/2024 5:03 PM DIRECTOR OF HUMAN RESOURCES IMPRESSION: 1.No acute intracranial hemorrhage. 2.No large arterial occlusions or significant stenoses identified in the head or neck. 3.The dural sinuses appear normal without evidence of thrombus. Viz.AI was used for large vessel occlusion detection. Report dictated by Je Morrow MD, (Mining Engineer). I, Shara Henry MD have personally reviewed and interpreted this examination/study. > Interpreting Provider: Shara Henry MD on 09/21/2024 5:03 PM Narrative 09/21/2024 5:03 PM DIRECTOR OF HUMAN RESOURCES PROCEDURE: CT ANGIO BRAIN AND NECK, DATE/TIME OF EXAM: 09/21/2024 4:18 PM, LOCATION [facility] INDICATION: R07.9: Chest pain, unspecified type H81.10: [...] NECK, DATE/TIME OF EXAM: 09/21/2024 4:18PM, LOCATION [facility] INDICATION: R07.9: Chest pain, unspecified type H81.10: [...] detection. Report dictated by Je Morrow MD, (Mining Engineer). IShara MD have personally reviewed and interpretedthis examination/study. > Interpreting Provider: Shara Henry MD on 09/21/2024 5:03 PM Bruna Farrell MD CT ORDERABLES * MRI Brain Wwo Contrast (09/21/2024 12:40 PM DIRECTOR OF HUMAN RESOURCES) Anatomical Region Laterality Modality Head Magnetic Resonan ce 09/21/2024 12:5 9 PM DIRECTOR OF HUMAN RESOURCES Impressions 09/21/2024 5:05 PM DIRECTOR OF HUMAN RESOURCES IMPRESSION: 1.No evidence of restricted diffusion to suggest an acute infarction. 2.No evidence of acute intracranial findings or abnormal enhancement. > Interpreting Provider: Shara Henry MD on 09/21/2024 5:05 PM Narrative 09/21/2024 5:05 PM DIRECTOR OF HUMAN RESOURCES PROCEDURE: MRI BRAIN WWO CONTRAST, DATE/TIME OF EXAM: 09/21/2024 12:40 PM, LOCATION [facility] INDICATION: R07.9: Chest pain, unspecified type ADDITIONAL [...] CONTRAST, DATE/TIME OF EXAM: 09/21/2024 12:40PM, LOCATION [facility] INDICATION: R07.9: Chest pain, unspecified type ADDITIONAL [...] CONTRAST ??? Intracranial hemorrhage (09/20/2024 5:50 PM DIRECTOR OF HUMAN RESOURCES) Anatomical Region Laterality Modality Head Computed Tomogra phy 09/20/2024 6:23 PM DIRECTOR OF HUMAN RESOURCES Impressions 09/20/2024 7:37 PM DIRECTOR OF HUMAN RESOURCES IMPRESSION: 1.No acute intracranial hemorrhage, midline shift, or significant mass effect. 2.Please note that CT is insensitive to nonhemorrhagic strokes and MRI of the brain should be considered, if there is clinical concern for acute cerebral infarction. > Dictated by Manas Sandoval DO (Mining Engineer), 09/20/2024 6:23 PM. Shara Mann MD have personally reviewed and interpreted this examination/study. > Interpreting Provider: Shara Henry MD on 09/20/2024 7:37 PM Narrative 09/20/2024 7:37 PM [employer] OF HUMAN RESOURCES PROCEDURE: CT HEAD WO CONTRAST, DATE/TIME OF EXAM: 09/20/2024 5:51 PM, LOCATION [facility] INDICATION: R07.9: Chest pain, unspecified type EXAMINATION: [...] DATE/TIME OF EXAM: 09/20/2024 5:51 PM, LOCATION [facility] INDICATION: R07.9: Chest pain, unspecified type EXAMINATION: [...] infarction. > Dictated by Manas Sandoval DO (Mining Engineer), 09/20/2024 6:23PM. IShara MD have personally reviewed and interpretedthis examination/study. > Interpreting Provider: Shara Henry MD on 09/20/2024 7:37 PM Tania Smallwood APRNLABORER POWERHOUSE CT ORDERABLES * TROPONIN-I HIGH SENSITIVE BASELINE + 1HR (09/20/2024 5:38 PM DIRECTOR OF HUMAN RESOURCES) Pathologist [facility] Troponin I High Sensitive <3 <=14 ng/L 09/20/2024 6:59 PM DIRECTOR OF HUMAN RESOURCES [facility] Blood BLOOD SPECIMEN / Unknown Venipuncture / Unknown 09/20/2024 5:38 PM DIRECTOR OF HUMAN RESOURCES 09/20/2024 6:07 PM DIRECTOR OF HUMAN RESOURCES Tania Smallwood [facility] QUALITY CONTROL TECHNICIAN RY ORDERABLES Performing Organization Address [facility] Co de Phone Number [phone] [address] [address], [facility] [phone] * D-DIMER (09/20/2024 5:38 PM DIRECTOR OF HUMAN RESOURCES) Pathologist [facility] D-Dimer Quantitative <0.27 <=0.50 mcg/mL FEU 09/20/2024 6:30 PM DIRECTOR OF HUMAN RESOURCES [facility] Comment: In the absence of clinical [...] Unknown Venipuncture / Unknown 09/20/2024 5:38 PM DIRECTOR OF HUMAN RESOURCES 09/20/2024 6:07 PM DIRECTOR OF HUMAN RESOURCES Tania Lopez Cl MYRICK[facility] - COAGULA TION ORDERABLES Performing Organization Address City/[facility]/ZIP Co de Phone Number [address] [address], [facility] [phone] * SARS-COV-2 (COVID-19) FLU A/B RSV PCR RAPID (09/20/2024 5:36 PM DIRECTOR OF HUMAN RESOURCES) COVID-19 PCR Not detected Not detected 09/20/19 6:44 PM DIRECTOR OF HUMAN RESOURCES [facility] Influenza A PCR Not detected Not detected 09/20/2024 6:44 PM DIRECTOR OF HUMAN RESOURCES [facility] Influenza B PCR Not detected Not detected 09/20/2024 6:44 PM [facility] RSV PCR Not detected Not detected 09/20/2024 6:44 PM [facility] Microbiology SPECIMEN FROM NASOPHARYNGEAL STRUCTURE / Unknown Collection / Unknown 09/20/2024 5:36 PM DIRECTOR OF HUMAN RESOURCES 09/20/2024 5:59 PM DIRECTOR OF HUMAN RESOURCES Narrative [facility] - 09/20/2024 6:44 PM DIRECTOR OF HUMAN RESOURCES This nucleic acid amplification assay has been [...] EUA assay are available upon request. Tania Jessica Cl BROWNN[facility] - MICROBI OLOGY ORDERABLES Performing Organization Address City/[facility]/ZIP Co de Phone Number [address] [phone] [phone] * XR CHEST 2VW (09/20/2024 4:45 PM DIRECTOR OF HUMAN RESOURCES) Anatomical Region Laterality Modality Chest Digital Radiogra phy 09/20/2024 5:49 PM DIRECTOR OF HUMAN RESOURCES Narrative 09/21/2024 8:16 AM DIRECTOR OF HUMAN RESOURCES PROCEDURE: XR CHEST 2VW, DATE/TIME OF EXAM: 09/20/2024 4:46 PM, LOCATION [facility] INDICATION: R07.9: Chest pain, unspecified type ADDITIONAL [...] abdomen > Dictated by Manas Sandoval DO (Mining Engineer), 09/20/2024 5:49 PM. Katelynn Mann MD have personally reviewed and interpreted this examination/study. > Interpreting Provider: Katelynn Thrasher MD on 09/21/2024 8:16 AM Procedure Note Katelynn Thrasher MD - 09/21/2024 PROCEDURE: XR CHEST 2VW, DATE/TIME OF EXAM: 09/20/2024 4:46 PM, LOCATION [facility] INDICATION: R07.9: Chest pain, unspecified type ADDITIONAL [...] abdomen > Dictated by Manas Sandoval DO (Mining Engineer), 09/20/2024 5:49 PM. Katelynn Mann MD have personally reviewed and interpreted this examination/study. > Interpreting Provider: Katelynn Thrasher MD on 09/21/2024 8:16 AM Tania Smallwood YOUTH COORDINATOR-LABORER [facility] DIAGNOSTIC IM AGING ORDERABLES * EKG 12-LEAD (09/20/2024 4:05 PM DIRECTOR OF HUMAN RESOURCES) Ventricular Rate 79 BPM [facility] MUSE Atrial Rate 79 BPM [facility] MUSE P-R Interval 160 ms [facility] MUSE QRS Duration ms 70 ms [facility] MUSE Q-T Interval ms 388 ms [facility] MUSE QTC Calculation (Bezet) 444 ms [facility] MUSE Calculated P [place] 32 degrees SL MUSE Calculated R [place] -23 degrees [facility] MUSE Calculated T [place] 5 degrees [facility] MUSE Interpretation EKG NORMAL SINUS RHYTHM LOW VOLTAGE QRS CANNOT RULE OUT ANTERIOR INFARCT , AGE UNDETERMINED ABNORMAL ECG NO PREVIOUS ECGS AVAILABLE Confirmed by MONA MENDIOLA MD ([id number]) on 09/25/2024 8:53:41 PM [facility] MUSE 09/20/2024 4:05 PM DIRECTOR OF HUMAN RESOURCES 09/25/2024 8:53 PM DIRECTOR OF HUMAN RESOURCES Remigio Kaur MD ECG ORDERABLES [facility] MUSE * (ABNORMAL) LIPID PROFILE (08/17/2024 3:57 PM DIRECTOR OF HUMAN RESOURCES) Cholesterol Total 273(H) <200 mg/dL 08/17/2024 5:03 PM [facility] HDL 78 >40 mg/dL 08/17/2024 5:03 PM [facility] Comment: ATP III Classification of HDL Cholesterol: <40 mg/dL: Considered a major risk factor. >60 mg/dL: Considered a negative risk factor. LDL Calculated 162(H) <100 mg/dL 08/17/2024 5:03 PM [facility] Comment: ATP III Classification of LDL Cholesterol: <100 mg/dL: Optimal 100 - 129 mg/dL: Near Optimal/Above Optimal 130 - 159 mg/dL: Borderline High 160 - 189 mg/dL: High >190 mg/dL: Very High Triglycerides 166(H) <150 mg/dL 08/17/2024 5:03 PM [facility] Comment: ATP III Classification of Triglycerides: <150 mg/dL: Normal 150 - 199 mg/dL: Borderline High 200 - 400 mg/dL: High >500 mg/dL: Very High Blood BLOOD SPECIMEN / Unknown Lab Venipuncture / Unknown 08/17/2024 3:57 PM DIRECTOR OF HUMAN RESOURCES 08/17/2024 4:33 PM DIRECTOR OF HUMAN RESOURCES Ordering Provider Unlisted LAB - CHEM ISTRY ORDERABLES Performing Organization Address City/[facility]/ZIP Co de Phone Number [address] [address], [facility] [phone] * POTASSIUM URINE RANDOM (08/01/2024 2:03 PM DIRECTOR OF HUMAN RESOURCES) Pathologist [facility] Potassium Urine 17.3 Not Established mmol/L 08/01/2024 2:55 PM DIRECTOR OF HUMAN RESOURCES [facility] Urine URINE SPECIMEN OBTAINED BY CLEAN CATCH PROCEDURE / Unknown Collection / Unknown 08/01/2024 2:03 PM DIRECTOR OF HUMAN RESOURCES 08/01/2024 2:23 PM DIRECTOR OF HUMAN RESOURCES Kelechi Herrera MD LAB - URINE CHEM ISTRY ORDERABLES Performing Organization Address [facility]/ZIP Co de Phone Number [address] [address], [place] [phone] * HEPATITIS C ANTIBODY (02/24/2024 2:54 PM CDT) Pathologist [facility] Hepatitis C Antibody Non-react roman Non-reac tive 02/24/2024 5:13 PM CDT [facility] Comment:Hepatitis C Antibody screen indicates no [...] - CHEMISTRY ALMAZ GEORGE Performing Organization Address City/[facility]/ZIP Co de Phone Number [address] [address], [place] [phone] from Last 3 Months or Most Recently Relevant to Health Maintenance Care Teams Double Needle Operator Lockstitch Relationship Specialty Start Date End Date Amelia Tamayo MD [address] [place] [address] PCP - General Family Medicine 02/17/24
--- OUTSIDE RECORDS SUMMARY | 2024-10-25 07:53 | XMS_ITS | Patient Health Summary ---
Author Organization [facility] Address [address] [place] [address] Care Team Providers Care Analytical Research Chemist Name Role Phone Amelia Tamayo MD Primary Care Provider + Note from [facility],non-owned Affiliates and Associated Physician Practices is amultiple site organization consisting of ambulatory clinics and hospital sitesin [place], [place], [place] and [place]. This disclosure is being madepursuant to the Care Everywhere program and may not contain all information available regarding this patient. Last updated 18.[facility] Allergies * Penicillins(Itching) Medications * Be aware [...] mL by mouth as needed * Nebulizers (STAT-Diagnosticaos Aerosol Delivery System) [facility](Started 11/01/2023) as directed * Progesterone 200 MG [...] Comments Blood Pressure 130/80 10/23/2024 11:17 AM FORGE SHOP SUPERVISOR Pulse 92 10/23/2024 11:17 AM FORGE SHOP SUPERVISOR Temperature 36.7 C (98.1 F) 10/23/2024 11:17 AM FORGE SHOP SUPERVISOR Respiratory Rate 20 10/23/2024 11:17 AM FORGE SHOP SUPERVISOR Oxygen Saturation 95% 10/23/2024 11:17 AM FORGE SHOP SUPERVISOR 3L of o2 Inhaled Oxygen Concentration - - Weight 69.9 kg (154 lb) 10/23/2024 11:17 AM FORGE SHOP SUPERVISOR Height 162.6 cm (5' 4 ) 10/15/2024 2:03 PM FORGE SHOP SUPERVISOR Body Mass Index 26.43 10/15/2024 2:03 PM FORGE SHOP SUPERVISOR Procedures * COMPREHENSIVE METABOLIC PANEL(Performed 10/02/2024) Performed [...] (HCC), ILD (interstitial lung disease) (HCC) * WANG/UNDERGROUND DISTRIBUTION ENGINEER (SHORTY) ANTIBODY IGG(Performed 02/24/2024) Performed for Scleroderma [...] (ABNORMAL) CBC WITH DIFFERENTIAL (10/02/2024 10:09 AM [facility]) Only the most recent of15 resultswithin the time period is included. WBC 4.4 4.0 - 10.7 x10E9/L 10/02/2024 11:05 AM [facility] RBC Count 4.17 3.90 - 5.20 x10E12/L 10/02/2024 11:05 AM [facility] Hemoglobin 10.6(L) 11.9 - 15.8 g/dL 10/02/2024 11:05 AM [facility] Hematocrit 34.3(L) 34.8 - 46.1 % 10/02/2024 11:05 AM [facility] MCV 82.3 80.0 - 98.0 fL 10/02/2024 11:05 AM [facility] MCH 25.4(L) 26.7 - 33.6 pg 10/02/2024 11:05 AM [facility] MCHC 30.9(L) 31.7 - 36.3 g/dL 10/02/2024 11:05 AM [facility] RDW-CV 13.2 11.3 - 14.8 % 10/02/2024 11:05 AM [facility] Platelet Count 275 150 - 420 x10E9/L 10/02/2024 11:05 AM [facility] MPV 11.0 7.8 - 11.4 fL 10/02/2024 11:05 AM [facility] Neutrophil % 54.7 41.0 - 74.0 % 10/02/2024 11:05 AM [facility] Lymphocyte % 25.7 17.0 - 47.0 % 10/02/2024 11:05 AM [facility] Monocyte % 15.9(H) 3.0 - 11.0 % 10/02/2024 11:05 AM [facility] Eosinophil % 2.3 0.0 - 7.0 % 10/02/2024 11:05 AM [facility] Basophil % 0.7 0.0 - 1.6 % 10/02/2024 11:05 AM [facility] Immature Granulocytes % 0.7 0.0 - 1.0 % 10/02/2024 11:05 AM [facility] Neutrophil Absolute 2.38 1.60 - 7.50 x10E9/L 10/02/2024 11:05 AM [facility] Lymphocyte Absolute 1.12 1.00 - 4.40 x10E9/L 10/02/2024 11:05 AM [facility] Monocyte Absolute 0.69 0.15 - 1.00 x10E9/L 10/02/2024 11:05 AM [facility] Eosinophil Absolute 0.10 0.00 - 0.60 x10E9/L 10/02/2024 11:05 AM [facility] Basophil Absolute 0.03 0.00 - 0.13 x10E9/L 10/02/2024 11:05 AM [facility] Blood BLOOD SPECIMEN / Unknown Lab Venipuncture / Unknown 10/02/2024 10:09 AM [facility] 10/02/2024 10:51 AM [facility] Kelechi Herrera MD LAB - HEMATOLOGY ORDERABLES [facility] [address] [place] [address], [facility] [phone] * (ABNORMAL) COMPREHENSIVE METABOLIC PANEL (10/02/2024 10:09 AM [facility]) Only the most recent of15 resultswithin the time period is included. BUN 10 7 - 26 mg/dL 10/02/2024 11:37 AM [facility] Creatinine 1.05(H) 0.56 - 0.96 mg/dL 10/02/2024 11:37 AM [facility] Sodium 137 136 - 145 mmol/L 10/02/2024 11:37 AM [facility] Potassium 4.4 3.5 - 4.5 mmol/L 10/02/2024 11:37 AM [facility] Comment:Hemolysis detected i n this specimen. Hemolysis may cause false elevations in potassium leading to pseudohyperkalemia or masked hypokalemia. Recommend repeat testing if clinically indicated. Chloride 110(H) 98 - 107 mmol/L 10/02/2024 11:37 AM [facility] CO2 20(L) 22 - 29 mmol/L 10/02/2024 11:37 AM [facility] Glucose 83 70 - 99 mg/dL 10/02/2024 11:37 AM [facility] Calcium 8.6 8.4 - 10.2 mg/dL 10/02/2024 11:37 AM [facility] Protein Total 6.8 6.0 - 8.3 g/dL 10/02/2024 11:37 AM [facility] Comment:Hemolysis detected i n this specimen. Hemolysis is known to cause elevations in this analyte. Caution should be exercised in the interpretation of this result. Recommend repeat testing if clinically indicated. Albumin 3.9 3.4 - 5.0 g/dL 10/02/2024 11:37 AM [facility] Bilirubin Total 0.3 0.2 - 1.2 mg/dL 10/02/2024 11:37 AM [facility] Alkaline Phosphatase 50 40 - 150 U/L 10/02/2024 11:37 AM [facility] ALT 14 5 - 55 U/L 10/02/2024 11:37 AM [facility] AST 25 5 - 34 U/L 10/02/2024 11:37 AM [facility] Comment:Hemolysis detected i n this specimen. Hemolysis is known to cause elevations in this analyte. Caution should be exercised in the interpretation of this result. Recommend repeat testing if clinically indicated. Anion Gap 7 6 - 16 10/02/2024 11:37 AM [facility] BUN/Creatinine Ratio 10 7 - 23 09/22 11:37 AM [facility] Osmolality Calculated 282 275 - 295 mOsm/kg 10/02/2024 11:37 AM [facility] Albumin/Globulin Ratio 1.3 1.1 - 2.3 10/02/2024 11:37 AM [facility] eGFR by CKD-EPI 65(L) >=90 mL/min/1 .73 m2 10/02/2024 11:37 AM [facility] Blood BLOOD SPECIMEN / Unknown Lab Venipuncture / Unknown 10/02/2024 10:09 AM FORGE SHOP SUPERVISOR 10/02/2024 11:04 AM FORGE SHOP SUPERVISOR Kelechi Herrera MD LAB - CHEMISTRY ORDERABLES [facility] [address] [place] [address], [facility] [phone] * CT Angio Brain And Neck (09/21/2024 4:17 PM FORGE SHOP SUPERVISOR) Anatomical Region Laterality Modality Head Computed Tomogra phy 09/21/2024 4:29 PM FORGE SHOP SUPERVISOR Impressions 09/21/2024 5:03 PM FORGE SHOP SUPERVISOR IMPRESSION: 1.No acute intracranial hemorrhage. 2.No large arterial occlusions or significant stenoses identified in the head or neck. 3.The dural sinuses appear normal without evidence of thrombus. Viz.AI was used for large vessel occlusion detection. Report dictated by Je Morrow MD, (Car Restorer). I, Shara Henry MD have personally reviewed and interpreted this examination/study. > Interpreting Provider: Shara Henry MD on 09/21/2024 5:03 PM Narrative 09/21/2024 5:03 PM FORGE SHOP SUPERVISOR PROCEDURE: CT ANGIO BRAIN AND NECK, DATE/TIME OF EXAM: 09/21/2024 4:18 PM, LOCATION [facility] INDICATION: R07.9: Chest pain, unspecified type [...] NECK, DATE/TIME OF EXAM: 09/21/2024 4:18PM, LOCATION [facility] INDICATION: R07.9: Chest pain, unspecified type [...] detection. Report dictated by Je Morrow MD, (Car Restorer). IShara MD have personally reviewed and interpretedthis examination/study. > Interpreting Provider: Shara Henry MD on 09/21/2024 5:03 PM Bruna Farrell MD CT ORDERABLES * MRI Brain Wwo Contrast (09/21/2024 12:40 PM FORGE SHOP SUPERVISOR) Anatomical Region Laterality Modality Head Magnetic Resonan ce 09/21/2024 12:5 9 PM FORGE SHOP SUPERVISOR Impressions 09/21/2024 5:05 PM FORGE SHOP SUPERVISOR IMPRESSION: 1.No evidence of restricted diffusion to suggest an acute infarction. 2.No evidence of acute intracranial findings or abnormal enhancement. > Interpreting Provider: Shara Henry MD on 09/21/2024 5:05 PM Narrative 09/21/2024 5:05 PM FORGE SHOP SUPERVISOR PROCEDURE: MRI BRAIN WWO CONTRAST, DATE/TIME OF EXAM: 09/21/2024 12:40 PM, LOCATION [facility] INDICATION: R07.9: Chest pain, unspecified type [...] CONTRAST, DATE/TIME OF EXAM: 09/21/2024 12:40PM, LOCATION [facility] INDICATION: R07.9: Chest pain, unspecified type [...] CONTRAST ??? Intracranial hemorrhage (09/20/2024 5:50 PM FORGE SHOP SUPERVISOR) Anatomical Region Laterality Modality Head Computed Tomogra phy 09/20/2024 6:23 PM FORGE SHOP SUPERVISOR Impressions 09/20/2024 7:37 PM FORGE SHOP SUPERVISOR IMPRESSION: 1.No acute intracranial hemorrhage, midline shift, or significant mass effect. 2.Please note that CT is insensitive to nonhemorrhagic strokes and MRI of the brain should be considered, if there is clinical concern for acute cerebral infarction. > Dictated by Manas Sandoval DO (Car Restorer), 09/20/2024 6:23 PM. Shara Mann MD have personally reviewed and interpreted this examination/study. > Interpreting Provider: Shara Henry MD on 09/20/2024 7:37 PM Narrative 09/20/2024 7:37 PM FORGE SHOP SUPERVISOR PROCEDURE: CT HEAD WO CONTRAST, DATE/TIME OF EXAM: 09/20/2024 5:51 PM, LOCATION [facility] INDICATION: R07.9: Chest pain, unspecified type [...] DATE/TIME OF EXAM: 09/20/2024 5:51 PM, LOCATION [facility] INDICATION: R07.9: Chest pain, unspecified type [...] infarction. > Dictated by Manas Sandoval DO (Car Restorer), 09/20/2024 6:23PM. I, Shara Henry MD have personally reviewed and interpretedthis examination/study. > Interpreting Provider: Shara Henry MD on 09/20/2024 7:37 PM Tania Smallwood APRNLUZMARIA CT ORDERABLES * TROPONIN-I HIGH SENSITIVE BASELINE + 1HR (09/20/2024 5:38 PM FORGE SHOP SUPERVISOR) Pathologist [facility] Troponin I High Sensitive <3 <=14 ng/L 09/20/2024 6:59 PM FORGE SHOP SUPERVISOR [facility] Blood BLOOD SPECIMEN / Unknown Venipuncture / Unknown 09/20/2024 5:38 PM FORGE SHOP SUPERVISOR 09/20/2024 6:07 PM FORGE SHOP SUPERVISOR Tania Smallwood [facility] LAB - SKEIN SPOOLER RY ORDERABLES Performing Organization Address [facility]/State/[facility] Co de Phone Number [address] [address], [facility] [phone] * D-DIMER (09/20/2024 5:38 PM FORGE SHOP SUPERVISOR) Pathologist [facility] D-Dimer Quantitative <0.27 <=0.50 mcg/mL FEU 09/20/2024 6:30 PM FORGE SHOP SUPERVISOR [facility] Comment: In the absence of clinical [...] Unknown Venipuncture / Unknown 09/20/2024 5:38 PM FORGE SHOP SUPERVISOR 09/20/2024 6:07 PM FORGE SHOP SUPERVISOR Tania Lopez Cl [employer]RICK-EMPLOYMENT LAW ATTORNEY LAB - COAGULA TION ORDERABLES Performing Organization Address City/[facility]/ZIP Co de Phone Number [address] [address], [facility] [phone] * SARS-COV-2 (COVID-19) FLU A/B RSV PCR RAPID (09/20/2024 5:36 PM FORGE SHOP SUPERVISOR) COVID-19 PCR Not detected Not detected 09/20/19 6:44 PM FORGE SHOP SUPERVISOR [facility] Influenza A PCR Not detected Not detected 09/20/2024 6:44 PM FORGE SHOP SUPERVISOR [facility] Influenza B PCR Not detected Not detected 09/20/2024 6:44 PM [facility] RSV PCR Not detected Not detected 09/20/2024 6:44 PM [facility] Microbiology SPECIMEN FROM NASOPHARYNGEAL STRUCTURE / Unknown Collection / Unknown 09/20/2024 5:36 PM FORGE SHOP SUPERVISOR 09/20/2024 5:59 PM FORGE SHOP SUPERVISOR [facility] - 09/20/2024 6:44 PM FORGE SHOP SUPERVISOR This nucleic acid amplification assay has been [...] assay are available upon request. Tania Lopez lC BROWNN-EMPLOYMENT LAW ATTORNEY LAB - MICROBI OLOGY ORDERABLES Performing Organization Address City/[facility]/ZIP Co de Phone Number [address] [address] [phone] * XR CHEST 2VW (09/20/2024 4:45 PM FORGE SHOP SUPERVISOR) Anatomical Region Laterality Modality Chest Digital Radiogra phy 09/20/2024 5:49 PM FORGE SHOP SUPERVISOR Narrative 09/21/2024 8:16 AM FORGE SHOP SUPERVISOR PROCEDURE: XR CHEST 2VW, DATE/TIME OF EXAM: 09/20/2024 4:46 PM, LOCATION [facility] INDICATION: R07.9: Chest pain, unspecified type [...] abdomen > Dictated by Manas Sandoval DO (Car Restorer), 09/20/2024 5:49 PM. Katelynn Mann MD have personally reviewed and interpreted this examination/study. > Interpreting Provider: Katelynn Thrasher MD on 09/21/2024 8:16 AM Procedure Note Katelynn Thrasher MD - 09/21/2024 PROCEDURE: XR CHEST 2VW, DATE/TIME OF EXAM: 09/20/2024 4:46 PM, LOCATION [facility] INDICATION: R07.9: Chest pain, unspecified type [...] abdomen > Dictated by Manas Sandoval DO (Car Restorer), 09/20/2024 5:49 PM. Katelynn Mann MD have personally reviewed and interpreted this examination/study. > Interpreting Provider: Katelynn Thrasher MD on 09/21/2024 8:16 AM Tania Smallwood HOCKEY SCOUT-EMPLOYMENT LAW ATTORNEY DIAGNOSTIC IM AGING ORDERABLES * EKG 12-LEAD (09/20/2024 4:05 PM FORGE SHOP SUPERVISOR) Ventricular Rate 79 BPM [facility] MUSE Atrial Rate 79 BPM [facility] MUSE P-R Interval 160 ms [facility] MUSE QRS Duration ms 70 ms [facility] MUSE Q-T Interval ms 388 ms [facility] MUSE QTC Calculation (Bezet) 444 ms [facility] MUSE Calculated P Wingo 32 degrees SL MUSE Calculated R Wingo -23 degrees [facility] MUSE Calculated T Wingo 5 degrees [facility] MUSE Interpretation EKG NORMAL SINUS RHYTHM LOW VOLTAGE QRS CANNOT RULE OUT ANTERIOR INFARCT , AGE UNDETERMINED ABNORMAL ECG NO PREVIOUS ECGS AVAILABLE Confirmed by MONA MENDIOLA MD ([id number]) on 09/25/2024 8:53:41 PM [facility] MUSE 09/20/2024 4:05 PM FORGE SHOP SUPERVISOR 09/25/2024 8:53 PM FORGE SHOP SUPERVISOR Remigio Kaur MD ECG ORDERABLES [facility] MUSE * (ABNORMAL) LIPID PROFILE (08/17/2024 3:57 PM FORGE SHOP SUPERVISOR) Cholesterol Total 273(H) <200 mg/dL 08/17/2024 5:03 PM [facility] HDL 78 >40 mg/dL 08/17/2024 5:03 PM [facility] Comment: ATP III Classification of HDL Cholesterol: <40 mg/dL: Considered a major risk factor. >60 mg/dL: Considered a negative risk factor. LDL Calculated 162(H) <100 mg/dL 08/17/2024 5:03 PM [facility] Comment: ATP III Classification of LDL Cholesterol: <100 mg/dL: Optimal 100 - 129 mg/dL: Near Optimal/Above Optimal 130 - 159 mg/dL: Borderline High 160 - 189 mg/dL: High >190 mg/dL: Very High Triglycerides 166(H) <150 mg/dL 08/17/2024 5:03 PM [facility] Comment: ATP III Classification of Triglycerides: <150 mg/dL: Normal 150 - 199 mg/dL: Borderline High 200 - 400 mg/dL: High >500 mg/dL: Very High Blood BLOOD SPECIMEN / Unknown Lab Venipuncture / Unknown 08/17/2024 3:57 PM FORGE SHOP SUPERVISOR 08/17/2024 4:33 PM FORGE SHOP SUPERVISOR Ordering Provider Unlisted LAB - CHEM ISTRY ORDERABLES Performing Organization Address City/[facility]/ZIP Co de Phone Number [address] [address], [facility] [phone] * POTASSIUM URINE RANDOM (08/01/2024 2:03 PM FORGE SHOP SUPERVISOR) Potassium Urine 17.3 Not Established mmol/L 08/01/2024 2:55 PM FORGE SHOP SUPERVISOR [facility] Urine URINE SPECIMEN OBTAINED BY CLEAN CATCH PROCEDURE / Unknown Collection / Unknown 08/01/2024 2:03 PM FORGE SHOP SUPERVISOR 08/01/2024 2:23 PM FORGE SHOP SUPERVISOR Kelechi Herrera MD LAB - URINE CHEM ISTRY ORDERABLES Performing Organization Address [facility]/ZIP Co de Phone Number [address] [address], [facility] [phone] * MAGNESIUM BLOOD (07/20/2024 8:29 AM FORGE SHOP SUPERVISOR) Magnesium 1.9 1.6 - 2.6 mg/dL 07/20/2024 9:51 AM FORGE SHOP SUPERVISOR [facility] Blood BLOOD SPECIMEN / Unknown Lab Venipuncture / Unknown 07/20/2024 8:29 AM FORGE SHOP SUPERVISOR 07/20/2024 9:24 AM FORGE SHOP SUPERVISOR Kelechi Herrera MD LAB - CHEMISTRY ORDERABLES Performing Organization Address City/[facility]/ZIP Co de Phone Number [address] [address], [facility] [phone] * BILIRUBIN DIRECT (07/20/2024 8:29 AM FORGE SHOP SUPERVISOR) Only the most recent of3 resultswithin the time period is included. Bilirubin Conjugated 0.2 0.1 - 0.5 mg/dL 07/20/2024 9:51 AM FORGE SHOP SUPERVISOR [facility] Blood BLOOD SPECIMEN / Unknown Lab Venipuncture / Unknown 07/20/2024 8:29 AM FORGE SHOP SUPERVISOR 07/20/2024 9:24 AM FORGE SHOP SUPERVISOR Mohan Rojas MD LAB - CHEMISTRY [facility] Organization Address City/State/ZIP Co de Phone Number [facility] [address] [place] [address], [facility] [phone] * ECHO COMPLETE (07/11/2024 11:54 AM FORGE SHOP SUPERVISOR) IVSd 2D 0.901 cm SSM CV FUJ [...] CV F UJI PACS MV E pk carlyle 72.934 cm/s SSM CV F UJI PACS [...] Laterality Modality Ultrasound 07/11/2024 12:2 0 PM FORGE SHOP SUPERVISOR Narrative 07/11/2024 1:43 PM FORGE SHOP SUPERVISOR Summary * The left ventricle is normal [...] 12:20 PM Patient Status: O/P Study Site: [facility] Primary Location: [facility] Info Technical Quality: Adequate Exam Type: ECHO COMPLETE Indications Please refer to EHR for Exam Diagnosis Codes - Procedure(s) * A complete 2D, color Doppler, spectral Doppler, and M-Mode transthoracic echocardiogram was performed. Staff Referring Physician: Kelechi Herrera Ordering Provider: Kelechi Herrera Attending Physician: Kelechi Herrera Handtools Repairer: Silver Schuler Left Ventricle The left ventricle [...] 12:20 PM Patient Status: O/P Study Site: [facility] Primary Location: [facility] Info Technical Quality: Adequate Exam Type: ECHO COMPLETE Indications Please refer to EHR for Exam Diagnosis Codes - Procedure(s) * A complete 2D, color Doppler, spectral Doppler, and M-Modetransthoracic echocardiogram was performed. Staff Referring Physician: Kelechi Herrera Ordering Provider: Kelechi Herrera Attending Physician: Kelechi Herrera Handtools Repairer: Silver Schuler Left Ventricle The left ventricle [...] CUPID * AMBULATORY OXIMETRY (07/11/2024 8:12 AM FORGE SHOP SUPERVISOR) [facility]/11/[facility]24 8:12 AM FORGE SHOP SUPERVISOR [facility] DEPARTMENT OF PULMONARY, CRITICAL CARE, AND SLEEP [...] of Pulmonary, Critical Care and Sleep Medicine [facility] I have reviewed the above study and agree with the interpretation as listed above. Mohan Rojas MD Tile Shader of Pulmonary & Critical Care Medicine [facility] Pager [phone] Narrative [facility] - 07/11/2024 8:12 AM FORGE SHOP SUPERVISOR Manny Bryant MD 07/14/2024 10:21 AM Mohan Rojas MD RESPIRATORY THERAPY ORDERABLES Performing Organization Address City/State/[facility] Co de Phone Number [facility] [address] [place] [address], [facility] * Complete PFT [facility] PFT Lab (07/11/2024 8:12 AM FORGE SHOP SUPERVISOR) [facility] 07/11/2024 8:12 AM FORGE SHOP SUPERVISOR [facility] DEPARTMENT OF PULMONARY, CRITICAL CARE, AND SLEEP [...] of Pulmonary, Critical Care and Sleep Medicine [facility] I have reviewed the above study and agree with the interpretation as listed above. Mohan Rojas MD Tile Shader of Pulmonary & Critical Care Medicine [facility] Pager [phone] Narrative [facility] - 07/11/2024 8:12 AM FORGE SHOP SUPERVISOR Manny Bryant MD 07/14/2024 10:21 AM Kelechi Herrera MD RESPIRATORY THER APY ORDERABLES [facility] [address] [place] [address] * [place] ESOPHAGRAM (04/25/2024 10:00 AM CDT) [...] relevant/not provided if blank. 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 Jaquelin Nevarez MD Tile Shaderpainter and paperhanger apprentice Division of Pulmonary, Critical Care and Sleep Medicine [facility] Pager: [phone] Narrative Jaquelin Nevarez MD - 04/12/2024 1:24 PM CDT Jorge Grant MD 04/12/2024 1:32 PM Procedure Note Jorge Grant MD - 04/12/2024 1:24 PM CDT Images from the original note were not included. Mohan Rojas MD RESPIRATORY THERAPY ORDERABLES * Six Minute Walk Test [facility] PFT Lab (04/12/2024 11:47 AM CDT) Jaquelin Mello MD - 04/12/2024 11:47 AM CDT [facility] DEPARTMENT OF PULMONARY, CRITICAL CARE, AND SLEEP [...] of Pulmonary, Critical Care, and Sleep Medicine [facility] I have personally reviewed the fellow's interpretation of the test and made any necessary changes when needed. Jaquelin Nevarez MD Tile Shaderpainter and paperhanger apprentice Division of Pulmonary, Critical Care and Sleep Medicine [facility] Pager: [phone] Narrative Jaquelin Nevarez MD - 04/12/2024 11:47 [...] DATE/TIME OF EXAM: 03/21/2024 3:09 PM, LOCATION [facility] INDICATION: J84.9: ILD (interstitial lung disease) (HCC) [...] VALERA, DATE/TIME OF EXAM: 43:09 PM, LOCATION [facility] INDICATION: J84.9: ILD (interstitial lung disease) (HCC) [...] UA Straw Straw, Yellow 02/24/2024 4:09 PM [facility] Clarity UA Clear Clear 02/24/2024 4:09 PM [facility] Specific [place] UA 1.009 1.005 - 1.030 02/24/2024 4:09 PM [facility] pH UA 5.0 5.0 - 8.0 pH 02/24/2024 4:09 PM [facility] Protein UA Negative Negative 02/24/2024 4:09 PM [facility] Glucose UA Negative Negative 02/24/2024 4:09 PM [facility] Ketone UA Negative Negative 02/24/2024 4:09 PM [facility] Bilirubin UA Negative Negative 02/24/2024 4:09 PM [facility] Blood UA Negative Negative 02/24/2024 4:09 PM [facility] Nitrite UA Negative Negative 02/24/2024 4:09 PM [facility] Leukocyte Esterase Negative Negative 02/24/2024 4:09 PM [facility] Urobilinogen UA Negative Negative mg/dL 02/24/2024 4:09 PM [facility] RBC UA 0-2 None Seen, 0-2, 3-5 /HPF 02/24/2024 4:09 PM [facility] WBC UA 0-5 None Seen, 0-5 /HPF 02/24/2024 4:09 PM T [facility] Squamous Epithelial Cells UA 3-5 None Seen, 0-2, 3-5 /HPF 02/24/2024 4:09 PM T [facility] Mucus UA 1+ /LPF 02/24/2024 4:09 PM T [facility] Urine URINE SPECIMEN OBTAINED BY CLEAN CATCH PROCEDURE / Unknown Collection / Unknown 02/24/2024 3:26 PM CDT 02/24/2024 3:58 PM CDT Narrative [facility] - 02/24/2024 4:09 PM CDT Culture Not Indicated Neeraj Sorto MD LAB - URINALYSIS ORD ERABLES Performing Organization Address City/[facility]/ZIP Co de Phone Number [address] [address], [place] [phone] * PROTEIN CREATININE RATIO URINE RANDOM PNL (02/24/2024 3:26 PM CDT) Protein Urine <7 Not Established mg/dL 02/24/2024 4:32 PM [facility] Creatinine Urine 52.80 Not Established mg/dL 02/24/2024 4:32 PM [facility] Protein/Creatinin e Ratio Urine 02/24/2024 4:32 PM T [facility] Comment:Unable to calculate ratio because the analyte concentration is outside the instrument measuring range. Urine URINE SPECIMEN OBTAINED BY CLEAN CATCH PROCEDURE / Unknown Collection / Unknown 02/24/2024 3:26 PM CDT 02/24/2024 3:58 PM CDT Neeraj Sorto MD LAB - URINE CHEMISTR Y ORDERABLES Performing Organization Address City/[facility]/ZIP Co de Phone Number [address] [address], [place] [phone] * LAB MISC TEST (02/24/2024 3:01 PM CDT) Pathologist [facility] Test Name Sclerosis 12 AB Panel 03/07/2024 6:48 AM CDT [facility] Test Result See Scanned Report 03/07/2024 6:48 AM CDT [facility] Comment Ref Lab [facility] 03/07/2024 6:48 AM CDT [facility] Blood BLOOD SPECIMEN / Unknown Lab Venipuncture / Unknown 02/24/2024 3:01 PM CDT 02/24/2024 3:57 PM CDT Neeraj Sorto MD LAB SEND OUT Performing Organization Address City/[facility]/ZIP Co de Phone Number [facility] [address] [place] [address] * (ABNORMAL) SHYLA BLOOD SINGLE PATTERN (02/24/2024 2:54 PM CDT) [facility] SHYLA Pattern Homogeneo us(A) 02/27/2024 10:32 PM CDT [facility] ([facility]) SHYLA Titer 1:2560(A) 02/27/2024 10:32 PM CDT [facility] ([facility]) Comment: Performed By: [employer] [address] [place] [address] Medical Transport Specialist: Michele Latif MD, PhD CLIA Number: [id number] Blood BLOOD SPECIMEN / Unknown Lab Venipuncture / Unknown 02/24/2024 2:54 PM CDT 02/24/2024 3:56 PM CDT Neeraj Sorto MD LAB - CHEMISTRY ALMAZ GEORGE [facility] ([facility]) [address] * (ABNORMAL) SHYLA HEP-2 IGG BY IFA (02/24/2024 2:54 PM CDT) [facility] SHYLA HEp-2 IgG Detected (H) <1:80 02/27/2024 10:32 PM CDT [facility] ([facility]) SHYLA Interpretive Comment See Note 02/27/2024 10:32 PM CDT [facility] ([facility]) Comment: Homogeneous Pattern Clinical associations: SLE, [...] not necessarily rule out SARD. Performed By: [employer] [address] [place] [address] Medical Transport Specialist: Michele Latif MD, PhD CLIA Number: [id number] Blood BLOOD SPECIMEN / Unknown Lab Venipuncture / Unknown 02/24/2024 2:54 PM CDT 02/24/2024 3:56 PM CDT Neeraj Sorto MD LAB - SEROLOGY ORDER JERE [facility] ([facility]) [address] [place] [address], [facility] * WANG/UNDERGROUND DISTRIBUTION ENGINEER (SHORTY) ANTIBODY IGG (02/24/2024 2:54 PM CDT) Pathologist [facility] Wang/UNDERGROUND DISTRIBUTION ENGINEER (SHORTY) Antibody IgG 3 0 - 19 Units 02/27/2024 2:[address] [facility]) Comment: INTERPRETIVE INFORMATION: Wang/UNDERGROUND DISTRIBUTION ENGINEER (SHORTY) Antibody, IgG 19 Units or Less ............. Negative 20 to 39 Units ............... Weak Positive 40 to 80 Units ............... Moderate Positive 81 Units or greater .......... Strong Positive Wang/UNDERGROUND DISTRIBUTION ENGINEER antibodies are frequently seen in patients with mixed connective tissue disease (MCTD) and are also associated with other systemic autoimmune rheumatic diseases (SARDs) such as systemic lupus erythematosus (SLE), systemic sclerosis, and myositis. Antibodies targeting the Wang/UNDERGROUND DISTRIBUTION ENGINEER antigenic complex also recognize Wang antigens, therefore, the Wang antibody response must be considered when interpreting these results. Performed By: [employer] [address] [place] [address] Medical Transport Specialist: Michele Latif MD, PhD CLIA Number: [id number] Blood BLOOD SPECIMEN / Unknown Lab Venipuncture / Unknown 02/24/2024 2:54 PM CDT 02/24/2024 3:56 PM CDT Neeraj Sorto MD LAB - CHEMISTRY ALMAZ GEORGE [facility] Organization Address City/State/ZIP Co de Phone Number [facility]) [address] [place] [address], [facility] * QUANTIFERON-TB GOLD PLUS 4-TUBE (02/24/2024 2:54 PM CDT) [facility] QuantiFERON Mitogen Minus NIL 9.96 IU/mL 02/27/2024 12:[address] [facility]) QuantiFERON Nil Value 0.04 IU/mL 02/27/2024 12:03 AM CDT [facility]) QuantiFERON Plus TB1 Minus NIL 0.00 <=0.34 IU/mL 02/27/2024 12:03 AM CDT [facility] ([facility]) QuantiFERON Plus TB2 Minus NIL 0.00 <=0.34 IU/mL 02/27/2024 12:03 AM CDT [facility] ([facility]) QuantiFERON-TB Gold Plus Negative Negative 02/27/2024 12:[address] [facility]) Comment: INTERPRETIVE INFORMATION:Quantiferon TB Gold Plus [...] Mycobacterium tuberculosis Infection -- [place], 2010 (http://www.cdc.gov/mmwr/preview/mmwrhtml/wl1867j0.htm), for more information concerning test performance in low-prevalence populations and use in occupational screening. Performed By: [employer] [address] [place] [address] Medical Transport Specialist: Michele Latif MD, PhD CLIA Number: [id number] Blood BLOOD SPECIMEN / Unknown Lab Venipuncture / Unknown 02/24/2024 2:54 PM CDT 02/24/2024 3:58 PM CDT Neeraj Sorto MD LAB - CHEMISTRY ALMAZ GEORGE [facility]) [address] [place] [address] * MYOSITIS ANTIBODY PANEL COMPREHENSIVE (02/24/2024 2:54 PM CDT) SAE1 (SUMO activating enzyme) Ab Negative Negative 03/05/2024 3:26 PM CDT [facility] ([facility]) NXP2 (Nuclear matrix protein-2) Ab Negative Negative 03/05/2024 3:26 PM CDT [facility] ([facility]) MDA5 (CADM-140) Ab Negative Negative 2023 3:26 PM CDT [facility] ([facility]) TIF-1 gamma (155 kDa) Ab Negative Negative 03/05/2024 3:26 PM CDT [facility] ([facility]) Myositis Panel Interpretive Data See Note 03/05/2024 3:26 PM CDT [facility] ([facility]) Comment: INTERPRETIVE INFORMATION: Extended Myositis Panel [...] . . . . . . X Wang/UNDERGROUND DISTRIBUTION ENGINEER (SHORTY) Ab, IgG . . . . [...] . . . . X Fibrillarin (U3 UNDERGROUND DISTRIBUTION ENGINEER) Ab, IgG . . . . . [...] developed and its performance characteristics determined by [employer]. It has not been cleared or approved by the US Food and Drug Administration. This test was performed in a CLIA certified laboratory and is intended for clinical purposes. Mi-2 Antibody Negative Negative 03/05/2024 3:[address] [facility]) P155/140 Antibody Negative Negative 024 3:[address] [facility]) PL-12 Antibody Negative Negative 03/05/2024 3:[address] [facility]) PL-7 Antibody Negative Negative 03/05/2024 3:26 PM CDT [facility]) OJ Antibody Negative Negative 03/05/2024 3:[address] [facility]) EJ Antibody Negative Negative 03/05/2024 3:[address] [facility]) SRP Antibody Negative Negative 03/05/2024 3:26 PM CDT [facility]) Destiny-1 Antibody IgG 1 0 - 40 AU/mL 03/05/2024 3:[address] [facility]) Comment: INTERPRETIVE INFORMATION: Destiny-1 Antibody, IgG 29 AU/mL or less.........Negative 30-40 AU/mL..............Equivocal 41 AU/mL or greater......Positive Presence of Destiny-1 (antihistidyl transfer RNA [t-RNA' synthetase) antibody is associated with polymyositis and may also be seen in patients with dermatomyositis. Destiny-1 antibody is associated with pulmonary involvement (interstitial lung disease), Raynaud phenomenon, arthritis, and automatic transmission mechanic's hands (implicated in antisynthetase syndrome). KU Antibody Negative Negative 03/05/2024 3:26 PM CDT [facility] ([facility]) Wang/UNDERGROUND DISTRIBUTION ENGINEER (SHORTY) Antibody IgG 2 0 - 19 Units 03/05/2024 3:26 PM CDT [facility] ([facility]) Comment: INTERPRETIVE INFORMATION: Wang/UNDERGROUND DISTRIBUTION ENGINEER (SHORTY) Antibody, IgG 19 Units or Less ............. Negative 20 to 39 Units ............... Weak Positive 40 to 80 Units ............... Moderate Positive 81 Units or greater .......... Strong Positive Wang/UNDERGROUND DISTRIBUTION ENGINEER antibodies are frequently seen in patients with mixed connective tissue disease (MCTD) and are also associated with other systemic autoimmune rheumatic diseases (SARDs) such as systemic lupus erythematosus (SLE), systemic sclerosis, and myositis. Antibodies targeting the Wang/UNDERGROUND DISTRIBUTION ENGINEER antigenic complex also recognize Wang antigens, therefore, the Wang antibody response must be considered when interpreting these results. PM/Scl 100 Antibody IgG Negative Negative 03/05/2024 3:26 PM CDT [facility] ([facility]) Comment: INTERPRETIVE INFORMATION: PM/Scl-100 Antibody, IgG [...] developed and its performance characteristics determined by [employer]. It has not been cleared or approved by the US Food and Drug Administration. This test was performed in a CLIA certified laboratory and is intended for clinical purposes. SS-A 52 Antibody 2 0 - 40 AU/mL 03/05/2024 3:26 PM CDT [facility] ([facility]) Comment: INTERPRETIVE INFORMATION: SSA-52 (Ro52) (SHORTY) [...] - 40 AU/mL 03/05/2024 3:26 PM T [facility] ([facility]) Comment: REFERENCE INTERVAL: SSA-60 (Ro60) (SHORTY) Antibody, IgG 29 AU/mL or Less ............. Negative 30 - 40 AU/mL ................ Equivocal 41 AU/mL or Greater .......... Positive Fibrillarin (U3 UNDERGROUND DISTRIBUTION ENGINEER) Antibody IgG Negative Negative 03/05/2024 3:26 PM T [facility] ([facility]) Comment: Interpretive Information: Fibrillarin (U3 UNDERGROUND DISTRIBUTION ENGINEER) Antibody, IgG The presence of fibrillarin (U3-UNDERGROUND DISTRIBUTION ENGINEER) IgG antibodies in association with an SHYLA [...] a multi-ethnic cohort of SSc patients (n=98), U3-UNDERGROUND DISTRIBUTION ENGINEER antibodies detected by immunoblot had an agreement of 98.9 percent with the gold standard immunoprecipitation (IP) assay. Approximately 71 percent (5/7) of the borderline U3-UNDERGROUND DISTRIBUTION ENGINEER results with SHYLA nucleolar pattern in this cohort were IP negative. This test was developed and its performance characteristics determined by [employer]. It has not been cleared or approved by the US Food and Drug Administration. This test was performed in a CLIA certified laboratory and is intended for clinical purposes. Performed By: [employer] [address] [place] [address] Medical Transport Specialist: Michele Latif MD, PhD CLIA Number: [id number] Blood BLOOD SPECIMEN / Unknown Lab Venipuncture / Unknown 02/24/2024 2:54 PM CDT 02/24/2024 3:56 PM CDT Neeraj Sorto MD LAB - CHEMISTRY ALMAZ GEORGE [facility]) [address] [place] [address], [facility] * RNA POLYMERASE III ANTIBODY IGG (02/24/2024 2:54 PM CDT) RNA Polymerase 3 Antibody IgG 15 0 - 19 Units 02/25/2024 11:06 PM CDT [facility] ([facility]) Comment: INTERPRETIVE INFORMATION: RNA Polymerase III [...] antibodies associated with SSc, including centromere, Scl-70, U3-UNDERGROUND DISTRIBUTION ENGINEER, PM/Scl, or Th/To. Performed By: [employer] [address] [place] [address] Medical Transport Specialist: Michele Latif MD, PhD CLIA Number: [id number] Blood BLOOD SPECIMEN / Unknown Lab Venipuncture / Unknown 02/24/2024 2:54 PM CDT 02/24/2024 3:56 PM CDT Neeraj Sorto MD LAB - SEROLOGY ORDER JERE [facility]) [address] * C-REACTIVE PROTEIN (02/24/2024 2:54 PM CDT) C-Reactive Protein <0.5 <=0.5 mg/dL 02/24/2024 4:57 PM CDT [facility] Blood BLOOD SPECIMEN / Unknown Lab Venipuncture / Unknown 02/24/2024 2:54 PM CDT 02/24/2024 4:05 PM CDT Neeraj Sorto MD LAB - CHEMISTRY ORDE RABLES [facility] [address] [address], [facility] [phone] * (ABNORMAL) SHYLA BLOOD SCREEN W/REFLEX TITER (02/24/2024 2:54 PM CDT) SHYLA IgG Detected (A) None Detected 02/25/2024 10:35 PM CDT [employer] [employer] [facility] ([facility]) Comment: Antibodies to Anti-Nuclear Antibodies (SHYLA) [...] dsDNA, histones, SS-A (Ro), SS-B (La), Wang, Wang/UNDERGROUND DISTRIBUTION ENGINEER, Scl-70, Destiny-1, centromeric proteins, other antigens extracted from the HEp-2 cell nucleus. SHYLA MATIAS assays have been reported to have lower sensitivities than SHYLA IFA for systemic autoimmune rheumatic diseases (SARD). Negative results do not necessarily rule out SARD. Performed By: [employer] [address] [place] [address] Medical Transport Specialist: Michele Latif MD, PhD CLIA Number: [id number] Blood BLOOD SPECIMEN / Unknown Lab Venipuncture / Unknown 02/24/2024 2:54 PM CDT 02/24/2024 3:56 PM CDT Neeraj Sorto MD LAB - CHEMISTRY ORDE RABLES Performing Organization Address [facility] Co de Phone Number [facility]) [address] * PM/SCL-100 ANTIBODY IGG (02/24/2024 2:54 PM CDT) PM/Scl 100 Antibody IgG Negative Negative 02/26/2024 6:12 PM CDT [facility] ([facility]) Comment: INTERPRETIVE INFORMATION: PM/Scl-100 Antibody, IgG [...] developed and its performance characteristics determined by [employer]. It has not been cleared or approved by the US Food and Drug Administration. This test was performed in a CLIA certified laboratory and is intended for clinical purposes. Performed By: [employer] [address] [place] [address] Medical Transport Specialist: Michele Latif MD, PhD CLIA Number: [id number] Blood BLOOD SPECIMEN / Unknown Lab Venipuncture / Unknown 02/24/2024 2:54 PM CDT 02/24/2024 3:57 PM CDT Neeraj Sorto MD LAB - SEROLOGY ORDER JERE Performing Organization Address City/[facility]/ZIP Co de Phone Number [facility] ([facility]) [address] * CENTROMERE ANTIBODY (02/24/2024 2:54 PM CDT) Centromere Antibody 1 0 - 40 AU/mL 02/26/2024 3:46 PM CDT [facility] ([facility]) Comment: INTERPRETIVE INFORMATION: Centromere Ab, IgG [...] other antibodies associated with SSc, including Scl-70, U3-UNDERGROUND DISTRIBUTION ENGINEER, PM/Scl, or Th/To. Performed By: [employer] [address] [place] [address] Medical Transport Specialist: Michele Latif MD, PhD CLIA Number: [id number] Blood BLOOD SPECIMEN / Unknown Lab Venipuncture / Unknown 02/24/2024 2:54 PM CDT 02/24/2024 3:56 PM CDT Neeraj Sorto MD LAB - CHEMISTRY ALMAZ GEORGE [facility]) [address] [place] [address], [facility] * (ABNORMAL) SCLERODERMA 70 (SCL) ANTIBODY (02/24/2024 2:54 PM CDT) Pathologist [facility] SCL-70 Antibody 178(H) 0 - 40 AU/mL 02/26/2024 3:46 PM CDT [facility] ([facility]) Comment: INTERPRETIVE INFORMATION: Scleroderma (Scl-70) (SHORTY) [...] testing for centromere, RNA polymerase III and U3-UNDERGROUND DISTRIBUTION ENGINEER, PM/Scl, or Th/To antibodies. Performed By: [employer] [address] [place] [address] Medical Transport Specialist: Michele Latif MD, PhD CLIA Number: [id number] Blood BLOOD SPECIMEN / Unknown Lab Venipuncture / Unknown 02/24/2024 2:54 PM CDT 02/24/2024 3:56 PM CDT Neeraj Sorto MD LAB - CHEMISTRY ALMAZ GEORGE [facility] Organization Address City/State/ZIP Co de Phone Number [facility] ([facility]) [address] [place] [address], [facility] * (ABNORMAL) ERYTHROCYTE SEDIMENTATION RATE (02/24/2024 2:54 PM CDT) Erythrocyte Sedimentation Rate Westergren 62(H) 0 - 20 MM/HR 02/24/2024 4:56 PM CDT [facility] Blood BLOOD SPECIMEN / Unknown Lab Venipuncture / Unknown 02/24/2024 2:54 PM CDT 02/24/2024 4:06 PM CDT Neeraj Sorto MD LAB - HEMATOLOGY ORD KERI Performing Organization Address City/[facility]/ZIP Co de Phone Number [address] [address], [facility] [phone] * HEPATITIS B SURFACE ANTIBODY (02/24/2024 2:54 PM CDT) Hepatitis B Virus Surface Antibody Non-react roman Non-react roman 02/24/2024 5:13 PM CDT [facility] Comment: < 8 mIU/mL Hepatitis B surface Antibody (HBsAb). Nonreactive for HBsAb - individual is considered not immune to Hepatitis B Virus infection. Hepatitis B Surface Antibody Quantitative 1.2 <8.0 mIU/mL 02/24/2024 5:13 PM CDT [facility] Comment: Hepatitis B Surface Antibody Numeric Result Interpretation: Nonreactive: <8.0 mIU/mL Indeterminate: 8.0 - 12.0 mIU/mL Reactive: >12.0 mIU/mL Blood BLOOD SPECIMEN / Unknown Lab Venipuncture / Unknown 02/24/2024 2:54 PM CDT 02/24/2024 3:56 PM CDT Neeraj Sorto MD LAB - CHEMISTRY ORDBubba GEORGE [address] [address], [facility] [phone] * HEPATITIS B CORE ANTIBODY TOTAL (02/24/2024 2:54 PM CDT) HBc Antibody Total Non-reacti ve Non-reacti ve 02/24/2024 5:13 PM CDT [facility] Blood BLOOD SPECIMEN / Unknown Lab Venipuncture / Unknown 02/24/2024 2:54 PM CDT 02/24/2024 3:56 PM CDT Neeraj Sorto MD LAB - CHEMISTRY ORDBubba RABLES [facility] [address] [place] [address], [place] [phone] * HEPATITIS B SURFACE ANTIGEN W RFLX CONFIRMATION (02/24/2024 2:54 PM CDT) Hepatitis B Virus Surface Antigen Non-reacti ve Non-reacti ve 02/24/2024 5:13 PM CDT [facility] Blood BLOOD SPECIMEN / Unknown Lab Venipuncture / Unknown 02/24/2024 2:54 PM CDT 02/24/2024 3:56 PM CDT Neeraj Sorto MD LAB - CHEMISTRY ALMAZ GEORGE Performing Organization Address City/[facility]/ZIP Co de Phone Number [address] [address], [place] [phone] * HEPATITIS C ANTIBODY (02/24/2024 2:54 PM CDT) Pathologist [facility] Hepatitis C Antibody Non-react roman Non-reac tive 02/24/2024 5:13 PM CDT [facility] Comment:Hepatitis C Antibody screen indicates no [...] Sorto MD LAB - CHEMISTRY ALMAZ GEORGE [address] [address], [place] [phone] Care Teams Analytical Research Chemist Relationship Specialty Start Date End Date Amelia Tamayo MD [address] [facility] [address] [place] [id number] PCP - General Family Medicine 6/28/24
--- OUTSIDE RECORDS SUMMARY | 2024-10-25 07:53 | XMS_ITS | Encounter Summary ---
Author Organization [facility] Address [address] [address] Care Team Providers Care Telephone Order Clerk Name Role Phone Amelia Tamayo MD Primary Care Provider + Reason for Visit * Oncology Prior Authorization (Routine) - Authorized Specialty Diagnoses / Procedures Referred By Contac t Referred To Contact Diagnoses Interstitial lung disorders (HCC) Diffuse cutaneous systemic sclerosis (HCC) Procedures IN INJECTION TOCILIZUMAB 1 MG Kelechi Herrera MD [address] [place] [address] [facility] [address] [place] [id number] Referral ID Status Reason Start Date Expiration Date V isits Requested Visits Authorized [id number] Authorized 02/28/2024 11/29/2024 9 9 Encounter Details Date Type Department Care Team (Latest Contact Info) Description 10/23/2024 11:00 AM DROP COUNT ASSOCIATE - 10/23/2024 11:59 PM [facility] Hospital Encounter [facility] [address] [place] [id number] Unknown, Provider Rheumatology Discharge Disposition: Home or Self Care Social History Tobacco Use Types Packs/Day Years [...] on file Sexual Orientation Not on file documented as of this encounter Last Filed Vital Signs Vital Sign Reading Time Taken Comments Blood Pressure 130/80 10/23/2024 11:17 AM DROP COUNT ASSOCIATE Pulse 92 10/23/2024 11:17 AM DROP COUNT ASSOCIATE Temperature 36.7 C (98.1 F) 10/23/2024 11:17 AM DROP COUNT ASSOCIATE Respiratory Rate 20 10/23/2024 11:17 AM DROP COUNT ASSOCIATE Oxygen Saturation 95% 10/23/2024 11:17 AM DROP COUNT ASSOCIATE 3L of o2 Inhaled Oxygen Concentration - - Weight 69.9 kg (154 lb) 10/23/2024 11:17 AM DROP COUNT ASSOCIATE Height - - Body Mass Index 26.43 10/15/2024 2:03 PM DROP COUNT ASSOCIATE documented in this encounter Medications at Time of Discharge Medication Sig Dispensed Refills Start Date End Date albuterol (Proventil;Ventolin) (2.5 MG/3ML) 0.083% nebulizer solutionIndications:IL D (interstitial lung disease) ([facility]),Scleroderma ([facility]) Inhale 2.5 (two and one-half) mg by mouth every 4 hours as needed for Shortness of Breath or Wheezing 540 mL 11 02/17/2024 albuterol HFA (Proventil; Ventolin; Proair) 108 (90 Base) MCG/ACT inhaler Inhale 2 (two) puffs by mouth every 6 hours as needed baclofen (Lioresal) 10 MG tablet TAKE 1 TABLET BY MOUTH EVERY DAY AT BEDTIME NEEDED FOR MUSCLE SPASM 09/13/2024 FeroSul 325 (65 Fe) MG tablet Take 1 (one) tablet by mouth once daily formoterol (Perforomist) 20 MCG/2ML nebulizer solution Inhale 2 mL by mouth as needed 12/08/2023 hydrOXYzine HCl (Atarax) 25 MG tablet Take 1 (one) tablet by mouth as needed for Itching 05/02/2024 metoclopramide (Reglan) 10 MG tablet Take 1 (one) tablet by mouth 3 times daily before meals 12 tablet 09/21/2024 Multiple Vitamins-Minerals (Multi Vitamin/Minerals) TABS Take 1 (one) tablet by mouth once daily mycophenolate (Cellcept) 500 MG tablet Take 3 (three) tablets by mouth 2 times daily for 90 days 180 tablet 2 08/17/2024 11/15/2024 Nebulizers (Zevia Aerosol Delivery System) MISC as directed 11/01/2023 NIFEdipine CR 24hr (Adalat CC) 30 MG tabletIndications:Scle roderma (HCC),ILD (interstitial lung disease) (HCC),Diffuse cutaneous systemic sclerosis (HCC),Therapeutic drug monitoring Take 1 (one) tablet by mouth once daily Take on an empty stomach. 90 tablet 4 03/14/2024 nintedanib (Ofev) 150 MG capsuleIndications:ILD (interstitial lung disease) (HCC) Take 1 (one) capsule by mouth 2 times daily with morning and evening meal 60 capsule 11 05/09/2024 05/09/2025 nortriptyline (Pamelor) 10 MG capsuleIndications:Ves tibular migraine Take 1 (one) capsule by mouth at bedtime 30 capsule 3 10/15/2024 pantoprazole EC (Protonix) 40 MG tabletIndications:Scle roderma (HCC),ILD (interstitial lung disease) (HCC),Diffuse cutaneous systemic sclerosis (HCC),Therapeutic drug monitoring Take 1 (one) tablet by mouth once daily for 90 days 90 tablet 08/21/2024 11/19/2024 Progesterone 200 MG capsule Take 1 (one) capsule by mouth at bedtime 09/13/2024 ubrogepant (Ubrelvy) 100 MG tabletIndications:Vest ibular migraine Take 1 (one) tablet by mouth daily as needed - may repeat one time for Migraine No more than 2 doses in 24 hours. 12 tablet 3 10/15/2024 11/14/2024 documented as of this encounter Plan of Treatment Upcoming Encounters Date Type Department Care Team (Late st Contact Info) Description 10/31/2024 9:30 AM CDT Office Visit [facility] - Rheumatology [address] [place] [phone] Kelechi Herrera MD [address] [place] [address] 11/20/2024 11:00 AM CDT Appointment [facility] [address] [place] [phone] Unknown, Provider 12/05/2024 9:30 AM CDT [place] [facility] [place] [address] [place] [phone] Neeraj Pennington MD [facility] [place] [address] 12/11/2024 11:00 AM CDT Office Visit [facility] - Pulmonology [address] [place] [phone] Mohan Rojas MD [address] [place] [address] 2L DIV OF PULM/[place] [address] 02/18/2025 1:00 PM CDT Office Visit [facility] - Neurology [facility], [place] [phone] Tricia Serrano MD [address] [place] [address] documented as of this encounter Goals Goal Patient Goal Type Associated Problems Recent Progress Patient-Stated? 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) documented in this encounter Administered Medications Inactive Administered Medications - up to 3 most recent administrations Medication Order MAR Action Action Date Dose Rate Site tocilizumab (Actemra) 560 mg in 0.9% NaCl IV 100 mL IVPB 560 mg (rounded from 559.2 mg = 8 mg/kg 69.9 kg), at 100 mL/hr, Administer over 60 Minutes, Intravenous, ONCE, 1 dose, On Tue10/23/24 at 1200, Not to exceed max dose of 800 mg $ New Bag/Syringe 10/23/2024 12:07 PM DROP COUNT ASSOCIATE 560 mg 100 mL/hr documented in this encounter Care Teams Telephone Order Clerk Relationship Specialty Start Date End Date Amelia Tamayo MD [address] [place] [address] PCP - General Family Medicine 02/17/24 documented as of this encounter
== END 2024-10-25 07:48 | disposition home or self-care (01) ==
LOC: ANHAUDIO 07:48
PROVIDERS: PCP Nurse Practitioner Family; Visit Provider Nurse Practitioner Family
DX: H93.19 Tinnitus, unspecified ear (principal); R42 Dizziness and giddiness
CPT/HCPCS: 92557; 92567

== ENCOUNTER 2024-11-14 10:43 | Outpatient (CLI) | payer OTHER, SELFPAY ==
--- NOTE | ~2024-11-14 | US_ITS ---
EXAMINATION: US breast LT limited HISTORY: Six-month follow-up ultrasound. High resolution limited left breast ultrasound was performed. COMPARISON: Reference is made to previous ultrasound dated 05/10/2024 as well as prior mammography koki ed 05/10/2024 and dating back to 04/16/2024 (patient's baseline mammography). FINDINGS: ULTRASOUND: At the 1:00 position of the left breast approximately 5 cm from the nipple is a well-circumscribed an echoic avascular structure with increased through transmission measuring 4.5 x 4.5 x 3.2 mm, consiste nt with a simple cyst for which no further follow-up is needed. IMPRESSION: This focus appears as a simple cyst on current examination for which no further follow-up is needed. Resumption of yearly screening mammography is recommended. BI-RADS Category 2: Benign finding(s). Reviewed, dictated and finalized at location A.
--- OUTSIDE RECORDS SUMMARY | 2024-11-14 12:09 | XMS_ITS | Referral Summary ---
Author Organization [facility] Address [address] [place] [address] Care Team Providers Care Stand In Name Role Phone Amelia Tamayo MD Primary Care Provider Titi Moss MD Unavailable [phone] Allergies Active Allergy Reactions Criticality Noted [...] 10/12/2023 Assessment & Plan (10/19/2023 5:46 PM CROCHET BEADER): Dffuse systemic sclerosis, s/p IVIG for progressive [...] outpatient Assessment & Plan (10/18/2023 12:59 PM CROCHET BEADER): Dffuse systemic sclerosis, s/p IVIG for progressive [...] outpatient Assessment & Plan (10/12/2023 12:44 PM CROCHET BEADER): Dffuse systemic sclerosis, s/p IVIG for progressive [...] 11/27. Assessment & Plan (10/19/2023 5:46 PM CROCHET BEADER): TTE this admission with e/o acute RV [...] TTE. Assessment & Plan (10/18/2023 12:57 PM CROCHET BEADER): TTE this admission with e/o acute RV [...] TTE. Assessment & Plan (10/12/2023 12:32 PM CROCHET BEADER): TTE this admission with e/o acute RV [...] 10/04/2023 Assessment & Plan (10/21/2023 6:30 PM CROCHET BEADER): Azra Little is a 48 year old [...] outpatient Assessment & Plan (10/18/2023 12:51 PM CROCHET BEADER): Azra Little is a 48 year old [...] outpatient Assessment & Plan (10/12/2023 12:22 PM CROCHET BEADER): Admitted with acute hypoxemic respiratory failure requiring [...] discharge Assessment & Plan (10/09/2023 9:53 AM CROCHET BEADER): -presenting with shortness of breath for approximately [...] COVID Assessment & Plan (10/06/2023 1:11 PM CROCHET BEADER): Acute-onset SOB on subacute SOB/NICHOLAS/BLEE x 4-6 [...] 10/04/2023 Assessment & Plan (10/09/2023 9:52 AM CROCHET BEADER): -presenting with progressive NICHOLAS and exercise intolerance, episodic ALEJANDRO, episodic rash on upper extremities and chest. -serologies notable for positive SHYLA and anti-Scl70. -s/p IVIG for 4 days -rheumatology following Assessment & Plan (10/04/2023 5:37 PM CROCHET BEADER): Presenting with 5-6 months of progressive NICHOLAS [...] 10/04/2023 Assessment & Plan (10/07/2023 11:15 AM CROCHET BEADER): -baseline Hgb 9-10. -continue enteral iron q48 hours -cbc daily Assessment & Plan (10/04/2023 12:25 AM CROCHET BEADER): Recent baseline Hgb 9-10s, admitted at 10.5 -> 8.8, likely secondary to admission hemoconcentration and subsequent phlebotomy, no clinical signs of bleeding. Fe 12, ferritin 133, TIBC 198, Tsat 6. - on PO iron, space to every other day - can consider IV iron after no longer infected GERD (gastroesophageal reflux disease) Assessment & Plan (10/07/2023 11:15 AM CROCHET BEADER): -daily PPI Assessment & Plan (10/04/2023 12:26 AM CROCHET BEADER): Having reflux symptoms, concerning for relation to scleroderma. - start PPI (new med) Lymphadenopathy 10/04/2023 Assessment & Plan (10/12/2023 12:26 PM CROCHET BEADER): Chest and axillary adenopathy probably reactive. To be reassessed with next chest CT. Assessment & Plan (10/07/2023 11:15 AM CROCHET BEADER): -recurrent scans with mediastinal LAD, questionable breast LAD. -recommend outpatient mammogram Assessment & Plan (10/04/2023 12:26 AM CROCHET BEADER): Recurrent scans with mediastinal LAD, questionable breast LAD. - outpatient mammogram Severe protein-calorie malnutrition 10/04/2023 Assessment & Plan (10/07/2023 11:15 AM CROCHET BEADER): -nutrition consult -encourage PO intake and nutritional supplements Dyspnea, unspecified type 10/01/2023 Breast mass 07/27/2023 Assessment & Plan (07/27/2023 10:50 AM CROCHET BEADER): CT with breast asymmetry with axillary LN [...] 07/27/2023 Assessment & Plan (07/27/2023 10:27 AM CROCHET BEADER): Associated with metromenorrhagia in setting if uterine fibroids. CBC with hemoglobin at 10 from 12 2 months ago in setting of menorrhagia. Has been on iron supplement but haven't been taking it. - rec follow up with her MEETING FACILITATOR Acute on chronic respiratory failure 07/26/2023 Assessment [...] find out whether she can follow with [facility] rheum/pulm as an outpatient; if so, we are happy to see her in clinic, and this would be optimal since the majority of her workup has been performed at [facility]. In summary, our recommendations are as follows: [...] today Assessment & Plan (07/28/2023 1:19 PM CROCHET BEADER): Admitted with worsening exertional dyspnea, orthopnea, bendopnea, [...] 05/25/2023 Assessment & Plan (07/27/2023 2:41 PM CROCHET BEADER): Mild, intermittent LE edema. Patient endorses current upper extremity edema I cannot recognize on exam. - continue compression stocking - LE dop negative Asthma exacerbation 12/15/2017 Assessment & Plan (07/28/2023 1:20 PM CROCHET BEADER): Prior asthma history, reporting shortness of breath, [...] 10/14/2023 Assessment & Plan (10/18/2023 12:55 PM CROCHET BEADER): Diagnosed on admission after presenting with AHRF requiring ICU admission and BiPAP. Treated with Tamiflu 09/30-10/12. See acute hypoxemic respiratory failure problem. Assessment & Plan (10/11/2023 1:09 PM CROCHET BEADER): Diagnosed on admission after presenting with AHRF requiring ICU admission and BiPAP. Has been on Tamiflu since 09/30. - Continue Tamiflu Assessment & Plan (10/09/2023 10:35 AM CROCHET BEADER): -Will receive a total of 20 doses of tamiflu COVID 10/09/2023 10/14/2023 Assessment & Plan (10/18/2023 1:13 PM CROCHET BEADER): Patient developed worsening SOB with worsening infiltrates on CT on 10/04, requiring transfer to the ICU. Repeat RVP on 10/08 positive for COVID. Received remdesivir and dexamethasone. 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 See acute hypoxemic respiratory failure problem. Assessment & Plan (10/18/2023 12:54 PM CROCHET BEADER): Patient developed worsening SOB with worsening infiltrates on CT on 10/04, requiring transfer to the ICU. Repeat RVP on 10/08 positive for COVID. +COVID Ab test. Received remdesivir and dexamethasone. 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 See acute hypoxemic respiratory failure problem. Assessment & Plan (10/12/2023 12:25 PM CROCHET BEADER): Patient developed worsening SOB with worsening infiltrates [...] plan. 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) and remdesivir -IS and OOBTC and acapella Pulmonary hypertension 10/06/202310/07 Assessment & Plan (10/06/2023 6:21 PM CROCHET BEADER): -Noted on TTE 10/06 EF 66%, PASP 50, with small effusion -Pulmonology consulted Acute kidney injury 10/04/2023 10/07/19 24 Assessment & Plan (10/06/2023 10:19 PM CROCHET BEADER): Creatine down trending Assessment & Plan (10/04/2023 12:25 AM CROCHET BEADER): Baseline normal, arrived 1.2, resolved to baseline [...] experiencing loneliness or isolatio n Never 10/28/2023 [facility] Utilities Answer Date Recorded In the past 12 months has e [employer], gas, oil, or water [employer] threatened to shut off services in your [...] often do you attend chur ch or sikhism services? 1 to 4 times per year 12/02/2023 Do you belong to any clubs o r organizations such as oriental orthodox groups, unions, fraternal or athletic groups, or [...] place to sleep or slept in a alf (including now)? No 12/02/2023 Personal Safety Answer Date Recorded Have you ever been in or are you currently in a harmful physical or emotional relationship or is someone making you feel afraid or unsafe? Denies 11/24/2023 Comments Unknown Sex and Gender Information Value Date Recorded Sex Assigned at Not on file Legal Sex Female 9:11 PM CROCHET BEADER Gender Identity Not on file Sexual Orientation [...] HEPATITIS PANEL, ACUTE STAT 10/04/2023 5:46 PM CROCHET BEADER SCREENING MAMMOGRAM BILATERAL W PAOLO 05/14/2019 8:21 AM CDT from Last 3 Months or Most Recently Relevant to Health Maintenance Results * (ABNORMAL) Hepatitis panel, acute Blood (10/04/2023 5:46 PM CROCHET BEADER) Hep A IgM Reactive(A) Nonreactive [facility] Hep B core IgM Nonreactive Nonreactive [facility] Hep C Ab Nonreactive Nonreactive [facility] Comment:Antibodies to HCV no t detected. Does NOT exclude the possibility of recent exposure to HCV. Current interpretive data was last revised on 22 HepBsAg Nonreactive Nonreactive [facility] Blood 10/04/2023 5:46 PM CROCHET BEADER 10/04/2023 6:23 PM CROCHET BEADER Chelly Salcido MD LAB MICROBIOLOGY - GENERAL O RDKERI Final Result [facility] Department [place] [address] * Screening Mammogram Bilateral W Paolo (05/14/2019 8:21 AM CDT) Anatomical Region Laterality Modality Breast Bilateral Mammography 05/14/2019 8:27 AM CDT Narrative 05/14/2019 9:18 AM CDT Patient Name: AZRA LITTLE Dr: Naila [place] MD D.O.B: 1975 Exam Date: 05/14/19820 Age: 43 Sex: Female MR#: [id number] Loc: Acc#: [id number] RADIOLOGY REPORT Order #[id number] [facility] Argelia Bilat Screening 3D Signed [...] made to exam dated: 03/06/2018 mammogram - [facility]. BREAST TISSUE: The tissue of both breasts [...] age 39, based on guidelines of the [employer] (ACR Practice Parameter for the Performance of Screening and Diagnostic Mammography) and [employer]. For women with an elevated risk of breast cancer, please refer to the ACR Practice Parameter for specific screening recommendations. The patient will be entered into a reminder system with a target due date of 1 year for her next screening exam. Electronically signed by: Esdras Salgado M.D., md/:05/14/2019 09:18:42 Supervisor Inspecting: Gail LAWRENCE)(Jcarlos), [facility] letter sent: Normal Exam Reading location: BI-RADS: 2 Benign REPORT ELECTRONICALLY SIGNED IN OTHER VENDOR SYSTEM Resulting Agency Comment O Procedure Note Esdras Salgado MD - 05/14/2019 Patient Name: AZRA LITTLE Dr: Naila [place] MD D.O.B: 1975 Exam Date: 05/14/19 0821 Age: 43 Sex: Female MR#: [id number] Loc: RADIOLOGY REPORT Order #[id number] [facility] Argelia Bilat Screening 3D Signed [...] is made to exam dated: 03/06/2018 mammogram -[facility]. BREAST TISSUE: The tissue of both breasts [...] age 39, based on guidelines of the [place] [employer] (ACR Practice Parameter for the Performance of Screening and Diagnostic Mammography) and [employer]. For women with an elevated risk of breast cancer, pleaserefer to the ACR Practice Parameter for specific screening recommendations. The patient will be entered into a reminder system with a target due dateof 1 year for her next screening exam. Electronically signed by: Esdras Salgado M.D., md/:05/14/2019 09:18:42 Supervisor Inspecting: Gail RAMIRES(R)(Jcarlos), [facility] letter sent: Normal Exam Reading location: BI-RADS: 2 Benign REPORT ELECTRONICALLY SIGNED IN OTHER VENDOR SYSTEM Naila [place] MD IMG MAMMO PROCEDURES Final Re sult from Last 3 Months or Most Recently Relevant to Health Maintenance [place] [id number] [facility] Advance Directives For more information, please contact: [phone] * Full Code (Latest Code Status on File) Date Activated Date Inactivated Comments 11/24/2023 7:16 PM 12/01/2023 9:01 PM * Full Code Date Activated Date Inactivated Comments 10/01/2023 3:54 PM 10/22/2023 5:23 PM * Full Code Date Activated Date Inactivated Comments 07/26/2023 9:54 PM 07/28/2023 9:43 PM Care Teams Stand In Relationship Specialty Start Date End Date Amelia Tamayo MD [address] [facility] [address] [facility] [address] [place] [address] PCP - General Family Medicine 10/31/23 Titi Moss MD [address] [facility] [address] [place] [address] Family Medicine 12/28/23
--- OUTSIDE RECORDS SUMMARY | 2024-11-14 12:09 | XMS_ITS | Clinical Summary ---
Author Organization [facility] Address [address] [place] [address] Care Team Providers Care Chief Of Anesthesiology Name Role Phone Amelia Tamayo MD Primary Care Provider Titi Moss MD Unavailable [phone] Allergies Active Allergy Reactions Criticality Noted [...] 10/12/2023 Assessment & Plan (10/19/2023 5:46 PM MODELER): Dffuse systemic sclerosis, s/p IVIG for progressive [...] outpatient Assessment & Plan (10/18/2023 12:59 PM MODELER): Dffuse systemic sclerosis, s/p IVIG for progressive [...] outpatient Assessment & Plan (10/12/2023 12:44 PM MODELER): Dffuse systemic sclerosis, s/p IVIG for progressive [...] 11/27. Assessment & Plan (10/19/2023 5:46 PM MODELER): TTE this admission with e/o acute RV [...] TTE. Assessment & Plan (10/18/2023 12:57 PM MODELER): TTE this admission with e/o acute RV [...] TTE. Assessment & Plan (10/12/2023 12:32 PM MODELER): TTE this admission with e/o acute RV [...] 10/04/2023 Assessment & Plan (10/21/2023 6:30 PM MODELER): Azra Little is a 48 year old [...] outpatient Assessment & Plan (10/18/2023 12:51 PM MODELER): Azra Little is a 48 year old [...] outpatient Assessment & Plan (10/12/2023 12:22 PM MODELER): Admitted with acute hypoxemic respiratory failure requiring [...] discharge Assessment & Plan (10/09/2023 9:53 AM MODELER): -presenting with shortness of breath for approximately [...] COVID Assessment & Plan (10/06/2023 1:11 PM MODELER): Acute-onset SOB on subacute SOB/NICHOLAS/BLEE x 4-6 [...] 10/04/2023 Assessment & Plan (10/09/2023 9:52 AM MODELER): -presenting with progressive NICHOLAS and exercise intolerance, episodic ALEJANDRO, episodic rash on upper extremities and chest. -serologies notable for positive SHYLA and anti-Scl70. -s/p IVIG for 4 days -rheumatology following Assessment & Plan (10/04/2023 5:37 PM MODELER): Presenting with 5-6 months of progressive NICHOLAS [...] 10/04/2023 Assessment & Plan (10/07/2023 11:15 AM MODELER): -baseline Hgb 9-10. -continue enteral iron q48 hours -cbc daily Assessment & Plan (10/04/2023 12:25 AM MODELER): Recent baseline Hgb 9-10s, admitted at 10.5 -> 8.8, likely secondary to admission hemoconcentration and subsequent phlebotomy, no clinical signs of bleeding. Fe 12, ferritin 133, TIBC 198, Tsat 6. - on PO iron, space to every other day - can consider IV iron after no longer infected GERD (gastroesophageal reflux disease) Assessment & Plan (10/07/2023 11:15 AM MODELER): -daily PPI Assessment & Plan (10/04/2023 12:26 AM MODELER): Having reflux symptoms, concerning for relation to scleroderma. - start PPI (new med) Lymphadenopathy 10/04/2023 Assessment & Plan (10/12/2023 12:26 PM MODELER): Chest and axillary adenopathy probably reactive. To be reassessed with next chest CT. Assessment & Plan (10/07/2023 11:15 AM MODELER): -recurrent scans with mediastinal LAD, questionable breast LAD. -recommend outpatient mammogram Assessment & Plan (10/04/2023 12:26 AM MODELER): Recurrent scans with mediastinal LAD, questionable breast LAD. - outpatient mammogram Severe protein-calorie malnutrition 10/04/2023 Assessment & Plan (10/07/2023 11:15 AM MODELER): -nutrition consult -encourage PO intake and nutritional supplements Dyspnea, unspecified type 10/01/2023 Breast mass 07/27/2023 Assessment & Plan (07/27/2023 10:50 AM MODELER): CT with breast asymmetry with axillary LN [...] 07/27/2023 Assessment & Plan (07/27/2023 10:27 AM MODELER): Associated with metromenorrhagia in setting if uterine fibroids. CBC with hemoglobin at 10 from 12 2 months ago in setting of menorrhagia. Has been on iron supplement but haven't been taking it. - rec follow up with her ELECTRICIAN Acute on chronic respiratory failure 07/26/2023 Assessment [...] find out whether she can follow with [facility] rheum/pulm as an outpatient; if so, we are happy to see her in clinic, and this would be optimal since the majority of her workup has been performed at [facility]. In summary, our recommendations are [...] today Assessment & Plan (07/28/2023 1:19 PM MODELER): Admitted with worsening exertional dyspnea, orthopnea, bendopnea, [...] 05/25/2023 Assessment & Plan (07/27/2023 2:41 PM MODELER): Mild, intermittent LE edema. Patient endorses current upper extremity edema I cannot recognize on exam. - continue compression stocking - LE dop negative Asthma exacerbation 12/15/2017 Assessment & Plan (07/28/2023 1:20 PM MODELER): Prior asthma history, reporting shortness of breath, [...] 10/14/2023 Assessment & Plan (10/18/2023 12:55 PM MODELER): Diagnosed on admission after presenting with AHRF requiring ICU admission and BiPAP. Treated with Tamiflu 09/30-10/12. See acute hypoxemic respiratory failure problem. Assessment & Plan (10/11/2023 1:09 PM MODELER): Diagnosed on admission after presenting with AHRF requiring ICU admission and BiPAP. Has been on Tamiflu since 09/30. - Continue Tamiflu Assessment & Plan (10/09/2023 10:35 AM MODELER): -Will receive a total of 20 doses of tamiflu COVID 10/09/2023 10/14/2023 Assessment & Plan (10/18/2023 1:13 PM MODELER): Patient developed worsening SOB with worsening infiltrates on CT on 10/04, requiring transfer to the ICU. Repeat RVP on 10/08 positive for COVID. Received remdesivir and dexamethasone. 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 See acute hypoxemic respiratory failure problem. Assessment & Plan (10/18/2023 12:54 PM MODELER): Patient developed worsening SOB with worsening infiltrates on CT on 10/04, requiring transfer to the ICU. Repeat RVP on 10/08 positive for COVID. +COVID Ab test. Received remdesivir and dexamethasone. 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 See acute hypoxemic respiratory failure problem. Assessment & Plan (10/12/2023 12:25 PM MODELER): Patient developed worsening SOB with worsening infiltrates [...] plan. 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) and remdesivir -IS and OOBTC and acapella Pulmonary hypertension 10/06/202310/07 Assessment & Plan (10/06/2023 6:21 PM MODELER): -Noted on TTE 10/06 EF 66%, PASP 50, with small effusion -Pulmonology consulted Acute kidney injury 10/04/2023 10/07/19 24 Assessment & Plan (10/06/2023 10:19 PM MODELER): Creatine down trending Assessment & Plan (10/04/2023 12:25 AM MODELER): Baseline normal, arrived 1.2, resolved to baseline [...] In the past 12 months has e Group [employer], gas, oil, or water App[employer] Couple threatened to shut off services in your [...] often do you attend chur ch or druze services? 1 to 4 times per year 12/02/2023 Do you belong to any clubs o r organizations such as christianity groups, unions, fraternal or athletic groups, or [...] place to sleep or slept in a fpc (including now)? No 12/02/2023 Personal Safety Answer Date Recorded Have you ever been in or are you currently in a harmful physical or emotional relationship or is someone making you feel afraid or unsafe? Denies 11/24/2023 Comments Unknown Sex and Gender Information Value Date Recorded Sex Assigned at Not on file Legal Sex Female 9:11 PM MODELER Gender Identity Not on file Sexual Orientation [...] HEPATITIS PANEL, ACUTE STAT 10/04/2023 5:46 PM MODELER SCREENING MAMMOGRAM BILATERAL [place] PAOLO 05/14/2019 8:21 AM CDT from Last 3 Months or Most Recently Relevant to Health Maintenance Results * (ABNORMAL) Hepatitis panel, acute Blood (10/04/2023 5:46 PM MODELER) Hep A IgM Reactive(A) Nonreactive [facility] Hep B core IgM Nonreactive Nonreactive [facility] Hep C Ab Nonreactive Nonreactive [facility] Comment:Antibodies to HCV no t detected. Does NOT exclude the possibility of recent exposure to HCV. Current interpretive data was last revised on 22 HepBsAg Nonreactive Nonreactive [facility] Blood 10/04/2023 5:46 PM MODELER 10/04/2023 6:23 PM MODELER us Chelly Salcido MD LAB MICROBIOLOGY - GENERAL O RDERABLES Final Result [facility] Department [place] [address] * Screening Mammogram Bilateral [place] (05/14/2019 8:21 AM CDT) Anatomical Region Laterality Modality Breast Bilateral Mammography 05/14/2019 8:27 AM CDT Narrative 05/14/2019 9:18 AM CDT Patient Name: AZRA LITTLE Dr: Naila Franklin MD D.O.B: 1975 Exam Date: 05/14/19820 Age: 43 Sex: Female MR#: [id number] Loc: RADIOLOGY REPORT Order #[id number] [facility] Argelia Bilat Screening 3D Signed - MG [...] made to exam dated: 03/06/2018 mammogram - [facility]. BREAST TISSUE: The tissue of both [...] age 39, based on guidelines of the [employer] (ACR Practice Parameter for the Performance of Screening and Diagnostic Mammography) and [employer]. For women with an elevated risk of breast cancer, please refer to the ACR Practice Parameter for specific screening recommendations. The patient will be entered into a reminder system with a target due date of 1 year for her next screening exam. Electronically signed by: Esdras Salgado M.D., md/:05/14/2019 09:18:42 Installation Manager: Gail LAWRENCE)(M), [facility] letter sent: Normal Exam Reading location: BI-RADS: 2 Benign REPORT ELECTRONICALLY SIGNED IN OTHER VENDOR SYSTEM Resulting Agency Comment O Procedure Note Esdras Salgado MD - 05/14/2019 Patient Name: AZRA LITTLE Sherine Dr: Naila Franklin MD D.O.B: 1975 Exam Date: 05/14/19820 Age: 43 Sex: Female MR#: [id number] Loc: RADIOLOGY REPORT Order #[id number] [facility] Bilat Screening 3D Signed - MG BILATERAL [...] is made to exam dated: 03/06/2018 mammogram -[facility] BREAST TISSUE: The tissue [...] age 40, based on guidelines of the [employer] (ACR Practice Parameter for the Performance of Screening and Diagnostic Mammography) and [employer]. For women with an elevated risk of breast cancer, pleaserefer to the ACR Practice Parameter for specific screening recommendations. The patient will be entered into a reminder system with a target due dateof 1 year for her next screening exam. Electronically signed by: Esdras Salgado M.D., md/:05/14/2019 09:18:42 Installation Manager: Gail Dominguez RT(R)(M), [facility] letter sent: Normal Exam Reading location: BI-RADS: 2 Benign REPORT ELECTRONICALLY SIGNED IN OTHER VENDOR SYSTEM Naila Franklin MD IMG MAMMO PROCEDURES Final Re sult from Last 3 Months or Most Recently Relevant to Health Maintenance Insurance [facility] Advance Directives For more information, please contact: [phone] * Full Code (Latest Code Status on File) Date Activated Date Inactivated Comments 11/24/2023 7:16 PM 12/01/2023 9:01 PM * Full Code Date Activated Date Inactivated Comments 10/01/2023 3:54 PM 10/22/2023 5:23 PM * Full Code Date Activated Date Inactivated Comments 07/26/2023 9:54 PM 07/28/2023 9:43 PM Care Teams Chief Of Anesthesiology Relationship Specialty Start Date End Date Amelia Tamayo MD [address] [facility] [address] [place] [address] PCP - General Family Medicine 10/31/23 Titi Moss MD [address] [address] Family Medicine 12/28/23
--- OUTSIDE RECORDS SUMMARY | 2024-11-14 12:09 | XMS_ITS | Data Portability ---
Author Organization [facility] Address [address] [place] [address] Care Team Providers Care Knotter Hand Name Role Phone TITI BLACK Primary Care Provider [phone] Assessment No assessment recorded. Plan of Treatment Reminders Order Date Submit Date Provider Last Modified By Organization Details Last Modified Time Details Appointments None recorded. Lab pap, IG + reflex HPV 2023 024 [facility], [address] [place] [address], [address], [place], [address], 4 11:12:00 inflammatio n panel, serum or plasma 2022 023 [facility], [address] [place] [address], [address], [place], [address], 3 05:10:[address] referral - Systemic sclerosis with worsening SOB, to rule out ILD 2023 024 [facility], [address] [place] [address], [address], 4 08:44:44 Procedures None recorded. Surgeries None recorded. Imaging XR, chest, 2 view 2023 024 [facility] Scheduling, One [facility], [place], [address], 4 13:23:59 MAMMO, diagnostic, digital, unilateral 2022 023 [facility] Scheduling, One [facility], [place], [address], 3 13:27:24 MAMMO, screening, bilateral 2018 019 RONI Not available 9 10:34:52 Medication Orders hydroxychlo roquine 200 mg tablet 2023 024 [id number], [address] [place] [address], [id number], 4 17:10:54 prednisone 20 mg tablet 2022 023 [facility][id number], [address] [place] [address], [id number], 3 12:08:13 Bactrim DS 800 mg-160 mg tablet 2019 020 [facility], [facility], [address] [place] [address], [id number], 11:48:33 Patient TargetsNo targets recorded. Patient Instructions Encounter Date Encounter Id Patient Instructions Last Modified By Organization Details Last Modified Time 06/24/2023 [id number] I was present and available in the family medicine clinic to discuss the patient's care during the appointment and the case was discussed with me. I agree with the resident's assessment and plan as documented. HL [email or web address] Not available 06/29/2023 10:51:01 08/03/2023 [id number] I certify that I was present for case discussion in the Family Medicine preceptor room at the time of this encounter. I have reviewed the note and agree with the findings, assessment, and plan except as I have documented below. Follow up as listed. All labs/imaging/con sults to be followed by the ordering provider. Festus Perkins, , [facility], Staff Physician. juan Not available 08/08/2023 14:13:36 09/08/2023 [id number] I certify that I was present for case discussion in the Family Medicine preceptor room at the time of this encounter. I have reviewed the note and agree with the findings, assessment, and plan except as I have documented below. Follow up as listed. All labs/imaging/con sults to be followed by the ordering provider. Festus Perkins, , [facility], Staff Physician. juan Not available 2023 14:00:56 Reason for Referral Filter Pulp Washer Referral for D yspnea Systemic sclerosis with worsening SOB, to rule out ILD Referring Physician: Titi Black, Boat Cleaning Supervisor, Encounter Date: 09/08/2023 Results Created Date Observation Date Name Description Value Unit Range Abnormal Flag Note LastModifiedBy Organization Detail LastModifiedTime 06/24/2006/25/2023 ESR-W ES+CR P sedimentatio n rate-westerg erica 35 mm/HR 0-32 above high normal Not Available [facility] ([facility]) [address] [place], [address], 06/25/2023 05:10:33 06/24/2006/25/2023 ESR-W ES+CR P C-reactive protein, quant 7 mg/L 0-10 Not Available [facility] ([facility]) [address] [place], [address], 06/25/2023 05:10:33 07/01/20 23 07/04/2023 SHYLA W/RFX TO ALL IF POSIT ROXANN SHYLA direct Positi ve negati ve abnormal Not Available [facility] ([facility]) [address] [place], [address], 07/04/2023 13:09:19 07/01/2007/02/2023 RHEUM ATOID FACTO R (RF) rheumatoid factor (rf) <10.0 IU/mL <14.0 Not Available [facility] ([facility]) [address] [place], [address], 07/04/2023 13:09:19 07/01/20 23 07/04/2023 ANTIN UCLEA R AB 11 BY MULTI PLEX anti-DNA (ds) Ab qn 1 IU/mL 0-9 Negat roxann <5 Equiv ocal 5 - 9 Posit roxann >9 Not Available [facility] ([facility]) [address] [place], [address], 07/04/2023 13:09:18 07/01/20 23 07/04/2023 ANTIN UCLEA R AB 11 BY MULTI PLEX clipper machine antibodies <0.2 ai 0.0-0. 9 Not Available [facility] ([facility]) [address] [place], [address], 07/04/2023 13:09:18 07/01/20 23 07/04/2023 ANTIN UCLEA R AB 11 BY MULTI PLEX varela antibodies <0.2 Not Available [facility] ([facility]) [address] [facility], [place], [address], 07/04/2023 13:09:18 07/01/20 23 07/04/2023 ANTIN UCLEA R AB 11 BY MULTI PLEX varela/clipper machine antibodies <0.2 Not Available [facility] ([facility]) [address] [place], [address], 07/04/2023 13:09:18 07/01/20 23 07/04/2023 ANTIN UCLEA R AB 11 BY MULTI PLEX antisclerode rma-70 antibodies >8.0 above high normal Not Available [facility] ([facility]) [address] [place], [address], 07/04/2023 13:09:18 07/01/20 23 07/04/2023 ANTIN UCLEA R AB 11 BY MULTI PLEX sjogren's anti-ss-A 0.2 ai 0.0-0. 9 Not Available [facility] ([facility]) [address] [place], [address], 07/04/2023 13:09:18 07/01/20 23 07/04/2023 ANTIN UCLEA R AB 11 BY MULTI PLEX sjogren's anti-ss-B <0.2 ai 0.0-0. 9 Not Available [facility] ([facility]) [address] [facility], [place], [address], 07/04/2023 13:09:18 07/01/2007/04/2023 ANTIN UCLEA R AB 11 BY MULTI PLEX antichromati n antibodies <0.2 Not Available [facility] ([facility]) [address] [facility], [place], [address], 07/04/2023 13:09:18 07/01/2007/04/2023 ANTIN UCLEA R AB 11 BY MULTI PLEX antiribosoma l P antibodies <0.2 Not Available [facility] ([facility]) [address] [facility], [place], [address], 07/04/2023 13:09:18 07/01/20 23 07/04/2023 ANTIN UCLEA R AB 11 BY MULTI PLEX anti-destiny-1 <0.2 Not Available [facility] ([facility]) [address] [facility], [place], [address], 07/04/2023 13:09:18 07/01/20 23 07/04/2023 ANTIN UCLEA R AB 11 BY MULTI PLEX anti-centrom ere B antibodies <0.2 Not Available [facility] ([facility]) [address] [facility], [place], [address], 07/04/2023 13:09:18 07/01/2007/04/2023 ANTIN UCLEA R AB [...] SLE 15 - 30% _ ___ ____ HARVEST WORKER FRUIT Mixed Conne ctive Tissu e Disea se 95% (U1 nRNP, SLE 30 - 50% anti- ribon ucleo prote in) Polym yosit is and/o r [place] tomyo sitis 20% _ ____ ____ Scl-7 0 (anti DNA Scler oderm a (diff use) 20 - 35% topoi josep ase) Crest 13% _ ____ ____ Destiny-1 Polym yosit is and/o r [place] tomyo sitis 20 - 40% _ ____ ____ Centr omere B Scler oderm a - Crest varia nt 80% _ ____ ____ Ribos omal P SLE 10 - 20% Not Available [facility] ([facility]) [address] [place], [address], 07/04/2023 13:09:18 09/08/19 24 09/08/2023 IGP,A PTIMA HPV,A GE GDLN age gdln acog testing 30-65 Not Available [facility] ([facility]) [address] [place], [address], 09/12/2023 11:11:59 09/08/19 24 09/09/2023 IGP, APTIM A HPV, RFX 16/18 ,45 HPV aptima Negati ve negati ve This nucle ic acid ampli ficat ion test detec ts fourt een high- risk HPV types (16,1 8,31, 33,35 ,39,4 5,51, 52,56 ,58,5 9,66, 68) witho ut diffe renti ation . Not Available [facility] ([facility]) [address] [place], [address], 09/12/2023 11:12:10 09/08/19 24 09/12/2023 IGP, APTIM A HPV, RFX 16/18 ,45 diagnosis: Anival rob NEGAT ROXANN FOR INTRA EPITH ELIAL RUBA Pulliam OR FLORENTINO ALEJO . Not Available [facility] ([facility]) [address] [facility], [place], [address], 09/12/2023 11:12:10 09/08/19 24 09/12/2023 IGP, APTIM A HPV, RFX 16/18 ,45 specimen adequacy: Anival t Satis facto ry for evalu ation . Endoc ervic al and/o r squam ous metap lasti c cells (endo cervi claudia compo nent) are prese nt. Not Available [facility] ([facility]) [address] [facility], [place], [address], 09/12/2023 11:12:10 09/08/19 24 09/12/2023 IGP, APTIM A HPV, RFX 16/18 ,45 clinician provided ICD10: Anival rob Z12.4 Not Available [facility] ([facility]) [address] [place], [address], 09/12/2023 11:12:10 09/08/19 24 09/12/2023 IGP, APTIM A HPV, RFX 16/18 ,45 performed by: Anival pulliam, Cytot echmichael colin t (ASCP ) Not Available [facility] ([facility]) [address] [place], [address], 09/12/2023 11:12:10 09/08/19 24 09/12/2023 IGP, APTIM A HPV, RFX 16/18 ,45 . . Not Available [facility] ([facility]) [address] [facility], [place], [address], 09/12/2023 11:12:10 09/08/19 24 09/12/2023 IGP, APTIM [...] ts do occur . Not Available [facility] ([facility]) [address] [facility], [place], [address], 09/12/2023 11:12:10 09/08/19 24 09/12/2023 IGP, APTIM A HPV, RFX 16/18 ,45 test methodology: Commen t This liqui d based ThinP rep(R ) pap test was scree trang with the use of an image guide newton systyuly m. Not Available [facility] ([facility]) [address] [facility], [place], [address], 09/12/2023 11:12:10 09/08/19 24 09/12/2023 IGP, APTIM A HPV, RFX 16/18 ,45 HPV genotype reflex Commen t Crite shivam not met, HPV Genot ype not perfo rmed. Not Available [facility] ([facility]) [address] [facility], [place], [address], 09/12/2023 11:12:10 05/14/20 19 05/14/2019 MAMMO , carl tao, bilat eral No observ ation record ed. [email or web address] [facility] [address] [place], [address], 05/17/2019 15:59:36 07/10/20 23 xr hand RT 3V [facility] [place] [address] INDICA TION: Swelli ng of finger s [...] By: David peterson, 2022 1:18 AM [facility] [address] [facility], [place], [address], 07/13/2023 17:06:52 07/10/20 23 xr wrist RT min 3V [facility] [place] [address] INDICA TION: Swelli ng of finger s [...] reted By: David peterson, 2022 1:18 AM [facility], [place], [address], 07/13/2023 17:06:53 07/10/20 23 XR, wrist + hand [facility] [place] [address] INDICA TION: Swelli ng of finger s [...] By: David peterson, 2022 1:20 AM [facility] Scheduling One [facility], [place], [address], 09/02/2023 16:21:55 07/10/20 23 XR, wrist + hand [facility] [place] [address] INDICA TION: Swelli ng of finger s [...] reted By: David peterson, 2022 1:20 [facility], [place], [address], 07/13/2023 17:06:53 09/08/19 24 XR, chest , 2 view [facility] [address] [facility] [address] Examin ation: Chest x-ray 2 view Access ion: [id number] Exam date/t ritika: 024 4:22 PM [...] By: Selena pulliam MD, 5:01 PM [facility] Scheduling [address] [facility], [place], [address], 10/25/2023 13:24:00 Result Notes None recorded. Problems Name Problem SNOMED Code Status Onset Date Resolution Date Notes Provider Name and Address Organization Details Recorded Time Acute bronchitis 14440859 Active 2017 Denton Isaacs PA-C Attn: Accounting ,[address] , [place], [address] , [facility] 8 20:17:20 Asthma 223536062 Active 2017 Seema Jamil [place] null, [place] - [place] 8 11:54:06 Problem Notes None recorded. Procedures Surgical History Date Name Laterality Status Provider Name and Address Organization Details Recorded Time 02/18/20 18 Most Recent Mammogram completed Taras Garcia MA [facility] 03/29/2018 11:42:52 01/18/20 18 Date of Last Pap Smear completed Taras Garcia MA [facility] 03/29/2018 11:42:43 08/22/18 94 Cholecystectomy completed Naila [place] - [facility] 03/09/2018 12:59:38 Imaging Results Imaging Date Name Status LastModified by Organiz ation Details LastModified Time 05/14/2019 MAMMO, screening, bilateral [place] [address] [place], [address], 05/17/2019 15:59:36 07/10/2023 xr hand RT 3V completed [address], [address], 07/13/2023 17:06:52 07/10/2023 xr wrist RT min 3V completed [address], [address], 07/13/2023 17:06:53 07/10/2023 XR, wrist + hand completed [facility] One [facility], [place], [address], 09/02/2023 16:21:55 07/10/2023 XR, wrist + hand completed [facility] Scheduling [address] [facility], [place], [address], 07/13/2023 17:06:53 09/08/2023 XR, chest, 2 view completed [email or web address] Scheduling [address] [facility], [place], [address], 10/25/2023 13:24:00 Procedure Notes None recorded. Medical Equipment None Reported. Allergies Allergen ID Allergen Name Allergen Category Reaction Reaction Severity Criticality Documentation Date Start Date Code Code System Note Provider Name and Address Organization Details Recorded Time 595766 Product containin g penicilli n (product) medicatio n rash Not available Not available 09/08/2017 14624 8001 SNOMED Not Available Not Available Not [...] Updated DateTime 04/02/2019 162.56 cm 27.9 kg/m2 09751.1 2 g 120 mm[Hg] 72 mm[Hg] Darnisheontae Fawn, MA [facility] 9 11:56:59 Date Recorded Body height Body mass index (BMI) Body weight Heart rate Oxygen saturation Oxygen saturation in Arterial blood by Pulse oximetry Body temperature Systolic blood pressure Diastolic blood pressure Provider Name and Address Organization Details Last Updated DateTime 3 162.56 cm 28.7 kg/m2 79696.9 8 g 101 /min 96 % 96 % 98 [degF] 109 mm[Hg] 74 mm[Hg] Gordo Aguialr MA [facility] 3 10:49:52 Date Recorded Heart rate Systolic blood pressure Diastolic blood pressure Provider Name and Address Organization Details Last Updated DateTime 06/24/2023 99 /min 113 mm[Hg] 76 mm[Hg] Titi Black MD Attn: Accounting,[address] [place] [address], [address], [facility] 06/24/2023 11:29:44 Date Recorded Body height Body mass index (BMI) Body weight Body temperature Oxygen saturation Oxygen saturation in Arterial blood by Pulse oximetry Heart rate Systolic blood pressure Diastolic blood pressure Provider Name and Address Organization Details Last Updated DateTime 3 162.56 cm 29.4 kg/m2 48912.3 5 g 98.2 [degF] 96 % 96 % 102 /min 120 mm[Hg] 73 mm[Hg] Jennifer Pool MA [facility] 3 11:14:17 Date Recorded Body height Body mass index (BMI) Body weight Oxygen saturation Oxygen saturation in Arterial blood by Pulse oximetry Heart rate Body temperature Systolic blood pressure Diastolic blood pressure Provider Name and Address Organization Details Last Updated DateTime 4 162.56 cm 26 kg/m2 81271.9 g 98 % 98 % 92 /min 98.2 [degF] 104 mm[Hg] 69 mm[Hg] Veronica Kirkland MA [facility] 4 16:21:05 Social History Question Answer Notes LastModified by Organizat ion Details LastModified Time Tobacco Smoking Status Never Smoker Kedar renee, [facility] 09/08/2017 20:08:41 Do You Have An [...] not available 01/17/2018 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 No [email or web address] Information not available 12/15/2017 General Stress Level [...] Organization Details LastModified Time Mother Essential hypertension [email or web address] Not available 11:54:22 Mother Pulmonary embolism [email or web address] Not available 12/15 11:54:49 Father Asthma [email or web address] Not available 12/15/2017 11:54:59 Father Malignant tumor of colon [email or web address] Not available 12/15 11:55:08 Medical History Condition Response Coronary Artery Disease N Other N Atrial Fibrillation N High Blood Pressure N Breast Cancer N Lung Disease N [...] Skin Problems N Anemia N Heart Attack ([place]) N Diabetes N Ovarian Cancer N Blood [...] virus, quadrivalent, preservative 8 completed Not Available [facility] 09/08/2019 02:46:10 Past Encounters Encounter ID Performer Location Encounter Start Date Encounter Closed Date Diagnosis/Indication Diagnosis SNOMED-CT Code Diagnosis ICD10 Code Diagnosis Note [id number] Denton Isaacs PA-C [address] [address] 09/08/2017 19:51:30 09/12/2017 15:43:03 Acute bronchitis 64789489 J20.9 [id number] Destini David [address] [address] 11/26/2017 12:35:32 11/28/2017 09:01:06 Acute urinary tract infection 208474970 N39.0 [id number] Selena [place], [address] [address] 12/15/2017 11:36:51 12/30/2017 09:06:43 Dysuria 04692723 R30.0 w/ back pain and trace hematuria. Will culture Body mass index 25-29 - overweight 614706275 Z68.27 BMI=27.5, discussed increasing physical activity and incorporat ing healthier meal choices. Depression screening 171 766681 Z13.89 PHQ9=0, negative Mild inter mittent asthma 125632262 J45.20 Stable, refilled inhaler Bacterial vaginosis 4197 89336 N76.0 pos. hx. Discussed treatment and PRN follow-up, in addition to hygeine. [id number] Selena Samayoa [address] [address] 01/13/2018 11:03:40 01/23/2018 15:30:18 Urinary tract infectious disease 15906107 N39.0 dysuria and trace leukocytes and blood on dip Fatigue 55355333 R53.83 worsening. Discussed workup. Discussed sleep hygeine and stress reduction/ management . Mild inter mittent asthma 700276863 J45.20 Stable, Discussed rescue inhaler use PRN [id number] Naila [address] [address] 01/17/2018 10:53:29 01/17/2018 16:12:26 Gynecologic examination 56131924 Z01.419 Enlarged uterus 36583539 4 N85.2 Pelvic US. RTC to discuss results 2 - 3 weeks. [id number] Selena [place], [address] [address] 02/09/2018 16:12:50 02/10/2018 09:03:19 Microscopic hematuria 854677696 R31.21 UA positive for moderate blood in urineNo CVA tenderness /STDs negatie on papHad trasvagina l ultrasound with results of fibroids. Has an appt with CHORAL TEACHER on 02/14 to follow-up with results Anemia 428622880 D64.9 Iron saturation 12Hg 11.4, Hct 33.5Discus sed management and required follow-up. .. as per above she does have some hematuria, which can all be playing a role in anemia.Pt verbalized understand hilario ofproposed plan of care. Vitamin D deficiency 347 73962 E55.9 Vit level 19Pt verbalized understand ing and importance of follow-up [id number] [address] [address] 02/14/2018 14:01:09 02/16/2018 12:59:35 Uterine leiomyoma 61803564 D25.9 Mass of ovary 771755051 R19.09 RTC in 2-3 weeks. [id number] [place] [address] 3 03/09/2018 12:32:56 03/29/2018 11:38:42 Pelvic mass 26865296 R19.00 MRI with7 cm left dermoid cyst and uterine fibroids. Discussed the nature of dermoids as noncancero us growths. Will need surgical interventi on to possibly include hysterecto my. 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 Will get surgical clearance and RTC for scheduling . Will think about hysterecto my. [id number] SRIDEVI Wan [address] [address] 03/31/2018 11:40:57 04/03/2018 09:20:30 Pre-surgery evaluation 194824996 Z01.818 Will have surgery to correct/re move Vitamin D deficiency 347 12472 E55.9 Last Vit level 19Repeat level, continue 50,000 units once weekly [id number] [address] [address] 04/20/2018 12:18:51 05/23/2018 11:21:37 Benign teratoma of ovary 925438832 D27.9 Discussed size of dermoid. Plans for laproscopy with possible conversion to laprotomy. Reviewed risks, benefits and alternativ es. Does not want hysterecto my. [id number] SRIDEVI Wan [address] [address] 05/23/2018 09:45:04 05/25/2018 09:47:06 Hypercholesterolemia 87659185 E78.00 CH 231; LDL 170. She is eating a lot of pork. Discussed cutting back. Pt. wants to trial lifestyle chnages and exercise for 3 months Administra tion of influenza vaccine 87901981 Z23 Informed consent. Discussed care instructio n Overweight 802570462 E66 .3 27.3, encouraged exercise 3-5 days a week. [id number] [address] [address] 06/27/2018 12:54:11 06/28/2018 14:25:25 Endometriosis of pelvic peritoneum 832418869 N80.3 Postoperative visit 1836 04063 Z09 No signs of infection. Discussed final pathology. Continue NSAIDs prn for pain. RTC in 2 weeks, sooner if problems. Dysuria 78197888 R30.0 Dipstick without nitrites. Small wbcs. [id number] [address] [address] 07/11/2018 10:56:54 07/12/2018 09:49:35 Postoperative visit 924003744 Z09 No signs of infection. Return to work next week. F/U prn [id number] [address] [address] 04/02/2019 11:31:03 04/02/2019 14:42:58 Screening mammography 31987315 Z12.[id number] [address] 01/08/2020 10:36:03 01/08/2020 18:33:22 Dysuria 32061775 R30.0 -Phone visit during COVID 19 -presumed UTI. -Bactrim X 5 days. -Contact office if no improvemen t. 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 Encouraged to use compressio n stockings and order placed Bilateral swelling of finger of hands 7434051112 3492683 R22.33 H/o swollen fingers of both hands x 3 weeks with intermitte nt pain and stiffness during morning. Differenti als would be RA and OA- Pending ESR and CRP [id number] ANDRE PERKINS , [place] [address] 3 [facility] [address] [place] [address] 08/03/2023 11:06:47 08/10/2023 11:18:42 Mass of left breast 0219503345 6344025 N63.20 possible breast nodule - 07/28 CT showed prominent L axillary LN with asymmetric tissue and possible 1.5 cm nodule in left upper outer breast, recommende d correlatio n with dedicated breast imaging. A breast ultrasound was not able to be done inpatient. Also, Mammograms also not done inpatient. Tachycardia 9009897 R00. 0 This is likely 2/2 to anemia.Had full cardiac work up during hospitaliz ation that showed ECHO with > LVEF 65%, normal diastolic function. Delta trop negative, BNP 58, TSH 1.04, VBG normal, CMP w/o Gap. EKG normal as well.Needs to see rheum for futher eval Pain of bi lateral hands 6864384928 9501983 M79.641 2/2 to scleroderm a. physical exams findings present too,. There is a struggle with insurance and paying to get into see rheum for DMARDs. Will trial steroids for right now until she is able to figure out how to see rheum. I dont think MRI is warrented right now as it would not change disease management right now. [id number] ANDRE PERKINS , [facility] [address] [facility] [address] [place] [address] 09/08/2023 16:02:33 09/15/2023 09:24:25 Screening for malignant neoplasm of cervix 659187336 Z12.4 Last pap smear in 2018, results normalPap smear done today in the clinic. pt denied STD testingF/u with results. Dyspnea 890587016 R06.00 Acute, worsening recently. Not sure what [...] out Pulmonary fibrosis with PFTs Systemic sclerosis 30806 008 M34.9 Pt recently diagnosed with systemic [...] cycles. History of uterine fibroids. Naila renee, [facility] 04/02/2019 14:42:50 0 text/html 44 y.o. for phone visit. Reports that she thinks she has a UTI. Feels similar to other UTIs. Has back pain and dysuria. No fever, chills or N/V. Naila renee, [facility] 01/08/2020 18:33:14 3 text/html Ms. Oquendo [...] or LOC Monique Rodrigez MD Attn: Accounting,[address]40 [place], [address], [facility] 07/01/2023 09:01:16 3 text/html 47 year old [...] some fatigue. FESTUS PERKINS DO Attn: Accounting,[address] [facility], [place], [address], [facility] - [facility] 08/08/2023 14:13:40 4 text/html Ms. [...] taken OSH FESTUS PERKINS DO Attn: Accounting,[address] [facility], [place], [address], [place] - [facility] 2023 14:01:04 OBGyn Episode No OBEpisode recorded.
--- OUTSIDE RECORDS SUMMARY | 2024-11-14 12:09 | XMS_ITS | Clinical Summary ---
Author Organization [facility] Address [address] [place] [address] Care Team Providers Care Bed Bug Exterminator Name Role Phone Titi Moss MD Primary Care Provider [phone] Allergies Active Allergy Reactions Criticality Noted Date [...] age to complete this topic Insurance [facility] Care Teams Bed Bug Exterminator Relationship Specialty Start Date End Date Titi Moss MD PCP - General FAMILY PRACTICE 09/08/23
--- OUTSIDE RECORDS SUMMARY | 2024-11-14 12:09 | XMS_ITS | Clinical Summary ---
Author Organization [facility] Address [address] [place] [address] Care Team Providers Care Physics Technician Name Role Phone Amelia Tamayo MD Primary Care Provider + Source Comments [facility],non-owned Affiliates and Associated Physician Practices is amultiple site organization consisting of ambulatory clinics and hospital sitesin [place], [place], [place] and [place]. This disclosure is being madepursuant to the Care Everywhere program and may not contain all information available regarding this patient. Last updated 18.[facility] Allergies Active Allergy Reactions Criticality Noted Date Comments Penicillins Itching,Rash Medium 02/17/2024 Medications * Be aware that medications may not be up to date on this document. Alwaysverify current medications with the patient. Medication Sig Dispensed Refills Start Date End Date Status FeroSul 325 (65 Fe) MG tablet Take 1 (one) tablet by mouth once daily Active albuterol (Proventil;Vent mireya) (2.5 MG/3ML) 0.083% nebulizer solutionIndicat ions:ILD (interstitial lung disease) ([facility]),Scleroder ma ([facility]) Inhale 2.5 (two and one-half) mg by mouth every 4 hours as needed for Shortness of Breath or Wheezing 540 mL 11 02/17/2024 Active Multiple Vitamins-Minera ls (Multi Vitamin/Mineral s) TABS Take 1 (one) tablet by mouth once daily Active NIFEdipine CR 24hr (Adalat CC) 30 MG tabletIndicatio ns:Scleroderma (HCC),ILD (interstitial lung disease) (HCC),Diffuse cutaneous systemic sclerosis (HCC),Therapeut ic drug monitoring Take 1 (one) tablet by mouth once daily Take on an empty stomach. 90 tablet 4 03/14/2024 Active tocilizumab (Actemra) 162 MG/0.9ML auto-injector Inject 0.9 mL subcutaneously every 7 days for 1 dose 03/14/2024 Active hydrOXYzine HCl (Atarax) 25 MG tablet Take 1 (one) tablet by mouth as needed for Itching 05/02/2024 Active nintedanib (Ofev) 150 MG capsuleIndicati ons:ILD (interstitial lung disease) (HCC) Take 1 (one) capsule by mouth 2 times daily with morning and evening meal 60 capsule 11 05/09/2024 5 Active mycophenolate (Cellcept) 500 MG tablet Take 3 (three) tablets by mouth 2 times daily for 90 days 180 tablet 2 08/17/2024 5 Active pantoprazole EC (Protonix) 40 MG tabletIndicatio ns:Scleroderma (HCC),ILD (interstitial lung disease) (HCC),Diffuse cutaneous systemic sclerosis (HCC),Therapeut ic drug monitoring Take 1 (one) tablet by mouth once daily for 90 days 90 tablet 08/21/2024 5 Active baclofen (Lioresal) 10 MG tablet TAKE 1 TABLET BY MOUTH EVERY DAY AT BEDTIME NEEDED FOR MUSCLE SPASM 09/13/2024 Active formoterol (Perforomist) 20 MCG/2ML nebulizer solution Inhale 2 mL by mouth as needed 12/08/2023 Active Nebulizers (Vios Aerosol Delivery System) MISC as directed 11/01/2023 Active albuterol HFA (Proventil; Ventolin; Proair) 108 (90 Base) MCG/ACT inhaler Inhale 2 (two) puffs by mouth every 6 hours as needed Active nortriptyline (Pamelor) 10 MG capsuleIndicati ons:Vestibular migraine Take 1 (one) capsule by mouth at bedtime 30 capsule 3 10/15/2024 Active Additional Information Patient not taking.Reported on 11/02/2024 ubrogepant (Ubrelvy) 100 MG tabletIndicatio ns:Vestibular migraine Take 1 (one) tablet by mouth daily as needed - may repeat one time for Migraine No more than 2 doses in 24 hours. 12 tablet 3 10/15/2024 5 Active calcium carbonate (Tums Ultra) 1000 MG chew tabletIndicatio ns:Diffuse cutaneous systemic sclerosis (HCC),Scleroder ma (HCC),ILD (interstitial lung disease) (HCC),Immunosup pression due to drug therapy (HCC) Take 1 (one) tablet by mouth daily with food 90 tablet 3 10/31/2024 6 Active Progesterone 200 MG capsule Take 1 (one) capsule by mouth at bedtime 11/01/2024 Active vitamin D3 (Cholecalcifero l) 25 MCG (1000 UNITS) tabletIndicatio ns:Diffuse cutaneous systemic sclerosis (HCC) Take 1 (one) tablet by mouth once daily 90 tablet 3 11/05/2024 6 Active predniSONE (Deltasone) 2.5 MG tabletIndicatio ns:Diffuse cutaneous systemic sclerosis (HCC),Scleroder ma (HCC),ILD (interstitial lung disease) (HCC),Therapeut ic drug monitoring,Immu nosuppression due to drug therapy (HCC) Take 3 (three) tablets by mouth once daily for 14 days, THEN 2 (two) tablets once daily for 14 days, THEN 1 (one) tablet once daily for 14 days. 84 tablet 08/31/2024 5 Discontinue d(List Clean-Up) Progesterone 200 MG capsule Take 1 (one) capsule by mouth at bedtime 09/13/2024 5 Discontinue d(List Clean-Up) metoclopramide (Reglan) 10 MG tablet Take 1 (one) tablet by mouth 3 times daily before meals 12 tablet 09/21/2024 5 Discontinue d(List Clean-Up) Active Problems Problem Noted Date Diagnosed Date [...] Encounters Date Type Department Care Team Description 11/05/2024 Orders Only [facility] - Rheumatology [address] [place] [phone] Kelechi Herrera MD Diffuse cutaneous systemic sclerosis 11/02/2024 2:30 PM CDT Office Visit [facility] - ENT [address] [place] [phone] Juan Alberto Muhammad APRN-CNP Dizziness and giddiness (Primary Dx); Migraine equivalent; Tinnitus of both ears; Sensorineural hearing loss (SNHL) of both ears 11/02/2024 Travel 10/31/2024 10:28 AM CDT - 10/31/2024 11:59 PM CDT Hospital Encounter [facility] [address] [place] [address] Kelechi Herrera MD Discharge Disposition: Home or Self Care 10/31/2024 9:30 AM CDT Office Visit [facility] - Rheumatology [address] [place] [phone] Kelechi Herrera MD Diffuse cutaneous systemic sclerosis (Primary Dx); Scleroderma; ILD (interstitial lung disease); 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 therapy 10/31/2024 Orders Only [facility] - Rheumatology [address] [place] [phone] Kelechi Herrera MD Diffuse cutaneous systemic sclerosis; Scleroderma; ILD (interstitial lung disease); 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 therapy 10/31/2024 Travel 10/25/2024 Travel 10/23/2024 11:00 AM PIPELINE EXECUTIVE - 10/23/2024 11:59 PM PIPELINE EXECUTIVE Hospital Encounter [facility] [address] [place] [address] Unknown, Provider Rheumatology Discharge Disposition: Home or Self Care 10/23/2024 Travel 10/15/2024 2:00 PM PIPELINE EXECUTIVE Office Visit [facility] - Neurology [address] [place] [phone] Tricia Serrano MD Vestibular migraine (Primary Dx); Iron deficiency anemia due to chronic blood loss 10/15/2024 Travel 10/02/2024 9:50 AM PIPELINE EXECUTIVE - 10/02/2024 11:59 PM PIPELINE EXECUTIVE Hospital Encounter [facility] [address] [place] [address] Discharge Disposition: Home or Self Care 10/02/2024 Travel 09/26/2024 11:45 AM PIPELINE EXECUTIVE - 09/26/2024 11:59 PM PIPELINE EXECUTIVE Hospital Encounter [facility] [address] [place] [address] Discharge Disposition: Home or Self Care 09/26/2024 Travel 09/25/2024 10:01 AM PIPELINE EXECUTIVE - 09/25/2024 11:59 PM PIPELINE EXECUTIVE Hospital Encounter [facility] [address] [place] [phone] Unknown, Provider Kelechi Herrera MD Rheumatology Discharge Disposition: Home or Self Care 09/25/2024 Travel 09/24/2024 Telephone [facility] - Rheumatology [address] [place] [phone] Kelechi Herrera MD Question 09/21/2024 2:16 AM PIPELINE EXECUTIVE - 09/21/2024 8:34 PM [facility] Emergency [facility] [address] [place] [address] Harry Monsivais MD Bitter, Cindy C, MD Demars, Esteban Santoyo MD Benign paroxysmal positional vertigo, unspecified laterality (Primary Dx); Chest pain, unspecified type; Tinnitus of both ears; Acute nonintractable headache, unspecified headache type; Nausea and vomiting, unspecified vomiting type; Abnormal uterine bleeding Discharge Disposition: Home or Self Care 09/20/2024 Travel 09/20/2024 Telephone [facility] - Rheumatology [address] [place] [phone] Kelechi Herrera MD [facility] 09/19/2024 11:05 AM PIPELINE EXECUTIVE - 09/19/2024 11:59 PM PIPELINE EXECUTIVE Hospital Encounter [facility] [address] [place] [address] Discharge Disposition: Home or Self Care 09/19/2024 Travel 09/18/2024 11:00 AM PIPELINE EXECUTIVE Office Visit [facility] - Pulmonology [address], [address] [phone] Mohan Rojas MD ILD (interstitial lung disease) (Primary Dx); Scleroderma; Chronic respiratory failure with hypoxia; Immunization counseling 09/18/2024 Travel 09/12/2024 11:30 AM PIPELINE EXECUTIVE - 09/12/2024 11:59 PM PIPELINE EXECUTIVE Hospital Encounter [facility] [address] [place] [address] Discharge Disposition: Home or Self Care 09/12/2024 Travel 09/05/2024 11:18 AM PIPELINE EXECUTIVE - 09/05/2024 11:59 PM PIPELINE EXECUTIVE Hospital Encounter [facility] [address] [place] [address] Discharge Disposition: Home or Self Care 09/05/2024 Travel 08/31/2024 Orders Only [facility] - Rheumatology [address] [place] [phone] Kelechi Herrera MD Diffuse cutaneous systemic sclerosis; Scleroderma; ILD (interstitial lung disease); Therapeutic drug monitoring; 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 therapy 08/30/2024 1:10 PM PIPELINE EXECUTIVE - 08/30/2024 11:59 PM PIPELINE EXECUTIVE Hospital Encounter [facility] [address] [place] [address] Discharge Disposition: Home or Self Care 08/29/2024 Refill [facility] - Rheumatology [address] [place] [phone] Kelechi Herrera MD MEDICATION REFILL 08/28/2024 11:00 AM PIPELINE EXECUTIVE - 08/28/2024 11:59 PM PIPELINE EXECUTIVE Hospital Encounter [facility] [address] [place] [address] [place] [address] Unknown, Provider Discharge Disposition: Home or Self Care 08/28/2024 Travel 08/24/2024 3:25 PM PIPELINE EXECUTIVE - 08/24/2024 11:59 PM [facility] Hospital Encounter [facility] [address] [place] [address] Discharge Disposition: Home or Self Care 08/24/2024 Travel 08/21/2024 Refill [facility] - Rheumatology [address] [place] [phone] Kelechi Herrera MD MEDICATION REFILL 08/17/2024 3:10 PM PIPELINE EXECUTIVE - 08/17/2024 11:59 PM [facility] Hospital Encounter [facility] [address] [place] [address] Discharge Disposition: Home or Self Care 08/17/2024 Travel 08/17/2024 Refill [facility] - Rheumatology [address] [place] [phone] Kelechi Herrera MD MEDICATION REFILL 08/16/2024 Refill [facility] - Rheumatology [address] [place] [phone] Kelechi Herrera MD MEDICATION REFILL from Last 3 Months Immunizations Name Administration Dates Next Due COVID MODERNA 12+ yr 50mcg/0.5mL 05/25/2024 INFLUENZA VACCINE, QUADR. (A FLURIA, FLUZONE QUADRIVALENT; 6MO+) (IIV4) 05/23/2018 INFLUENZA VACCINE, TRIV. (FL UZONE; FLULAVAL; FLUARIX; AFLURIA TRIVALENT; 6MO+), 0.5 ML (IIV3) 05/08/2024 PNEUMOCOCCAL PCV20 CONJ VAC IM 02/17/2024 TDAP, HISTORIC VACCINE 08/13/2024 Family History Medical History Relation Name Comments [...] Not Answered Alcohol Use Standard Drinks/Week Comments Not Currently 0 (1 standard drink = 0.6 oz pur e alcohol) PHQ-2 Answer Date Recorded Patient Health Questionnaire-2 Score 1 05/23/2024 Sex and Gender Information Value Date Recorded Sex Assigned at Not on file Gender Identity Not on file Sexual Orientation Not on file Last Filed Vital Signs Vital Sign Reading Time Taken Comments Blood Pressure 108/68 11/02/2024 2:24 PM CDT Pulse 74 11/02/2024 2:24 PM CDT Temperature 36.3 C (97.3 F) 10/31/2024 9:28 AM CDT Respiratory Rate 20 10/23/2024 11:17 AM PIPELINE EXECUTIVE Oxygen Saturation 95% 10/23/2024 11:17 AM PIPELINE EXECUTIVE 3L of o2 Inhaled Oxygen Concentration - - Weight 65.3 kg (144 lb) 11/02/2024 2:24 PM CDT Height 162.6 cm (5' 4 ) 11/02/2024 2:24 PM CDT Body Mass Index 24.72 11/02/2024 2:24 PM CDT Plan of Treatment Upcoming Encounters Date Type Department Care Team (Late st Contact Info) Description 11/20/2024 8:30 AM CDT Appointment [facility] [address] [place] [address] Kelechi Herrera MD [address] [place] [phone] 11/20/2024 9:00 AM CDT Appointment [facility] SCAN [address] [place] [address] Kelechi Herrera MD [facility] [place] [address] 11/20/2024 11:00 AM CDT Appointment [facility] [address] [place] [phone] Unknown, Provider 12/05/2024 9:30 AM CDT Office Visit [facility] - GI [address] [facility] [place] [address] Neeraj Pennington MD [facility] [place] [address] 12/11/2024 11:00 AM CDT Office Visit [facility] - Pulmonology [address], [address] [place] [phone] Mohan Rojas MD [address] [place] [address] [address] DIV OF PULM/[place] [address] 12/18/2024 11:00 AM CDT Appointment [facility] [address] [place] [address] Unknown, Provider 12/26/2024 7:30 AM CDT Appointment [facility] [address] [place] [address] Kelechi Herrera MD [facility] [place] [address] 02/06/2025 10:00 AM CDT Office Visit [facility] - Rheumatology [address] [place] [address] [place] [address] Kelechi Herrera MD [facility] [place] [address] 02/18/2025 1:00 PM CDT Office Visit [facility] - Neurology [address] [place] [address] [place] [phone] Tricia Serrano MD [address] [place] [address] Health Maintenance Due Date Last Done Comments COLOGUARD (AGES 45-75) - COL ON CA SCREENING 1974 COLON MONITORING 1974 COLONOSCOPY - COLON CA SCREENING 1974 CT COLONOGRAPHY - COLON CA SCREENING 1974 Colorectal Cancer Screening 1974 FIT - COLON CA SCREENING 1974 FLEX SIG - COLON CA SCREENING 1974 PAP SMEAR 1974 HIV SCREENING 1989 HEPATITIS B VACCINE (1 of 3 - 19+ 3-dose series) 1993 ZOSTER VACCINE (1 of 2) 1993 MAMMOGRAM 05/14/2021 05/14/2019, 05/14/2019, 03/06/2018 COVID-19 VACCINE (2 - Modern a risk series) 06/22/2024 05/25/2024 DEPRESSION SCREENING 08/22/2024 02/24/2024 LIPID TESTING 08/17/2029 08/17/2024 DTAP/TDAP/TD VACCINES (2 - T d or Tdap) 08/13/2034 08/13/2024 PNEUMOCOCCAL VACCINE 50+ Completed 02/17/2024 HEPATITIS C SCREENING Completed 02/24/2024 INFLUENZA VACCINE Completed 05/08/2024, 05/23/2018 HIB VACCINE Aged Out No longer eligi ble based on patient's age to complete this topic HPV VACCINE Aged Out No longer eligi ble based on patient's age to complete this topic MENINGOCOCCAL (Group B) VACCINE SHARED DECISION-MAKING Aged Out No longer eligible based on patient's age to complete this topic MENINGOCOCCAL GROUPS A/C/Y/W VACCINE Aged Out No longer eligible b ased on patient's age to complete this topic Goals Goal Patient Goal Type Associated Problems Recent Progress Patient-Stated? Author Medication Management General On track( 024 11:23 AM CDT) No Meaghan Mead, RN Note: Expected end date: ongoing Interventions: Take all medications as prescribed Procedures Procedure Name Priority Date/Time Associated Diagnosis Comments COMPREHENSIVE METABOLIC PANEL Routine 10/31/2024 10:55 AM CDT Diffuse cutaneous systemic sclerosis Scleroderma ILD (interstitial lung disease) 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 therapy CBC W AUTO DIFFERENTIAL Routine 10/31/2024 10:55 AM CDT Diffuse cutaneous systemic sclerosis Scleroderma ILD (interstitial lung disease) 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 therapy VITAMIN D 25-HYDROXY Routine 10/31/2024 10:55 AM CDT Diffuse cutaneous systemic sclerosis Scleroderma ILD (interstitial lung disease) 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 therapy COMPREHENSIVE METABOLIC PANEL Routine 10/02/2024 10:09 AM PIPELINE EXECUTIVE Scleroderma ILD (interstitial lung disease) Diffuse cutaneous systemic sclerosis Therapeutic drug monitoring 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 therapy CBC W AUTO DIFFERENTIAL Routine 10/02/2024 10:09 AM PIPELINE EXECUTIVE Scleroderma ILD (interstitial lung disease) Diffuse cutaneous systemic sclerosis Therapeutic drug monitoring 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 therapy COMPREHENSIVE METABOLIC PANEL Routine 09/26/2024 1:01 PM PIPELINE EXECUTIVE Scleroderma ILD (interstitial lung disease) Diffuse cutaneous systemic sclerosis Therapeutic drug monitoring 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 therapy CBC W AUTO DIFFERENTIAL Routine 09/26/2024 1:01 PM PIPELINE EXECUTIVE Scleroderma ILD (interstitial lung disease) Diffuse cutaneous systemic sclerosis Therapeutic drug monitoring 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 therapy CT ANGIO BRAIN AND NECK STAT 09/21/2024 4:17 PM PIPELINE EXECUTIVE Chest pain, unspecified type Benign paroxysmal positional vertigo, unspecified laterality Tinnitus of both ears Acute nonintractable headache, unspecified headache type Nausea and vomiting, unspecified vomiting type MRI BRAIN WWO CONTRAST STAT 09/21/2024 12:40 PM PIPELINE EXECUTIVE Chest pain, unspecified type CT HEAD WO CONTRAST STAT 09/20/2024 5 :50 PM PIPELINE EXECUTIVE Chest pain, unspecified type TROPONIN-I HIGH SENSITIVE BASELINE + 1HR STAT 09/20/2024 5:38 PM PIPELINE EXECUTIVE D-DIMER STAT 09/20/2024 5:38 PM PIPELINE EXECUTIVE COMPREHENSIVE METABOLIC PANEL STAT 09/20/2024 5:38 PM PIPELINE EXECUTIVE CBC W AUTO DIFFERENTIAL STAT 09/20/2024 5:38 PM PIPELINE EXECUTIVE SARS-COV-2 (COVID-19) FLU A/B RSV PCR RAPID STAT 09/20/2024 5:36 PM PIPELINE EXECUTIVE XR CHEST 2VW STAT 09/20/2024 4:45 PM PIPELINE EXECUTIVE Chest pain, unspecified type EKG 12-LEAD Routine 09/20/2024 4:05 PM PIPELINE EXECUTIVE Chest pain, unspecified type COMPREHENSIVE METABOLIC PANEL Routine 09/19/2024 11:22 AM PIPELINE EXECUTIVE Scleroderma ILD (interstitial lung disease) Diffuse cutaneous systemic sclerosis Therapeutic drug monitoring 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 therapy CBC W AUTO DIFFERENTIAL Routine 09/19/2024 11:22 AM PIPELINE EXECUTIVE Scleroderma ILD (interstitial lung disease) Diffuse cutaneous systemic sclerosis Therapeutic drug monitoring 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 therapy CBC W AUTO DIFFERENTIAL Routine 09/12/2024 12:33 PM PIPELINE EXECUTIVE Lymphopenia COMPREHENSIVE METABOLIC PANEL Routine 09/12/2024 12:33 PM PIPELINE EXECUTIVE Scleroderma ILD (interstitial lung disease) Diffuse cutaneous systemic sclerosis Therapeutic drug monitoring 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 therapy CBC W AUTO DIFFERENTIAL Routine 09/05/2024 11:47 AM PIPELINE EXECUTIVE Lymphopenia COMPREHENSIVE METABOLIC PANEL Routine 09/05/2024 11:47 AM PIPELINE EXECUTIVE Scleroderma ILD (interstitial lung disease) Diffuse cutaneous systemic sclerosis Therapeutic drug monitoring 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 therapy CBC W AUTO DIFFERENTIAL Routine 08/30/2024 1:31 PM PIPELINE EXECUTIVE Lymphopenia COMPREHENSIVE METABOLIC PANEL Routine 08/30/2024 1:31 PM PIPELINE EXECUTIVE Scleroderma ILD (interstitial lung disease) Diffuse cutaneous systemic sclerosis Therapeutic drug monitoring 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 therapy CBC W AUTO DIFFERENTIAL Routine 08/24/2024 3:51 PM PIPELINE EXECUTIVE Lymphopenia COMPREHENSIVE METABOLIC PANEL Routine 08/24/2024 3:51 PM PIPELINE EXECUTIVE Scleroderma ILD (interstitial lung disease) Diffuse cutaneous systemic sclerosis Therapeutic drug monitoring 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 therapy LIPID PROFILE Routine 08/17/2024 3:57 PM PIPELINE EXECUTIVE Screening for lipoid disorders COMPREHENSIVE METABOLIC PANEL Routine 08/17/2024 3:57 PM PIPELINE EXECUTIVE Scleroderma ILD (interstitial lung disease) Diffuse cutaneous systemic sclerosis Therapeutic drug monitoring 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 therapy CBC W AUTO DIFFERENTIAL Routine 08/17/2024 3:57 PM PIPELINE EXECUTIVE Scleroderma ILD (interstitial lung disease) Diffuse cutaneous systemic sclerosis Therapeutic drug monitoring 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 therapy HEPATITIS C ANTIBODY Routine 02/24/2024 2:54 PM CDT Scleroderma ILD (interstitial lung disease) from Last 3 Months or Most Recently Relevant to Health Maintenance Results * VITAMIN D 25-HYDROXY (10/31/2024 10:55 AM CDT) [facility] Vitamin D, 25 Hydroxy 43.2 30.0 - 80.0 ng/mL 10/31/2024 12:11 PM CDT [facility] Comment: The recommendations for 25-Hydroxy Vitamin D clinical decision points are as follows: Deficient: <20.0 ng/mL Insufficient: 20.0 - 29.9 ng/mL Sufficient: 30.0 - 100.0 ng/mL Potential Toxicity: >100 ng/mL Reference: The Endocrine Society Clinical Practice Guidelines. 2011 If the 25-Hydroxy Vitamin D results are inconsitent with clinical evidence, it is recommended that follow-up testing using a method such as LC/MS/MS be performed to confirm the result. Blood BLOOD SPECIMEN / Unknown Lab Venipuncture / Unknown 10/31/2024 10:55 AM CDT 10/31/2024 11:25 AM CDT Kelechi Herrera MD LAB - CHEMISTRY ORDERABLES [facility] [address] [place] [phone], [facility] [phone] * (ABNORMAL) CBC WITH DIFFERENTIAL (10/31/2024 10:55 AM CDT) Only the most recent of10 resultswithin the time period is included. WBC 2.9(L) 4.0 - 10.7 x10E9/L 10/31/2024 11:41 AM [facility] RBC Count 4.33 3.90 - 5.20 x10E12/L 10/31/2024 11:41 AM [facility] Hemoglobin 10.7(L) 11.9 - 15.8 g/dL 10/31/2024 11:41 AM [facility] Hematocrit 34.3(L) 34.8 - 46.1 % 10/31/2024 11:41 AM [facility] MCV 79.2(L) 80.0 - 98.0 fL 10/31/2024 11:41 AM [facility] MCH 24.7(L) 26.7 - 33.6 pg 10/31/2024 11:41 AM [facility] MCHC 31.2(L) 31.7 - 36.3 g/dL 10/31/2024 11:41 AM [facility] RDW-CV 14.7 11.3 - 14.8 % 10/31/2024 11:41 AM [facility] Platelet Count 314 150 - 420 x10E9/L 10/31/2024 11:41 AM [facility] MPV 10.1 7.8 - 11.4 fL 10/31/2024 11:41 AM [facility] Neutrophil % 44.0 41.0 - 74.0 % 10/31/2024 11:41 AM [facility] Lymphocyte % 32.3 17.0 - 47.0 % 10/31/2024 11:41 AM [facility] Monocyte % 18.6(H) 3.0 - 11.0 % 10/31/2024 11:41 AM [facility] Eosinophil % 4.1 0.0 - 7.0 % 10/31/2024 11:41 AM [facility] Basophil % 0.7 0.0 - 1.6 % 10/31/2024 11:41 AM [facility] Immature Granulocytes % 0.3 0.0 - 1.0 % 10/31/2024 11:41 AM [facility] Neutrophil Absolute 1.28(L) 1.60 - 7.50 x10E9/L 10/31/2024 11:41 AM [facility] Lymphocyte Absolute 0.94(L) 1.00 - 4.40 x10E9/L 10/31/2024 11:41 AM [facility] Monocyte Absolute 0.54 0.15 - 1.00 x10E9/L 10/31/2024 11:41 AM [facility] Eosinophil Absolute 0.12 0.00 - 0.60 x10E9/L 10/31/2024 11:41 AM [facility] Basophil Absolute 0.02 0.00 - 0.13 x10E9/L 10/31/2024 11:41 AM [facility] Blood BLOOD SPECIMEN / Unknown Lab Venipuncture / Unknown 10/31/2024 10:55 AM CDT 10/31/2024 11:25 AM CDT Kelechi Herrera MD LAB - HEMATOLOGY ORDERABLES [facility] [address] [place] [address], [facility] [phone] * (ABNORMAL) COMPREHENSIVE METABOLIC PANEL (10/31/2024 10:55 AM CDT) Only the most recent of10 resultswithin the time period is included. BUN 13 7 - 26 mg/dL 10/31/2024 11:58 AM [facility] Creatinine 1.11(H) 0.56 - 0.96 mg/dL 10/31/2024 11:58 AM [facility] Sodium 142 136 - 145 mmol/L 10/31/2024 11:58 AM [facility] Potassium 3.9 3.5 - 4.5 mmol/L 10/31/2024 11:58 AM [facility] Chloride 111(H) 98 - 107 mmol/L 10/31/2024 11:58 AM [facility] CO2 22 22 - 29 mmol/L 10/31/2024 11:58 AM [facility] Glucose 86 70 - 99 mg/dL 10/31/2024 11:58 AM [facility] Calcium 9.6 8.4 - 10.2 mg/dL 10/31/2024 11:58 AM [facility] Protein Total 7.2 6.0 - 8.3 g/dL 10/31/2024 11:58 AM [facility] Albumin 4.6 3.4 - 5.0 g/dL 10/31/2024 11:58 AM [facility] Bilirubin Total 0.7 0.2 - 1.2 mg/dL 10/31/2024 11:58 AM [facility] Alkaline Phosphatase 55 40 - 150 U/L 10/31/2024 11:58 AM [facility] ALT 27 5 - 55 U/L 10/31/2024 11:58 AM [facility] AST 28 5 - 34 U/L 10/31/2024 11:58 AM [facility] Anion Gap 9 6 - 16 10/31/2024 11:58 AM [facility] BUN/Creatinine Ratio 12 7 - 23 10/31/2024 11:58 AM [facility] Osmolality Calculated 293 275 - 295 mOsm/kg 10/31/2024 11:58 AM [facility] Albumin/Globulin Ratio 1.8 1.1 - 2.3 10/31/2024 11:58 AM [facility] eGFR by CKD-EPI 61(L) >=90 mL/min/1.7 3 m2 10/31/2024 11:58 AM [facility] Blood BLOOD SPECIMEN / Unknown Lab Venipuncture / Unknown 10/31/2024 10:55 AM [facility] 10/31/2024 11:25 AM [facility] Kelechi Herrrea MD LAB - CHEMISTRY ORDERABLES [facility] [address] [place] [address], [facility] [phone] * CT Angio Brain And Neck (09/21/2024 4:17 PM PIPELINE EXECUTIVE) Anatomical Region Laterality Modality Head Computed Tomogra phy 09/21/2024 4:29 PM PIPELINE EXECUTIVE Impressions 09/21/2024 5:03 PM PIPELINE EXECUTIVE IMPRESSION: 1.No acute intracranial hemorrhage. 2.No large arterial occlusions or significant stenoses identified in the head or neck. 3.The dural sinuses appear normal without evidence of thrombus. Viz.AI was used for large vessel occlusion detection. Report dictated by Je Morrow MD, (Bearing[employer]). I, Shara Henry MD have personally reviewed and interpreted this examination/study. > Interpreting Provider: Shara Henry MD on 09/21/2024 5:03 PM Narrative 09/21/2024 5:03 PM PIPELINE EXECUTIVE PROCEDURE: CT ANGIO BRAIN AND NECK, DATE/TIME OF EXAM: 09/21/2024 4:18 PM, LOCATION [facility] INDICATION: R07.9: Chest pain, unspecified type H81.10: [...] NECK, DATE/TIME OF EXAM: 09/21/2024 4:18PM, LOCATION [facility] INDICATION: R07.9: Chest pain, unspecified type H81.10: [...] detection. Report dictated by Je Morrow MD, ([employer]earing[employer]). I, Shara Henry MD have personally reviewed and interpretedthis examination/study. > Interpreting Provider: Shara Henry MD on 09/21/2024 5:03 PM Bruna Farrell MD CT ORDERABLES * MRI Brain Wwo Contrast (09/21/2024 12:40 PM PIPELINE EXECUTIVE) Anatomical Region Laterality Modality Head Magnetic Resonan ce 09/21/2024 12:5 9 PM PIPELINE EXECUTIVE Impressions 09/21/2024 5:05 PM PIPELINE EXECUTIVE IMPRESSION: 1.No evidence of restricted diffusion to suggest an acute infarction. 2.No evidence of acute intracranial findings or abnormal enhancement. > Interpreting Provider: Shara Henry MD on 09/21/2024 5:05 PM Narrative 09/21/2024 5:05 PM PIPELINE EXECUTIVE PROCEDURE: MRI BRAIN WWO CONTRAST, DATE/TIME OF EXAM: 09/21/2024 12:40 PM, LOCATION [facility] INDICATION: R07.9: Chest pain, unspecified type ADDITIONAL [...] CONTRAST, DATE/TIME OF EXAM: 09/21/2024 12:40PM, LOCATION [facility] INDICATION: R07.9: Chest pain, unspecified type ADDITIONAL [...] CONTRAST ??? Intracranial hemorrhage (09/20/2024 5:50 PM PIPELINE EXECUTIVE) Anatomical Region Laterality Modality Head Computed Tomogra phy 09/20/2024 6:23 PM PIPELINE EXECUTIVE Impressions 09/20/2024 7:37 PM PIPELINE EXECUTIVE IMPRESSION: 1.No acute intracranial hemorrhage, midline shift, or significant mass effect. 2.Please note that CT is insensitive to nonhemorrhagic strokes and MRI of the brain should be considered, if there is clinical concern for acute cerebral infarction. > Dictated by Manas Sandoval DO (Bearing[employer]), 09/20/2024 6:23 PM. IShara MD have personally reviewed and interpreted this examination/study. > Interpreting Provider: Shara Henry MD on 09/20/2024 7:37 PM Narrative 09/20/2024 7:37 PM PIPELINE EXECUTIVE PROCEDURE: CT HEAD WO CONTRAST, DATE/TIME OF EXAM: 09/20/2024 5:51 PM, LOCATION [facility] INDICATION: R07.9: Chest pain, unspecified type EXAMINATION: [...] DATE/TIME OF EXAM: 09/20/2024 5:51 PM, LOCATION [facility] INDICATION: R07.9: Chest pain, unspecified type EXAMINATION: [...] infarction. > Dictated by Manas Sandoval DO ([employer]earing[employer]), 09/20/2024 6:23PM. IShara MD have personally reviewed and interpretedthis examination/study. > Interpreting Provider: Shara Henry MD on 09/20/2024 7:[address] ORDERABLES * TROPONIN-I HIGH SENSITIVE BASELINE + 1HR (09/20/2024 5:38 PM PIPELINE EXECUTIVE) Pathologist [facility] Troponin I High Sensitive <3 <=14 ng/L 09/20/2024 6:59 PM PIPELINE EXECUTIVE [facility] Blood BLOOD SPECIMEN / Unknown Venipuncture / Unknown 09/20/2024 5:38 PM PIPELINE EXECUTIVE 09/20/2024 6:07 PM PIPELINE EXECUTIVE [facility] - STAMP MACHINE SERVICER RY ORDERABLES [address] [address], [facility] [phone] * D-DIMER (09/20/2024 5:38 PM PIPELINE EXECUTIVE) [facility] D-Dimer Quantitative <0.27 <=0.50 mcg/mL FEU 09/20/2024 6:30 PM PIPELINE EXECUTIVE [facility] Comment: In the absence of clinical symptoms, [...] Unknown Venipuncture / Unknown 09/20/2024 5:38 PM PIPELINE EXECUTIVE 09/20/2024 6:07 PM PIPELINE EXECUTIVE Tania Smallwood REED CLEANER-UNDERCOVER AGENT LAB - COAGULA TION ORDERABLES [address] [address], [facility] [phone] * SARS-COV-2 (COVID-19) FLU A/B RSV PCR RAPID (09/20/2024 5:36 PM PIPELINE EXECUTIVE) COVID-19 PCR Not detected Not detected 09/20/19 6:44 PM PIPELINE EXECUTIVE [facility] Influenza A PCR Not detected Not detected 09/20/2024 6:44 PM PIPELINE EXECUTIVE [facility] Influenza B PCR Not detected Not detected 09/20/2024 6:44 PM PIPELINE EXECUTIVE [facility] RSV PCR Not detected Not detected 09/20/2024 6:44 PM PIPELINE EXECUTIVE [facility] Microbiology SPECIMEN FROM NASOPHARYNGEAL STRUCTURE / Unknown Collection / Unknown 09/20/2024 5:36 PM PIPELINE EXECUTIVE 09/20/2024 5:59 PM PIPELINE EXECUTIVE Narrative [facility] - 09/20/2024 6:44 PM PIPELINE EXECUTIVE This nucleic acid amplification assay has been [...] assay are available upon request. Tania Smallwood APRN-UNDERCOVER AGENT LAB - MICROBI OLOGY ORDERABLES [address] [address], [facility] [phone] * XR CHEST 2VW (09/20/2024 4:45 PM PIPELINE EXECUTIVE) Anatomical Region Laterality Modality Chest Digital Radiogra phy 09/20/2024 5:49 PM PIPELINE EXECUTIVE Narrative 09/21/2024 8:16 AM PIPELINE EXECUTIVE PROCEDURE: XR CHEST 2VW, DATE/TIME OF EXAM: 09/20/2024 4:46 PM, LOCATION [facility] INDICATION: R07.9: Chest pain, unspecified type ADDITIONAL [...] abdomen > Dictated by Manas Sandoval DO ([employer]earing[employer]), 09/20/2024 5:49 PM. Katelynn Mann MD have personally reviewed and interpreted this examination/study. > Interpreting Provider: Katelynn Thrasher MD on 09/21/2024 8:16 AM Procedure Note Katelynn Thrasher MD - 09/21/2024 PROCEDURE: XR CHEST 2VW, DATE/TIME OF EXAM: 09/20/2024 4:46 PM, LOCATION [facility] INDICATION: R07.9: Chest pain, unspecified type ADDITIONAL [...] abdomen > Dictated by Manas Sandoval DO ([employer]earing[employer]), 09/20/2024 5:49 PM. Katelynn Mann MD have personally reviewed and interpreted this examination/study. > Interpreting Provider: Katelynn Thrasher MD on 09/21/2024 8:16 AM Tania Smallwood APRN-UNDERCOVER AGENT DIAGNOSTIC IM AGING ORDERABLES * EKG 12-LEAD (09/20/2024 4:05 PM PIPELINE EXECUTIVE) Ventricular Rate 79 BPM [facility] Atrial Rate 79 BPM [facility] P-R Interval 160 ms [facility] QRS Duration ms 70 ms [facility] Q-T Interval ms 388 ms [facility] QTC Calculation (Bezet) 444 ms [facility] MUSE Calculated P Helper 32 degrees [facility] MUSE Calculated R Helper -23 degrees [facility] MUSE Calculated T Helper 5 degrees [facility] MUSE Interpretation EKG NORMAL SINUS RHYTHM LOW VOLTAGE QRS CANNOT RULE OUT ANTERIOR INFARCT , AGE UNDETERMINED ABNORMAL ECG NO PREVIOUS ECGS AVAILABLE Confirmed by MONA MENDIOLA MD ([id number]) on 09/25/2024 8:53:41 PM [facility] MUSE 09/20/2024 4:05 PM PIPELINE EXECUTIVE 09/25/2024 8:53 PM PIPELINE EXECUTIVE Remigio Kaur MD ECG ORDERABLES [facility] * (ABNORMAL) LIPID PROFILE (08/17/2024 3:57 PM PIPELINE EXECUTIVE) Cholesterol Total 273(H) <200 mg/dL 08/17/2024 5:03 PM [facility] HDL 78 >40 mg/dL 08/17/2024 5:03 PM [facility] Comment: ATP III Classification of HDL Cholesterol: <40 mg/dL: Considered a major risk factor. >60 mg/dL: Considered a negative risk factor. LDL Calculated 162(H) <100 mg/dL 08/17/2024 5:03 PM [facility] Comment: ATP III Classification of LDL Cholesterol: <100 mg/dL: Optimal 100 - 129 mg/dL: Near Optimal/Above Optimal 130 - 159 mg/dL: Borderline High 160 - 189 mg/dL: High >190 mg/dL: Very High Triglycerides 166(H) <150 mg/dL 08/17/2024 5:03 PM [facility] Comment: ATP III Classification of Triglycerides: <150 mg/dL: Normal 150 - 199 mg/dL: Borderline High 200 - 400 mg/dL: High >500 mg/dL: Very High Blood BLOOD SPECIMEN / Unknown Lab Venipuncture / Unknown 08/17/2024 3:57 PM PIPELINE EXECUTIVE 08/17/2024 4:33 PM PIPELINE EXECUTIVE Ordering Provider Unlisted LAB - CHEM ISTRY ORDERABLES Performing Organization Address City/[facility]/ZIP Co de Phone Number [facility] [address] [place] [address], [facility] [phone] * HEPATITIS C ANTIBODY (02/24/2024 2:54 PM CDT) Hepatitis C Antibody Non-react roman Non-reac tive 02/24/2024 5:13 PM CDT [facility] Comment:Hepatitis C Antibody screen indicates no [...] Sorto MD LAB - CHEMISTRY ALMAZ GEORGE [facility] Organization Address City/State/ZIP Co de Phone Number [facility] [address] [place] [address], [facility] [phone] from Last 3 Months or Most Recently Relevant to Health Maintenance Care Teams Physics Technician Relationship Specialty Start Date End Date Amelia Tamayo MD [address] [facility] [address] [place], [place] [id number] PCP - General Family Medicine 02/17/24
== END 2024-11-14 10:44 | disposition home or self-care (01) ==
LOC: ANHIMG 10:45
PROVIDERS: PCP Nurse Practitioner Family; Visit Provider Student in an Organized Health Care Education/Training Program
DX: R92.8 Other abnormal and inconclusive findings on diagnostic imaging of breast (principal)
CPT/HCPCS: 76642

== ENCOUNTER 2025-01-15 11:41 | Outpatient (CLI) | payer OTHER, SELFPAY ==
--- OUTSIDE RECORDS SUMMARY | 2025-01-15 11:45 | XMS_ITS | Clinical Summary ---
Author Organization [facility] Address [address] [facility] [place] [address] Care Team Providers Care Electric Lineman Name Role Phone Monique Molina Primary Care Provider [phone] Source Comments [facility],non-owned Affiliates and Associated Physician Practices is amultiple site organization consisting of ambulatory clinics and hospital sitesin [place], [place], [place] and [place]. This disclosure is being madepursuant to the Care Everywhere program and may not contain all information available regarding this patient. Last updated 18.[facility] Allergies Active Allergy Reactions Criticality Noted Date Comments Penicillins Itching,Rash Medium 02/17/2024 Medications * Be aware that medications may not be up to date on this document. Alwaysverify current medications with the patient. FeroSul 325 (65 Fe) MG tablet Take 1 (one) tablet by mouth once daily Activ e albuterol (Proventil;Ve ntolin) (2.5 MG/3ML) 0.083% nebulizer solutionIndic ations:ILD (interstitial lung disease) ([facility]),Sclerod gabriel ([facility]) Inhale 2.5 (two and one-half) mg by mouth every 4 hours as needed for Shortness of Breath or Wheezing 540 mL 11 024 Active Multiple Vitamins-Mine rals (Multi Vitamin/[place] als) TABS Take 1 (one) tablet by mouth once daily Activ e NIFEdipine CR 24hr (Adalat CC) 30 MG tabletIndicat ions:Sclerode rma (HCC),ILD (interstitial lung disease) (HCC),Diffuse cutaneous systemic sclerosis (HCC),Therape utic drug monitoring Take 1 (one) tablet by mouth once daily Take on an empty stomach. 90 tablet 4 Active Additional Information Patient not taking.Reason: Other (fatigue), Reported on 12/13/2024 tocilizumab (Actemra) 162 MG/0.9ML auto-injector Inject 0.9 mL subcutaneously every 7 days for 1 dose Active Additional Information Patient taking differently:162 mg SubcutaneousEVERY 30 DAYS, Reported on 12/11/2024 hydrOXYzine HCl (Atarax) 25 MG tablet Take 1 (one) tablet by mouth as needed for Itching Active formoterol (Perforomist) 20 MCG/2ML nebulizer solution Inhale 2 mL by mouth as needed Active Nebulizers (Vios Aerosol Delivery System) MISC as directed Active albuterol HFA (Proventil; Ventolin; Proair) 108 (90 Base) MCG/ACT inhaler Inhale 2 (two) puffs by mouth every 6 hours as needed Active nortriptyline (Pamelor) 10 MG capsuleIndica tions:Vestibu lar migraine Take 1 (one) capsule by mouth at bedtime 30 capsule 3 Active Additional Information Patient not taking.Reason: Other, Reported on 12/13/2024 calcium carbonate (Tums Ultra) 1000 MG chew tabletIndicat ions:Diffuse cutaneous systemic sclerosis (HCC),Sclerod gabriel (HCC),ILD (interstitial lung disease) (HCC),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) Take 1 (one) tablet by mouth daily with food 90 tablet 3 025 2025 Active Additional Information Patient not taking.Reason: Other, Reported on 12/13/2024 Progesterone 200 MG capsule Take 1 (one) capsule by mouth at bedtime Active vitamin D3 (Cholecalcife rol) 25 MCG (1000 UNITS) tabletIndicat ions:Diffuse cutaneous systemic sclerosis (HCC) Take 1 (one) tablet by mouth once daily 90 tablet 3 025 2025 Active Additional Information Patient not taking.Reported on 12/13/2024 Vitamins-Lipo tropics (LIPO FLAVONOID PLUS PO) Active pantoprazole EC (Protonix) 40 MG tabletIndicat ions:Gastroes ophageal reflux disease, unspecified whether esophagitis present Take 1 (one) tablet by mouth 2 times daily 180 tablet 3 025 2025 Active mycophenolate (Cellcept) 500 MG tablet Take 3 (three) tablets by mouth 2 times daily for 90 days 180 tablet 2 025 2024 Active nintedanib (Ofev) 150 MG capsuleIndica tions:ILD (interstitial lung disease) (HCC) Take 1 (one) capsule by mouth 2 times daily with morning and evening meal for 30 days 60 capsule 11 025 2024 Active mycophenolate (Cellcept) 500 MG tablet Take 3 (three) tablets by mouth 2 times daily for 90 days 180 tablet 2 024 2024 Discontinued(R eorder) nintedanib (Ofev) 150 MG capsuleIndica tions:ILD (interstitial lung disease) (HCC) Take 1 (one) capsule by mouth 2 times daily with morning and evening meal for 30 days 60 capsule 025 2024 Discontinued(R eorder) nintedanib (Ofev) 150 MG capsuleIndica tions:ILD (interstitial lung disease) (HCC) Take 1 (one) capsule by mouth 2 times daily with morning and evening meal for 30 days 60 capsule 11 025 2024 Discontinued Active Problems Problem Noted Date Diagnosed Date [...] Encounters Date Type Department Care Team Description 01/08/2025 1:00 PM CDT - 01/08/2025 11:59 PM CDT Hospital Encounter [facility] LAB OP DRAW STATION [address] [place] [address] Discharge Disposition: Home or Self Care 01/08/2025 Travel 01/08/2025 Telephone [facility] - Endocrinology [facility] [place] [phone] Mohan Rojas MD Medication Issue 01/04/2025 Telephone [facility] - Endocrinology [facility] [place] [phone] Mohan Rojas MD Med Question 12/31/2024 Travel 12/31/2024 Refill [facility] - Rheumatology [address] [place] [phone] Kelechi Herrera MD MEDICATION REFILL 12/27/2024 Refill [facility] - Rheumatology [address] [place] [phone] Kelechi Herrera MD MEDICATION REFILL 12/26/2024 7:30 AM CDT - 12/26/2024 11:59 PM CDT Hospital Encounter [facility] [address] [place] [phone] Kelechi Herrera MD Discharge Disposition: Home or Self Care 12/26/2024 Travel 12/25/2024 Results Follow-Up [facility] - GI [address] [place] [address] [place] [address] Neeraj Pennington MD 12/21/2024 Refill [facility] - Pulmonology [facility] [address], [facility] [address] [place] [address] Mohan Rojas MD Refill Request 12/19/2024 8:29 AM CDT - 12/19/2024 11:59 PM CDT Hospital Encounter [facility] NUCLEAR MEDICINE [address] [place] [address] Neeraj Pennington MD Discharge Disposition: Home or Self Care 12/19/2024 7:45 AM CDT - 12/19/2024 8:28 AM CDT Hospital Encounter [facility] NUCLEAR MEDICINE [address] [place] [address] Neeraj Pennington MD Discharge Disposition: Home or Self Care 12/19/2024 Telephone [facility] - GI [address] [facility], [place] [address] Karrie Iqbal MD Vomiting 12/19/2024 Travel 12/18/2024 10:55 AM CDT - 12/18/2024 11:59 PM CDT Hospital Encounter [facility] INFUSION CENTER [address] [place] [address] Unknown, Provider Kelechi Herrera MD Rheumatology Discharge Disposition: Home or Self Care 12/18/2024 Travel 12/13/2024 8:30 AM CDT - 12/13/2024 9:00 AM CDT Surgery [facility] ENDOSCOPY [address] [place] [address] Neeraj Pennington MD EGD w/ [email or web address] 12/13/2024 8:23 AM CDT Anesthesia Event [facility] ENDOSCOPY [address] [place] [address] Flaca Patel MD 12/13/2024 7:24 AM CDT - 12/13/2024 9:28 AM CDT Hospital Encounter [facility] DANNA OP [address] [place] [address] Neeraj Pennington MD Surgery General Discharge Disposition: Home or Self Care 12/13/2024 Travel 12/11/2024 11:00 AM CDT Office Visit [facility] - Pulmonology [address], [address] [phone] Mohan Rojas MD Immunization counseling (Primary Dx) 12/11/2024 Travel 12/11/2024 Telephone [facility] - Centralized Scheduling [address] [place] [address] Karena Rosario Reschedule Appointment (Left vm for patient to call back and reschedule appointment with Dr. Serrano.) 12/05/2024 9:30 AM CDT Office Visit [facility] - GI [address] [facility], [place] [address] Neeraj Pennington MD Nausea and vomiting, unspecified vomiting type (Primary Dx); Unintentional weight loss; Scleroderma (HCC); ILD (interstitial lung disease) (HCC); Diffuse cutaneous systemic sclerosis (HCC); Therapeutic drug monitoring; Gastroesophageal reflux disease, unspecified whether esophagitis present 12/05/2024 Patient Outreach [facility] ENDOSCOPY [address] [place] [phone] RN 12/05/2024 Refill [facility] - Endocrinology [address] [place] [phone] Mohan Rojas MD Refill Request 12/05/2024 Travel 11/30/2024 Travel 11/20/2024 8:50 AM CDT - 11/20/2024 11:59 PM CDT Hospital Encounter [facility] INFUSION CENTER [address] [place] [address] Unknown, Provider Kelechi Herrera MD Rheumatology Discharge Disposition: Home or Self Care 11/20/2024 8:13 AM CDT - 11/20/2024 8:49 AM CDT Hospital Encounter [facility] CAT SCAN [address] [place] [address] Kelechi Herrera MD Discharge Disposition: Home or Self Care 11/20/2024 8:04 AM CDT - 11/20/2024 8:12 AM CDT Hospital Encounter [facility] DIAGNOSTIC RAD OP [address] [place] [phone] Kelechi Herrera MD Discharge Disposition: Home or Self Care 11/20/2024 Travel 11/14/2024 Refill [facility] - Rheumatology [address] [facility], [place] [address] Kelechi Herrera MD Refill Request 11/05/2024 Orders Only [facility] - Rheumatology [address] [place] [phone] Kelechi Herrera MD Diffuse cutaneous systemic sclerosis 11/02/2024 2:30 PM CDT Office Visit [facility] - ENT [address] [place] [phone] Juan Alberto Muhammad APRN-LUZMARIA Dizziness and giddiness (Primary Dx); Migraine equivalent; Tinnitus of both ears; Sensorineural hearing loss (SNHL) of both ears 11/02/2024 Travel 10/31/2024 10:28 AM CDT - 10/31/2024 11:59 PM CDT Hospital Encounter [facility] LAB OP DRAW STATION [address] [place] [address] Kelechi Herrera MD Discharge Disposition: Home or Self Care 10/31/2024 9:30 AM CDT Office Visit [facility] - Rheumatology [address] [place] [phone] Kelechi Herrera MD Diffuse cutaneous systemic sclerosis (Primary Dx); Scleroderma; ILD (interstitial lung disease); 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 therapy 10/31/2024 Orders Only [facility] - Rheumatology [address] [place] [phone] Kelechi Herrera MD Diffuse cutaneous systemic sclerosis; Scleroderma; ILD (interstitial lung disease); 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 therapy 10/31/2024 Travel 10/25/2024 Travel 10/23/2024 11:00 AM BLADE SH[facility]ENER - 10/23/2024 11:59 PM [facility]ADE SH[facility]ENER Hospital Encounter [facility] INFUSION CENTER [address] [place] [address] Unknown, Provider Rheumatology Discharge Disposition: Home or Self Care 10/23/2024 Travel from Last 3 Months Immunizations Immunization Administration Dates Next Due COVID MODERNA 12+ yr 50mcg/0.5mL 11/30/2024,11/2023 INFLUENZA VACCINE, QUADR. 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 Not on f ile Not on file Last Filed Vital Signs Vital Sign Reading Time Taken Comments Blood Pressure 126/86 12/18/2024 11:06 AM CDT Pulse 109 12/18/2024 11:06 AM CDT Temperature 36 C (96.8 F) 12/18/2024 11:06 AM CDT Respiratory Rate 18 12/18/2024 11:06 AM CDT Oxygen Saturation 100% 12/18/2024 11:06 AM CDT Inhaled Oxygen Concentration - - Weight 66 kg (145 lb 6.4 oz) 12/18/2024 11:06 AM CDT Height 162.6 cm (5' 4) 12/13/2024 7:46 AM CDT Body Mass Index 24.96 12/13/2024 7:46 AM CDT Plan of Treatment Upcoming Encounters Date Type Department Care Team (Late st Contact Info) Description 02/13/2025 8:30 AM CDT Office Visit [facility] - Rheumatology [address] [facility] [place] [address] Kelechi Herrera MD [address] [place] [address] 02/19/2025 11:30 AM CDT Appointment [facility] INFUSION CENTER [address] [place] [address] Unknown, Provider 02/25/2025 8:00 AM CDT [facility] [address] [facility], [place] [phone] Tricia Serrano MD [address] [place] [address] 03/06/2025 8:30 AM CDT [place] [facility] [place] [address] [place] [address], [place] [address] Neeraj Pennington MD [address] [place] [address] 03/19/2025 10:30 AM CDT Office Visit [facility] - Pulmonology [address], [facility] [address] [place] [phone] Mohan Rojas MD [facility] 2L DIV OF PULM/[place] [address] Health Maintenance Due Date Last Done Comments [...] 2) 1993 MAMMOGRAM 05/14/2021 05/14/2019, 04/23, 03/06/2018 DEPRESSION SCREENING 08/22/2024 02/24/2024 COVID-19 VACCINE (3 - Moderna risk series) 12/28/2024 11/30/2024, 05/25/2024 SCREENING FOR DIABETES 01/09/2028 , 12/18/2024, 10/31/2024, Additional history exists LIPID TESTING 08/17/2029 08/17/2024 DTAP/TDAP/TD VACCINES (2 - Td or Tdap) 08/13/2034 08/13/2024 PNEUMOCOCCAL VACCINE 50+ [...] A/C/Y/W VACCINE Aged Out No longer eligible based on patient's age to complete this topic Goals Goal Patient Goal Type Associated Problems Recent Progress Patient-Stated? Author Medication Management General On track( 024 11:23 AM CDT) No Meaghan Mead, RN Note: Expected end date: ongoing Interventions: Take all medications as prescribed Procedures Procedure Name Priority Date/Time Associated Diagnosis Comments COMPREHENSIVE METABOLIC PANEL Routine 01/08/2025 2:13 PM CDT Scleroderma (HCC) ILD (interstitial lung disease) (HCC) CBC W AUTO DIFFERENTIAL Routine 01/08/2025 2:13 PM CDT Scleroderma (HCC) ILD (interstitial lung disease) (HCC) PFT-LAB Routine 12/26/2024 9:07 AM CDT Diffuse cutaneous systemic sclerosis (HCC) Scleroderma (HCC) ILD (interstitial lung disease) (HCC) 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 therapy (HCC) NM GASTRIC EMPTYING Routine 12/19/2024 1 2:41 PM CDT Nausea and vomiting, unspecified vomiting type Unintentional weight loss COMPREHENSIVE METABOLIC PANEL Routine 12/18/2024 11:21 AM CDT Scleroderma (HCC) ILD (interstitial lung disease) (HCC) CBC W AUTO DIFFERENTIAL Routine 12/18/2024 11:21 AM CDT Scleroderma (HCC) ILD (interstitial lung disease) (HCC) [facility] ED EGD FLEX TRANSORAL DX 12/13/2024 8:18 AM CDT Nausea Weight loss Special Needs Message Received: Today Joshua Rushing MD Johnson, Norma Goldstein, RN Dear Norma, Could we get Ms. Nelson in for an EGD in the next few weeks to evaluate her dyspepsia symptoms and weight loss? Sincerely, Joshua HCG URINE QUALITATIVE - POCT (IP) INTERFACED Routine 12/13/2024 7:59 AM CDT EGD Routine 12/13/2024 7:47 AM CDT HCG URINE QUAL POCT NOTIFICATION STAT 12/13/2024 7:42 AM CDT Pre-op exam DEXA BONE DENSITY AXIAL SKELETON Routine 11/20/2024 8:40 AM CDT Diffuse cutaneous systemic sclerosis (HCC) Scleroderma (HCC) ILD (interstitial lung disease) (HCC) 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 therapy (HCC) CT CHEST WO CONT AND HIRES Routine 11/20/2024 8:33 AM CDT Diffuse cutaneous systemic sclerosis (HCC) Scleroderma (HCC) ILD (interstitial lung disease) (HCC) 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 therapy (HCC) COMPREHENSIVE METABOLIC PANEL Routine 10/31/2024 10:55 AM [...] lung disease) 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 therapy LIPID PROFILE Routine 08/17/2024 3:57 PM [facility]ENER Screening for lipoid disorders HEPATITIS C ANTIBODY Routine 02/24/2024 2:54 PM CDT Scleroderma ILD (interstitial lung disease) from Last 3 Months or Most Recently Relevant to Health Maintenance Results * (ABNORMAL) CBC WITH DIFFERENTIAL (01/08/2025 2:13 PM CDT) Only the most recent of3 resultswithin the time period is included. WBC 2.8(L) 4.0 - 10.7 x10E9/L 01/08/2025 2:39 PM [facility] RBC Count 5.17 3.90 - 5.20 x10E12/L 01/08/2025 2:39 PM [facility] Hemoglobin 12.7 11.9 - 15.8 g/dL 01/08/2025 2:39 PM [facility] Hematocrit 41.0 34.8 - 46.1 % 01/08/2025 2:39 PM [facility] MCV 79.3(L) 80.0 - 98.0 fL 01/08/2025 2:[address] [facility] MCH 24.6(L) 26.7 - 33.6 pg 01/08/2025 2:[address] [facility] MCHC 31.0(L) 31.7 - 36.3 g/dL 01/08/2025 2:39 PM [facility] RDW-CV 14.0 11.3 - 14.8 % 01/08/2025 2:39 PM [facility] Platelet Count 256 150 - 420 x10E9/L 01/08/2025 2:39 PM [facility] MPV 9.8 7.8 - 11.4 fL 01/08/2025 2:39 PM [facility] Neutrophil % 38.6(L) 41.0 - 74.0 % 01/08/2025 2:39 PM [facility] Lymphocyte % 36.1 17.0 - 47.0 % 01/08/2025 2:39 PM [facility] Monocyte % 18.4(H) 3.0 - 11.0 % 01/08/2025 2:39 PM [facility] Eosinophil % 5.8 0.0 - 7.0 % 01/08/2025 2:39 PM [facility] Basophil % 1.1 0.0 - 1.6 % 01/08/2025 2:39 PM [facility] Immature Granulocytes % 0.0 0.0 - 1.0 % 01/08/2025 2:39 PM [facility] Neutrophil Absolute 1.07(L) 1.60 - 7.50 x10E9/L 01/08/2025 2:39 PM [facility] Lymphocyte Absolute 1.00 1.00 - 4.40 x10E9/L 01/08/2025 2:39 PM [facility] Monocyte Absolute 0.51 0.15 - 1.00 x10E9/L 01/08/2025 2:39 PM [facility] Eosinophil Absolute 0.16 0.00 - 0.60 x10E9/L 01/08/2025 2:39 PM [facility] Basophil Absolute 0.03 0.00 - 0.13 x10E9/L 01/08/2025 2:39 PM [facility] Blood BLOOD SPECIMEN / Unknown Lab Venipuncture / Unknown 01/08/2025 2:13 PM CDT 01/08/2025 2:31 PM [facility] us Neeraj Sorto MD LAB - HEMATOLOGY ORDERABLES Jo Ann l Result [facility] [address] [place] [address], [facility] [phone] * (ABNORMAL) COMPREHENSIVE METABOLIC PANEL (01/08/2025 2:13 PM [facility]) Only the most recent of3 resultswithin the time period is included. BUN 10 7 - 26 mg/dL 01/08/2025 3:03 PM [facility] Creatinine 0.96 0.56 - 0.96 mg/dL 01/08/2025 3:03 PM [facility] Sodium 142 136 - 145 mmol/L 01/08/2025 3:03 PM [facility] Potassium 3.7 3.5 - 4.5 mmol/L 01/08/2025 3:03 PM [facility] Chloride 109(H) 98 - 107 mmol/L 01/08/2025 3:03 PM [facility] CO2 22 22 - 29 mmol/L 01/08/2025 3:03 PM [facility] Glucose 76 70 - 99 mg/dL 01/08/2025 3:03 PM [facility] Calcium 9.7 8.4 - 10.2 mg/dL 01/08/2025 3:03 PM [facility] Protein Total 7.8 6.0 - 8.3 g/dL 01/08/2025 3:03 PM [facility] Albumin 4.7 3.4 - 5.0 g/dL 01/08/2025 3:03 PM [facility] Bilirubin Total 0.8 0.2 - 1.2 mg/dL 01/08/2025 3:03 PM [facility] Alkaline Phosphatase 65 40 - 150 U/L 01/08/2025 3:03 PM [facility] ALT 29 5 - 55 U/L 01/08/2025 3:03 PM [facility] AST 34 5 - 34 U/L 01/08/2025 3:03 PM [facility] Anion Gap 11 6 - 16 01/08/2025 3:03 PM [facility] BUN/Creatinine Ratio 10 7 - 23 01/08/2025 3:03 PM [facility] Osmolality Calculated 292 275 - 295 mOsm/kg 01/08/2025 3:03 PM [facility] Albumin/Globulin Ratio 1.5 1.1 - 2.3 01/08/2025 3:03 PM CDT [facility] eGFR by CKD-EPI 72(L) >=90 mL/min/1.7 3 m2 01/08/2025 3:03 PM CDT [facility] Blood BLOOD SPECIMEN / Unknown Lab Venipuncture / Unknown 01/08/2025 2:13 PM CDT 01/08/2025 2:31 PM CDT Neeraj Sorto MD LAB - CHEMISTRY ORDERABLES Final Result [facility] [address] [place] [address], [facility] [phone] * Complete PFT [facility] PFT Lab (12/26/2024 9:07 AM CDT) Narrative [facility] - 12/26/2024 9:07 AM CDT Denton Flores MD 12/27/2024 4:42 PM Kelechi Herrera MD RESPIRATORY THERAPY ORDBubba GEORGE Edited Result - Final Performing Organization Address [facility] Co de Phone Number [facility] [address] [place] [address], [facility] * NM Gastric Emptying (12/19/2024 12:41 PM CDT) Anatomical Region Laterality Modality Abdomen Nuclear Medicine 12/19/2024 8:04 AM CDT Impressions 12/20/2024 8:36 AM CDT Impression: Findings consistent with grade 2 (moderate) gastroparesis based on 34% retention at 4 hours after ingestion of meal. > Dictated by Jack Corona MD (Building Associate) 12/19/2024 8:04 AM IImer MD have personally reviewed and interpreted this examination/study. > Interpreting Provider: Imer Hollis MD on 12/20/2024 8:36 AM Narrative 12/20/2024 8:36 AM CDT PROCEDURE: NM GASTRIC EMPTYING DATE/TIME OF EXAM: 12/19/2024 8:01 AM CLINICAL INFORMATION: None relevant/not provided if blank. Indication: R11.2: Nausea and vomiting, unspecified vomiting type R63.4: Unintentional weight loss History: 49-year-old female patient presented with nausea and vomiting. Patient's BMI is 24.9 kg/m . Technique: The examination was performed after the ingestion of a standardized meal (scrambled egg substitute (120 g Egg Beater, 60 kcal, equivalent to the volume of 2 large eggs), two slices of bread (120 kcal), strawberry jam (30 g, 75 kcal), and water (120 ml).The meal has a caloric value of 255 kcal: 72% carbohydrate,24% protein, 2% fat and 2% fiber. The meal is labeled with 0.5 mCi of [id number] sulfur colloid. Comparison: None. Findings: After ingestion of solid meal, sequential images were obtained up to 4 hours. Immediate,1 hour, 2 hour and 4 hours after ingestion. The percent retention in the stomach is as follows: 1 hour: 86% (Normal range: 37 - 90% ) 2 hour: 72% (Normal range: 30 - 60%) 4 hour: 34% (Normal range: 0 - 10%) T1/2: 190 minutes (Upper limits 130) Severity of gastroparesis is as follows: Grade 1 (mild): 11-20% Grade 2 (moderate): 21 - 35% Grade 3 (severe): 36-50% Grade 4 (very severe): > 50% Procedure Note Imer Hollis MD - 12/20/2024 PROCEDURE: NM GASTRIC EMPTYING DATE/TIME OF EXAM: 12/19/2024 8:01 AM CLINICAL INFORMATION: None relevant/not provided if blank. Indication: R11.2: Nausea and vomiting, unspecified vomiting type R63.4: Unintentional weight loss History: 49-year-old female patient presented with nausea and vomiting. Patient's BMI is 24.9 kg/m . Technique: The examination was performed after the ingestion of a standardized meal (scrambled egg substitute (120 g Egg Beater, 60 kcal, equivalent to the volume of 2 large eggs), two slices of bread (120kcal), strawberry jam (30 g, 75 kcal), and water (120 ml).The meal has acaloric value of 255 kcal: 72% carbohydrate,24% protein, 2% fat and 2% fiber.The meal is labeled with 0.5 mCi of [id number] sulfur colloid. Comparison: None. Findings: After ingestion of solid meal, sequential images were obtained up to 4 hours. Immediate,1 hour, 2 hour and 4 hours after ingestion. The percent retention in the stomach is as follows: 1 hour: 86% (Normal range: 37 - 90% ) 2 hour: 72% (Normal range: 30 - 60%) 4 hour: 34% (Normal range: 0 - 10%) T1/2: 190 minutes (Upper limits 130) Severity of gastroparesis is as follows: Grade 1 (mild): 11-20% Grade 2 (moderate): 21 - 35% Grade 3 (severe): 36-50% Grade 4 (very severe): > 50% Impression: Findings consistent with grade 2 (moderate) gastroparesis based on 34% retention at 4 hours after ingestion of meal. > Dictated by Jack Corona MD (Building Associate) 12/19/2024 8:04AM I, Imer Hollis MD have personally reviewed and interpreted this examination/study. > Interpreting Provider: Imer Hollis MD on 12/20/2024 8:36 AM us Neeraj Pennington MD NM ORDERABLES Final Result * HCG URINE QUALITATIVE - POCT (IP) INTERFACED (12/13/2024 7:59 AM CDT) HCG Qual Urine Negative Negative 12/13/2024 8:06 AM CDT [facility] Urine URINE / Unknown 12/13/2024 7 :59 AM CDT 12/13/2024 8:06 AM CDT us Neeraj Pennington MD LAB - POINT OF CARE ORDERABLES Final Result [address] [address], [facility] [phone] * EGD (12/13/2024 7:47 AM CDT) Report Endoscopy POC Endoscopy Department Report _ Patient Name: Azra Nelson Procedure Date: 12/13/2024 7:47 AM Date of : 1975 Classification: Outpatient Gender: Female Ethnicity: Unknown Race: Unknown _ Providers: Neeraj Pennington MD Referring MD: Procedure: Upper GI endoscopy Indications: Persistent vomiting of unknown cause Description of Procedure: Pre-Anesthesia Assessment: - ASA Grade Assessment: III - A patient with severe systemic disease. - After reviewing the risks and benefits, the patient was deemed in satisfactory condition to undergo the procedure. After obtaining informed consent, the endoscope was passed under direct vision. Throughout the procedure, the patient's blood pressure, pulse, and oxygen saturations were monitored continuously. The GIF-[id number] was introduced through the mouth, and advanced to the second part of duodenum. The upper GI endoscopy was accomplished without difficulty. The patient tolerated the procedure well. Findings: The esophagus was normal. The stomach was normal. The examined duodenum was normal. Estimated Blood Loss: Estimated blood loss: none. Complications: No immediate complications. Impression: - Normal esophagus. - Normal stomach. - Normal examined duodenum. - No specimens collected. Specifically there was no evidence of gastric outlet obstruction. Procedure performed with Dr Avelar, resident. Recommendation: - Advance diet as tolerated today. Attending Participation: I was present and participated during the entire procedure, including non-gardiner portions. Procedure Code(s): --- Professional --- 32634, Esophagogastrodu odenoscopy, flexible, transoral; diagnostic, including collection of specimen(s) by brushing or washing, when performed (separate procedure) Diagnosis Code(s): --- Professional --- R11.15, Cyclical vomiting syndrome unrelated to migraine CPT copyright 2022 [employer]. All rights reserved. The codes documented in this report are preliminary and upon information coder review may be revised to meet current compliance requirements. Neeraj Pennington MD 12/13/2024 8:39:12 AM Note Initiated On: 12/13/2024 7:47 AM Number of Addenda: [address] [id number] [facility] [employer] 12/13/2024 7:47 AM CDT Neeraj Pennington MD GI PROCEDURE ORDERABLES Edited Result - Final Performing Organization Address City/[facility]/ZIP Co de Phone Number [facility] * HCG URINE QUAL POCT NOTIFICATION (12/13/2024 7:42 AM CDT) Comment Notification Label Only - See Separate Report 12/13/2024 9:00 AM CDT [facility] Urine URINE / Unknown 12/13/2024 7 :42 AM CDT 12/13/2024 7:42 AM CDT Neeraj Pennington MD LAB - URINALYSIS ORDERABLES Fin al Result Performing Organization Address [facility] Co de Phone Number [address] [address], [facility] [phone] * BONE DENSITY AXIAL SKELETON(1OR MORE SITES)[id number] (11/20/2024 8:40 AM CDT) Anatomical Region Laterality Modality Other 11/20/2024 10:5 8 AM CDT Narrative 11/20/2024 2:43 PM CDT PROCEDURE: DEXA BONE DENSITY AXIAL SKELETON DATE/TIME OF EXAM: 11/20/2024 8:40 AM CLINICAL INFORMATION: None relevant/not provided if blank. 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 LUMBAR SPINE (L1-L4): Bone mineral density (g/cm2): 0.933 Current Z-score: -1.2 RIGHT FEMORAL NECK: Bone mineral density (g/cm2): 0.519 Current Z-score: -2.5 FRAX not reported because premenopausal women BONE DENSITY ASSESSMENT: WHO Category: Below the expected range for age. Please see the PACS images for additional details. BMD Reporting in Females Prior to Menopause and in Males Younger Than Age 50: Z-scores, not T-scores, are preferred. This is particularly important in children. A Z-score of -2.0 or lower is defined as below the expected range for age A Z-score above -2.0 is within the expected range for age > Dictated by Iris Early MD (Building Associate) 11/20/2024 10:58 AM IImer MD have personally reviewed and interpreted this examination/study. > Interpreting Provider: Imer Hollis MD on 11/20/2024 2:43 PM Procedure Note Imer Hollis MD - 11/20/2024 PROCEDURE: DEXA BONE DENSITY AXIAL SKELETON DATE/TIME OF EXAM: 11/20/2024 8:40 AM CLINICAL INFORMATION: None relevant/not provided if blank. 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 LUMBAR SPINE (L1-L4): Bone mineral density (g/cm2): 0.933 Current Z-score: -1.2 RIGHT FEMORAL NECK: Bone mineral density (g/cm2): 0.519 Current Z-score: -2.5 FRAX not reported because premenopausal women BONE DENSITY ASSESSMENT: WHO Category: Below the expected range for age. Please see the PACS images for additional details. BMD Reporting in Females Prior to Menopause and in Males Younger ThanAge 50: Z-scores, not T-scores, are preferred. This is particularly important in children. A Z-score of -2.0 or lower is defined as below the expected range for age A Z-score above -2.0 is within the expected range for age > Dictated by Iris Early MD (Building Associate) 11/20/2024 10:58AM Johnathan, Imer Hollis MD have personally reviewed and interpreted this examination/study. > Interpreting Provider: Imer Hollis MD on 11/20/2024 2:43 PM Kelechi Herrera MD DEXA ORDERABLES Final Re sult * CT Chest Wo Cont And Hires (11/20/2024 8:33 AM CDT) Anatomical Region Laterality Modality Chest Computed Tomogra phy 11/20/2024 1:16 PM CDT Impressions 11/20/2024 2:14 PM CDT Impression: 1.Interval some improvement of the groundglass opacities in the bilateral lower lobes; however, there is a residual linear and mild groundglass opacities and traction bronchiectasis. With the history of systemic sclerosis, these findings could suggest nonspecific interstitial pneumonia (NSIP). A differential diagnosis to be considered is sequelae of aspiration 2.4 mm solid pulmonary nodule adjacent to the right minor fissure, no change from previous CT examination. 3.Small hiatal hernia is noted. > Dictated by Jc Piper MD, (president & ceo). Jorge Mann MD have personally reviewed and interpreted this examination/study. 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 TECHNIQUE: CT of the chest was performed without contrast according to standard protocol. Then, utilizing a high-resolution algorithm, 1 mm noncontiguous axial images of the chest were obtained in inspiration and expiration. Findings: Evaluation of visceral and vascular structures is degraded due to lack of intravenous contrast administration. Lower Neck and Axillae: Normal. Lungs: Bilateral linear and groundglass lung opacities lungs predominantly in the lower lobes along with mild bronchiectasis are reidentified. There is minimal improvement of groundglass lung opacities compared to previous CT examination. 4 mm solid pulmonary nodule adjacent to the right minor fissure may represent perifissural lymph node, appears more solid from prior exam. No air trapping is seen on expiratory images. No pleural fluid or pneumothorax is present. Heart and Pericardium: The cardiac chambers are normal in size. No pericardial fluid or thickening is present. Mediastinum and Aissatou: No enlarged lymph nodes are present. Thoracic Vasculature: No vascular abnormality is present. Bones and Chest Wall: Bone windows demonstrate no suspicious lytic or blastic lesions. The visible osseous structures are intact. Upper Abdomen: Status post cholecystectomy. Small hiatal hernia is noted. No significant nasopharyngeal dilation. 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 TECHNIQUE: CT of the chest was performed without contrast according to standard protocol. Then, utilizing a high-resolution algorithm, 1 mm noncontiguous axial images of the chest were obtained in inspiration and expiration. Findings: Evaluation of visceral and vascular structures is degraded due to lackof intravenous contrast administration. Lower Neck and Axillae: Normal. Lungs: Bilateral linear and groundglass lung opacities lungs predominantly inthe lower lobes along with mild bronchiectasis are reidentified. There is minimal improvement of groundglass lung opacities compared to previousCT examination. 4 mm solid pulmonary nodule adjacent to the right minor fissure may represent perifissural lymph node, appears more solid from prior exam. No air trapping is seen on expiratory images. No pleural fluid or pneumothorax is present. Heart and Pericardium: The cardiac chambers are normal in size. No pericardial fluid orthickening is present. Mediastinum and Aissatou: No enlarged lymph nodes are present. Thoracic Vasculature: No vascular abnormality is present. Bones and Chest Wall: Bone windows demonstrate no suspicious lytic or blastic lesions. The visible osseous structures are intact. Upper Abdomen: Status post cholecystectomy. Small hiatal hernia is noted. No significant nasopharyngeal dilation. Impression: 1.Interval some improvement of the groundglass opacities in thebilateral lower lobes; however, there is a residual linear and mild groundglass opacities and traction bronchiectasis. With the history of systemic sclerosis, these findings could suggest nonspecific interstitialpneumonia (NSIP). A differential diagnosis to be considered is sequelae ofaspiration 2.4 mm solid pulmonary nodule adjacent to the right minor fissure, no change from previous CT examination. 3.Small hiatal hernia is noted. > Dictated by Jc Piper MD, MD (president & ceo). I, Jorge Omer MD have personally reviewed and interpreted this examination/study. > Interpreting Provider: Jorge Omer MD on 11/20/2024 2:14PM Kelechi Herrera MD CT ORDERABLES Final Re sult * VITAMIN D 25-HYDROXY (10/31/2024 10:55 AM CDT) Vitamin D, 25 Hydroxy 43.2 30.0 - 80.0 ng/mL 10/31/2024 12:11 PM CDT [facility] Comment: The recommendations for 25-Hydroxy Vitamin D [...] CDT Kelechi Herrera MD LAB - CHEMISTRY ORDERABL ES Final Result [facility] [address] [place] [address], [facility] [phone] * (ABNORMAL) LIPID PROFILE (08/17/2024 3:57 PM [facility]) Cholesterol Total 273(H) <200 mg/dL 08/17/2024 5:03 PM [facility] HDL 78 >40 mg/dL 08/17/2024 5:03 PM [facility] Comment: ATP III Classification of HDL Cholesterol: <40 mg/dL: Considered a major risk factor. >60 mg/dL: Considered a negative risk factor. LDL Calculated 162(H) <100 mg/dL 08/17/2024 5:03 PM [facility] Comment: ATP III Classification of LDL Cholesterol: <100 mg/dL: Optimal 100 - 129 mg/dL: Near Optimal/Above Optimal 130 - 159 mg/dL: Borderline High 160 - 189 mg/dL: High >190 mg/dL: Very High Triglycerides 166(H) <150 mg/dL 08/17/2024 5:03 PM [facility] Comment: ATP III Classification of Triglycerides: <150 mg/dL: Normal 150 - 199 mg/dL: Borderline High 200 - 400 mg/dL: High >500 mg/dL: Very High Blood BLOOD SPECIMEN / Unknown Lab Venipuncture / Unknown 08/17/2024 3:57 PM [facility] 08/17/2024 4:33 PM [facility] Ordering Provider Unlisted LAB - CHEMISTRY OR DERABLES Final Result Performing Organization Address City/[facility]/ZIP Co de Phone Number [facility] [address] [place] [id number], [place] [phone] * HEPATITIS C ANTIBODY (02/24/2024 2:54 PM CDT) Hepatitis C Antibody Non-react roman Non-reac tive 02/24/2024 5:13 PM CDT [facility] Comment:Hepatitis C Antibody screen indicates no serologic [...] 2:54 PM CDT 02/24/2024 3:56 PM CDT us Neeraj Sorto MD LAB - CHEMISTRY ORDERABLES Final Result Performing Organization Address [facility] Co de Phone Number [address] [address], [place] [phone] from Last 3 Months or Most Recently Relevant to Health Maintenance Insurance [facility] Care Teams Electric Lineman Relationship Specialty Start Date End Date Monique Molina [address] [place] [id number] PCP - General 12/05/24
--- OUTSIDE RECORDS SUMMARY | 2025-01-15 11:45 | XMS_ITS | Referral Summary ---
Author Organization [facility] Address [address] [place] [address] Care Team Providers Care Satellite Instruction Facilitator Name Role Phone Amelia Tamayo MD Primary Care Provider Titi Moss MD Unavailable [phone] Mohan Rojas MD Unavailable [phone] Gail Castro RN Unavailable Unavailable Encounters Date Type Department Care Team Description 12/12/2024 Telephone [facility] Trans[facility] Lung [address] [facility] [id number] [place] [address] Rhina Hodge Referral - Lung Txp (Referral for lung transplant) from Last 3 Months Allergies Active Allergy [...] 10/12/2023 Assessment & Plan (10/19/2023 5:46 PM WOMEN'S STUDIES PROFESSOR): Dffuse systemic sclerosis, s/p IVIG for progressive [...] outpatient Assessment & Plan (10/18/2023 12:59 PM WOMEN'S STUDIES PROFESSOR): Dffuse systemic sclerosis, s/p IVIG for progressive [...] outpatient Assessment & Plan (10/12/2023 12:44 PM WOMEN'S STUDIES PROFESSOR): Dffuse systemic sclerosis, s/p IVIG for progressive [...] 11/27. Assessment & Plan (10/19/2023 5:46 PM WOMEN'S STUDIES PROFESSOR): TTE this admission with e/o acute RV [...] TTE. Assessment & Plan (10/18/2023 12:57 PM WOMEN'S STUDIES PROFESSOR): TTE this admission with e/o acute RV [...] TTE. Assessment & Plan (10/12/2023 12:32 PM WOMEN'S STUDIES PROFESSOR): TTE this admission with e/o acute RV [...] 10/04/2023 Assessment & Plan (10/21/2023 6:30 PM WOMEN'S STUDIES PROFESSOR): Azra Little is a 48 year old [...] outpatient Assessment & Plan (10/18/2023 12:51 PM WOMEN'S STUDIES PROFESSOR): Azra Little is a 48 year old [...] outpatient Assessment & Plan (10/12/2023 12:22 PM WOMEN'S STUDIES PROFESSOR): Admitted with acute hypoxemic respiratory failure requiring [...] discharge Assessment & Plan (10/09/2023 9:53 AM WOMEN'S STUDIES PROFESSOR): -presenting with shortness of breath for approximately [...] COVID Assessment & Plan (10/06/2023 1:11 PM WOMEN'S STUDIES PROFESSOR): Acute-onset SOB on subacute SOB/NICHOLAS/BLEE x 4-6 [...] 10/04/2023 Assessment & Plan (10/09/2023 9:52 AM WOMEN'S STUDIES PROFESSOR): -presenting with progressive NICHOLAS and exercise intolerance, episodic ALEJANDRO, episodic rash on upper extremities and chest. -serologies notable for positive SHYLA and anti-Scl70. -s/p IVIG for 4 days -rheumatology following Assessment & Plan (10/04/2023 5:37 PM WOMEN'S STUDIES PROFESSOR): Presenting with 5-6 months of progressive NICHOLAS [...] 10/04/2023 Assessment & Plan (10/07/2023 11:15 AM WOMEN'S STUDIES PROFESSOR): -baseline Hgb 9-10. -continue enteral iron q48 hours -cbc daily Assessment & Plan (10/04/2023 12:25 AM WOMEN'S STUDIES PROFESSOR): Recent baseline Hgb 9-10s, admitted at 10.5 -> 8.8, likely secondary to admission hemoconcentration and subsequent phlebotomy, no clinical signs of bleeding. Fe 12, ferritin 133, TIBC 198, Tsat 6. - on PO iron, space to every other day - can consider IV iron after no longer infected GERD (gastroesophageal reflux disease) Assessment & Plan (10/07/2023 11:15 AM WOMEN'S STUDIES PROFESSOR): -daily PPI Assessment & Plan (10/04/2023 12:26 AM WOMEN'S STUDIES PROFESSOR): Having reflux symptoms, concerning for relation to scleroderma. - start PPI (new med) Lymphadenopathy 10/04/2023 Assessment & Plan (10/12/2023 12:26 PM WOMEN'S STUDIES PROFESSOR): Chest and axillary adenopathy probably reactive. To be reassessed with next chest CT. Assessment & Plan (10/07/2023 11:15 AM WOMEN'S STUDIES PROFESSOR): -recurrent scans with mediastinal LAD, questionable breast LAD. -recommend outpatient mammogram Assessment & Plan (10/04/2023 12:26 AM WOMEN'S STUDIES PROFESSOR): Recurrent scans with mediastinal LAD, questionable breast LAD. - outpatient mammogram Severe protein-calorie malnutrition 10/04/2023 Assessment & Plan (10/07/2023 11:15 AM WOMEN'S STUDIES PROFESSOR): -nutrition consult -encourage PO intake and nutritional supplements Dyspnea, unspecified type 10/01/2023 Breast mass 07/27/2023 Assessment & Plan (07/27/2023 10:50 AM WOMEN'S STUDIES PROFESSOR): CT with breast asymmetry with axillary LN [...] 07/27/2023 Assessment & Plan (07/27/2023 10:27 AM WOMEN'S STUDIES PROFESSOR): Associated with metromenorrhagia in setting if uterine fibroids. CBC with hemoglobin at 10 from 12 2 months ago in setting of menorrhagia. Has been on iron supplement but haven't been taking it. - rec follow up with her COMMUNICATIONS PROJECT LEAD Acute on chronic respiratory failure 07/26/2023 Assessment [...] find out whether she can follow with [facility] rheum/pulm as an outpatient; if so, we are happy to see her in clinic, and this would be optimal since the majority of her workup has been performed at [facility]. In summary, our recommendations are as follows: [...] today Assessment & Plan (07/28/2023 1:19 PM WOMEN'S STUDIES PROFESSOR): Admitted with worsening exertional dyspnea, orthopnea, bendopnea, [...] 05/25/2023 Assessment & Plan (07/27/2023 2:41 PM WOMEN'S STUDIES PROFESSOR): Mild, intermittent LE edema. Patient endorses current upper extremity edema I cannot recognize on exam. - continue compression stocking - LE dop negative Asthma exacerbation 12/15/2017 Assessment & Plan (07/28/2023 1:20 PM WOMEN'S STUDIES PROFESSOR): Prior asthma history, reporting shortness of breath, [...] 10/14/2023 Assessment & Plan (10/18/2023 12:55 PM WOMEN'S STUDIES PROFESSOR): Diagnosed on admission after presenting with AHRF requiring ICU admission and BiPAP. Treated with Tamiflu 09/30-10/12. See acute hypoxemic respiratory failure problem. Assessment & Plan (10/11/2023 1:09 PM WOMEN'S STUDIES PROFESSOR): Diagnosed on admission after presenting with AHRF requiring ICU admission and BiPAP. Has been on Tamiflu since 09/30. - Continue Tamiflu Assessment & Plan (10/09/2023 10:35 AM WOMEN'S STUDIES PROFESSOR): -Will receive a total of 20 doses of tamiflu COVID 10/09/2023 10/14/2023 Assessment & Plan (10/18/2023 1:13 PM WOMEN'S STUDIES PROFESSOR): Patient developed worsening SOB with worsening infiltrates on CT on 10/04, requiring transfer to the ICU. Repeat RVP on 10/08 positive for COVID. Received remdesivir and dexamethasone. 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 See acute hypoxemic respiratory failure problem. Assessment & Plan (10/18/2023 12:54 PM WOMEN'S STUDIES PROFESSOR): Patient developed worsening SOB with worsening infiltrates on CT on 10/04, requiring transfer to the ICU. Repeat RVP on 10/08 positive for COVID. +COVID Ab test. Received remdesivir and dexamethasone. 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 See acute hypoxemic respiratory failure problem. Assessment & Plan (10/12/2023 12:25 PM WOMEN'S STUDIES PROFESSOR): Patient developed worsening SOB with worsening infiltrates [...] plan. Assessment & Plan (10/10/2023 2:47 PM WOMEN'S STUDIES PROFESSOR): + 10/08 -Dexamethasone (discussed with rheumatology and monitoring for scleroderma renal crisis) and remdesivir -IS and OOBTC and acapella Pulmonary hypertension 10/06/202310/07 Assessment & Plan (10/06/2023 6:21 PM WOMEN'S STUDIES PROFESSOR): -Noted on TTE 10/06 EF 66%, PASP 50, with small effusion -Pulmonology consulted Acute kidney injury 10/04/2023 10/07/19 24 Assessment & Plan (10/06/2023 10:19 PM WOMEN'S STUDIES PROFESSOR): Creatine down trending Assessment & Plan (10/04/2023 12:25 AM WOMEN'S STUDIES PROFESSOR): Baseline normal, arrived 1.2, resolved to baseline [...] experiencing loneliness or isolatio n Never 10/28/2023 [facility] Utilities Answer Date Recorded In the past 12 months has e [employer], gas, oil, or water [employer] threatened to shut off services in your [...] often do you attend chur ch or rastafari services? 1 to 4 times per year 12/02/2023 Do you belong to any clubs o r organizations such as methodist groups, unions, fraternal or athletic groups, or [...] place to sleep or slept in a custodial (including now)? No 12/02/2023 Personal Safety Answer Date Recorded Have you ever been in or are you currently in a harmful physical or emotional relationship or is someone making you feel afraid or unsafe? Denies 11/24/2023 Comments Unknown Sex and Gender Information Value Date Recorded Sex Assigned at Not on file Legal Sex Female 9:11 PM WOMEN'S STUDIES PROFESSOR Gender Identity Not on file Sexual Orientation [...] 7:14 PM CDT Height 162.6 cm (5' 4) 11/24/2023 6:44 PM CDT Body Mass Index 23.64 11/24/2023 6:44 PM CDT Plan of Treatment Not on file Procedures Procedure Name Priority Date/Time Associated Diagnosis Comments HEPATITIS PANEL, ACUTE STAT 10/04/2023 5:46 PM WOMEN'S STUDIES PROFESSOR SCREENING MAMMOGRAM BILATERAL W PAOLO 05/14/2019 8:21 AM CDT from Last 3 Months or Most Recently Relevant to Health Maintenance Results * (ABNORMAL) Hepatitis panel, acute Blood (10/04/2023 5:46 PM WOMEN'S STUDIES PROFESSOR) Hep A IgM Reactive(A) Nonreactive [facility] Hep B core IgM Nonreactive Nonreactive [facility] Hep C Ab Nonreactive Nonreactive [facility] Comment:Antibodies to HCV no t detected. Does NOT exclude the possibility of recent exposure to HCV. Current interpretive data was last revised on 22 HepBsAg Nonreactive Nonreactive [facility] Blood 10/04/2023 5:46 PM WOMEN'S STUDIES PROFESSOR 10/04/2023 6:23 PM WOMEN'S STUDIES PROFESSOR us Chelly Salcido MD LAB MICROBIOLOGY - GENERAL O RDERABLES Final Result [facility] [address] [facility] Department [place] [address] * Screening Mammogram Bilateral W Paolo (05/14/2019 8:21 AM CDT) Anatomical Region Laterality Modality Breast Bilateral Mammography 05/14/2019 8:27 AM CDT Narrative 05/14/2019 9:18 AM CDT Patient Name: AZRA LITTLE Dr: Naila Franklin MDO.B: 1975 Exam Date: 05/14/19820 Age: 43 Sex: Female MR#: [id number] Loc: RADIOLOGY REPORT Order #[id number] [facility] Argelia Bilat Screening 3D Signed - [...] made to exam dated: 03/06/2018 mammogram - [facility]. BREAST TISSUE: The tissue of both breasts [...] age 39, based on guidelines of the [place] [employer] (ACR Practice Parameter for the Performance of Screening and Diagnostic Mammography) and [place] [employer]. For women with an elevated risk of breast cancer, please refer to the ACR Practice Parameter for specific screening recommendations. The patient will be entered into a reminder system with a target due date of 1 year for her next screening exam. Electronically signed by: Esdras Salgado M.D., md/:05/14/2019 09:18:42 Cylinder Machine Operator Pulp Drier: Gail Dominguez RT(R)(M), [facility] letter sent: Normal Exam Reading location: BI-RADS: 2 Benign REPORT ELECTRONICALLY SIGNED IN OTHER VENDOR SYSTEM Resulting Agency Comment O Procedure Note Esdras Salgado MD - 05/14/2019 Patient Name: LITTLEAZRA Basurto Dr: Naila Franklin MD D.O.B: 1975 Exam Date: 09820 Age: 43 Sex: Female MR#: [id number] Loc: RADIOLOGY REPORT Order #[id number] [facility] Argelia Bilat Screening 3D Signed - [...] is made to exam dated: 03/06/2018 mammogram -[facility]. BREAST TISSUE: The tissue of both breasts [...] age 39, based on guidelines of the [place] [employer] (ACR Practice Parameter for the Performance of Screening and Diagnostic Mammography) and [place] [employer]. For women with an elevated risk of breast cancer, pleaserefer to the ACR Practice Parameter for specific screening recommendations. The patient will be entered into a reminder system with a target due dateof 1 year for her next screening exam. Electronically signed by: Esdras Salgado M.D., md/:05/14/2019 09:18:42 Cylinder Machine Operator Pulp Drier: Gail RAMIRES(R)(M), [facility] letter sent: Normal Exam Reading location: BI-RADS: 2 Benign REPORT ELECTRONICALLY SIGNED IN OTHER VENDOR SYSTEM Naila Franklin MD IMG MAMMO PROCEDURES Final Re sult from Last 3 Months or Most Recently Relevant to Health Maintenance [place] [address] [place] [address] [facility] Advance Directives For more information, please contact: [phone] * Full Code (Latest Code Status on File) Date Activated Date Inactivated Comments 11/24/2023 7:16 PM 12/01/2023 9:01 PM * Full Code Date Activated Date Inactivated Comments 10/01/2023 3:54 PM 10/22/2023 5:23 PM * Full Code Date Activated Date Inactivated Comments 07/26/2023 9:54 PM 07/28/2023 9:43 PM Care Teams Satellite Instruction Facilitator Relationship Specialty Start Date End Date Amelia Tamayo MD [address] [place] [address] PCP - General Family Medicine 10/31/23 Titi Moss MD [address] [facility] [address] [place] [address] Family Medicine 12/28/23 Mohan Rojas MD [address] OF P[place] [address] Pulmonary Disease 12/12/24 Gail Castro, internet marketing managerWrecking Crane Engine Operator 12/12/24
--- OUTSIDE RECORDS SUMMARY | 2025-01-15 11:45 | XMS_ITS | Data Portability ---
Author Organization [facility] FRANCESTameka Address [address] [place] [address] Care Team Providers Care Propellant Charge Zone Assembler Name Role Phone TITI BLACK Primary Care Provider Assessment No assessment recorded. Plan of Treatment Reminders Order Date Submit Date Provider Last Modified By Organization Details Last Modified Time Details Appointments None recorded. Lab pap, IG + reflex HPV 2023 024 [facility], [address] [place] [address], [address], [place], [address], 4 11:12:00 inflammatio n panel, serum or plasma 2022 023 [facility], [address] [place] [address], [address], [place], [address], 3 05:10:[address] referral - Systemic sclerosis with worsening SOB, to rule out ILD 2023 024 [facility], [address] [place] [address], [address], 4 08:44:44 Procedures None recorded. Surgeries None recorded. Imaging XR, chest, 2 view 2023 024 [facility] Scheduling, [address] [facility], [place], [address], 4 13:23:59 MAMMO, diagnostic, digital, unilateral 2022 023 [facility] Scheduling, [address] [facility], [place], [address], 3 13:27:24 MAMMO, screening, bilateral 2018 019 RONI Not available 9 10:34:52 Medication Orders hydroxychlo roquine 200 mg tablet 2023 024 [id number], [address] [place] [address], [id number], 4 17:10:54 prednisone 20 mg tablet 2022 023 [facility] #[id number], [address] [place] [address], [id number], 3 12:08:13 Bactrim DS 800 mg-160 mg tablet 2019 020 [facility], [facility], [address] [place] [address], [id number], 11:48:33 Patient TargetsNo targets recorded. Patient Instructions Encounter Date Encounter Id Patient Instructions Last Modified By Organization Details Last Modified Time 06/24/2023 [id number] I was present and available in the family medicine clinic to discuss the patient's care during the appointment and the case was discussed with me. I agree with the resident's assessment and plan as documented. HL [email or web address] Not available 06/29/2023 10:51:01 08/03/2023 [id number] I certify that I was present for [...] Physician. juan Not available 08/08/2023 14:13:36 09/08/2023 [id number] I certify that I was present for [...] Not available 2023 14:00:56 Reason for Referral Design Technician Referral for D yspnea Systemic sclerosis with worsening SOB, to rule out ILD Referring Physician: Titi Black, Development Educator, Encounter Date: 09/08/2023 Results Created Date Observation Date Name Description Value Unit Range Abnormal Flag Note LastModifiedBy Organization Detail LastModifiedTime 06/24/2006/25/2023 ESR-W ES+CR P sedimentatio n rate-westerg erica 35 mm/HR 0-32 above high normal Not Available [facility] ([facility]) [address] [place], [address], 06/25/2023 05:10:33 06/24/2006/25/2023 ESR-W ES+CR P C-reactive protein, quant 7 mg/L 0-10 Not Available [facility] ([facility]) [address] [place], [address], 06/25/2023 05:10:33 07/01/20 23 07/04/2023 SHYLA W/RFX TO ALL IF POSIT ROXANN SHYLA direct Positi ve negati ve abnormal Not Available [facility] ([facility]) [address] [place], [address], 07/04/2023 13:09:19 07/01/2007/02/2023 RHEUM ATOID FACTO R (RF) rheumatoid factor (rf) <10.0 IU/mL <14.0 Not Available [facility] ([facility]) [address] [place], [address], 07/04/2023 13:09:19 07/01/20 23 07/04/2023 ANTIN UCLEA R AB 11 BY MULTI PLEX anti-DNA (ds) Ab qn 1 IU/mL 0-9 Negat roxann <5 Equiv ocal 5 - 9 Posit roxann >9 Not Available [facility] ([facility]) [address] [place], [address], 07/04/2023 13:09:18 07/01/20 23 07/04/2023 ANTIN UCLEA R AB 11 BY MULTI PLEX client experience specialist antibodies <0.2 ai 0.0-0. 9 Not Available [facility] ([facility]) [address] [place], [address], 07/04/2023 13:09:18 07/01/20 23 07/04/2023 ANTIN UCLEA R AB 11 BY MULTI PLEX varela antibodies <0.2 Not Available [facility] ([facility]) [address] [facility], [place], [address], 07/04/2023 13:09:18 07/01/20 23 07/04/2023 ANTIN UCLEA R AB 11 BY MULTI PLEX varela/client experience specialist antibodies <0.2 Not Available [facility] ([facility]) [address] [place], [address], 07/04/2023 13:09:18 07/01/20 23 07/04/2023 ANTIN UCLEA R AB 11 BY MULTI PLEX antisclerode rma-70 antibodies >8.0 above high normal Not Available [facility] ([facility]) [address] [place], [address], 07/04/2023 13:09:18 07/01/20 23 07/04/2023 ANTIN UCLEA R AB 11 BY MULTI PLEX sjogren's anti-ss-A 0.2 ai 0.0-0. 9 Not Available [facility] ([facility]) [address] [place], [address], 07/04/2023 13:09:18 07/01/20 23 07/04/2023 ANTIN UCLEA R AB 11 BY MULTI PLEX sjogren's anti-ss-B <0.2 ai 0.0-0. 9 Not Available [facility] ([facility]) [address] [facility], [place], [address], 07/04/2023 13:09:18 07/01/2007/04/2023 ANTIN UCLEA R AB 11 BY MULTI PLEX antichromati n antibodies <0.2 Not Available [facility] ([facility]) [address] [facility], [place], [address], 07/04/2023 13:09:18 07/01/2007/04/2023 ANTIN UCLEA R AB 11 BY MULTI PLEX antiribosoma l P antibodies <0.2 Not Available [facility] ([facility]) [address] [facility], [place], [address], 07/04/2023 13:09:18 07/01/20 23 07/04/2023 ANTIN UCLEA R AB 11 BY MULTI PLEX anti-destiny-1 <0.2 Not Available [facility] ([facility]) [address] [facility], [place], [address], 07/04/2023 13:09:18 07/01/20 23 07/04/2023 ANTIN UCLEA R AB 11 BY MULTI PLEX anti-centrom ere B antibodies <0.2 Not Available [facility] ([facility]) [address] [facility], [place], [address], 07/04/2023 13:09:18 07/01/2007/04/2023 ANTIN UCLEA R AB [...] SLE 15 - 30% _ ___ ____ FREIGHT SHIPPING AGENT Mixed Conne ctive Tissu e Disea se 95% (U1 nRNP, SLE 30 - 50% anti- ribon ucleo prote in) Polym yosit is and/o r Sweetser tomyo sitis 20% _ ____ ____ Scl-7 0 (anti DNA Scler oderm a (diff use) 20 - 35% topoi josep ase) Crest 13% _ ____ ____ Destiny-1 Polym yosit is and/o r Sweetser tomyo sitis 20 - 40% _ ____ ____ Centr omere B Scler oderm a - Crest varia nt 80% _ ____ ____ Ribos omal P SLE 10 - 20% Not Available [facility] ([facility]) [address] [place], [address], 07/04/2023 13:09:18 09/08/19 24 09/08/2023 IGP,A PTIMA HPV,A GE GDLN age gdln acog testing 30-65 Not Available [facility] ([facility]) [address] [place], [address], 09/12/2023 11:11:59 09/08/19 24 09/09/2023 IGP, APTIM A HPV, RFX 16/18 ,45 HPV aptima Negati ve negati ve This nucle ic acid ampli ficat ion test detec ts fourt een high- risk HPV types (16,1 8,31, 33,35 ,39,4 5,51, 52,56 ,58,5 9,66, 68) witho ut diffe renti ation . Not Available [facility] ([facility]) [address] [place], [address], 09/12/2023 11:12:10 09/08/19 24 09/12/2023 IGP, APTIM A HPV, RFX 16/18 ,45 diagnosis: Anival rob NEGAT ROXANN FOR INTRA EPITH ELIAL RUBA Pulliam OR FLORENTINO ALEJO . Not Available [facility] ([facility]) [address] [facility], [place], [address], 09/12/2023 11:12:10 09/08/19 24 09/12/2023 IGP, APTIM A HPV, RFX 16/18 ,45 specimen adequacy: Anival t Satis facto ry for evalu ation . Endoc ervic al and/o r squam ous metap lasti c cells (endo cervi claudia compo nent) are prese nt. Not Available [facility] ([facility]) [address] [facility], [place], [address], 09/12/2023 11:12:10 09/08/19 24 09/12/2023 IGP, APTIM A HPV, RFX 16/18 ,45 clinician provided ICD10: Anival rob Z12.4 Not Available [facility] ([facility]) [address] [place], [address], 09/12/2023 11:12:10 09/08/19 24 09/12/2023 IGP, APTIM A HPV, RFX 16/18 ,45 performed by: Anival pulliam, Cytot echmichael colin t (ASCP ) Not Available [facility] ([facility]) [address] [place], [address], 09/12/2023 11:12:10 09/08/19 24 09/12/2023 IGP, APTIM A HPV, RFX 16/18 ,45 . . Not Available [facility] ([facility]) [address] [facility], [place], [address], 09/12/2023 11:12:10 09/08/19 24 09/12/2023 IGP, APTIM [...] ts do occur . Not Available [facility] ([facility]) [address] [facility], [place], [address], 09/12/2023 11:12:10 09/08/19 24 09/12/2023 IGP, APTIM A HPV, RFX 16/18 ,45 test methodology: Commen t This liqui d based ThinP rep(R ) pap test was scree trang with the use of an image guide newton systyuly m. Not Available [facility] ([facility]) [address] [facility], [place], [address], 09/12/2023 11:12:10 09/08/19 24 09/12/2023 IGP, APTIM A HPV, RFX 16/18 ,45 HPV genotype reflex Commen t Crite shivam not met, HPV Genot ype not perfo rmed. Not Available [facility] ([facility]) [address] [facility], [place], [address], 09/12/2023 11:12:10 05/14/20 19 05/14/2019 MAMMO , carl tao, bilat eral No observ ation record ed. [email or web address] [facility] [address] [place], [address], 05/17/2019 15:59:36 07/10/20 23 xr hand RT 3V [facility] [address] [facility] [address] INDICA TION: Swelli ng of finger s [...] By: David peterson, 2022 1:18 AM [facility] [address] [facility], [place], [address], 07/13/2023 17:06:52 07/10/20 23 xr wrist RT min 3V [facility] [place] [address] INDICA TION: Swelli ng of finger s [...] reted By: David peterson, 2022 1:18 AM [facility] [address] [facility], [place], [address], 07/13/2023 17:06:53 07/10/20 23 XR, wrist + hand [facility] [address] [facility] [address] INDICA TION: Swelli ng of finger s [...] By: David peterson, 2022 1:20 AM nasima [facility] Scheduling [address] [facility], [place], [address], 09/02/2023 16:21:55 07/10/20 23 XR, wrist + hand [facility] [place] [address] INDICA TION: Swelli ng of finger s [...] reted By: David peterson, 2022 1:20 AM [facility] [address] [facility], [place], [address], 07/13/2023 17:06:53 09/08/19 24 XR, chest , 2 view [facility] [address] Examin ation: Chest x-ray 2 view Access ion: [id number] Exam date/t ritika: 024 4:22 PM [...] By: Selena pulliam MD, 5:01 PM nasima [facility] Scheduling [address] [facility], [place], [address], 10/25/2023 13:24:00 Result Notes None recorded. Problems Name Problem SNOMED Code Status Onset Date Resolution Date Notes Provider Name and Address Organization Details Recorded Time Acute bronchitis 58485922 Active 2017 Denton Isaacs PA-C Attn: Accounting ,[address] , [place], [address] , [facility] 8 20:17:20 Asthma 820448167 Active 2017 Seema Jamil MA [facility] 8 11:54:06 Problem Notes None recorded. Procedures Surgical History Date Name Laterality Status Provider Name and Address Organization Details Recorded Time 02/18/20 18 Most Recent Mammogram completed Taras Garcia MA [facility] 03/29/2018 11:42:52 01/18/20 18 Date of Last Pap Smear completed Taras Garcia MA [facility] 03/29/2018 11:42:43 08/22/18 94 Cholecystectomy completed Naila Franklin [facility] 03/09/2018 12:59:38 Imaging Results None recorded. Procedure Notes None recorded. Medical Equipment None Reported. Allergies Allergen ID Allergen Name Allergen Category Reaction Reaction Severity Criticality Documentation Date Start Date Code Code System Note Provider Name and Address Organization Details Recorded Time 320811 Product containin g penicilli n (product) medicatio n rash Not available Not available 09/08/2017 50112 8001 SNOMED Kedar Bella [facility] 8 20:08:29 Medications Name Sig Start Date Stop Date [...] Pulse oximetry Heart rate Body temperature Systolic And Diastolic Provider Name and Address Organization Details Last Updated DateTime 4 162.56 cm 26 kg/m2 19915.9 g 98 % 98 % 92 /min 98.2 [degF] 104/69 mm[Hg] Veronica Kirkland MA [facility] 4 16:21:05 Date Recorded Body height Body mass index (BMI) Body weight Systolic And Diastolic Provider Name and Address Organization Details Last Updated DateTime 04/02/2019 162.56 cm 27.9 kg/m2 01342.12 g 120/72 mm[Hg] Roxanna Augustine MA [facility] 04/02/2019 11:56:59 Date Recorded Heart rate Systolic And Diastolic Provider Name and Address Organization Details Last Updated DateTime 06/24/2023 99 /min 113/76 mm[Hg] Titi Black MD Attn: Accounting[address] [place], [address], [facility] 06/24/2023 11:29:44 Date Recorded Body height Body mass index (BMI) Body weight Heart rate Oxygen saturation Oxygen saturation in Arterial blood by Pulse oximetry Body temperature Systolic And Diastolic Provider Name and Address Organization Details Last Updated DateTime 3 162.56 cm 28.7 kg/m2 40221.9 8 g 101 /min 96 % 96 % 98 [degF] 109/74 mm[Hg] Gordo Aguilar MA [facility] 3 10:49:52 Date Recorded Body height Body mass index (BMI) Body weight Body temperature Oxygen saturation Oxygen saturation in Arterial blood by Pulse oximetry Heart rate Systolic And Diastolic Provider Name and Address Organization Details Last Updated DateTime 3 162.56 cm 29.4 kg/m2 81133.3 5 g 98.2 [degF] 96 % 96 % 102 /min 120/73 mm[Hg] Jennifer Pool [place] [facility] 3 11:14:17 Social History Question Answer Notes LastModified by Organizat ion Details LastModified Time Tobacco Smoking Status Never Smoker Kedar renee [place] [facility] 09/08/2017 20:08:41 Do You Have An Advance Directive? No No Blood Card Information not available 01/17/2018 Is Blood Transfusion Acceptable In An Emergency? No Information not available 01/17/2018 What Is Your Level Of Caffeine Consumption? Moderate Mostly Tea Every Now And Then Soda. PT Stated She Is Trying To Stick With Water Information not available 01/17/2018 How Much Tobacco Do You Chew? None Information not available 01/17/2018 What Type Of Diet Are You Following? REGULAR Information not available 01/17/2018 Education 12 Information not available 01/17/2018 Live Alone Or [...] How Much Tobacco Do You Smoke? No [email or web address] Information not available 12/15/2017 General Stress Level Medium Information not available 01/17/2018 Do You Use Sunscreen Routinely? No Information not available 01/17/2018 Sex: Unknown Functional Status Question Answer Note LastModified by Organizat ion Details LastModified Time Do you use any illicit or recreational drugs? No [email or web address] Information not available 06/24/2023 What is your level of alcohol consumption? Occasional Information not available 01/17/2018 Are you currently employed? 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 Occasional Got new trademil pt plans on more Information not available 01/17/2018 Mental Status None recorded. Family History Relationship Description Onset Age of this Age Resolved Age Notes LastModified by Organization Details LastModified Time Mother Essential hypertension [email or web address] Not available 11:54:22 Mother Pulmonary embolism [email or web address] Not available 12/15 11:54:49 Father Asthma [email or web address] Not available 12/15/2017 11:54:59 Father Malignant tumor of colon [email or web address] Not available 12/15 11:55:08 Medical History Condition [...] Skin Problems N Anemia N Heart Attack (OR) N Diabetes N Ovarian Cancer N Blood [...] virus, quadrivalent, preservative 8 completed Not Available [facility] 02:46:10 Past Encounters Encounter ID Performer Location Encounter Start Date Encounter Closed Date Diagnosis/Indication Diagnosis SNOMED-CT Code Diagnosis ICD10 Code Diagnosis Note [id number] Clint Millard MD [address] [address] 09/08/2017 19:51:30 09/12/2017 15:43:03 Acute bronchitis 21542388 J20.9 [id number] Destini Hernandez F[employer] STACK PHP DEVELOPER-[address] [address] 11/26/2017 12:35:32 11/28/2017 09:01:06 Acute urinary tract infection 606561780 N39.0 [id number] Clint Millard MD [address] [address] 12/15/2017 11:36:51 12/30/2017 09:06:43 Dysuria 30148392 R30.0 w/ back pain and trace hematuria. Will culture Body mass index 25-29 - overweight 572509367 Z68.27 BMI=27.5, discussed increasing physical activity and incorporat ing healthier meal choices. Depression screening 171 683571 Z13.89 PHQ9=0, negative Mild inter mittent asthma 933926071 J45.20 Stable, refilled inhaler Bacterial vaginosis 4197 59292 N76.0 pos. hx. Discussed treatment and PRN follow-up, in addition to hygeine. [id number] Clint Millard MD [address] [address] 01/13/2018 11:03:40 01/23/2018 15:30:18 Urinary tract infectious disease 45008941 N39.0 dysuria and trace leukocytes and blood on dip Fatigue 09899470 R53.83 worsening. Discussed workup. Discussed sleep hygeine and stress reduction/ management . Mild inter mittent asthma 094901048 J45.20 Stable, Discussed rescue inhaler use PRN [id number] Naila Franklin MD [address] [address] 01/17/2018 10:53:29 01/17/2018 16:12:26 Gynecologic examination 88370822 Z01.419 Enlarged uterus 18387318 4 N85.2 Pelvic US. RTC to discuss results 2 - 3 weeks. [id number] Clint Millard MD [address] [address] 02/09/2018 16:12:50 02/10/2018 09:03:19 Microscopic hematuria 185370437 R31.21 UA positive for moderate blood in urineNo CVA tenderness /STDs negatie on papHad trasvagina l ultrasound with results of fibroids. Has an appt with SOIL SCIENCE TEACHER on 02/14 to follow-up with results Anemia 868247797 D64.9 Iron saturation 12Hg 11.4, Hct 33.5Discus sed management and required follow-up. .. as per above she does have some hematuria, which can all be playing a role in anemia.Pt verbalized understand hilario ofproposed plan of care. Vitamin D deficiency 347 53345 E55.9 Vit level 19Pt verbalized understand ing and importance of follow-up [id number] Naila Franklin MD [address] [address] 02/14/2018 14:01:09 02/16/2018 12:59:35 Uterine leiomyoma 23744444 D25.9 Mass of ovary 419542104 R19.09 RTC in 2-3 weeks. [id number] Naila Franklin MD [address] [address] 03/09/2018 12:32:56 03/29/2018 11:38:42 Pelvic mass 08746422 R19.00 MRI with7 cm left dermoid cyst and uterine fibroids. Discussed the nature of dermoids as noncancero us growths. Will need surgical interventi on to possibly include hysterecto my. 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 Will get surgical clearance and RTC for scheduling . Will think about hysterecto my. [id number] Clint Millard MD [address] [address] 03/31/2018 11:40:57 04/03/2018 09:20:30 Pre-surgery evaluation 131931484 Z01.818 Will have surgery to correct/re move Vitamin D deficiency 347 48497 E55.9 Last Vit level 19Repeat level, continue 50,000 units once weekly [id number] Naila Franklin MD [place] [address] 04/20/2018 12:18:51 05/23/2018 11:21:37 Benign teratoma of ovary 039056694 D27.9 Discussed size of dermoid. Plans for laproscopy with possible conversion to laprotomy. Reviewed risks, benefits and alternativ es. Does not want hysterecto my. [id number] Clint Millard MD [place] [id number] 05/23/2018 09:45:04 05/25/2018 09:47:06 Hypercholesterolemia 26812824 E78.00 CH 231; LDL 170. She is eating a lot of pork. Discussed cutting back. Pt. wants to trial lifestyle chnages and exercise for 3 months Administra tion of influenza vaccine 07530999 Z23 Informed consent. Discussed care instructio n Overweight 351988813 E66 .3 27.3, encouraged exercise 3-5 days a week. [id number] Naila Franklin MD [address] [address] 06/27/2018 12:54:11 06/28/2018 14:25:25 Endometriosis of pelvic peritoneum 982066831 N80.3 Postoperative visit 1836 09497 Z09 No signs of infection. Discussed final pathology. Continue NSAIDs prn for pain. RTC in 2 weeks, sooner if problems. Dysuria 17505972 R30.0 Dipstick without nitrites. Small wbcs. [id number] Naila Franklin MD [address] [address] 07/11/2018 10:56:54 07/12/2018 09:49:35 Postoperative visit 516746693 Z09 No signs of infection. Return to work next week. F/U prn [id number] Naila Franklin MD [address] [address] 04/02/2019 11:31:03 04/02/2019 14:42:58 Screening mammography 35407132 Z12.31 [id number] Naila Franklin MD [place] [id number] 01/08/2020 10:36:03 01/08/2020 18:33:22 Dysuria 31995529 R30.0 -Phone visit during COVID 19 -presumed UTI. -Bactrim X 5 days. -Contact office if no improvemen t. 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 Encouraged to use compressio n stockings and order placed Bilateral swelling of finger of hands 8178211120 2199760 R22.33 H/o swollen fingers of both hands x 3 weeks with intermitte nt pain and stiffness during morning. Differenti als would be RA and OA- Pending ESR and CRP [id number] ANDRE PERKINS DO [facility] [address] [facility] [address] [place] [address] 08/03/2023 11:06:47 08/10/2023 11:18:42 Mass of left breast 9719743827 6380620 N63.20 possible breast nodule - 07/28 CT showed prominent L axillary LN with asymmetric tissue and possible 1.5 cm nodule in left upper outer breast, recommende d correlatio n with dedicated breast imaging. A breast ultrasound was not able to be done inpatient. Also, Mammograms also not done inpatient. Tachycardia 6455942 R00. 0 This is likely 2/2 to anemia.Had full cardiac work up during hospitaliz ation that showed ECHO with > LVEF 65%, normal diastolic function. Delta trop negative, BNP 58, TSH 1.04, VBG normal, CMP w/o Gap. EKG normal as well.Needs to see rheum for futher eval Pain of bi lateral hands 6913180898 2592955 M79.641 / to scleroderm a. physical exams findings present too,. There is a struggle with insurance and paying to get into see rheum for DMARDs. Will trial steroids for right now until she is able to figure out how to see rheum. I dont think MRI is warrented right now as it would not change disease management right now. [id number] Lisa Vu MD [facility] [address] [facility] [address] [place] [address] 09/08/2023 16:02:33 09/15/2023 09:24:25 Screening for malignant neoplasm of cervix 163053583 Z12.4 Last pap smear in 2018, results normalPap smear done today in the clinic. pt denied STD testingF/u with results. Dyspnea 672693716 R06.00 Acute, worsening recently. Not sure what [...] out Pulmonary fibrosis with PFTs Systemic sclerosis 27123 008 M34.9 Pt recently diagnosed with systemic [...] with cycles. History of uterine fibroids. Naila renee [facility] 04/02/2019 14:42:50 0 text/html 44 y.o. for phone visit. Reports that she thinks she has a UTI. Feels similar to other UTIs. Has back pain and dysuria. No fever, chills or N/V. Naila renee [facility] 01/08/2020 18:33:14 3 text/html Ms. Oquendo is [...] numbness or LOC Monique Rodrigez MD Attn: [place], [address], [facility] 07/01/2023 09:01:16 3 text/html 47 year old [...] some fatigue. FESTUS PERKINS DO Attn: Accounting,[address], [place], [address], [facility] 08/08/2023 14:13:40 4 text/html [...] taken OSH FESTUS PERKINS DO Attn: Accounting,[address], [place], [address], [facility] 2023 14:01:04 OBGyn Episode No OBEpisode recorded.
--- OUTSIDE RECORDS SUMMARY | 2025-01-15 11:45 | XMS_ITS ---
Author Organization [facility] Address [address] [place] [address] Care Team Providers Care Unit Aide Tech Name Role Phone Amelia Tamayo MD Primary Care Provider Titi Moss MD Unavailable [phone] Mohan Rojas MD Unavailable [phone] Gail Castro RN Unavailable Unavailable Transplant Episode Lung Candidate [facility] ([place], [place]) - [facility] Referred on 12/12/2024 Marked as Active on 12/12/2024 Lung CoordinatorGail Castro RN Phone: N/A Fax: N/A Email: N/A Care Team Name Role Phone Fax Email Gail Castro RN Lung Coordinator N/A N/A N/A Angelia Guajardo Wheel Molder [phone] N/A N/A Mohan Rojas MD Referring Physician [phone] N/A Gail Castro RN Pre Coordinator N/A N/A N/A Events Pre-Transplant Referred: 12/12/2024
--- OUTSIDE RECORDS SUMMARY | 2025-01-15 11:45 | XMS_ITS | Clinical Summary ---
Author Organization [facility] Address [address] [place] [address] Care Team Providers Care Cpa Tax Name Role Phone Amelia Tamayo MD Primary Care Provider Titi Moss MD Unavailable [phone] Mohan Rojas MD Unavailable [phone] Gail Castro RN Unavailable Unavailable Allergies Active Allergy Reactions Criticality Noted [...] 10/12/2023 Assessment & Plan (10/19/2023 5:46 PM BOILERMAKER HELPER): Dffuse systemic sclerosis, s/p IVIG for progressive [...] outpatient Assessment & Plan (10/18/2023 12:59 PM BOILERMAKER HELPER): Dffuse systemic sclerosis, s/p IVIG for progressive [...] outpatient Assessment & Plan (10/12/2023 12:44 PM BOILERMAKER HELPER): Dffuse systemic sclerosis, s/p IVIG for progressive [...] 11/27. Assessment & Plan (10/19/2023 5:46 PM BOILERMAKER HELPER): TTE this admission with e/o acute RV [...] TTE. Assessment & Plan (10/18/2023 12:57 PM BOILERMAKER HELPER): TTE this admission with e/o acute RV [...] TTE. Assessment & Plan (10/12/2023 12:32 PM BOILERMAKER HELPER): TTE this admission with e/o acute RV [...] 10/04/2023 Assessment & Plan (10/21/2023 6:30 PM BOILERMAKER HELPER): Azra Little is a 48 year old [...] outpatient Assessment & Plan (10/18/2023 12:51 PM BOILERMAKER HELPER): Azra Little is a 48 year old [...] outpatient Assessment & Plan (10/12/2023 12:22 PM BOILERMAKER HELPER): Admitted with acute hypoxemic respiratory failure requiring [...] discharge Assessment & Plan (10/09/2023 9:53 AM BOILERMAKER HELPER): -presenting with shortness of breath for approximately [...] COVID Assessment & Plan (10/06/2023 1:11 PM BOILERMAKER HELPER): Acute-onset SOB on subacute SOB/NICHOLAS/BLEE x 4-6 [...] 10/04/2023 Assessment & Plan (10/09/2023 9:52 AM BOILERMAKER HELPER): -presenting with progressive NICHOLAS and exercise intolerance, episodic ALEJANDRO, episodic rash on upper extremities and chest. -serologies notable for positive SHYLA and anti-Scl70. -s/p IVIG for 4 days -rheumatology following Assessment & Plan (10/04/2023 5:37 PM BOILERMAKER HELPER): Presenting with 5-6 months of progressive NICHOLAS [...] 10/04/2023 Assessment & Plan (10/07/2023 11:15 AM BOILERMAKER HELPER): -baseline Hgb 9-10. -continue enteral iron q48 hours -cbc daily Assessment & Plan (10/04/2023 12:25 AM BOILERMAKER HELPER): Recent baseline Hgb 9-10s, admitted at 10.5 -> 8.8, likely secondary to admission hemoconcentration and subsequent phlebotomy, no clinical signs of bleeding. Fe 12, ferritin 133, TIBC 198, Tsat 6. - on PO iron, space to every other day - can consider IV iron after no longer infected GERD (gastroesophageal reflux disease) Assessment & Plan (10/07/2023 11:15 AM BOILERMAKER HELPER): -daily PPI Assessment & Plan (10/04/2023 12:26 AM BOILERMAKER HELPER): Having reflux symptoms, concerning for relation to scleroderma. - start PPI (new med) Lymphadenopathy 10/04/2023 Assessment & Plan (10/12/2023 12:26 PM BOILERMAKER HELPER): Chest and axillary adenopathy probably reactive. To be reassessed with next chest CT. Assessment & Plan (10/07/2023 11:15 AM BOILERMAKER HELPER): -recurrent scans with mediastinal LAD, questionable breast LAD. -recommend outpatient mammogram Assessment & Plan (10/04/2023 12:26 AM BOILERMAKER HELPER): Recurrent scans with mediastinal LAD, questionable breast LAD. - outpatient mammogram Severe protein-calorie malnutrition 10/04/2023 Assessment & Plan (10/07/2023 11:15 AM BOILERMAKER HELPER): -nutrition consult -encourage PO intake and nutritional supplements Dyspnea, unspecified type 10/01/2023 Breast mass 07/27/2023 Assessment & Plan (07/27/2023 10:50 AM BOILERMAKER HELPER): CT with breast asymmetry with axillary LN [...] 07/27/2023 Assessment & Plan (07/27/2023 10:27 AM BOILERMAKER HELPER): Associated with metromenorrhagia in setting if uterine fibroids. CBC with hemoglobin at 10 from 12 2 months ago in setting of menorrhagia. Has been on iron supplement but haven't been taking it. - rec follow up with her SUPERCALENDER OPERATOR Acute on chronic respiratory failure 07/26/2023 [...] today Assessment & Plan (07/28/2023 1:19 PM BOILERMAKER HELPER): Admitted with worsening exertional dyspnea, orthopnea, bendopnea, [...] 05/25/2023 Assessment & Plan (07/27/2023 2:41 PM BOILERMAKER HELPER): Mild, intermittent LE edema. Patient endorses current upper extremity edema I cannot recognize on exam. - continue compression stocking - LE dop negative Asthma exacerbation 12/15/2017 Assessment & Plan (07/28/2023 1:20 PM BOILERMAKER HELPER): Prior asthma history, reporting shortness of breath, [...] 10/14/2023 Assessment & Plan (10/18/2023 12:55 PM BOILERMAKER HELPER): Diagnosed on admission after presenting with AHRF requiring ICU admission and BiPAP. Treated with Tamiflu 09/30-10/12. See acute hypoxemic respiratory failure problem. Assessment & Plan (10/11/2023 1:09 PM BOILERMAKER HELPER): Diagnosed on admission after presenting with AHRF requiring ICU admission and BiPAP. Has been on Tamiflu since 09/30. - Continue Tamiflu Assessment & Plan (10/09/2023 10:35 AM BOILERMAKER HELPER): -Will receive a total of 20 doses of tamiflu COVID 10/09/2023 10/14/2023 Assessment & Plan (10/18/2023 1:13 PM BOILERMAKER HELPER): Patient developed worsening SOB with worsening infiltrates on CT on 10/04, requiring transfer to the ICU. Repeat RVP on 10/08 positive for COVID. Received remdesivir and dexamethasone. 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 See acute hypoxemic respiratory failure problem. Assessment & Plan (10/18/2023 12:54 PM BOILERMAKER HELPER): Patient developed worsening SOB with worsening infiltrates on CT on 10/04, requiring transfer to the ICU. Repeat RVP on 10/08 positive for COVID. +COVID Ab test. Received remdesivir and dexamethasone. 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 See acute hypoxemic respiratory failure problem. Assessment & Plan (10/12/2023 12:25 PM BOILERMAKER HELPER): Patient developed worsening SOB with worsening infiltrates [...] plan. 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 Encounters Date Type Department Care Team Description 12/12/2024 Telephone [facility] Transplant Lung [address] [facility] [phone] [place] [address] Rhina Hodge Referral - Lung Txp (Referral for lung transplant) from Last 3 Months Immunizations Immunization Administration Dates Next Due Influenza, [...] experiencing loneliness or isolatio n Never 10/28/2023 [facility] Utilities Answer Date Recorded In the past 12 months has e [employer], gas, oil, or [employer] threatened to shut off services in your [...] often do you attend chur ch or denominational services? 1 to 4 times per year 12/02/2023 Do you belong to any clubs o r organizations such as scientology groups, unions, fraternal or athletic groups, or [...] place to sleep or slept in a longterm (including now)? No 12/02/2023 Personal Safety Answer Date Recorded Have you ever been in or are you currently in a harmful physical or emotional relationship or is someone making you feel afraid or unsafe? Denies 11/24/2023 Comments Unknown Sex and Gender Information Value Date Recorded Sex Assigned at Not on file Legal Sex Female 9:11 PM BOILERMAKER HELPER Gender Identity Not on file Sexual Orientation [...] Colon Cancer Screening-Colonoscopy 1975 Depression Screening 1974 Hepatitis B Screening 1992 Regular Well Visit/Exam 18-64 1992 Pneumococcal vaccine <65 (1 of 2 - PCV) 1993 Zoster Vaccine (1 of 2) 1993 Breast Cancer Screening-Mammogram 05/14/2020 05/14/2019, 05/14/2019, 03/06/2018 DTaP/Tdap/Td Vaccine (2 - Td or Tdap) 08/13/2034 Hepatitis C Screening Completed 10/04/2023 Influenza Vaccine Completed 05/08/2024, 05/23/2018 Procedures Procedure Name Priority Date/Time Associated Diagnosis Comments HEPATITIS PANEL, ACUTE STAT 10/04/2023 5:46 PM BOILERMAKER HELPER SCREENING MAMMOGRAM BILATERAL W PAOLO 05/14/2019 8:21 AM CDT from Last 3 Months or Most Recently Relevant to Health Maintenance Results * (ABNORMAL) Hepatitis panel, acute Blood (10/04/2023 5:46 PM BOILERMAKER HELPER) Hep A IgM Reactive(A) Nonreactive [facility] Hep B core IgM Nonreactive Nonreactive [facility] Hep C Ab Nonreactive Nonreactive [facility] Comment:Antibodies to HCV no t detected. Does NOT exclude the possibility of recent exposure to HCV. Current interpretive data was last revised on 22 HepBsAg Nonreactive Nonreactive [facility] Blood 10/04/2023 5:46 PM BOILERMAKER HELPER 10/04/2023 6:23 PM BOILERMAKER HELPER us Chelly Salcido MD LAB MICROBIOLOGY - GENERAL O RDERABLES Final Result [facility] Department [place] [address] * Screening Mammogram Bilateral W Pa[place] (05/14/2019 8:21 AM CDT) Anatomical Region Laterality Modality Breast Bilateral Mammography 05/14/2019 8:27 AM CDT Narrative 05/14/2019 9:18 AM CDT Patient Name: AZRA LITTLE Dr: Naila Franklin MD D.O.B: 1975 Exam Date: 05/14/19820 Age: 43 Sex: Female MR#: [id number] Loc: RADIOLOGY REPORT Order #[id number] [facility] Argelia Bilat Screening 3D Signed [...] made to exam dated: 03/06/2018 mammogram - [facility]. BREAST TISSUE: The tissue of both breasts [...] age 40, based on guidelines of the [employer] (ACR Practice Parameter for the Performance of Screening and Diagnostic Mammography) and [employer]. For women with an elevated risk of breast cancer, please refer to the ACR Practice Parameter for specific screening recommendations. The patient will be entered into a reminder system with a target due date of 1 year for her next screening exam. Electronically signed by: Esdras Salgado M.D., md/:05/14/2019 09:18:42 Fluid Designer: Gail ROSENBERG (R)), [facility] letter sent: Normal Exam Reading location: BI-RADS: 2 Benign REPORT ELECTRONICALLY SIGNED IN OTHER VENDOR SYSTEM Resulting Agency Comment O Procedure Note Esdras Salgado MD - 05/14/2019 Patient Name: AZRA LITTLE Dr: Naila Franklin MD, D.O.B: 1975 Exam Date: 05/14/1921 Age: 43 Sex: Female MR#: [id number] Loc: RADIOLOGY REPORT Order #[id number] [facility] Argelia Bilat Screening 3D Signed [...] is made to exam dated: 03/06/2018 mammogram -[facility]. BREAST TISSUE: The tissue of both breasts [...] age 40, based on guidelines of the [employer] (ACR Practice Parameter for the Performance of Screening and Diagnostic Mammography) and [employer]. For women with an elevated risk of breast cancer, pleaserefer to the ACR Practice Parameter for specific screening recommendations. The patient will be entered into a reminder system with a target due dateof 1 year for her next screening exam. Electronically signed by: Esdras Salgado M.D., md/:05/14/2019 09:18:42 Fluid Designer: Gail RAMIRES(R)(Jcarlos), [facility] letter sent: Normal Exam Reading location: BI-RADS: 2 Benign REPORT ELECTRONICALLY SIGNED IN OTHER VENDOR SYSTEM us Naila Franklin MD IMG MAMMO PROCEDURES Final Re sult from Last 3 Months or Most Recently Relevant to Health Maintenance Insurance [facility] Advance Directives For more information, please contact: [phone] * Full Code (Latest Code Status on File) Date Activated Date Inactivated Comments 11/24/2023 7:16 PM 12/01/2023 9:01 PM * Full Code Date Activated Date Inactivated Comments 10/01/2023 3:54 PM 10/22/2023 5:23 PM * Full Code Date Activated Date Inactivated Comments 07/26/2023 9:54 PM 07/28/2023 9:43 PM Care Teams Cpa Tax Relationship Specialty Start Date End Date Amelia Tamayo MD [address] [place] [address] PCP - General Family Medicine 10/31/23 Titi Moss MD [address] [facility] [address] [place] [address] Family Medicine 12/28/23 Mohan Rojas MD [address] [place] [address] Pulmonary Disease 12/12/24 Gail Castro, motor runnerMotor Vehicle Salesperson 12/12/24
== END 2025-01-15 11:42 | disposition home or self-care (01) ==
LOC: ANHLAB 11:43
PROVIDERS: PCP Nurse Practitioner Family; Visit Provider Nurse Practitioner Obstetrics & Gynecology
DX: R39.9 Unspecified symptoms and signs involving the genitourinary system (principal)
CPT/HCPCS: 87086; 87186

== ENCOUNTER 2025-01-22 15:19 | Outpatient (CLI) | payer OTHER, SELFPAY ==
--- NOTE | ~2025-01-22 | US_ITS ---
Pelvic ultrasound. Clinical History: Ovarian cyst COMPARISON: 1724 Technique: Realtime transabdominal and transvaginal scanning of the pelvis was performed. Color flow Doppler and Doppler spectral analysis were performed. Findings: The uterus is anteverted. The endometrial stripe has a thickness of 12 mm. Suggestion of a rcuate versus possibly septate uterus. Hypoechoic fibroid towards the fundus measures 3.7 x 3.5 x 4.7 cm. Additional left-sided fibroid measures 2.8 x 3.7 x 3.0 cm.. The right ovary measures 5.4 x 3.2 x 5.7 cm. Right ovarian cyst measures 4.3 cm in diameter. There is a tubular cystic structure in the left adnexa compatible with hydrosalpinx. Left ovary not v isualized. There is no evidence of free fluid in the cul de sac. Impression: Left hydrosalpinx. 4.3 cm right ovarian cyst. Uterine fibroids, as above. Possible arcuate versus septate uterus. Reviewed, dictated and finalized at location . Impression: Left hydrosalpinx. 4.3 cm right ovarian cyst. Uterine fibroids, as above. Possible arcuate versus septate uterus.
--- OUTSIDE RECORDS SUMMARY | 2025-01-22 15:24 | XMS_ITS | Clinical Summary ---
Author Organization [employer] Address [address] [facility] [place] [address] Care Team Providers Care Call Center Professional Name Role Phone Monique Molina Primary Care Provider [phone] Source Comments [facility],non-owned Affiliates and Associated Physician Practices is amultiple site organization consisting of ambulatory clinics and hospital sitesin [place], [place], [place] and [place]. This disclosure is being madepursuant to the Care Everywhere program and may not contain all information available regarding this patient. Last updated 18.[employer] Allergies Active Allergy Reactions Criticality Noted Date Comments Penicillins Itching,Rash Medium 02/17/2024 Medications * Be aware that medications may not be up to date on this document. Alwaysverify current medications with the patient. FeroSul 325 (65 Fe) MG tablet Take 1 (one) tablet by mouth once daily Activ e albuterol (Proventil;Ve ntolin) (2.5 MG/3ML) 0.083% nebulizer solutionIndic ations:ILD (interstitial lung disease) ([facility]LY [facility]),Sclerod gabriel ([facility]) Inhale 2.5 (two and one-half) mg by mouth every 4 hours as needed for Shortness of Breath or Wheezing 540 mL 11 024 Active Multiple Vitamins-Mine rals (Multi Vitamin/Perquimans als) TABS Take 1 (one) tablet by [...] Encounters Date Type Department Care Team Description 01/22/2025 10:38 AM CDT Hospital Encounter [facility] [address] [place] [address] Unknown, Provider Kelechi Herrera MD 01/22/2025 Orders Only [facility] - Rheumatology [address] [place] [phone] Kelechi Herrera MD 01/22/2025 Travel 01/08/2025 1:00 PM CDT - 01/08/2025 11:59 PM CDT Hospital Encounter [facility] OP DRAW STATION [address] [place] [address] Discharge Disposition: Home or Self Care 01/08/2025 Travel 01/08/2025 Telephone [facility] - Endocrinology [facility] [place] [address] Mohan Rojas MD Medication Issue 01/04/2025 Telephone [facility] - Endocrinology [facility] [place] [address] Mohan Rojas MD Med Question 12/31/2024 Travel 12/31/2024 Refill [facility] Rheumatology [address] [place] [phone] Kelechi Herrera MD MEDICATION REFILL 12/27/2024 Refill [facility] Rheumatology [address] [place] [phone] Kelechi Herrera MD MEDICATION REFILL 12/26/2024 7:30 AM CDT - 12/26/2024 11:59 PM CDT Hospital Encounter [facility] PFT [address] [place] [address] Kelechi Herrera MD Discharge Disposition: Home or Self Care 12/26/2024 Travel 12/25/2024 Results Follow-Up [facility] - GI [address] [place] [phone] Neeraj Pennington MD 12/21/2024 Refill [facility] - Pulmonology [address], [facility] [address] [place] [phone] Mohan Rojas MD Refill Request 12/19/2024 8:29 AM CDT - 12/19/2024 11:59 PM CDT Hospital Encounter [facility] NUCLEAR MEDICINE [facility] [place] [address] Neeraj Pennington MD Discharge Disposition: Home or Self Care 12/19/2024 7:45 AM CDT - 12/19/2024 8:28 AM CDT Hospital Encounter [facility] NUCLEAR MEDICINE [address] [place] [phone] Neeraj Pennington MD Discharge Disposition: Home or Self Care 12/19/2024 Telephone [facility] - GI [address] [facility], [place] [address] Karrie Iqbal MD Vomiting 12/19/2024 Travel 12/18/2024 10:55 AM CDT - 12/18/2024 11:59 PM CDT Hospital Encounter [facility] [address] [place] [address] Unknown, Provider Kelechi Herrera MD Rheumatology Discharge Disposition: Home or Self Care 12/18/2024 Travel 12/13/2024 8:30 AM CDT - 12/13/2024 9:00 AM CDT Surgery [facility] ENDOSCOPY [address] [place] [phone] Neeraj Pennington MD EGD w/ [email or web address] 12/13/2024 8:23 AM CDT Anesthesia Event [facility] ENDOSCOPY [address] [place] [phone] Flaca Patel MD 12/13/2024 7:24 AM CDT - 12/13/2024 9:28 AM CDT Hospital Encounter [facility] [place] [address] [place] [phone] Neeraj Pennington MD Surgery General Discharge Disposition: Home or Self Care 12/13/2024 Travel 12/11/2024 11:00 AM CDT Office Visit [facility] - Pulmonology [address], [address] [place] [address] Mohan Rojas MD Immunization counseling (Primary Dx) 12/11/2024 Travel 12/11/2024 Telephone [facility] - Centralized Scheduling [address] [place] [address] Karena Rosario Reschedule Appointment (Left vm for patient to call back and reschedule appointment with Dr. Serrano.) 12/05/2024 9:30 AM CDT Office Visit [facility] - GI [address] [facility], [facility] [place] [phone] Neeraj Pennington MD Nausea and vomiting, unspecified vomiting type (Primary Dx); Unintentional weight loss; Scleroderma (HCC); ILD (interstitial lung disease) (HCC); Diffuse cutaneous systemic sclerosis (HCC); Therapeutic drug monitoring; Gastroesophageal reflux disease, unspecified whether esophagitis present 12/05/2024 Patient Outreach [facility] [address] [place] [phone] RN 12/05/2024 Refill [facility] - Endocrinology [address] [place] [phone] Mohan Rojas MD Refill Request 12/05/2024 Travel 11/30/2024 Travel 11/20/2024 8:50 AM CDT - 11/20/2024 11:59 PM CDT Hospital Encounter [facility] [address] [place] [address] Unknown, Provider Kelechi Herrera MD Rheumatology Discharge Disposition: Home or Self Care 11/20/2024 8:13 AM CDT - 11/20/2024 8:49 AM CDT Hospital Encounter [facility] CAT SCAN [address] [place] [phone] Kelechi Herrera MD Discharge Disposition: Home or Self Care 11/20/2024 8:04 AM CDT - 11/20/2024 8:12 AM CDT Hospital Encounter [facility] DIAGNOSTIC RAD OP [address] [place] [address] Kelechi Herrera MD Discharge Disposition: Home or Self Care 11/20/2024 Travel 11/14/2024 Refill [facility] Rheumatology [address] [place] [phone] Kelechi Herrera MD Refill Request 11/05/2024 Orders Only [facility] - Rheumatology [address] [place] [phone] Kelechi Herrera MD Diffuse cutaneous systemic sclerosis 11/02/2024 2:30 PM CDT Office Visit [facility] - ENT [address] [place] [phone] Juan Alberto Muhammad APRN-LUZMARIA Dizziness and giddiness (Primary Dx); Migraine equivalent; Tinnitus of both ears; Sensorineural hearing loss (SNHL) of both ears 11/02/2024 Travel 10/31/2024 10:28 AM CDT - 10/31/2024 11:59 PM CDT Hospital Encounter [facility] OP DRAW STATION [address] [place] [address] Kelechi Herrera MD Discharge Disposition: Home or Self Care 10/31/2024 9:30 AM CDT Office Visit [facility] - Rheumatology [address] [place] [phone] Kelechi Herrera MD Diffuse cutaneous systemic sclerosis (Primary Dx); Scleroderma; ILD (interstitial lung disease); 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 therapy 10/31/2024 Orders Only [facility] Rhe[facility]ology [address] [place] [phone] Kelechi Herrera MD Diffuse cutaneous systemic sclerosis; Scleroderma; ILD (interstitial lung disease); 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 therapy 10/31/2024 Travel 10/25/2024 Travel 10/23/2024 11:00 AM THERAPY TECHNICIAN - 10/23/2024 11:59 PM THERAPY TECHNICIAN Hospital Encounter [facility] [address] [place], [place] [phone] Unknown, Provider Rheumatology Discharge Disposition: Home or Self Care 10/23/2024 Travel from Last 3 Months Immunizations Immunization Administration Dates Next Due COVID MODERNA 12+ yr 50mcg/0.5mL 11/30/2024,1011/2023 INFLUENZA VACCINE, QUADR. 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 on f ile Not on file Last Filed Vital Signs Vital Sign Reading Time Taken Comments Blood Pressure 114/77 01/22/2025 10:44 AM CDT Pulse 93 01/22/2025 10:44 AM CDT Temperature 36.3 C (97.4 F) 01/22/2025 10:44 AM CDT Respiratory Rate 18 01/22/2025 10:44 AM CDT Oxygen Saturation 100% 01/22/2025 10:44 AM CDT Inhaled Oxygen Concentration - - Weight 65.5 kg (144 lb 6.4 oz) 01/22/2025 10:44 AM CDT Height 162.6 cm (5' 4) 12/13/2024 7:46 AM CDT Body Mass Index 24.79 12/13/2024 7:46 AM CDT Plan of Treatment Upcoming Encounters Date Type Department Care Team (Late st Contact Info) Description 02/13/2025 8:30 AM CDT Office Visit [facility] - Rheumatology [address] [place] [address], [place] [address] Kelechi Herrera MD [facility] [place] [address] 02/21/2025 11:30 AM CDT Appointment [facility] [address] [place] [phone] Unknown, Provider 02/25/2025 8:00 AM CDT [facility] [address] [place] [address], [place] [address] Tricia Serrano MD [facility] [place] [address] 03/06/2025 8:30 AM CDT Office Visit [facility] - GI [address] [place] [address], [place] [address] Neeraj Pennington MD [facility] [place] [address] 03/19/2025 10:30 AM CDT [facility] Pulmon[facility] [address], [facility] [address] [place] [phone] Mohan Rojas MD [address] [place] [address] [address] DIV OF PULM/[place] [address] Health Maintenance Due Date Last Done Comments [...] Scleroderma (HCC) ILD (interstitial lung disease) (HCC) [facility] [facility] EGD FLEX TRANSORAL DX 12/13/2024 8:18 [...] therapy LIPID PROFILE Routine 08/17/2024 3:57 PM THERAPY TECHNICIAN Screening for lipoid disorders HEPATITIS C ANTIBODY Routine 02/24/2024 2:54 PM CDT Scleroderma ILD (interstitial lung disease) from Last 3 Months or Most Recently Relevant to Health Maintenance Results * (ABNORMAL) CBC WITH DIFFERENTIAL (01/08/2025 2:13 PM CDT) Only the most recent of3 resultswithin the time period is included. WBC 2.8(L) 4.0 - 10.7 x10E9/L 01/08/2025 2:39 PM [facility] RBC Count 5.17 3.90 - 5.20 x10E12/L 01/08/2025 2:39 PM [facility] Hemoglobin 12.7 11.9 - 15.8 g/dL 01/08/2025 2:39 PM [facility] Hematocrit 41.0 34.8 - 46.1 % 01/08/2025 2:39 PM [facility] MCV 79.3(L) 80.0 - 98.0 fL 01/08/2025 2:39 PM [facility] MCH 24.6(L) 26.7 - 33.6 pg 01/08/2025 2:39 PM [facility] MCHC 31.0(L) 31.7 - 36.3 g/dL 01/08/2025 2:39 PM [facility] RDW-CV 14.0 11.3 - 14.8 % 01/08/2025 2:39 PM [facility] Platelet Count 256 150 - 420 x10E9/L 01/08/2025 2:39 PM [facility] MPV 9.8 7.8 - 11.4 fL 01/08/2025 2:39 PM [facility] Neutrophil % 38.6(L) 41.0 - 74.0 % 01/08/2025 2:39 PM [facility] Lymphocyte % 36.1 17.0 - 47.0 % 01/08/2025 2:39 PM [facility] Monocyte % 18.4(H) 3.0 - 11.0 % 01/08/2025 2:39 PM [facility] Eosinophil % 5.8 0.0 - 7.0 % 01/08/2025 2:39 PM [facility] Basophil % 1.1 0.0 - 1.6 % 01/08/2025 2:39 PM [facility] Immature Granulocytes % 0.0 0.0 - 1.0 % 01/08/2025 2:39 PM [facility] Neutrophil Absolute 1.07(L) 1.60 - 7.50 x10E9/L 01/08/2025 2:39 PM [facility] Lymphocyte Absolute 1.00 1.00 - 4.40 x10E9/L 01/08/2025 2:39 PM [facility] Monocyte Absolute 0.51 0.15 - 1.00 x10E9/L 01/08/2025 2:39 PM [facility] Eosinophil Absolute 0.16 0.00 - 0.60 x10E9/L 01/08/2025 2:39 PM [facility] Basophil Absolute 0.03 0.00 - 0.13 x10E9/L 01/08/2025 2:39 PM CDT [facility] Blood BLOOD SPECIMEN / Unknown Lab Venipuncture / Unknown 01/08/2025 2:13 PM CDT 01/08/2025 2:31 PM CDT Neeraj Sorto MD LAB - HEMATOLOGY ORDERABLES Jo Ann hinton Result [facility] [address] [place] [address], [facility] [phone] * (ABNORMAL) COMPREHENSIVE METABOLIC PANEL (01/08/2025 2:13 PM CDT) Only the most recent of3 resultswithin the time period is included. BUN 10 7 - 26 mg/dL 01/08/2025 3:03 PM [facility] Creatinine 0.96 0.56 - 0.96 mg/dL 01/08/2025 3:03 PM [facility] Sodium 142 136 - 145 mmol/L 01/08/2025 3:03 PM [facility] Potassium 3.7 3.5 - 4.5 mmol/L 01/08/2025 3:03 PM [facility] Chloride 109(H) 98 - 107 mmol/L 01/08/2025 3:03 PM [facility] CO2 22 22 - 29 mmol/L 01/08/2025 3:03 PM [facility] Glucose 76 70 - 99 mg/dL 01/08/2025 3:03 PM [facility] Calcium 9.7 8.4 - 10.2 mg/dL 01/08/2025 3:03 PM [facility] Protein Total 7.8 6.0 - 8.3 g/dL 01/08/2025 3:03 PM [facility] Albumin 4.7 3.4 - 5.0 g/dL 01/08/2025 3:03 PM [facility] Bilirubin Total 0.8 0.2 - 1.2 mg/dL 01/08/2025 3:03 PM [facility] Alkaline Phosphatase 65 40 - 150 U/L 01/08/2025 3:03 PM [facility] ALT 29 5 - 55 U/L 01/08/2025 3:03 PM CDT [facility] AST 34 5 - 34 U/L 01/08/2025 3:03 PM T [facility] Anion Gap 11 6 - 16 01/08/2025 3:03 PM T [facility] BUN/Creatinine Ratio 10 7 - 23 01/08/2025 3:03 PM T [facility] Osmolality Calculated 292 275 - 295 mOsm/kg 01/08/2025 3:03 PM T [facility] Albumin/Globulin Ratio 1.5 1.1 - 2.3 01/08/2025 3:03 PM T [facility] eGFR by CKD-EPI 72(L) >=90 mL/min/1.7 3 m2 01/08/2025 3:03 PM T [facility] Blood BLOOD SPECIMEN / Unknown Lab Venipuncture / Unknown 01/08/2025 2:13 PM CDT 01/08/2025 2:31 PM CDT Neeraj Sorto MD LAB - CHEMISTRY ORDERABLES Final Result [facility] [address] [place] [address], [facility] [phone] * Complete PFT [facility] PFT Lab (12/26/2024 9:07 AM CDT) Narrative [facility] - 12/26/2024 9:07 AM CDT Denotn Flores MD 12/27/2024 4:42 PM us Kelechi Herrera MD RESPIRATORY THERAPY ALMAZ GEORGE Edited Result - Final [facility] [address] [place] [address], [facility] * NM Gastric Emptying (12/19/2024 12:41 PM CDT) Anatomical Region Laterality Modality Abdomen Nuclear Medicine 12/19/2024 8:04 AM CDT Impressions 12/20/2024 8:36 AM CDT Impression: Findings consistent with grade 2 (moderate) gastroparesis based on 34% retention at 4 hours after ingestion of meal. > Dictated by Jack Corona MD (Tamping [employer] Forms) 12/19/2024 8:04 AM I, Imer Hollis MD have personally reviewed [...] meal is labeled with 0.5 mCi of [id number] sulfur colloid. Comparison: None. Findings: After ingestion [...] meal is labeled with 0.5 mCi of [id number]-[id number] sulfur colloid. Comparison: None. Findings: After ingestion [...] meal. > Dictated by Jack Corona MD (T[employer] Forms) 12/19/2024 8:04AM I, Imer Hollis MD have personally reviewed and interpreted this examination/study. > Interpreting Provider: Imer Hollis MD on 12/20/2024 8:36 AM Neeraj Pennington MD [place] ORDERABLES Final Result * HCG URINE QUALITATIVE - POCT (IP) INTERFACED (12/13/2024 7:59 AM CDT) HCG Qual Urine Negative Negative 12/13/2024 8:06 AM CDT [facility] Urine URINE / Unknown 12/13/2024 7 :59 AM CDT 12/13/2024 8:06 AM CDT Neeraj Pennington MD LAB - POINT OF CARE ORDERABLES Final Result [facility] [address] [place] [address], [facility] [phone] * EGD (12/13/2024 7:47 AM CDT) Report [...] non-gardiner portions. Procedure Code(s): --- Professional --- 01475, Esophagogastrodu odenoscopy, flexible, transoral; diagnostic, including collection of specimen(s) by brushing or washing, when performed (separate procedure) Diagnosis Code(s): --- Professional --- R11.15, Cyclical vomiting syndrome unrelated to migraine CPT copyright 2021 [employer]. All rights reserved. The codes documented in this report are preliminary and upon supervisor putty and caluking review may be revised to meet current compliance requirements. Neeraj Pennington MD 12/13/2024 8:39:12 AM Note Initiated On: 12/13/2024 7:47 AM Number of Addenda: [address] [address] [facility] 12/13/2024 7:47 AM CDT Neeraj Pennington MD GI PROCEDURE ORDERABLES Edited Result - Final Performing Organization Address [facility] [[email or web address]] Co de Phone Number [facility] * HCG URINE QUAL POCT NOTIFICATION (12/13/2024 7:42 AM CDT) Comment Notification Label Only - See Separate Report 12/13/2024 9:00 AM CDT [facility] Urine URINE / Unknown 12/13/2024 7 :42 AM CDT 12/13/2024 7:42 AM CDT Neeraj Pennington MD LAB - URINALYSIS ORDERABLES Fin al Result Performing Organization Address [facility] [[email or web address]] Co de Phone Number [address] [address], [place] [phone] * BONE DENSITY AXIAL SKELETON(1OR MORE SITES)[id number] (11/20/2024 8:40 AM CDT) Anatomical Region Laterality [...] age > Dictated by Iris Early MD ([employer] Forms) 11/20/2024 10:58 AM Imer Mann MD have personally reviewed and interpreted this examination/study. > Interpreting Provider: Imer Hollis MD on 11/20/2024 2:43 PM Procedure Note Imer Hollis MD - 11/20/2024 PROCEDURE: DEXA BONE DENSITY AXIAL SKELETON DATE/TIME OF EXAM: 11/20/2024 8:40 AM CLINICAL INFORMATION: None relevant/not provided if blank. Indication: M34.89: Diffuse cutaneous systemic sclerosis (HCC) M34.9: Scleroderma ([facility]) J84.9: ILD (interstitial lung disease) ([facility]) D84.821: 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 therapy (HCC) [...] age > Dictated by Iris Early MD ([employer] Forms) 11/20/2024 10:58AM IImer MD have personally reviewed and interpreted [...] > Dictated by Jc Piper MD, MD (residential property tax appraiser). I, Jorge Omer MD have personally reviewed and interpreted this examination/study. > Interpreting Provider: Jorge Omer MD on 11/20/2024 2:14 PM Narrative 11/20/2024 2:14 PM CDT PROCEDURE: CT CHEST CANDICE WEBB, DATE/TIME OF EXAM: 11/20/2024 8:34 AM, LOCATION [facility] INDICATION: M34.89: Diffuse cutaneous systemic sclerosis (HCC) [...] noted. No significant nasopharyngeal dilation. Procedure Note PoJorge marie MD - 11/20/2024 PROCEDURE: CT CHEST CANDICE WEBB, DATE/TIME OF EXAM: :34 AM, LOCATION [facility] INDICATION: M34.89: Diffuse cutaneous systemic sclerosis (HCC) [...] > Dictated by Jc Piper MD, MD (residential property tax appraiser). I, Jorge Omer MD have personally reviewed and interpreted this examination/study. > Interpreting Provider: Jorge Omer MD on 11/20/2024 2:14PM Kelechi Herrera MD CT ORDERABLES Final Re sult * VITAMIN D 25-HYDROXY (10/31/2024 10:55 AM CDT) Vitamin D, 25 Hydroxy 43.2 30.0 - 80.0 ng/mL 10/31/2024 12:11 PM CDT [facility] Comment: The recommendations for 25-Hydroxy Vitamin D [...] LAB - CHEMISTRY ORDERABL ES Final Result [facility] [address] [place] [phone], [facility] [phone] * (ABNORMAL) LIPID PROFILE (08/17/2024 3:57 PM THERAPY TECHNICIAN) Cholesterol Total 273(H) <200 mg/dL 08/17/2024 5:03 PM THERAPY TECHNICIAN [facility] HDL 78 >40 mg/dL 08/17/2024 5:03 PM THERAPY TECHNICIAN [facility] Comment: ATP III Classification of HDL Cholesterol: <40 mg/dL: Considered a major risk factor. >60 mg/dL: Considered a negative risk factor. LDL Calculated 162(H) <100 mg/dL 08/17/2024 5:03 PM [facility] Comment: ATP III Classification of LDL Cholesterol: <100 mg/dL: Optimal 100 - 129 mg/dL: Near Optimal/Above Optimal 130 - 159 mg/dL: Borderline High 160 - 189 mg/dL: High >190 mg/dL: Very High Triglycerides 166(H) <150 mg/dL 08/17/2024 5:03 PM [facility] Comment: ATP III Classification of Triglycerides: <150 mg/dL: Normal 150 - 199 mg/dL: Borderline High 200 - 400 mg/dL: High >500 mg/dL: Very High Blood BLOOD SPECIMEN / Unknown Lab Venipuncture / Unknown 08/17/2024 3:57 PM THERAPY TECHNICIAN 08/17/2024 4:33 PM THERAPY TECHNICIAN Ordering Provider Ruth GARCIA LAB - CHEMISTRY OR DERABLES Final Result Performing Organization Address City/[facility]/ZIP Co de Phone Number [address] [address], [place] [phone] * HEPATITIS C ANTIBODY (02/24/2024 2:54 PM CDT) [facility] Hepatitis C Antibody Non-react roman Non-reac tive 02/24/2024 5:13 PM CDT [facility] Comment:Hepatitis C Antibody screen indicates no serologic [...] CHEMISTRY ORDERABLES Final Result Performing Organization Address City/[facility]/ZIP Co de Phone Number [address] [address], [place] [phone] from Last 3 Months or Most Recently Relevant to Health Maintenance Insurance [facility] Care Teams Call Center Professional Relationship Specialty Start Date End Date Monique Molina [address] [place] [id number] PCP - General 12/05/24
--- OUTSIDE RECORDS SUMMARY | 2025-01-22 15:24 | XMS_ITS | Encounter Summary ---
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 Answer Date of Assessment Author No 12/13/2024 8:41 AM CDT Mohini Singh RN * Is person blind or have serious difficulty seeing? Answer Date of Assessment Author No 12/13/2024 8:41 AM CDT Mohini Singh RN * Does person have serious difficulty walking/climbing stairs? Answer Date of Assessment Author No 12/13/2024 8:41 AM CDT Mohini Singh RN * Does person have difficulty dressing/bathing? Answer Date of Assessment Author No 12/13/2024 8:41 AM CDT Mohini Singh RN * Does person have difficulty doing errands alone? Answer Date of Assessment Author No 12/13/2024 8:41 AM CDT Mohini Singh RN documented as of this encounter Mental Status * Does person have difficulty concentrating/remembering/making decisions? Answer Entry Date Author No 12/13/2024 8:41 AM CDT Mohini Singh RN documented in this encounter Plan of Treatment Upcoming Encounters Date Type Department Care Team (Late st Contact Info) Description 02/13/2025 8:30 AM CDT Office Visit [facility] - Rheumatology [address] [place] [address], [place] [address] Kelechi Herrera MD [address] [place] [address] 02/21/2025 11:30 AM CDT Appointment [facility] [address] [place] [address] Unknown, Provider 02/25/2025 8:00 AM CDT Office Visit [facility] - Neurology [address] [place] [address], [place] [address] Tricia Serrano MD [address] [place] [address] 03/06/2025 8:30 AM CDT Office Visit [facility] - GI [address] [place] [address], [place] [address] Neeraj Pennington MD [facility] [place] [address] 03/19/2025 10:30 AM CDT Office Visit [facility] - Pulmonology [address], [facility] [address] [place] [address] Mohan Rojas MD [address] [place] [address] 2L DIV OF PULM/[place] [address] documented as of this encounter Goals Goal Patient Goal Type Associated Problems Recent Progress Patient-Stated? Author Medication Management General On track( 024 11:23 AM CDT) No Meaghan Mead, RN Note: Expected end date: ongoing Interventions: Take all medications as prescribed documented as of this encounter Visit Diagnoses Not on filedocumented in this encounter Care Teams School Photographer Relationship Specialty Start Date End Date Monique Molina [address] [place] [phone] PCP - General 12/05/24 documented as of this encounter
--- OUTSIDE RECORDS SUMMARY | 2025-01-22 15:24 | XMS_ITS | Referral Summary ---
Author Organization [facility] Address [address] [place] [address] Care Team Providers Care Service Attendant Cafeteria Name Role Phone Amelia Tamayo MD Primary Care Provider Titi Moss MD Unavailable [phone] Mohan Rojas MD Unavailable [phone] Gail Castro RN Unavailable Unavailable Encounters Date Type Department Care Team Description 12/12/2024 Telephone [facility] Transplant Lung [address] [facility] [address] [phone] [place], [place] [phone] Rhina Hodge Referral - Lung Txp (Referral [...] 10/12/2023 Assessment & Plan (10/19/2023 5:46 PM RETAIL PROPERTY MANAGER): Dffuse systemic sclerosis, s/p IVIG for [...] outpatient Assessment & Plan (10/18/2023 12:59 PM RETAIL PROPERTY MANAGER): Dffuse systemic sclerosis, s/p IVIG for [...] outpatient Assessment & Plan (10/12/2023 12:44 PM RETAIL PROPERTY MANAGER): Dffuse systemic sclerosis, s/p IVIG for [...] 11/29 that was essentially unremarkable CI 3.3 (Aelx), 4.4 (Thermodilution); PCWP 6; mean PAP 21; [...] 11/27. Assessment & Plan (10/19/2023 5:46 PM RETAIL PROPERTY MANAGER): TTE this admission with e/o acute [...] TTE. Assessment & Plan (10/18/2023 12:57 PM RETAIL PROPERTY MANAGER): TTE this admission with e/o acute [...] TTE. Assessment & Plan (10/12/2023 12:32 PM RETAIL PROPERTY MANAGER): TTE this admission with e/o acute [...] 10/04/2023 Assessment & Plan (10/21/2023 6:30 PM RETAIL PROPERTY MANAGER): Azra Little is a 48 year [...] outpatient Assessment & Plan (10/18/2023 12:51 PM RETAIL PROPERTY MANAGER): Azra Little is a 48 year [...] outpatient Assessment & Plan (10/12/2023 12:22 PM RETAIL PROPERTY MANAGER): Admitted with acute hypoxemic respiratory failure [...] discharge Assessment & Plan (10/09/2023 9:53 AM RETAIL PROPERTY MANAGER): -presenting with shortness of breath for [...] COVID Assessment & Plan (10/06/2023 1:11 PM RETAIL PROPERTY MANAGER): Acute-onset SOB on subacute SOB/NICHOLAS/BLEE x [...] 10/04/2023 Assessment & Plan (10/09/2023 9:52 AM RETAIL PROPERTY MANAGER): -presenting with progressive NICHOLAS and exercise intolerance, episodic ALEJANDRO, episodic rash on upper extremities and chest. -serologies notable for positive SHYLA and anti-Scl70. -s/p IVIG for 4 days -rheumatology following Assessment & Plan (10/04/2023 5:37 PM RETAIL PROPERTY MANAGER): Presenting with 5-6 months of progressive [...] 10/04/2023 Assessment & Plan (10/07/2023 11:15 AM RETAIL PROPERTY MANAGER): -baseline Hgb 9-10. -continue enteral iron q48 hours -cbc daily Assessment & Plan (10/04/2023 12:25 AM RETAIL PROPERTY MANAGER): Recent baseline Hgb 9-10s, admitted at 10.5 -> 8.8, likely secondary to admission hemoconcentration and subsequent phlebotomy, no clinical signs of bleeding. Fe 12, ferritin 133, TIBC 198, Tsat 6. - on PO iron, space to every other day - can consider IV iron after no longer infected GERD (gastroesophageal reflux disease) Assessment & Plan (10/07/2023 11:15 AM RETAIL PROPERTY MANAGER): -daily PPI Assessment & Plan (10/04/2023 12:26 AM RETAIL PROPERTY MANAGER): Having reflux symptoms, concerning for relation to scleroderma. - start PPI (new med) Lymphadenopathy 10/04/2023 Assessment & Plan (10/12/2023 12:26 PM RETAIL PROPERTY MANAGER): Chest and axillary adenopathy probably reactive. To be reassessed with next chest CT. Assessment & Plan (10/07/2023 11:15 AM RETAIL PROPERTY MANAGER): -recurrent scans with mediastinal LAD, questionable breast LAD. -recommend outpatient mammogram Assessment & Plan (10/04/2023 12:26 AM RETAIL PROPERTY MANAGER): Recurrent scans with mediastinal LAD, questionable breast LAD. - outpatient mammogram Severe protein-calorie malnutrition 10/04/2023 Assessment & Plan (10/07/2023 11:15 AM RETAIL PROPERTY MANAGER): -nutrition consult -encourage PO intake and nutritional supplements Dyspnea, unspecified type 10/01/2023 Breast mass 07/27/2023 Assessment & Plan (07/27/2023 10:50 AM RETAIL PROPERTY MANAGER): CT with breast asymmetry with axillary [...] 07/27/2023 Assessment & Plan (07/27/2023 10:27 AM RETAIL PROPERTY MANAGER): Associated with metromenorrhagia in setting if uterine fibroids. CBC with hemoglobin at 10 from 12 2 months ago in setting of menorrhagia. Has been on iron supplement but haven't been taking it. - rec follow up with her PUTTY MIXER AND APPLIER Acute on chronic respiratory failure 07/26/2023 Assessment [...] find out whether she can follow with [facility] rheum/pulm as an outpatient; if so, we are happy to see her in clinic, and this would be optimal since the majority of her workup has been performed at [facility]. In summary, our recommendations are as [...] today Assessment & Plan (07/28/2023 1:19 PM RETAIL PROPERTY MANAGER): Admitted with worsening exertional dyspnea, orthopnea, [...] 05/25/2023 Assessment & Plan (07/27/2023 2:41 PM RETAIL PROPERTY MANAGER): Mild, intermittent LE edema. Patient endorses current upper extremity edema I cannot recognize on exam. - continue compression stocking - LE dop negative Asthma exacerbation 12/15/2017 Assessment & Plan (07/28/2023 1:20 PM RETAIL PROPERTY MANAGER): Prior asthma history, reporting shortness of [...] 10/14/2023 Assessment & Plan (10/18/2023 12:55 PM RETAIL PROPERTY MANAGER): Diagnosed on admission after presenting with AHRF requiring ICU admission and BiPAP. Treated with Tamiflu 09/30-10/12. See acute hypoxemic respiratory failure problem. Assessment & Plan (10/11/2023 1:09 PM RETAIL PROPERTY MANAGER): Diagnosed on admission after presenting with AHRF requiring ICU admission and BiPAP. Has been on Tamiflu since 09/30. - Continue Tamiflu Assessment & Plan (10/09/2023 10:35 AM RETAIL PROPERTY MANAGER): -Will receive a total of 20 doses of tamiflu COVID 10/09/2023 10/14/2023 Assessment & Plan (10/18/2023 1:13 PM RETAIL PROPERTY MANAGER): Patient developed worsening SOB with worsening infiltrates on CT on 10/04, requiring transfer to the ICU. Repeat RVP on 10/08 positive for COVID. Received remdesivir and dexamethasone. 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 See acute hypoxemic respiratory failure problem. Assessment & Plan (10/18/2023 12:54 PM RETAIL PROPERTY MANAGER): Patient developed worsening SOB with worsening infiltrates on CT on 10/04, requiring transfer to the ICU. Repeat RVP on 10/08 positive for COVID. +COVID Ab test. Received remdesivir and dexamethasone. 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 See acute hypoxemic respiratory failure problem. Assessment & Plan (10/12/2023 12:25 PM RETAIL PROPERTY MANAGER): Patient developed worsening SOB with worsening [...] plan. Assessment & Plan (10/10/2023 2:47 PM RETAIL PROPERTY MANAGER): + 10/08 -Dexamethasone (discussed with rheumatology and monitoring for scleroderma renal crisis) and remdesivir -IS and OOBTC and acapella Pulmonary hypertension 10/06/202310/07 Assessment & Plan (10/06/2023 6:21 PM RETAIL PROPERTY MANAGER): -Noted on TTE 10/06 EF 66%, PASP 50, with small effusion -Pulmonology consulted Acute kidney injury 10/04/2023 10/07/19 24 Assessment & Plan (10/06/2023 10:19 PM RETAIL PROPERTY MANAGER): Creatine down trending Assessment & Plan (10/04/2023 12:25 AM RETAIL PROPERTY MANAGER): Baseline normal, arrived 1.2, resolved to [...] experiencing loneliness or isolatio n Never 10/28/2023 [facility] Utilities Answer Date Recorded In the past 12 months has e [facility], gas, oil, or water [employer] threatened to shut off services in your [...] often do you attend chur ch or hoahaoism services? 1 to 4 times per year 12/02/2023 Do you belong to any clubs o r organizations such as scientologist groups, unions, fraternal or athletic groups, or [...] place to sleep or slept in a fci (including now)? No 12/02/2023 Personal Safety Answer Date Recorded Have you ever been in or are you currently in a harmful physical or emotional relationship or is someone making you feel afraid or unsafe? Denies 11/24/2023 Comments Unknown Sex and Gender Information Value Date Recorded Sex Assigned at Not on file Legal Sex Female 9:11 PM RETAIL PROPERTY MANAGER Gender Identity Not on file Sexual [...] HEPATITIS PANEL, ACUTE STAT 10/04/2023 5:46 PM RETAIL PROPERTY MANAGER SCREENING MAMMOGRAM BILATERAL W PAOLO 05/14/2019 8:21 AM CDT from Last 3 Months or Most Recently Relevant to Health Maintenance Results * (ABNORMAL) Hepatitis panel, acute Blood (10/04/2023 5:46 PM RETAIL PROPERTY MANAGER) Hep A IgM Reactive(A) Nonreactive [facility] Hep B core IgM Nonreactive Nonreactive [facility] Hep C Ab Nonreactive Nonreactive [facility] Comment:Antibodies to HCV no t detected. Does NOT exclude the possibility of recent exposure to HCV. Current interpretive data was last revised on 22 HepBsAg Nonreactive Nonreactive [facility] Blood 10/04/2023 5:46 PM RETAIL PROPERTY MANAGER 10/04/2023 6:23 PM RETAIL PROPERTY MANAGER us Chelly Salcido MD LAB MICROBIOLOGY - GENERAL O RDERABLES Final Result [facility] [address] [place] [address] * Screening Mammogram Bilateral W Paolo (05/14/2019 8:21 AM CDT) Anatomical Region Laterality Modality Breast Bilateral Mammography 05/14/2019 8:27 AM CDT Narrative 05/14/2019 9:18 AM CDT Patient Name: AZRA LITTLE Dr: Naila Franklin MDO.B: 1975 Exam Date: 05/14/19820 Age: 43 Sex: Female MR#: [id number] Loc: RADIOLOGY REPORT Order #[id number] [facility] Argelia Bilat Screening 3D Signed [...] made to exam dated: 03/06/2018 mammogram - [facility]. BREAST TISSUE: The tissue of [...] age 40, based on guidelines of the [place] [employer] (ACR Practice Parameter for the Performance of Screening and Diagnostic Mammography) and [place] [employer]. For women with an elevated risk of breast cancer, please refer to the ACR Practice Parameter for specific screening recommendations. The patient will be entered into a reminder system with a target due date of 1 year for her next screening exam. Electronically signed by: Esdras Salgado M.D., md/:05/14/2019 09:18:42 Drug Inspector: Gail Dominguez RT(R)(M), [facility] letter sent: Normal Exam Reading location: BI-RADS: 2 Benign REPORT ELECTRONICALLY SIGNED IN OTHER VENDOR SYSTEM Resulting Agency Comment O Procedure Note Esdras Salgado MD - 05/14/2019 Patient Name: LITTLEAZRA Basurto Dr: Naila Franklin MD D.O.B: 1975 Exam Date: 09820 Age: 43 Sex: Female MR#: [id number] Loc: RADIOLOGY REPORT Order #[id number] [facility] Argelia Bilat Screening 3D Signed [...] is made to exam dated: 03/06/2018 mammogram -[facility]. BREAST TISSUE: The tissue of [...] age 40, based on guidelines of the [place] [employer] (ACR Practice Parameter for the Performance of Screening and Diagnostic Mammography) and [place] [employer]. For women with an elevated risk of breast cancer, pleaserefer to the ACR Practice Parameter for specific screening recommendations. The patient will be entered into a reminder system with a target due dateof 1 year for her next screening exam. Electronically signed by: Esdras Salgado M.D., md/:05/14/2019 09:18:42 Drug Inspector: Gail RAMIRES(R)(M), [facility] letter sent: Normal Exam Reading location: BI-RADS: 2 Benign REPORT ELECTRONICALLY SIGNED IN OTHER VENDOR SYSTEM Naila Franklin MD IMG MAMMO PROCEDURES Final Re sult from Last 3 Months or Most Recently Relevant to Health Maintenance [place] [address] [place] [address] [facility] Advance Directives For more information, please contact: [phone] * Full Code (Latest Code Status on File) Date Activated Date Inactivated Comments 11/24/2023 7:16 PM 12/01/2023 9:01 PM * Full Code Date Activated Date Inactivated Comments 10/01/2023 3:54 PM 10/22/2023 5:23 PM * Full Code Date Activated Date Inactivated Comments 07/26/2023 9:54 PM 07/28/2023 9:43 PM Care Teams Service Attendant Cafeteria Relationship Specialty Start Date End Date Amelia Tamayo MD [address] [place] [address] PCP - General Family Medicine 10/31/23 Titi Moss MD [address] [facility] [address] [place] [address] Family Medicine 12/28/23 Mohan Rojas MD [address] OF PULM/[place] [address] Pulmonary Disease 12/12/24 Gail Castro, box car bracerVoip Engineer 12/12/24
--- OUTSIDE RECORDS SUMMARY | 2025-01-22 15:24 | XMS_ITS | Encounter Summary ---
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 Not [...] Visit [facility] - Rheumatology [address] [facility] [place] [address] Kelechi Herrera MD [address] [place] [address] 02/21/2025 11:30 AM CDT Appointment [facility] [address] [place] [address] Unknown, Provider 02/25/2025 8:00 AM CDT Office Visit [facility] - Neurology [address] [place] [address] [place] [address] Tricia Serrano MD [address] [place] [address] 03/06/2025 8:30 AM CDT Office Visit [facility] - GI [address] [facility] [place] [address] Neeraj Pennington MD [facility] [place] [address] 03/19/2025 10:30 AM CDT Office Visit [facility] - Pulmonology [address], [address] [place] [address] Mohan Rojas MD [address] [facility] 2L DIV OF PULM/[place] [address] documented as of this encounter Goals Goal Patient Goal Type Associated Problems Recent Progress Patient-Stated? Author Medication Management General On track( 024 11:23 AM CDT) Meaghan Law, RN Note: Expected end date: ongoing Interventions: Take all medications as prescribed documented as of this encounter Visit Diagnoses Not on filedocumented in this encounter Care Teams Ballet Soloist Relationship Specialty Start Date End Date Monique Molina [address] [place] [address] PCP - General 12/05/24 documented as of this encounter
--- OUTSIDE RECORDS SUMMARY | 2025-01-22 15:24 | XMS_ITS | Encounter Summary ---
Author Organization [facility] Address [address] [facility] [place] [address] Care Team Providers Care Dustless Operator Name Role Phone Jesse Monique Primary Care Provider [phone] Reason for Visit * Oncology Prior Authorization (Routine) - Authorized Specialty Diagnoses / Procedures Referred By Contac t Referred To Contact Diagnoses Interstitial lung disorders (HCC) Diffuse cutaneous systemic sclerosis (HCC) Procedures WI INJECTION TOCILIZUMAB 1 MG Kelechi Herrera MD [address] [place] [address] Phone: tel: fax: [facility] [address] [place] [address] Phone: tel: fax: Referral ID Status Reason Start Date Expiration Date V isits Requested Visits Authorized [id number] Authorized 02/28/2024 04/21/2025 13 13 Encounter Details Date Type Department Care Team (Late st Contact Info) Description 01/22/2025 10:38 AM CDT Hospital Encounter 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 [...] 6.4 oz) 01/22/2025 10:44 AM CDT Height - - Body Mass Index 24.79 12/13/2024 7:46 AM CDT documented in this encounter Functional Status * Is person [...] Entry Date Author No 12/13/2024 8:41 AM IRIST Mohini Singh RN documented in this encounter Plan of Treatment Upcoming Encounters Date Type Department Care Team (Late st Contact Info) Description 02/13/2025 8:30 AM CDT Office Visit [facility] - Rheumatology [address] [facility], [place] [address] Kelechi Herrera MD [address] [place] [address] 02/21/2025 11:[address] [facility] [address] [place] [address] Unknown, Provider 02/25/2025 8:00 AM CDT Office Visit [facility] - Neurology [address] [facility], [place] [address] Tricia Serrano MD [address] [place] [address] 03/06/2025 8:30 AM CDT Office Visit [facility] [place] [address] [place] [address], [place] [phone] Neeraj Pennington MD [address] [place] [address] 03/19/2025 10:30 AM CDT Office Visit [facility] - Pulmonology [address], [facility] [address] [place] [address] Mohan Rojas MD [address] [place] [address] 2L DIV OF PULM/[place] [address] documented as of this encounter Goals Goal [...] Rate Site tocilizumab (Actemra) 560 mg in NaCl IV 0.9 % 100 mL IVPB 560 mg, at 100 mL/hr, Administer over 60 Minutes, Intravenous, ONCE, 1 dose, On Tue01/22/25 at 1100, Not to exceed max dose of 800 mgIndications:Interstitia l lung disorders (HCC),Diffuse cutaneous systemic sclerosis (HCC) $ New Bag/Syringe 01/22/2025 11:18 AM CDT 560 mg 100 mL/hr documented in this encounter Care Teams Dustless Operator Relationship Specialty Start Date End Date Monique Molina [address] [place] [address] PCP - General 12/05/24 documented as of this encounter
--- OUTSIDE RECORDS SUMMARY | 2025-01-22 15:24 | XMS_ITS ---
Author Organization [facility] Address [address] [place] [address] Care Team Providers Care Ekg Technician Name Role Phone Amelia Tamayo MD Primary Care Provider Titi Moss MD Unavailable [phone] Mohan Rojas MD Unavailable [phone] Gail Castro RN Unavailable Unavailable Transplant Episode Lung Candidate [facility] ([place], [place]) - [facility] Referred on 12/12/2024 Marked as Active on 12/12/2024 Lung CoordinatorGail Castro RN Phone: N/A Fax: N/A Email: N/A Care Team Name Role Phone Fax Email Gail Castro RN Lung Coordinator N/A N/A N/A Angelia Guajardo Production Team Advisor [phone] N/A N/A Mohan Rojas MD Referring Physician [phone] N/A Gail Castro RN Pre Coordinator N/A N/A N/A Events Pre-Transplant Referred: 12/12/2024
--- OUTSIDE RECORDS SUMMARY | 2025-01-22 15:24 | XMS_ITS | Clinical Summary ---
Author Organization [facility] al Address [address] [place] [address] Care Team Providers Care Field Horticultural Specialty Grower Name Role Phone Amelia Tamayo MD Primary Care Provider Titi Moss MD Unavailable [phone] Mohan Rojas MD Unavailable [phone] Gail Castro RN Unavailable Unavailable Allergies Active [...] 10/12/2023 Assessment & Plan (10/19/2023 5:46 PM CLAM DIGGER): Dffuse systemic sclerosis, s/p IVIG for progressive [...] outpatient Assessment & Plan (10/18/2023 12:59 PM CLAM DIGGER): Dffuse systemic sclerosis, s/p IVIG for progressive [...] outpatient Assessment & Plan (10/12/2023 12:44 PM CLAM DIGGER): Dffuse systemic sclerosis, s/p IVIG for progressive [...] 11/27. Assessment & Plan (10/19/2023 5:46 PM CLAM DIGGER): TTE this admission with e/o acute RV [...] TTE. Assessment & Plan (10/18/2023 12:57 PM CLAM DIGGER): TTE this admission with e/o acute RV [...] TTE. Assessment & Plan (10/12/2023 12:32 PM CLAM DIGGER): TTE this admission with e/o acute RV [...] 10/04/2023 Assessment & Plan (10/21/2023 6:30 PM CLAM DIGGER): Azra Little is a 48 year old [...] outpatient Assessment & Plan (10/18/2023 12:51 PM CLAM DIGGER): Azra Little is a 48 year old [...] outpatient Assessment & Plan (10/12/2023 12:22 PM CLAM DIGGER): Admitted with acute hypoxemic respiratory failure requiring [...] discharge Assessment & Plan (10/09/2023 9:53 AM CLAM DIGGER): -presenting with shortness of breath for approximately [...] COVID Assessment & Plan (10/06/2023 1:11 PM CLAM DIGGER): Acute-onset SOB on subacute SOB/NICHOLAS/BLEE x 4-6 [...] 10/04/2023 Assessment & Plan (10/09/2023 9:52 AM CLAM DIGGER): -presenting with progressive NICHOLAS and exercise intolerance, episodic ALEJANDRO, episodic rash on upper extremities and chest. -serologies notable for positive SHYLA and anti-Scl70. -s/p IVIG for 4 days -rheumatology following Assessment & Plan (10/04/2023 5:37 PM CLAM DIGGER): Presenting with 5-6 months of progressive NICHOLAS [...] 10/04/2023 Assessment & Plan (10/07/2023 11:15 AM CLAM DIGGER): -baseline Hgb 9-10. -continue enteral iron q48 hours -cbc daily Assessment & Plan (10/04/2023 12:25 AM CLAM DIGGER): Recent baseline Hgb 9-10s, admitted at 10.5 -> 8.8, likely secondary to admission hemoconcentration and subsequent phlebotomy, no clinical signs of bleeding. Fe 12, ferritin 133, TIBC 198, Tsat 6. - on PO iron, space to every other day - can consider IV iron after no longer infected GERD (gastroesophageal reflux disease) Assessment & Plan (10/07/2023 11:15 AM CLAM DIGGER): -daily PPI Assessment & Plan (10/04/2023 12:26 AM CLAM DIGGER): Having reflux symptoms, concerning for relation to scleroderma. - start PPI (new med) Lymphadenopathy 10/04/2023 Assessment & Plan (10/12/2023 12:26 PM CLAM DIGGER): Chest and axillary adenopathy probably reactive. To be reassessed with next chest CT. Assessment & Plan (10/07/2023 11:15 AM CLAM DIGGER): -recurrent scans with mediastinal LAD, questionable breast LAD. -recommend outpatient mammogram Assessment & Plan (10/04/2023 12:26 AM CLAM DIGGER): Recurrent scans with mediastinal LAD, questionable breast LAD. - outpatient mammogram Severe protein-calorie malnutrition 10/04/2023 Assessment & Plan (10/07/2023 11:15 AM CLAM DIGGER): -nutrition consult -encourage PO intake and nutritional supplements Dyspnea, unspecified type 10/01/2023 Breast mass 07/27/2023 Assessment & Plan (07/27/2023 10:50 AM CLAM DIGGER): CT with breast asymmetry with axillary LN [...] 07/27/2023 Assessment & Plan (07/27/2023 10:27 AM CLAM DIGGER): Associated with metromenorrhagia in setting if uterine fibroids. CBC with hemoglobin at 10 from 12 2 months ago in setting of menorrhagia. Has been on iron supplement but haven't been taking it. - rec follow up with her [facility] Acute on chronic respiratory failure 07/26/2023 Assessment [...] find out whether she can follow with [facility] rheum/pulm as an outpatient; if so, we are happy to see her in clinic, and this would be optimal since the majority of her workup has been performed at [facility]. In summary, our recommendations are as [...] today Assessment & Plan (07/28/2023 1:19 PM CLAM DIGGER): Admitted with worsening exertional dyspnea, orthopnea, bendopnea, [...] 05/25/2023 Assessment & Plan (07/27/2023 2:41 PM CLAM DIGGER): Mild, intermittent LE edema. Patient endorses current upper extremity edema I cannot recognize on exam. - continue compression stocking - LE dop negative Asthma exacerbation 12/15/2017 Assessment & Plan (07/28/2023 1:20 PM CLAM DIGGER): Prior asthma history, reporting shortness of breath, [...] 10/14/2023 Assessment & Plan (10/18/2023 12:55 PM CLAM DIGGER): Diagnosed on admission after presenting with AHRF requiring ICU admission and BiPAP. Treated with Tamiflu 09/30-10/12. See acute hypoxemic respiratory failure problem. Assessment & Plan (10/11/2023 1:09 PM CLAM DIGGER): Diagnosed on admission after presenting with AHRF requiring ICU admission and BiPAP. Has been on Tamiflu since 09/30. - Continue Tamiflu Assessment & Plan (10/09/2023 10:35 AM CLAM DIGGER): -Will receive a total of 20 doses of tamiflu COVID 10/09/2023 10/14/2023 Assessment & Plan (10/18/2023 1:13 PM CLAM DIGGER): Patient developed worsening SOB with worsening infiltrates on CT on 10/04, requiring transfer to the ICU. Repeat RVP on 10/08 positive for COVID. Received remdesivir and dexamethasone. 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 See acute hypoxemic respiratory failure problem. Assessment & Plan (10/18/2023 12:54 PM CLAM DIGGER): Patient developed worsening SOB with worsening infiltrates on CT on 10/04, requiring transfer to the ICU. Repeat RVP on 10/08 positive for COVID. +COVID Ab test. Received remdesivir and dexamethasone. 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 See acute hypoxemic respiratory failure problem. Assessment & Plan (10/12/2023 12:25 PM CLAM DIGGER): Patient developed worsening SOB with worsening infiltrates [...] plan. 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 Encounters Date Type Department Care Team Description 12/12/2024 Telephone [facility] Trans[facility] Lung [address] [facility] [phone] [place] [address] Rhina Hodge Referral - Lung Txp (Referral [...] experiencing loneliness or isolatio n Never 10/28/2023 [facility] Utilities Answer Date Recorded In the past 12 months has e [employer], gas, oil, or water [employer] threatened to shut off services in your [...] any clubs o r organizations such as religion groups, unions, fraternal or athletic groups, or [...] on file Legal Sex Female 9:11 PM CLAM DIGGER Gender Identity Not on file Sexual Orientation [...] HEPATITIS PANEL, ACUTE STAT 10/04/2023 5:46 PM CLAM DIGGER SCREENING MAMMOGRAM BILATERAL W PAOLO 05/14/2019 8:21 AM CDT from Last 3 Months or Most Recently Relevant to Health Maintenance Results * (ABNORMAL) Hepatitis panel, acute Blood (10/04/2023 5:46 PM CLAM DIGGER) Hep A IgM Reactive(A) Nonreactive [facility] Hep B core IgM Nonreactive Nonreactive [facility] Hep C Ab Nonreactive Nonreactive [facility] Comment:Antibodies to HCV no t detected. Does NOT exclude the possibility of recent exposure to HCV. Current interpretive data was last revised on 22 HepBsAg Nonreactive Nonreactive [facility] Blood 10/04/2023 5:46 PM CLAM DIGGER 10/04/2023 6:23 PM CLAM DIGGER us Chelly Salcido MD LAB MICROBIOLOGY - GENERAL O RDERABLES Final Result [facility] Department [place] [address] * Screening Mammogram Bilateral W Paolo (05/14/2019 8:21 AM CDT) Anatomical Region Laterality Modality Breast Bilateral Mammography 05/14/2019 8:27 AM CDT Narrative 05/14/2019 9:18 AM CDT Patient Name: AZRA LITTLE Dr: Naila Franklin MD D.O.B: 1975 Exam Date: 05/14/19820 Age: 43 Sex: Female MR#: [id number] Loc: RADIOLOGY REPORT Order #[id number] [facility] Argelia Bilat Screening 3D Signed [...] made to exam dated: 03/06/2018 mammogram - [facility]. BREAST TISSUE: The tissue of [...] age 40, based on guidelines of the [place] [employer] (ACR Practice Parameter for the Performance of Screening and Diagnostic Mammography) and [place] [employer]. For women with an elevated risk of breast cancer, please refer to the ACR Practice Parameter for specific screening recommendations. The patient will be entered into a reminder system with a target due date of 1 year for her next screening exam. Electronically signed by: Esdras Salgado M.D., md/:05/14/2019 09:18:42 Neon Sign Mechanic: Gail ROSENBERG (R)), [facility] letter sent: Normal Exam Reading location: BI-RADS: 2 Benign REPORT ELECTRONICALLY SIGNED IN OTHER VENDOR SYSTEM Resulting Agency Comment O Procedure Note Esdras Salgado MD - 05/14/2019 Patient Name: AZRA LITTLE Dr: Naila Franklin MD, D.O.B: 1975 Exam Date: 05/14/1921 Age: 43 Sex: Female MR#: [id number] Loc: RADIOLOGY REPORT Order #[id number] [facility] Argelia Bilat Screening 3D Signed [...] is made to exam dated: 03/06/2018 mammogram -[facility]. BREAST TISSUE: The tissue of [...] age 40, based on guidelines of the [place] [employer] (ACR Practice Parameter for the Performance of Screening and Diagnostic Mammography) and [place] [employer]. For women with an elevated risk of breast cancer, pleaserefer to the ACR Practice Parameter for specific screening recommendations. The patient will be entered into a reminder system with a target due dateof 1 year for her next screening exam. Electronically signed by: Esdras Salgado M.D., md/:05/14/2019 09:18:42 Neon Sign Mechanic: Gail RAMIRES(R)(Jcarlos), [facility] letter sent: Normal Exam Reading location: BI-RADS: 2 Benign REPORT ELECTRONICALLY SIGNED IN OTHER VENDOR SYSTEM us Naila Franklin MD IMG MAMMO PROCEDURES Final Re sult from Last 3 Months or Most Recently Relevant to Health Maintenance Insurance [facility] Advance Directives For more information, please contact: [phone] * Full Code (Latest Code Status on File) Date Activated Date Inactivated Comments 11/24/2023 7:16 PM 12/01/2023 9:01 PM * Full Code Date Activated Date Inactivated Comments 10/01/2023 3:54 PM 10/22/2023 5:23 PM * Full Code Date Activated Date Inactivated Comments 07/26/2023 9:54 PM 07/28/2023 9:43 PM Care Teams Field Horticultural Specialty Grower Relationship Specialty Start Date End Date Amelia Tamayo MD [address] [place] [address] PCP - General Family Medicine 10/31/23 Titi Moss MD [address] [facility] [address] [place] [address] Family Medicine 12/28/23 Mohan Rojas MD [address] OF [place] [address] Pulmonary Disease 12/12/24 Gail Castro, marketing community liaisonManager Ship 12/12/24
--- OUTSIDE RECORDS SUMMARY | 2025-01-22 15:24 | XMS_ITS | Data Portability ---
Author Organization [facility] Address [address] [place] [address] Care Team Providers Care Moving Picture Operator Name Role Phone TITI BLACK Primary Care Provider Assessment No assessment recorded. Plan of Treatment Reminders Order Date Submit Date Provider Last Modified By Organization Details Last Modified Time Details Appointments None recorded. Lab pap, IG + reflex HPV 2023 024 [facility], [address] [place] [address], [address], [place], [address], 4 11:12:00 inflammatio n panel, serum or plasma 2022 023 [facility], [facility], [address], [place], [address], 3 05:10:[address] referral - Systemic sclerosis with worsening SOB, to rule out ILD 2023 024 [facility], [address] [place] [address], [address], 4 08:44:44 Procedures None recorded. Surgeries None recorded. Imaging XR, chest, 2 view 2023 024 [facility], [address] [facility], [place], [address], 4 13:23:59 MAMMO, diagnostic, digital, unilateral 2022 023 [facility], [address] [facility], [place], [address], 3 13:27:24 MAMMO, screening, bilateral 2018 019 RONI Not available 9 10:34:52 Medication Orders hydroxychlo roquine 200 mg tablet 2023 024 [id number], [address] [place] [address], [id number], 4 17:10:54 prednisone 20 mg tablet 2022 023 [facility][id number], [address] [place] [address], [id number], 3 12:08:13 Bactrim DS 800 mg-160 mg tablet 2019 020 [facility], [facility], [address] [place] [address], [id number], 11:48:33 Patient TargetsNo targets recorded. Patient Instructions Encounter Date Encounter Id Patient Instructions Last Modified By Organization Details Last Modified Time 06/24/2023 [id number] I was present and available in the family medicine clinic to discuss the patient's care during the appointment and the case was discussed with me. I agree with the resident's assessment and plan as documented. HL [email or web address] Not available 06/29/2023 10:51:01 08/03/2023 [id number] I certify that I was present for case discussion in the Family Medicine preceptor room at the time of this encounter. I have reviewed the note and agree with the findings, assessment, and plan except as I have documented below. Follow up as listed. All labs/imaging/con sults to be followed by the ordering provider. Festus Perkins, , [facility], Staff Physician. juan Not available 08/08/2023 14:13:36 09/08/2023 [id number] I certify that I was present for case discussion in the Family Medicine preceptor room at the time of this encounter. I have reviewed the note and agree with the findings, assessment, and plan except as I have documented below. Follow up as listed. All labs/imaging/con sults to be followed by the ordering provider. Festus Perkins, , [facility], Staff Physician. juan Not available 2023 14:00:56 Reason for Referral Professor Of Pathology Referral for D yspnea Systemic sclerosis with worsening SOB, to rule out ILD Referring Physician: Titi Black, Integration Manager, Encounter Date: 09/08/2023 Results Created Date Observation Date Name Description Value Unit Range Abnormal Flag Note LastModifiedBy Organization Detail LastModifiedTime 06/24/2006/25/2023 ESR-W ES+CR P sedimentatio n rate-westerg erica 35 mm/HR 0-32 above high normal Not Available [facility] ([facility]) [address] [place], [address], 06/25/2023 05:10:33 06/24/2006/25/2023 ESR-W ES+CR P C-reactive protein, quant 7 mg/L 0-10 Not Available [facility] ([facility]) [address] [place], [address], 06/25/2023 05:10:33 07/01/20 23 07/04/2023 SHYLA W/RFX TO ALL IF POSIT ROXANN SHYLA direct Positi ve negati ve abnormal Not Available [facility] ([facility]) [address] [place], [address], 07/04/2023 13:09:19 07/01/2007/02/2023 RHEUM ATOID FACTO R (RF) rheumatoid factor (rf) <10.0 IU/mL <14.0 Not Available [facility] ([facility]) [address] [place], [address], 07/04/2023 13:09:19 07/01/20 23 07/04/2023 ANTIN UCLEA R AB 11 BY MULTI PLEX anti-DNA (ds) Ab qn 1 IU/mL 0-9 Negat roxann <5 Equiv ocal 5 - 9 Posit roxann >9 Not Available [facility] ([facility]) [address] [place], [address], 07/04/2023 13:09:18 07/01/20 23 07/04/2023 ANTIN UCLEA R AB 11 BY MULTI PLEX chief concierge antibodies <0.2 ai 0.0-0. 9 Not Available [facility] ([facility]) [address] [place], [address], 07/04/2023 13:09:18 07/01/20 23 07/04/2023 ANTIN UCLEA R AB 11 BY MULTI PLEX varela antibodies <0.2 Not Available [facility] ([facility]) [address] [facility], [place], [address], 07/04/2023 13:09:18 07/01/20 23 07/04/2023 ANTIN UCLEA R AB 11 BY MULTI PLEX varela/chief concierge antibodies <0.2 Not Available [facility] ([facility]) [address] [place], [address], 07/04/2023 13:09:18 07/01/20 23 07/04/2023 ANTIN UCLEA R AB 11 BY MULTI PLEX antisclerode rma-70 antibodies >8.0 above high normal Not Available [facility] ([facility]) [address] [place], [address], 07/04/2023 13:09:18 07/01/20 23 07/04/2023 ANTIN UCLEA R AB 11 BY MULTI PLEX sjogren's anti-ss-A 0.2 ai 0.0-0. 9 Not Available [facility] ([facility]) [address] [place], [address], 07/04/2023 13:09:18 07/01/20 23 07/04/2023 ANTIN UCLEA R AB 11 BY MULTI PLEX sjogren's anti-ss-B <0.2 ai 0.0-0. 9 Not Available [facility] ([facility]) [address] [facility], [place], [address], 07/04/2023 13:09:18 07/01/2007/04/2023 ANTIN UCLEA R AB 11 BY MULTI PLEX antichromati n antibodies <0.2 Not Available [facility] ([facility]) [address] [facility], [place], [address], 07/04/2023 13:09:18 07/01/2007/04/2023 ANTIN UCLEA R AB 11 BY MULTI PLEX antiribosoma l P antibodies <0.2 Not Available [facility] ([facility]) [address] [facility], [place], [address], 07/04/2023 13:09:18 07/01/20 23 07/04/2023 ANTIN UCLEA R AB 11 BY MULTI PLEX anti-destiny-1 <0.2 Not Available [facility] ([facility]) [address] [facility], [place], [address], 07/04/2023 13:09:18 07/01/20 23 07/04/2023 ANTIN UCLEA R AB 11 BY MULTI PLEX anti-centrom ere B antibodies <0.2 Not Available [facility] ([facility]) [address] [facility], [place], [address], 07/04/2023 13:09:18 07/01/2007/04/2023 ANTIN UCLEA R AB [...] SLE 15 - 30% _ ___ ____ HEALTH CLINICIAN Mixed Conne ctive Tissu e Disea se 95% (U1 nRNP, SLE 30 - 50% anti- ribon ucleo prote in) Polym yosit is and/o r Gilliam tomyo sitis 20% _ ____ ____ Scl-7 0 (anti DNA Scler oderm a (diff use) 20 - 35% topoi josep ase) Crest 13% _ ____ ____ Destiny-1 Polym yosit is and/o r Gilliam tomyo sitis 20 - 40% _ ____ ____ Centr omere B Scler oderm a - Crest varia nt 80% _ ____ ____ Ribos omal P SLE 10 - 20% Not Available [facility] ([facility]) [address] [place], [address], 07/04/2023 13:09:18 09/08/19 24 09/08/2023 IGP,A PTIMA HPV,A GE GDLN age gdln acog testing 30-65 Not Available [facility] ([facility]) [address] [place], [address], 09/12/2023 11:11:59 09/08/19 24 09/09/2023 IGP, APTIM A HPV, RFX 16/18 ,45 HPV aptima Negati ve negati ve This nucle ic acid ampli ficat ion test detec ts fourt een high- risk HPV types (16,1 8,31, 33,35 ,39,4 5,51, 52,56 ,58,5 9,66, 68) witho ut diffe renti ation . Not Available [facility] ([facility]) [address] [place], [address], 09/12/2023 11:12:10 09/08/19 24 09/12/2023 IGP, APTIM A HPV, RFX 16/18 ,45 diagnosis: Anival rob NEGAT ROXANN FOR INTRA EPITH ELIAL RUBA Pulliam OR FLORENTINO ALEJO . Not Available [facility] ([facility]) [address] [facility], [place], [address], 09/12/2023 11:12:10 09/08/19 24 09/12/2023 IGP, APTIM A HPV, RFX 16/18 ,45 specimen adequacy: Anival t Satis facto ry for evalu ation . Endoc ervic al and/o r squam ous metap lasti c cells (endo cervi claudia compo nent) are prese nt. Not Available [facility] ([facility]) [address] [facility], [place], [address], 09/12/2023 11:12:10 09/08/19 24 09/12/2023 IGP, APTIM A HPV, RFX 16/18 ,45 clinician provided ICD10: Anival rob Z12.4 Not Available [facility] ([facility]) [address] [place], [address], 09/12/2023 11:12:10 09/08/19 24 09/12/2023 IGP, APTIM A HPV, RFX 16/18 ,45 performed by: Anival pulliam, Cytot echmichael colin t (ASCP ) Not Available [facility] ([facility]) [address] [place], [address], 09/12/2023 11:12:10 09/08/19 24 09/12/2023 IGP, APTIM A HPV, RFX 16/18 ,45 . . Not Available [facility] ([facility]) [address] [facility], [place], [address], 09/12/2023 11:12:10 09/08/19 24 09/12/2023 IGP, APTIM [...] ts do occur . Not Available [facility] ([facility]) [address] [facility], [place], [address], 09/12/2023 11:12:10 09/08/19 24 09/12/2023 IGP, APTIM A HPV, RFX 16/18 ,45 test methodology: Commen t This liqui d based ThinP rep(R ) pap test was scree trang with the use of an image guide newton systyuly m. Not Available [facility] ([facility]) [address] [facility], [place], [address], 09/12/2023 11:12:10 09/08/19 24 09/12/2023 IGP, APTIM A HPV, RFX 16/18 ,45 HPV genotype reflex Commen t Crite shivam not met, HPV Genot ype not perfo rmed. Not Available [facility] ([facility]) [address] [facility], [place], [address], 09/12/2023 11:12:10 05/14/20 19 05/14/2019 MAMMO , carl tao, bilat eral No observ ation record ed. [email or web address] [facility] [address] [facility] [place] [place], [address], 05/17/2019 15:59:36 07/10/20 23 xr hand RT 3V [facility] [place] [address] INDICA TION: Swelli ng of finger s [...] By: David peterson, 2022 1:18 AM [email or web address] [address] [facility], [place], [address], 07/13/2023 17:06:52 07/10/20 23 xr wrist RT min 3V [facility] [place] [address] INDICA TION: Swelli ng of finger s [...] reted By: David peterson, 2022 1:18 AM [facility] [address] [facility], [place], [address], 07/13/2023 17:06:53 07/10/20 23 XR, wrist + hand [facility] [place] [address] INDICA TION: Swelli ng of finger s [...] By: David peterson, 2022 1:20 AM [facility] [address] [facility], [place], [address], 09/02/2023 16:21:55 07/10/20 23 XR, wrist + hand [facility] [place] [address] INDICA TION: Swelli ng of finger s [...] reted By: David peterson, 2022 1:20 AM [facility] [address] [facility], [place], [address], 07/13/2023 17:06:53 09/08/19 24 XR, chest , 2 view [facility] [address] Examin ation: Chest x-ray 2 view Access ion: [id number] Exam date/t ritika: 024 4:22 PM [...] By: Selena pulliam MD, 5:01 PM [facility] [address], [place], [address], 10/25/2023 13:24:00 Result Notes None recorded. Problems Name Problem SNOMED Code Status Onset Date Resolution Date Notes Provider Name and Address Organization Details Recorded Time Acute bronchitis 53073730 Active 2017 Denton Isaacs PA-C Attn: Accounting ,[address] , [place], [address] , [facility] 20:17:20 Asthma 969381418 Active 2017 Seema Jamil MA [facility] 8 11:54:06 Problem Notes None recorded. Procedures [...] Name and Address Organization Details Recorded Time 446037 Product containin g penicilli n (product) medicatio n rash Not available Not available 09/08/2017 81846 8001 SNOMED Kedar Bella [facility] 8 20:08:29 Medications Name Sig Start Date [...] Updated DateTime 4 162.56 cm 26 kg/m2 55339.9 g 98 % 98 % 92 /min 98.2 [degF] 104 mm[Hg] 69 mm[Hg] Veronica Kirkland MA [facility] 4 16:21:05 Date Recorded Body height Body mass index (BMI) Body weight Systolic blood pressure Diastolic blood pressure Provider Name and Address Organization Details Last Updated DateTime 04/02/2019 162.56 cm 27.9 kg/m2 03620.1 2 g 120 mm[Hg] 72 mm[Hg] Roxanna Augustine MA [facility] 9 11:56:59 Date Recorded Heart rate Systolic blood pressure Diastolic blood pressure Provider Name and Address Organization Details Last Updated DateTime 06/24/2023 99 /min 113 mm[Hg] 76 mm[Hg] Titi Black MD Attn: Accounting,[address] [place], [address], [facility] 06/24/2023 11:29:44 Date Recorded Body height Body mass index (BMI) Body weight Heart rate Oxygen saturation Oxygen saturation in Arterial blood by Pulse oximetry Body temperature Systolic blood pressure Diastolic blood pressure Provider Name and Address Organization Details Last Updated DateTime 3 162.56 cm 28.7 kg/m2 80812.9 8 g 101 /min 96 % 96 % 98 [degF] 109 mm[Hg] 74 mm[Hg] Gordo Aguilar MA [facility] 3 10:49:52 Date Recorded Body height Body mass index (BMI) Body weight Body temperature Oxygen saturation Oxygen saturation in Arterial blood by Pulse oximetry Heart rate Systolic blood pressure Diastolic blood pressure Provider Name and Address Organization Details Last Updated DateTime 3 162.56 cm 29.4 kg/m2 51913.3 5 g 98.2 [degF] 96 % 96 % 102 /min 120 mm[Hg] 73 mm[Hg] Jennifer Pool MA [facility] 3 11:14:17 Social History Question Answer Notes LastModified by Organizat ion Details LastModified Time Tobacco Smoking Status Never Smoker Kedar renee [facility] 09/08/2017 20:08:41 Do You Have An Advance [...] How Much Tobacco Do You Smoke? No [email or web address] Information not available 12/15/2017 General Stress Level [...] available 01/17/2018 Are you currently employed? 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 Occasional Got new trademil pt plans on more Information not available 01/17/2018 Mental Status None recorded. Family History Relationship Description Onset Age of this Age Resolved Age Notes LastModified by Organization Details LastModified Time Mother Essential hypertension [email or web address] Not available 11:54:22 Mother Pulmonary embolism [email or web address] Not available 12/15 11:54:49 Father Asthma [email or web address] Not available 12/15/2017 11:54:59 Father Malignant tumor of colon [email or web address] Not available 12/15 11:55:08 Medical History Condition Response Coronary Artery Disease N Other N High Blood Pressure N Atrial Fibrillation N Breast Cancer N Lung Disease N Depression N COPD N Blood Clots N Breast Problem N Anesthesia Complications N Headaches/Migraines N Anxiety Disorder N Muscle, Joint, or Bone Problems N Polyps N Infertility N Acid Reflux (GERD) N Cancer N Stroke N Endometriosis N High Cholesterol N Liver Disease N Headaches N Thyroid Problems N Kidney or Bladder Problems N GI Problems N Acne N Skin Problems N Eating Disorder N Anemia N Heart Attack ([place]) N Ovarian Cancer N Diabetes N Blood Transfusions N Seizures/Epilepsy N Abuse/Domestic Violence N Asthma Y Allergies N Hepatitis N Heart Disease N Pre-Eclampsia N Osteoporosis N Heart Failure N Gynecological History Statement/Question Response Flow Moderate [...] Vaccine Type Date Status Note Provider Nam yuly and Address Organization Details Recorded Time Influenza, split virus, quadrivalent, preservative 8 completed Not Available [facility] 09/08/2019 02:46:10 Past Encounters Encounter ID Performer Location Encounter Start Date Encounter Closed Date Diagnosis/Indication Diagnosis SNOMED-CT Code Diagnosis ICD10 Code Diagnosis Note [id number] Clint Millard MD [address] [address] 09/08/2017 19:51:30 09/12/2017 15:43:03 Acute bronchitis 55543516 J20.9 [id number] Destini Hernandez EQUIPMENT RECORDS SUPERVISOR-[address] [address] 11/26/2017 12:35:32 11/28/2017 09:01:06 Acute urinary tract infection 132069979 N39.0 [id number] Clint Millard MD [address] [address] 12/15/2017 11:36:51 12/30/2017 09:06:43 Dysuria 69944290 R30.0 w/ back pain and trace hematuria. Will culture Body mass index 25-29 - overweight 753488659 Z68.27 BMI=27.5, discussed increasing physical activity and incorporat ing healthier meal choices. Depression screening 171 689759 Z13.89 PHQ9=0, negative Mild inter mittent asthma 066425603 J45.20 Stable, refilled inhaler Bacterial vaginosis 4197 11589 N76.0 pos. hx. Discussed treatment and PRN follow-up, in addition to hygeine. [id number] Clint Millard MD [address] [address] 01/13/2018 11:03:40 01/23/2018 15:30:18 Urinary tract infectious disease 19873136 N39.0 dysuria and trace leukocytes and blood on dip Fatigue 34951334 R53.83 worsening. Discussed workup. Discussed sleep hygeine and stress reduction/ management . Mild inter mittent asthma 254829198 J45.20 Stable, Discussed rescue inhaler use PRN [id number] Naila Franklin MD [address] [address] 01/17/2018 10:53:29 01/17/2018 16:12:26 Gynecologic examination 82072615 Z01.419 Enlarged uterus 22069731 4 N85.2 Pelvic US. RTC to discuss results 2 - 3 weeks. [id number] Clint Millard MD [address] [address] 02/09/2018 16:12:50 02/10/2018 09:03:19 Microscopic hematuria 720466182 R31.21 UA positive for moderate blood in urineNo CVA tenderness /STDs negatie on papHad trasvagina l ultrasound with results of fibroids. Has an appt with BIOFUELS MANAGER on 02/14 to follow-up with results Anemia 388481298 D64.9 Iron saturation 12Hg 11.4, Hct 33.5Discus sed management and required follow-up. .. as per above she does have some hematuria, which can all be playing a role in anemia.Pt verbalized understand hilario ofproposed plan of care. Vitamin D deficiency 347 95445 E55.9 Vit level 19Pt verbalized understand ing and importance of follow-up [id number] Naila Franklin MD [address] [address] 02/14/2018 14:01:09 02/16/2018 12:59:35 Uterine leiomyoma 05468016 D25.9 Mass of ovary 298005821 R19.09 RTC in 2-3 weeks. [id number] Naila Franklin MD [address] [address] 03/09/2018 12:32:56 03/29/2018 11:38:42 Pelvic mass 47457917 R19.00 MRI with7 cm left dermoid cyst and uterine fibroids. Discussed the nature of dermoids as noncancero us growths. Will need surgical interventi on to possibly include hysterecto my. 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 Will get surgical clearance and RTC for scheduling . Will think about hysterecto my. [id number] Clint Millard MD [address] [address] 03/31/2018 11:40:57 04/03/2018 09:20:30 Pre-surgery evaluation 804462349 Z01.818 Will have surgery to correct/re move Vitamin D deficiency 347 [address]456 E55.9 Last Vit level 19Repeat level, continue 50,000 units once weekly [id number] Naila Franklin MD [address] [address] 04/20/2018 12:18:51 05/23/2018 11:21:37 Benign teratoma of ovary 572095209 D27.9 Discussed size of dermoid. Plans for laproscopy with possible conversion to laprotomy. Reviewed risks, benefits and alternativ es. Does not want hysterecto my. [id number] Clint Millard MD [place] [address] 05/23/2018 09:45:04 05/25/2018 09:47:06 Hypercholesterolemia 64026563 E78.00 CH 231; LDL 170. She is eating a lot of pork. Discussed cutting back. Pt. wants to trial lifestyle chnages and exercise for 3 months Administra tion of influenza vaccine 93522470 Z23 Informed consent. Discussed care instructio n Overweight 289155033 E66 .3 27.3, encouraged exercise 3-5 days a week. [id number] Naila Franklin MD [address] [address] 06/27/2018 12:54:11 06/28/2018 14:25:25 Endometriosis of pelvic peritoneum 819730673 N80.3 Postoperative visit 1836 67838 Z09 No signs of infection. Discussed final pathology. Continue NSAIDs prn for pain. RTC in 2 weeks, sooner if problems. Dysuria 46265425 R30.0 Dipstick without nitrites. Small wbcs. [id number] Naila Franklin MD [address] [address] 07/11/2018 10:56:54 07/12/2018 09:49:35 Postoperative visit 032571352 Z09 No signs of infection. Return to work next week. F/U prn [id number] Naila Franklin MD [address] [address] 04/02/2019 11:31:03 04/02/2019 14:42:58 Screening mammography 90668126 Z12.31 [id number] Naila Franklin MD [address] [address] 01/08/2020 10:36:03 01/08/2020 18:33:22 Dysuria 27311893 R30.0 -Phone visit during COVID 19 -presumed UTI. -Bactrim X 5 days. -Contact office if no improvemen t. 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 Encouraged to use compressio n stockings and order placed Bilateral swelling of finger of hands 7837494035 9752015 R22.33 H/o swollen fingers of both hands x 3 weeks with intermitte nt pain and stiffness during morning. Differenti als would be RA and OA- Pending ESR and CRP [id number] ANDRE PERKINS DO [place] [address] [address] 08/03/2023 11:06:47 08/10/2023 11:18:42 Mass of left breast 2355659083 4098243 N63.20 possible breast nodule - 07/28 CT showed prominent L axillary LN with asymmetric tissue and possible 1.5 cm nodule in left upper outer breast, recommende d correlatio n with dedicated breast imaging. A breast ultrasound was not able to be done inpatient. Also, Mammograms also not done inpatient. Tachycardia 7943963 R00. 0 This is likely 2/2 to anemia.Had full cardiac work up during hospitaliz ation that showed ECHO with > LVEF 65%, normal diastolic function. Delta trop negative, BNP 58, TSH 1.04, VBG normal, CMP w/o Gap. 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 physical exams findings present too,. There is a struggle with insurance and paying to get into see rheum for DMARDs. Will trial steroids for right now until she is able to figure out how to see rheum. I dont think MRI is warrented right now as it would not change disease management right now. [id number] Lisa Vu MD [facility] [address] [facility] [address] [place] [address] 09/08/2023 16:02:33 09/15/2023 09:24:25 Screening for malignant neoplasm of cervix 335856516 Z12.4 Last pap smear in 2018, results normalPap smear done today in the clinic. pt denied STD testingF/u with results. Dyspnea 920554935 R06.00 Acute, worsening recently. Not sure what [...] out Pulmonary fibrosis with PFTs Systemic sclerosis 03749 008 M34.9 Pt recently diagnosed with systemic [...] cycles. History of uterine fibroids. Naila renee, [facility] 04/02/2019 14:42:50 0 text/html 44 y.o. for phone visit. Reports that she thinks she has a UTI. Feels similar to other UTIs. Has back pain and dysuria. No fever, chills or N/V. Naila renee, [facility] 01/08/2020 18:33:14 3 [...] numbness or LOC Monique Rodrigez MD Attn: Accounting [facility], [place], [address], [facility] 07/01/2023 09:01:16 3 text/html 47 year old [...] some fatigue. FESTUS PERKINS DO Attn: Accounting,[address] [place], [address], [facility] 08/08/2023 14:13:40 4 text/html Ms. Little is [...] taken OSH FESTUS PERKINS DO Attn: Accounting,[address] [place], [address], [place] [facility] 2023 14:01:04 OBGyn Episode No OBEpisode recorded.
== END 2025-01-22 15:20 | disposition home or self-care (01) ==
PROVIDERS: PCP Nurse Practitioner Family; Visit Provider Nurse Practitioner Obstetrics & Gynecology
DX: N83.202 Unspecified ovarian cyst, left side (principal); N83.201 Unspecified ovarian cyst, right side; D25.9 Leiomyoma of uterus, unspecified
CPT/HCPCS: 76830; 76856

== ENCOUNTER 2025-01-29 10:41 | Outpatient (CLI) | payer OTHER, SELFPAY ==
--- OUTSIDE RECORDS SUMMARY | 2025-01-29 11:54 | XMS_ITS | Referral Summary ---
Author Organization [facility] Address [address] [place] [address] Care Team Providers Care Greenhouse Florist Name Role Phone Amelia Tamayo MD Primary Care Provider Titi Moss MD Unavailable [phone] Mohan Rojas MD Unavailable [phone] Gail Castro RN Unavailable Unavailable Encounters Date Type Department Care Team Description 12/12/2024 Telephone [facility] Transplant Lung [address] [facility] [address] [phone] [place], [place] [id number] Rhina Hodge Referral - Lung Txp (Referral [...] 10/12/2023 Assessment & Plan (10/19/2023 5:46 PM SKILLS INSTRUCTOR): Dffuse systemic sclerosis, s/p IVIG for progressive [...] outpatient Assessment & Plan (10/18/2023 12:59 PM SKILLS INSTRUCTOR): Dffuse systemic sclerosis, s/p IVIG for progressive [...] outpatient Assessment & Plan (10/12/2023 12:44 PM SKILLS INSTRUCTOR): Dffuse systemic sclerosis, s/p IVIG for progressive [...] 11/27. Assessment & Plan (10/19/2023 5:46 PM SKILLS INSTRUCTOR): TTE this admission with e/o acute RV [...] TTE. Assessment & Plan (10/18/2023 12:57 PM SKILLS INSTRUCTOR): TTE this admission with e/o acute RV [...] TTE. Assessment & Plan (10/12/2023 12:32 PM SKILLS INSTRUCTOR): TTE this admission with e/o acute RV [...] 10/04/2023 Assessment & Plan (10/21/2023 6:30 PM SKILLS INSTRUCTOR): Azra Little is a 48 year old [...] outpatient Assessment & Plan (10/18/2023 12:51 PM SKILLS INSTRUCTOR): Azra Little is a 48 year old [...] outpatient Assessment & Plan (10/12/2023 12:22 PM SKILLS INSTRUCTOR): Admitted with acute hypoxemic respiratory failure requiring [...] discharge Assessment & Plan (10/09/2023 9:53 AM SKILLS INSTRUCTOR): -presenting with shortness of breath for approximately [...] COVID Assessment & Plan (10/06/2023 1:11 PM SKILLS INSTRUCTOR): Acute-onset SOB on subacute SOB/NICHOLAS/BLEE x 4-6 [...] 10/04/2023 Assessment & Plan (10/09/2023 9:52 AM SKILLS INSTRUCTOR): -presenting with progressive NICHOLAS and exercise intolerance, episodic ALEJANDRO, episodic rash on upper extremities and chest. -serologies notable for positive SHYLA and anti-Scl70. -s/p IVIG for 4 days -rheumatology following Assessment & Plan (10/04/2023 5:37 PM SKILLS INSTRUCTOR): Presenting with 5-6 months of progressive NICHOLAS [...] 10/04/2023 Assessment & Plan (10/07/2023 11:15 AM SKILLS INSTRUCTOR): -baseline Hgb 9-10. -continue enteral iron q48 hours -cbc daily Assessment & Plan (10/04/2023 12:25 AM SKILLS INSTRUCTOR): Recent baseline Hgb 9-10s, admitted at 10.5 -> 8.8, likely secondary to admission hemoconcentration and subsequent phlebotomy, no clinical signs of bleeding. Fe 12, ferritin 133, TIBC 198, Tsat 6. - on PO iron, space to every other day - can consider IV iron after no longer infected GERD (gastroesophageal reflux disease) Assessment & Plan (10/07/2023 11:15 AM SKILLS INSTRUCTOR): -daily PPI Assessment & Plan (10/04/2023 12:26 AM SKILLS INSTRUCTOR): Having reflux symptoms, concerning for relation to scleroderma. - start PPI (new med) Lymphadenopathy 10/04/2023 Assessment & Plan (10/12/2023 12:26 PM SKILLS INSTRUCTOR): Chest and axillary adenopathy probably reactive. To be reassessed with next chest CT. Assessment & Plan (10/07/2023 11:15 AM SKILLS INSTRUCTOR): -recurrent scans with mediastinal LAD, questionable breast LAD. -recommend outpatient mammogram Assessment & Plan (10/04/2023 12:26 AM SKILLS INSTRUCTOR): Recurrent scans with mediastinal LAD, questionable breast LAD. - outpatient mammogram Severe protein-calorie malnutrition 10/04/2023 Assessment & Plan (10/07/2023 11:15 AM SKILLS INSTRUCTOR): -nutrition consult -encourage PO intake and nutritional supplements Dyspnea, unspecified type 10/01/2023 Breast mass 07/27/2023 Assessment & Plan (07/27/2023 10:50 AM SKILLS INSTRUCTOR): CT with breast asymmetry with axillary LN [...] 07/27/2023 Assessment & Plan (07/27/2023 10:27 AM SKILLS INSTRUCTOR): Associated with metromenorrhagia in setting if uterine fibroids. CBC with hemoglobin at 10 from 12 2 months ago in setting of menorrhagia. Has been on iron supplement but haven't been taking it. - rec follow up with her GRIEVANCE COORDINATOR Acute on chronic respiratory failure 07/26/2023 Assessment [...] find out whether she can follow with [facility] rheum/pulm as an outpatient; if so, we are happy to see her in clinic, and this would be optimal since the majority of her workup has been performed at [facility]. In summary, our recommendations are as [...] today Assessment & Plan (07/28/2023 1:19 PM SKILLS INSTRUCTOR): Admitted with worsening exertional dyspnea, orthopnea, bendopnea, [...] 05/25/2023 Assessment & Plan (07/27/2023 2:41 PM SKILLS INSTRUCTOR): Mild, intermittent LE edema. Patient endorses current upper extremity edema I cannot recognize on exam. - continue compression stocking - LE dop negative Asthma exacerbation 12/15/2017 Assessment & Plan (07/28/2023 1:20 PM SKILLS INSTRUCTOR): Prior asthma history, reporting shortness of breath, [...] 10/14/2023 Assessment & Plan (10/18/2023 12:55 PM SKILLS INSTRUCTOR): Diagnosed on admission after presenting with AHRF requiring ICU admission and BiPAP. Treated with Tamiflu 09/30-10/12. See acute hypoxemic respiratory failure problem. Assessment & Plan (10/11/2023 1:09 PM SKILLS INSTRUCTOR): Diagnosed on admission after presenting with AHRF requiring ICU admission and BiPAP. Has been on Tamiflu since 09/30. - Continue Tamiflu Assessment & Plan (10/09/2023 10:35 AM SKILLS INSTRUCTOR): -Will receive a total of 20 doses of tamiflu COVID 10/09/2023 10/14/2023 Assessment & Plan (10/18/2023 1:13 PM SKILLS INSTRUCTOR): Patient developed worsening SOB with worsening infiltrates on CT on 10/04, requiring transfer to the ICU. Repeat RVP on 10/08 positive for COVID. Received remdesivir and dexamethasone. 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 See acute hypoxemic respiratory failure problem. Assessment & Plan (10/18/2023 12:54 PM SKILLS INSTRUCTOR): Patient developed worsening SOB with worsening infiltrates on CT on 10/04, requiring transfer to the ICU. Repeat RVP on 10/08 positive for COVID. +COVID Ab test. Received remdesivir and dexamethasone. 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 See acute hypoxemic respiratory failure problem. Assessment & Plan (10/12/2023 12:25 PM SKILLS INSTRUCTOR): Patient developed worsening SOB with worsening infiltrates [...] plan. 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) and remdesivir -IS and OOBTC and acapella Pulmonary hypertension 10/06/202310/07 Assessment & Plan (10/06/2023 6:21 PM SKILLS INSTRUCTOR): -Noted on TTE 10/06 EF 66%, PASP 50, with small effusion -Pulmonology consulted Acute kidney injury 10/04/2023 10/07/19 24 Assessment & Plan (10/06/2023 10:19 PM SKILLS INSTRUCTOR): Creatine down trending Assessment & Plan (10/04/2023 12:25 AM SKILLS INSTRUCTOR): Baseline normal, arrived 1.2, resolved to baseline [...] experiencing loneliness or isolatio n Never 10/28/2023 [facility] Utilities Answer Date Recorded In the past 12 months has e [employer], gas, oil, or water [employer] threatened to shut off services in your [...] often do you attend chur ch or islam services? 1 to 4 times per year 12/02/2023 Do you belong to any clubs o r organizations such as jain groups, unions, fraternal or athletic groups, or [...] place to sleep or slept in a chcf (including now)? No 12/02/2023 Personal Safety Answer Date Recorded Have you ever been in or are you currently in a harmful physical or emotional relationship or is someone making you feel afraid or unsafe? Denies 11/24/2023 Comments Unknown Sex and Gender Information Value Date Recorded Sex Assigned at Not on file Legal Sex Female 9:11 PM SKILLS INSTRUCTOR Gender Identity Not on file Sexual Orientation [...] HEPATITIS PANEL, ACUTE STAT 10/04/2023 5:46 PM SKILLS INSTRUCTOR SCREENING MAMMOGRAM BILATERAL W PAOLO 05/14/2019 8:21 AM CDT from Last 3 Months or Most Recently Relevant to Health Maintenance Results * (ABNORMAL) Hepatitis panel, acute Blood (10/04/2023 5:46 PM SKILLS INSTRUCTOR) Hep A IgM Reactive(A) Nonreactive [facility] Hep B core IgM Nonreactive Nonreactive [facility] Hep C Ab Nonreactive Nonreactive [facility] Comment:Antibodies to HCV no t detected. Does NOT exclude the possibility of recent exposure to HCV. Current interpretive data was last revised on 22 HepBsAg Nonreactive Nonreactive [facility] Blood 10/04/2023 5:46 PM SKILLS INSTRUCTOR 10/04/2023 6:23 PM SKILLS INSTRUCTOR us Chelly Salcido MD LAB MICROBIOLOGY - GENERAL O RDERABLES Final Result [facility] [place] [address] * Screening Mammogram Bilateral W Paolo (05/14/2019 8:21 AM CDT) Anatomical Region Laterality Modality Breast Bilateral Mammography 05/14/2019 8:27 AM CDT Narrative 05/14/2019 9:18 AM CDT Patient Name: AZRA LITTLE Dr: Naila Franklin MDO.B: 1975 Exam Date: 05/14/19820 Age: 43 Sex: Female MR#: [id number] Loc: RADIOLOGY REPORT Order #[id number] [facility] Argelia Bilat Screening 3D Signed - MG [...] made to exam dated: 03/06/2018 mammogram - [facility]. BREAST TISSUE: The tissue of both breasts [...] age 39, based on guidelines of the [employer] [employer] (ACR Practice Parameter for the Performance of Screening and Diagnostic Mammography) and [place] [employer]. For women with an elevated risk of breast cancer, please refer to the ACR Practice Parameter for specific screening recommendations. The patient will be entered into a reminder system with a target due date of 1 year for her next screening exam. Electronically signed by: Esdras Salgado M.D., md/:05/14/2019 09:18:42 Consumer Loan Manager: Gail Dominguez RT(R)(M), [facility] letter sent: Normal Exam Reading location: BI-RADS: 2 Benign REPORT ELECTRONICALLY SIGNED IN OTHER VENDOR SYSTEM Resulting Agency Comment O Procedure Note Esdras Salgado MD - 05/14/2019 Patient Name: LITTLEAZRA Basurto Dr: Naila Franklin MD D.O.B: 1975 Exam Date: 09820 Age: 43 Sex: Female MR#: [id number] Loc: RADIOLOGY REPORT Order #[id number] [facility] Argelia Bilat Screening 3D Signed - MG [...] is made to exam dated: 03/06/2018 mammogram -[facility]. BREAST TISSUE: The tissue of both breasts [...] age 39, based on guidelines of the [place] [employer] (ACR Practice Parameter for the Performance of Screening and Diagnostic Mammography) and [place] [employer]. For women with an elevated risk of breast cancer, pleaserefer to the ACR Practice Parameter for specific screening recommendations. The patient will be entered into a reminder system with a target due dateof 1 year for her next screening exam. Electronically signed by: Esdras Salgado M.D., md/:05/14/2019 09:18:42 Consumer Loan Manager: Gail RAMIRES(R)(M), [facility] letter sent: Normal Exam Reading location: BI-RADS: 2 Benign REPORT ELECTRONICALLY SIGNED IN OTHER VENDOR SYSTEM Naila Franklin MD IMG MAMMO PROCEDURES Final Re sult from Last 3 Months or Most Recently Relevant to Health Maintenance [place] [address] [place] [address] [facility] Advance Directives For more information, please contact: [phone] * Full Code (Latest Code Status on File) Date Activated Date Inactivated Comments 11/24/2023 7:16 PM 12/01/2023 9:01 PM * Full Code Date Activated Date Inactivated Comments 10/01/2023 3:54 PM 10/22/2023 5:23 PM * Full Code Date Activated Date Inactivated Comments 07/26/2023 9:54 PM 07/28/2023 9:43 PM Care Teams Greenhouse Florist Relationship Specialty Start Date End Date Amelia Tamayo MD [address] [place] [address] PCP - General Family Medicine 10/31/23 Titi Moss MD [address] [facility] [address] [place] [address] Family Medicine 12/28/23 Mohan Rojas MD [address] OF [place] [address] Pulmonary Disease 12/12/24 Gail Castro, unit receptionistDeep Well Contractor 12/12/24
--- OUTSIDE RECORDS SUMMARY | 2025-01-29 11:54 | XMS_ITS ---
Author Organization [facility] Address [address] [place] [address] Care Team Providers Care Print Line Tailer Name Role Phone Amelia Tamayo MD Primary Care Provider Titi Moss MD Unavailable [phone] Mohan Rojas MD Unavailable [phone] Gail Castro RN Unavailable Unavailable Transplant Episode Lung Candidate [facility] ([place], [place]) - [facility] Referred on 12/12/2024 Marked as Deferred on 01/23/2025 Reason: Financial/Insurance Complications Lung CoordinatorStstarr Castro RN Phone: N/A Fax: N/A Email: N/A Care Team Name Role Phone Fax Email Gail Castro RN Lung Coordinator N/A N/A N/A Angelia Guajardo Academic Records Specialist [phone] N/A N/A Mohan Rojas MD Referring Physician [phone] N/A Gail Castro RN Pre Coordinator N/A N/A N/A Events Pre-Transplant Referred: 12/12/2024
--- OUTSIDE RECORDS SUMMARY | 2025-01-29 11:54 | XMS_ITS | Clinical Summary ---
Author Organization [employer] Address [address] [place] [address] Care Team Providers Care Internet Developer Name Role Phone Monique Molina Primary Care Provider [phone] Source Comments [facility],non-owned Affiliates and Associated Physician Practices is amultiple site organization consisting of ambulatory clinics and hospital sitesin [place], [place], [place] and [place]. This disclosure is being madepursuant to the Care Everywhere program and may not contain all information available regarding this patient. Last updated 18.[employer] Allergies Active Allergy Reactions Criticality Noted Date Comments Penicillins Itching,Rash Medium 02/17/2024 Medications * Be aware that medications may not be up to date on this document. Alwaysverify current medications with the patient. FeroSul 325 (65 Fe) MG tablet Take 1 (one) tablet by mouth once daily Activ e albuterol (Proventil;Ve ntolin) (2.5 MG/3ML) 0.083% nebulizer solutionIndic ations:ILD (interstitial lung disease) ([facility]),Sclerod gabriel ([facility]) Inhale 2.5 (two and one-half) mg by mouth every 4 hours as needed for Shortness of Breath or Wheezing 540 mL 11 024 Active Multiple Vitamins-Mine rals (Multi Vitamin/Grayson als) TABS Take 1 (one) tablet by [...] days 60 capsule 11 025 2024 Active nintedanib (Ofev) 150 MG [...] Care Team Description 01/22/2025 10:38 AM CDT - 01/22/2025 11:59 PM CDT Hospital Encounter [address] [address] Unknown, Provider Kelechi Herrera MD Discharge Disposition: Home or Self Care 01/22/2025 Orders Only [facility] - Rheumatology [address] [place] [phone] Kelechi Herrera MD 01/22/2025 Travel 01/08/2025 1:00 PM CDT - 01/08/2025 11:59 PM CDT Hospital Encounter [facility] [address] [place] [address] Discharge Disposition: Home or Self Care 01/08/2025 Travel 01/08/2025 Telephone [facility] - Endocrinology [facility] [place] [address] Mohan Rojas MD Medication Issue 01/04/2025 Telephone [facility] - Endocrinology [facility] [place] [address] Mohan Rojas MD Med Question 12/31/2024 Travel 12/31/2024 Refill [facility] - Rheumatology [address] [place] [phone] Kelechi Herrera MD MEDICATION REFILL 12/27/2024 Refill [facility] - Rheumatology [address] [place] [phone] Kelechi Herrera MD MEDICATION REFILL 12/26/2024 7:30 AM CDT - 12/26/2024 11:59 PM CDT Hospital Encounter [facility] [address] [place] [address] Kelechi Herrera MD Discharge Disposition: Home or Self Care 12/26/2024 Travel 12/25/2024 Results Follow-Up [facility] - GI [address] [place] [address], [place] [address] Neeraj Pennington MD 12/21/2024 Refill [facility] - Pulmonology [address] [place], [place] [address] [place] [address] Mohan Rojas MD Refill Request 12/19/2024 8:29 AM CDT - 12/19/2024 11:59 PM CDT Hospital Encounter [facility] NUCLEAR MEDICINE [address] [place] [address] Neeraj Pennington MD Discharge Disposition: Home or Self Care 12/19/2024 7:45 AM CDT - 12/19/2024 8:28 AM CDT Hospital Encounter [facility] NUCLEAR MEDICINE [address] [place] [address] Neeraj Pennington MD Discharge Disposition: Home or Self Care 12/19/2024 Telephone [facility] - GI [address] [facility], [place] [address] Karrie Iqbal MD Vomiting 12/19/2024 Travel 12/18/2024 10:55 AM CDT - 12/18/2024 11:59 PM CDT Hospital Encounter [facility] [address] [place] [address] Unknown, Provider Kelechi Herrera MD Rheumatology Discharge Disposition: Home or Self Care 12/18/2024 Travel 12/13/2024 8:30 AM CDT - 12/13/2024 9:00 AM CDT Surgery [facility] ENDOSCOPY [address] [place] [address] Neeraj Pennington MD EGD w/ olayinka 12/13/2024 8:23 AM CDT Anesthesia Event [facility] [address] [place] [address] Flaca Patel MD 12/13/2024 7:24 AM CDT - 12/13/2024 9:28 AM CDT Hospital Encounter [facility] OP [address] [place] [address] Neeraj Pennington MD Surgery General Discharge Disposition: Home or Self Care 12/13/2024 Travel 12/11/2024 11:00 AM CDT Office Visit [facility] - Pulmonology [address] [place] [phone] Mohan Rojas MD Immunization counseling (Primary Dx) 12/11/2024 Travel 12/11/2024 Telephone [facility] - Centralized Scheduling [address] [place] [phone] Karena Rosario Reschedule Appointment (Left vm for patient to call back and reschedule appointment with Dr. Serrano.) 12/05/2024 9:30 AM CDT Office Visit [facility] - GI [address] [facility], [place] [phone] Neeraj Pennington MD Nausea and vomiting, unspecified vomiting type (Primary Dx); Unintentional weight loss; Scleroderma (HCC); ILD (interstitial lung disease) (HCC); Diffuse cutaneous systemic sclerosis (HCC); Therapeutic drug monitoring; Gastroesophageal reflux disease, unspecified whether esophagitis present 12/05/2024 Patient Outreach [facility] [address] [place] [phone] RN 12/05/2024 Refill [facility] - Endocrinology [address] [place] [address] Mohan Rojas MD Refill Request 12/05/2024 Travel 11/30/2024 Travel 11/20/2024 8:50 AM CDT - 11/20/2024 11:59 PM CDT Hospital Encounter [facility] [address] [place] [address] Unknown, Provider Kelechi Herrera MD Rheumatology Discharge Disposition: Home or Self Care 11/20/2024 8:13 AM CDT - 11/20/2024 8:49 AM CDT Hospital Encounter [facility] CAT SCAN [address] [place] [phone] Kelechi Herrera MD Discharge Disposition: Home or Self Care 11/20/2024 8:04 AM CDT - 11/20/2024 8:12 AM CDT Hospital Encounter [facility] DIAGNOSTIC RAD OP [address] [place] [address] Kelechi Herrera MD Discharge Disposition: Home or Self Care 11/20/2024 Travel 11/14/2024 Refill [facility] - Rheumatology [address] [place] [phone] Kelechi Herrera MD Refill Request 11/05/2024 Orders Only [facility] - Rheumatology [address] [place] [phone] Kelechi Herrera MD Diffuse cutaneous systemic sclerosis 11/02/2024 2:30 PM CDT Office Visit [facility] - ENT [address] [place] [phone] Juan Alberto Muhammad APRN-LUZMARIA Dizziness and giddiness (Primary Dx); Migraine equivalent; Tinnitus of both ears; Sensorineural hearing loss (SNHL) of both ears 11/02/2024 Travel 10/31/2024 10:28 AM CDT - 10/31/2024 11:59 PM CDT Hospital Encounter [facility] [address] [place] [address] Kelechi Herrera MD Discharge Disposition: Home or Self Care 10/31/2024 9:30 AM CDT Office Visit [facility] - Rheumatology [address] [place] [phone] Kelechi Herrera MD Diffuse cutaneous systemic sclerosis (Primary Dx); Scleroderma; ILD (interstitial lung disease); 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 therapy 10/31/2024 Orders Only [facility] [address] [place] [phone] Kelechi Herrera MD Diffuse cutaneous systemic sclerosis; Scleroderma; ILD (interstitial lung disease); 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 therapy 10/31/2024 Travel from Last 3 Months Immunizations Immunization Administration Dates Next Due COVID MODERNA 12+ yr 50mcg/0.5mL 11/30/2024,10/0 11/2023 INFLUENZA VACCINE, QUADR. 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 Not on [...] Visit [facility] - Rheumatology [address] [facility], [place] [address] Kelechi Herrera MD [address] [place] [address] 02/21/2025 11:30 AM CDT Appointment [facility] [address] [place] [address] Unknown, Provider 02/25/2025 8:00 AM CDT Office Visit [facility] - Neurology [address] [place] [address], [place] [phone] Tricia Serrano MD [address] [place] [address] 03/06/2025 8:30 AM CDT Office Visit [facility] - GI [address] [place] [address], [place] [address] Neeraj Pennington MD [facility] [place] [address] 03/19/2025 10:30 AM CDT Office Visit [facility] - Pulmonology [address], [facility] [address] [place] [phone] Mohan Rojas MD [address] [place] [address] [address] DIV OF PULM/[place] [address] Health Maintenance Due Date Last Done Comments [...] Scleroderma (HCC) ILD (interstitial lung disease) ([facility]CC) [facility] FLEX TRANSORAL DX 12/13/2024 8:18 AM CDT Nausea Weight loss Special Needs Message Received: Today Joshua Rushing MD Johnson, Norma Goldstein RN Dear Norma, Could we get Ms. [...] therapy LIPID PROFILE Routine 08/17/2024 3:57 PM PARTNER MANAGER Screening for lipoid disorders HEPATITIS C ANTIBODY Routine 02/24/2024 2:54 PM CDT Scleroderma ILD (interstitial lung disease) from Last 3 Months or Most Recently Relevant to Health Maintenance Results * (ABNORMAL) CBC WITH DIFFERENTIAL (01/08/2025 2:13 PM CDT) Only the most recent of3 resultswithin the time period is included. WBC 2.8(L) 4.0 - 10.7 x10E9/L 01/08/2025 2:39 PM [facility] RBC Count 5.17 3.90 - 5.20 x10E12/L 01/08/2025 2:39 PM [facility] Hemoglobin 12.7 11.9 - 15.8 g/dL 01/08/2025 2:39 PM [facility] Hematocrit 41.0 34.8 - 46.1 % 01/08/2025 2:39 PM [facility] MCV 79.3(L) 80.0 - 98.0 fL 01/08/2025 2:39 PM [facility] MCH 24.6(L) 26.7 - 33.6 pg 01/08/2025 2:39 PM [facility] MCHC 31.0(L) 31.7 - 36.3 g/dL 01/08/2025 2:39 PM [facility] RDW-CV 14.0 11.3 - 14.8 % 01/08/2025 2:39 PM [facility] Platelet Count 256 150 - 420 x10E9/L 01/08/2025 2:39 PM [facility] MPV 9.8 7.8 - 11.4 fL 01/08/2025 2:39 PM [facility] Neutrophil % 38.6(L) 41.0 - 74.0 % 01/08/2025 2:39 PM [facility] Lymphocyte % 36.1 17.0 - 47.0 % 01/08/2025 2:39 PM [facility] Monocyte % 18.4(H) 3.0 - 11.0 % 01/08/2025 2:39 PM [facility] Eosinophil % 5.8 0.0 - 7.0 % 01/08/2025 2:39 PM [facility] Basophil % 1.1 0.0 - 1.6 % 01/08/2025 2:39 PM [facility] Immature Granulocytes % 0.0 0.0 - 1.0 % 01/08/2025 2:39 PM [facility] Neutrophil Absolute 1.07(L) 1.60 - 7.50 x10E9/L 01/08/2025 2:39 PM [facility] Lymphocyte Absolute 1.00 1.00 - 4.40 x10E9/L 01/08/2025 2:39 PM [facility] Monocyte Absolute 0.51 0.15 - 1.00 x10E9/L 01/08/2025 2:39 PM [facility] Eosinophil Absolute 0.16 0.00 - 0.60 x10E9/L 01/08/2025 2:39 PM [facility] Basophil Absolute 0.03 0.00 - 0.13 x10E9/L 01/08/2025 2:39 PM [facility] Blood BLOOD SPECIMEN / Unknown Lab Venipuncture / Unknown 01/08/2025 2:13 PM CDT 01/08/2025 2:31 PM T us Neeraj Sorto MD LAB - HEMATOLOGY ORDERABLES Jo Ann l Result [facility] [address] [place] [address] [phone] * (ABNORMAL) COMPREHENSIVE METABOLIC PANEL (01/08/2025 2:13 PM [facility]) Only the most recent of3 resultswithin the time period is included. BUN 10 7 - 26 mg/dL 01/08/2025 3:03 PM [facility] Creatinine 0.96 0.56 - 0.96 mg/dL 01/08/2025 3:03 PM [facility] Sodium 142 136 - 145 mmol/L 01/08/2025 3:03 PM [facility] Potassium 3.7 3.5 - 4.5 mmol/L 01/08/2025 3:03 PM [facility] Chloride 109(H) 98 - 107 mmol/L 01/08/2025 3:03 PM [facility] CO2 22 22 - 29 mmol/L 01/08/2025 3:03 PM [facility] Glucose 76 70 - 99 mg/dL 01/08/2025 3:03 PM [facility] Calcium 9.7 8.4 - 10.2 mg/dL 01/08/2025 3:03 PM [facility] Protein Total 7.8 6.0 - 8.3 g/dL 01/08/2025 3:03 PM [facility] Albumin 4.7 3.4 - 5.0 g/dL 01/08/2025 3:03 PM [facility] Bilirubin Total 0.8 0.2 - 1.2 mg/dL 01/08/2025 3:03 PM [facility] Alkaline Phosphatase 65 40 - 150 U/L 01/08/2025 3:03 PM [facility] ALT 29 5 - 55 U/L 01/08/2025 3:03 PM [facility] AST 34 5 - 34 U/L 01/08/2025 3:03 PM [facility] Anion Gap 11 6 - 16 01/08/2025 3:03 PM [facility] BUN/Creatinine Ratio 10 7 - 23 01/08/2025 3:03 PM [facility] Osmolality Calculated 292 275 - 295 mOsm/kg 01/08/2025 3:03 PM [facility] Albumin/Globulin Ratio 1.5 1.1 - 2.3 01/08/2025 3:03 PM CDT [facility] eGFR by CKD-EPI 72(L) >=90 mL/min/1.7 3 m2 01/08/2025 3:03 PM CDT [facility] Blood BLOOD SPECIMEN / Unknown Lab Venipuncture / Unknown 01/08/2025 2:13 PM CDT 01/08/2025 2:31 PM CDT us Neeraj Sorto MD LAB - CHEMISTRY ORDERABLES Final Result [facility] [address] [phone], [facility] [phone] * Complete PFT [facility] (12/26/2024 9:07 AM CDT) Narrative [facility] - 12/26/2024 9:07 AM CDT Denton Flores MD 12/27/2024 4:42 PM us Kelechi Herrera MD RESPIRATORY THERAPY ALMAZ GEORGE Edited Result - Final Performing Organization Address [facility]/ZIP Co de Phone Number [facility] [address] [place] [address], [facility] * NM Gastric Emptying (12/19/2024 12:41 PM CDT) Anatomical Region Laterality Modality Abdomen Nuclear Medicine 12/19/2024 8:04 AM CDT Impressions 12/20/2024 8:36 AM CDT Impression: Findings consistent with grade 2 (moderate) gastroparesis based on 34% retention at 4 hours after ingestion of meal. > Dictated by Jack Corona MD (Graphic Illustrator) 12/19/2024 8:04 AM IImer MD have personally [...] meal is labeled with 0.5 mCi of [id number] sulfur colloid. Comparison: None. Findings: After ingestion [...] meal is labeled with 0.5 mCi of [id number] sulfur colloid. Comparison: None. Findings: After ingestion [...] meal. > Dictated by Jack Corona MD (Graphic Illustrator) 12/19/2024 8:04AM I, Imer Hollis MD have personally reviewed and interpreted this examination/study. > Interpreting Provider: Imer Hollis MD on 12/20/2024 8:36 AM Neeraj Pennington MD [place] ORDERABLES Final Result * HCG URINE QUALITATIVE - POCT (IP) INTERFACED (12/13/2024 7:59 AM CDT) HCG Qual Urine Negative Negative 12/13/2024 8:06 AM CDT [facility] Urine URINE / Unknown 12/13/2024 7 :59 AM CDT 12/13/2024 8:06 AM CDT us Neeraj Pennington MD LAB - POINT OF CARE ORDERABLES Final Result [address] [address], [facility] [phone] * EGD (12/13/2024 7:47 AM CDT) Report [...] non-gardiner portions. Procedure Code(s): --- Professional --- 87286, Esophagogastrodu odenoscopy, flexible, transoral; diagnostic, including collection of specimen(s) by brushing or washing, when performed (separate procedure) Diagnosis Code(s): --- Professional --- R11.15, Cyclical vomiting syndrome unrelated to migraine CPT copyright 2021 [employer]. All rights reserved. The codes documented in this report are preliminary and upon assistant offset press operator review may be revised to meet current compliance requirements. Neeraj Pennington MD 12/13/2024 8:39:12 AM Note Initiated On: 12/13/2024 7:47 AM Number of Addenda: [address] [address] [facility] 12/13/2024 7:47 AM CDT us Neeraj Pennington MD GI PROCEDURE ORDERABLES Edited Result - Final Performing Organization Address City/[facility] Co de Phone Number [facility] * HCG URINE QUAL POCT NOTIFICATION (12/13/2024 7:42 AM CDT) Comment Notification Label Only - See Separate Report 12/13/2024 9:00 AM CDT [facility] Urine URINE / Unknown 12/13/2024 7 :42 AM CDT 12/13/2024 7:42 AM CDT us Neeraj Pennington MD LAB - URINALYSIS ORDERABLES Fin al Result Performing Organization Address [facility] Co de Phone Number [address] [address], [facility] [phone] * BONE DENSITY AXIAL SKELETON(1OR MORE SITES)[id number] (11/20/2024 8:40 AM CDT) Anatomical Region Laterality [...] age > Dictated by Iris Early MD (Graphic Illustrator) 11/20/2024 10:58 AM IImer MD have personally [...] age > Dictated by Iris Early MD (Graphic Illustrator) 11/20/2024 10:58AM Imer Mann MD have personally reviewed and [...] noted. > Dictated by Jc Piper MD, (residential gas heat technician). Jorge Mann MD have personally reviewed and interpreted this examination/study. > Interpreting Provider: Jorge Omer MD on 11/20/2024 2:14 PM Narrative 11/20/2024 2:14 PM CDT PROCEDURE: CT CHEST WO GORDON ELSIE VALERA, DATE/TIME OF EXAM: 11/20/2024 8:34 AM, LOCATION [facility] INDICATION: M34.89: Diffuse cutaneous systemic sclerosis (HCC) [...] Omer MD - 11/20/2024 PROCEDURE: CT CHEST WO GORDON ELSIE VALERA, DATE/TIME OF EXAM: 58:34 AM, LOCATION [facility] INDICATION: M34.89: Diffuse cutaneous systemic sclerosis (HCC) [...] Dictated by Jc Piper MD, MD (residential gas heat technician). I, Jorge Omer MD have personally reviewed and interpreted this examination/study. > Interpreting Provider: Jorge Omer MD on 11/20/2024 2:14PM Kelechi Herrera MD CT ORDERABLES Final Re sult * VITAMIN D 25-HYDROXY (10/31/2024 10:55 AM CDT) Vitamin D, 25 Hydroxy 43.2 30.0 - 80.0 ng/mL 10/31/2024 12:11 PM CDT [facility] Comment: The recommendations for 25-Hydroxy Vitamin D [...] 10:55 AM CDT 10/31/2024 11:25 AM CDT us Kelechi Herrera MD LAB - CHEMISTRY ORDERABL ES Final Result [address] [address], [facility] [phone] * (ABNORMAL) LIPID PROFILE (08/17/2024 3:57 PM PARTNER MANAGER) Cholesterol Total 273(H) <200 mg/dL 08/17/2024 5:03 PM [facility] HDL 78 >40 mg/dL 08/17/2024 5:03 PM [facility] Comment: ATP III Classification of HDL Cholesterol: <40 mg/dL: Considered a major risk factor. >60 mg/dL: Considered a negative risk factor. LDL Calculated 162(H) <100 mg/dL 08/17/2024 5:03 PM [facility] Comment: ATP III Classification of LDL Cholesterol: <100 mg/dL: Optimal 100 - 129 mg/dL: Near Optimal/Above Optimal 130 - 159 mg/dL: Borderline High 160 - 189 mg/dL: High >190 mg/dL: Very High Triglycerides 166(H) <150 mg/dL 08/17/2024 5:03 PM PARTNER MANAGER [facility] Comment: ATP III Classification of Triglycerides: <150 mg/dL: Normal 150 - 199 mg/dL: Borderline High 200 - 400 mg/dL: High >500 mg/dL: Very High Blood BLOOD SPECIMEN / Unknown Lab Venipuncture / Unknown 08/17/2024 3:57 PM PARTNER MANAGER 08/17/2024 4:33 PM PARTNER MANAGER Ordering Provider Unlisted LAB - CHEMISTRY OR DERABLES Final Result [facility] [address] [place] [address], [place] [phone] * HEPATITIS C ANTIBODY (02/24/2024 2:54 PM CDT) [facility] Hepatitis C Antibody Non-react roman Non-reac tive 02/24/2024 5:13 PM CDT [facility] Comment:Hepatitis C Antibody screen indicates no [...] CHEMISTRY ORDERABLES Final Result Performing Organization Address [facility]/ZIP Co de Phone Number [facility] [address] [place] [address], [place] [phone] from Last 3 Months or Most Recently Relevant to Health Maintenance Insurance [facility] Care Teams Internet Developer Relationship Specialty Start Date End Date Monique Molina [address] [place] [id number] PCP - General 12/05/24
--- OUTSIDE RECORDS SUMMARY | 2025-01-29 11:54 | XMS_ITS | Data Portability ---
[facility] Address [address] [place] [address] Care Team Providers Care Biomedical Engineering Professor Name Role Phone TITI BLACK Primary Care Provider [phone] Assessment No assessment recorded. Plan of Treatment Reminders Order Date Submit Date Provider Last Modified By Organization Details Last Modified Time Details Appointments None recorded. Lab pap, IG + reflex HPV 2023 024 [facility], [address] [place] [address], [address], [place], [address], 4 11:12:00 inflammatio n panel, serum or plasma 2022 023 [facility], [address] [place] [address], [address], [place], [address], 3 05:10:[address] referral - Systemic sclerosis with worsening SOB, to rule out ILD 2023 024 [facility], [address] [place] [address], [id number], 4 08:44:44 Procedures None recorded. Surgeries None recorded. Imaging XR, chest, 2 view 2023 024 [facility] Scheduling, [facility], [place], [address], 4 13:23:59 MAMMO, diagnostic, digital, unilateral 2022 023 [facility] Scheduling, [facility], [place], [address], 3 13:27:24 MAMMO, screening, bilateral 2018 019 RONI Not available 9 10:34:52 Medication Orders hydroxychlo roquine 200 mg tablet 2023 024 [id number], [address] [place] [address], [id number], 4 17:10:54 prednisone 20 mg tablet 2022 023 [facility] #[id number], [address] [place] [address], [id number], 3 12:08:13 Bactrim DS 800 mg-160 mg tablet 2019 020 [facility], [facility], [address] [place] [address], [id number], 11:48:33 Patient TargetsNo targets recorded. Patient Instructions Encounter Date Encounter Id Patient Instructions Last Modified By Organization Details Last Modified Time 06/24/2023 [id number] I was present and available in the family medicine clinic to discuss the patient's care during the appointment and the case was discussed with me. I agree with the resident's assessment and plan as documented. HL [email or web address] Not available 06/29/2023 10:51:01 08/03/2023 [id number] I certify that I was present for case discussion in the Family Medicine preceptor room at the time of this encounter. I have reviewed the note and agree with the findings, assessment, and plan except as I have documented below. Follow up as listed. All labs/imaging/con sults to be followed by the ordering provider. Festus Perkins, , [facility], Staff Physician. juan Not available 08/08/2023 14:13:36 09/08/2023 [id number] I certify that I was present for case discussion in the Family Medicine preceptor room at the time of this encounter. I have reviewed the note and agree with the findings, assessment, and plan except as I have documented below. Follow up as listed. All labs/imaging/con sults to be followed by the ordering provider. Festus Perkins, , [facility], Staff Physician. juan Not available 2023 14:00:56 Reason for Referral Administrative Operations Coordinator Referral for D yspnea Systemic sclerosis with worsening SOB, to rule out ILD Referring Physician: Titi Black, Patch Press Operator, Encounter Date: 09/08/2023 Results Created Date Observation Date Name Description Value Unit Range Abnormal Flag Note LastModifiedBy Organization Detail LastModifiedTime 06/24/2006/25/2023 ESR-W ES+CR P sedimentatio n rate-westerg erica 35 mm/HR 0-32 above high normal Not Available [facility] ([facility]) [address] [place], [address], 06/25/2023 05:10:33 06/24/2006/25/2023 ESR-W ES+CR P C-reactive protein, quant 7 mg/L 0-10 Not Available [facility] ([facility]) [address] [place], [address], 06/25/2023 05:10:33 07/01/20 23 07/04/2023 SHYLA W/RFX TO ALL IF POSIT ROXANN SHYLA direct Positi ve negati ve abnormal Not Available [facility] ([facility]) [address] [place], [address], 07/04/2023 13:09:19 07/01/2007/02/2023 RHEUM ATOID FACTO R (RF) rheumatoid factor (rf) <10.0 IU/mL <14.0 Not Available [facility] ([facility]) [address] [place], [address], 07/04/2023 13:09:19 07/01/20 23 07/04/2023 ANTIN UCLEA R AB 11 BY MULTI PLEX anti-DNA (ds) Ab qn 1 IU/mL 0-9 Negat roxann <5 Equiv ocal 5 - 9 Posit roxann >9 Not Available [facility] ([facility]) [address] [place], [address], 07/04/2023 13:09:18 07/01/20 23 07/04/2023 ANTIN UCLEA R AB 11 BY MULTI PLEX bisque brusher antibodies <0.2 ai 0.0-0. 9 Not Available [facility] ([facility]) [address] [place], [address], 07/04/2023 13:09:18 07/01/20 23 07/04/2023 ANTIN UCLEA R AB 11 BY MULTI PLEX varela antibodies <0.2 Not Available [facility] ([facility]) [address] [facility], [place], [address], 07/04/2023 13:09:18 07/01/20 23 07/04/2023 ANTIN UCLEA R AB 11 BY MULTI PLEX varela/bisque brusher antibodies <0.2 Not Available [facility] ([facility]) [address] [place], [address], 07/04/2023 13:09:18 07/01/20 23 07/04/2023 ANTIN UCLEA R AB 11 BY MULTI PLEX antisclerode rma-70 antibodies >8.0 above high normal Not Available [facility] ([facility]) [address] [place], [address], 07/04/2023 13:09:18 07/01/20 23 07/04/2023 ANTIN UCLEA R AB 11 BY MULTI PLEX sjogren's anti-ss-A 0.2 ai 0.0-0. 9 Not Available [facility] ([facility]) [address] [place], [address], 07/04/2023 13:09:18 07/01/20 23 07/04/2023 ANTIN UCLEA R AB 11 BY MULTI PLEX sjogren's anti-ss-B <0.2 ai 0.0-0. 9 Not Available [facility] ([facility]) [address] [facility], [place], [address], 07/04/2023 13:09:18 07/01/2007/04/2023 ANTIN UCLEA R AB 11 BY MULTI PLEX antichromati n antibodies <0.2 Not Available [facility] ([facility]) [address] [facility], [place], [address], 07/04/2023 13:09:18 07/01/2007/04/2023 ANTIN UCLEA R AB 11 BY MULTI PLEX antiribosoma l P antibodies <0.2 Not Available [facility] ([facility]) [address] [facility], [place], [address], 07/04/2023 13:09:18 07/01/20 23 07/04/2023 ANTIN UCLEA R AB 11 BY MULTI PLEX anti-destiny-1 <0.2 Not Available [facility] ([facility]) [address] [facility], [place], [address], 07/04/2023 13:09:18 07/01/20 23 07/04/2023 ANTIN UCLEA R AB 11 BY MULTI PLEX anti-centrom ere B antibodies <0.2 Not Available [facility] ([facility]) [address] [facility], [place], [address], 07/04/2023 13:09:18 07/01/2007/04/2023 ANTIN UCLEA R AB [...] SLE 15 - 30% _ ___ ____ ANIMATION CAMERA OPERATOR Mixed Conne ctive Tissu e Disea se 95% (U1 nRNP, SLE 30 - 50% anti- ribon ucleo prote in) Polym yosit is and/o r Peckham tomyo sitis 20% _ ____ ____ Scl-7 0 (anti DNA Scler oderm a (diff use) 20 - 35% topoi josep ase) Crest 13% _ ____ ____ Destiny-1 Polym yosit is and/o r Peckham tomyo sitis 20 - 40% _ ____ ____ Centr omere B Scler oderm a - Crest varia nt 80% _ ____ ____ Ribos omal P SLE 10 - 20% Not Available [facility] ([facility]) [address] [place], [address], 07/04/2023 13:09:18 09/08/19 24 09/08/2023 IGP,A PTIMA HPV,A GE GDLN age gdln acog testing 30-65 Not Available [facility] ([facility]) [address] [place], [address], 09/12/2023 11:11:59 09/08/19 24 09/09/2023 IGP, APTIM A HPV, RFX 16/18 ,45 HPV aptima Negati ve negati ve This nucle ic acid ampli ficat ion test detec ts fourt een high- risk HPV types (16,1 8,31, 33,35 ,39,4 5,51, 52,56 ,58,5 9,66, 68) witho ut diffe renti ation . Not Available [facility] ([facility]) [address] [place], [address], 09/12/2023 11:12:10 09/08/19 24 09/12/2023 IGP, APTIM A HPV, RFX 16/18 ,45 diagnosis: Anival rob NEGAT ROXANN FOR INTRA EPITH ELIAL RUBA Pulliam OR FLORENTINO ALEJO . Not Available [facility] ([facility]) [address] [facility], [place], [address], 09/12/2023 11:12:10 09/08/19 24 09/12/2023 IGP, APTIM A HPV, RFX 16/18 ,45 specimen adequacy: Anival t Satis facto ry for evalu ation . Endoc ervic al and/o r squam ous metap lasti c cells (endo cervi claudia compo nent) are prese nt. Not Available [facility] ([facility]) [address] [facility], [place], [address], 09/12/2023 11:12:10 09/08/19 24 09/12/2023 IGP, APTIM A HPV, RFX 16/18 ,45 clinician provided ICD10: Anival rob Z12.4 Not Available [facility] ([facility]) [address] [place], [address], 09/12/2023 11:12:10 09/08/19 24 09/12/2023 IGP, APTIM A HPV, RFX 16/18 ,45 performed by: Anival pulliam, Cytot echmichael colin t (ASCP ) Not Available [facility] ([facility]) [address] [place], [address], 09/12/2023 11:12:10 09/08/19 24 09/12/2023 IGP, APTIM A HPV, RFX 16/18 ,45 . . Not Available [facility] ([facility]) [address] [facility], [place], [address], 09/12/2023 11:12:10 09/08/19 24 09/12/2023 IGP, APTIM [...] ts do occur . Not Available [facility] ([facility]) [address] [facility], [place], [address], 09/12/2023 11:12:10 09/08/19 24 09/12/2023 IGP, APTIM A HPV, RFX 16/18 ,45 test methodology: Commen t This liqui d based ThinP rep(R ) pap test was scree trang with the use of an image guide newton systyuly m. Not Available [facility] ([facility]) [address] [facility], [place], [address], 09/12/2023 11:12:10 09/08/19 24 09/12/2023 IGP, APTIM A HPV, RFX 16/18 ,45 HPV genotype reflex Commen t Crite shivam not met, HPV Genot ype not perfo rmed. Not Available [facility] ([facility]) [address] [facility], [place], [address], 09/12/2023 11:12:10 05/14/20 19 05/14/2019 MAMMO , carl tao, bilat eral No observ ation record ed. [email or web address] [facility] [address] [place], [address], 05/17/2019 15:59:36 07/10/20 23 xr hand RT 3V [facility] [place] [address] INDICA TION: Swelli ng of finger s [...] AM hbhooma [facility] [address] [facility], [place], [address], 07/13/2023 17:06:52 07/10/20 23 xr wrist RT min 3V [facility] [place] [address] INDICA TION: Swelli ng of finger s [...] reted By: David peterson, 2022 1:18 [facility] [address] [facility], [place], [address], 07/13/2023 17:06:53 07/10/20 23 XR, wrist + hand [facility] [place] [address] INDICA TION: Swelli ng of finger s [...] By: David peterson, 2022 1:20 AM [facility] Scheduling [address] [facility], [place], [address], 09/02/2023 16:21:55 07/10/20 23 XR, wrist + hand [facility] [place] [address] INDICA TION: Swelli ng of finger s [...] reted By: David peterson, 2022 1:20 [facility], [place], [address], 07/13/2023 17:06:53 09/08/19 24 XR, chest , 2 view [facility] [address] [facility] [place] [address] Examin ation: Chest x-ray 2 view Access ion: [id number] Exam date/t ritika: 024 4:22 PM [...] By: Selena pulliam MD, 5:01 PM nasima [facility] Scheduling [address] [facility], [place], [address], 10/25/2023 13:24:00 Result Notes None recorded. Problems Name Problem SNOMED Code Status Onset Date Resolution Date Notes Provider Name and Address Organization Details Recorded Time Acute bronchitis 62968556 Active 2017 Denton Isaacs PA-C Attn: Accounting ,[address] , [place], [address] , [facility] 8 20:17:20 Asthma 681412539 Active 2017 Seema Jamil [facility] 8 11:54:06 Problem Notes None recorded. Procedures Surgical History Date Name Laterality Status Provider Name and Address Organization Details Recorded Time 02/18/20 18 Most Recent Mammogram completed Taras Garcia MA [facility] 03/29/2018 11:42:52 01/18/20 18 Date of Last Pap Smear completed Taras Garcia MA [facility] 03/29/2018 11:42:43 08/22/18 94 Cholecystectomy completed Naila Franklin [facility] 03/09/2018 12:59:38 Imaging Results None recorded. Procedure Notes None recorded. Medical Equipment None Reported. Allergies Allergen ID Allergen Name Allergen Category Reaction Reaction Severity Criticality Documentation Date Start Date Code Code System Note Provider Name and Address Organization Details Recorded Time 073599 Product containin g penicilli n (product) medicatio n rash Not available Not available 09/08/2017 73377 8001 SNOMED Kedar [facility] 8 20:08:29 Medications Name Sig Start Date [...] Updated DateTime 4 162.56 cm 26 kg/m2 71501.9 g 98 % 98 % 92 /min 98.2 [degF] 104 mm[Hg] 69 mm[Hg] Veronica Kirkland MA [facility] 4 16:21:05 Date Recorded Body height Body mass index (BMI) Body weight Systolic blood pressure Diastolic blood pressure Provider Name and Address Organization Details Last Updated DateTime 04/02/2019 162.56 cm 27.9 kg/m2 82923.1 2 g 120 mm[Hg] 72 mm[Hg] Roxanna Augustine MA [facility] 9 11:56:59 Date Recorded Heart rate Systolic blood pressure Diastolic blood pressure Provider Name and Address Organization Details Last Updated DateTime 06/24/2023 99 /min 113 mm[Hg] 76 mm[Hg] Titi Black MD Attn: Accounting,[address] [place], [address], [facility] 06/24/2023 11:29:44 Date Recorded Body height Body mass index (BMI) Body weight Heart rate Oxygen saturation Oxygen saturation in Arterial blood by Pulse oximetry Body temperature Systolic blood pressure Diastolic blood pressure Provider Name and Address Organization Details Last Updated DateTime 3 162.56 cm 28.7 kg/m2 78474.9 8 g 101 /min 96 % 96 % 98 [degF] 109 mm[Hg] 74 mm[Hg] Gordo Aguilar MA [facility] 3 10:49:52 Date Recorded Body height Body mass index (BMI) Body weight Body temperature Oxygen saturation Oxygen saturation in Arterial blood by Pulse oximetry Heart rate Systolic blood pressure Diastolic blood pressure Provider Name and Address Organization Details Last Updated DateTime 3 162.56 cm 29.4 kg/m2 18723.3 5 g 98.2 [degF] 96 % 96 % 102 /min 120 mm[Hg] 73 mm[Hg] Jennifer Pool MA [facility] 3 11:14:17 Social History Question Answer Notes LastModified by Organizat ion Details LastModified Time Tobacco Smoking Status Never Smoker Kedar renee [place] [facility] 09/08/2017 20:08:41 Do You Have An [...] How Much Tobacco Do You Smoke? No [email or web address] Information not available 12/15/2017 General Stress Level [...] not available 01/17/2018 What is your occupation? B[employer] Information not available 01/17/2018 What is your exercise level? Occasional Got new trademil pt plans on more Information not available 01/17/2018 Mental Status None recorded. Family History Relationship Description Onset Age of this Age Resolved Age Notes LastModified by Organization Details LastModified Time Mother Essential hypertension [email or web address] Not available 11:54:22 Mother Pulmonary embolism Not available 12/15 11:54:49 Father Asthma [email or web address] Not available 12/15/2017 11:54:59 Father Malignant tumor of colon [email or web address] Not available 12/15 11:55:08 Medical History Condition [...] virus, quadrivalent, preservative 8 completed Not Available [facility] 09/08/2019 02:46:10 Past Encounters Encounter ID Performer Location Encounter Start Date Encounter Closed Date Diagnosis/Indication Diagnosis SNOMED-CT Code Diagnosis ICD10 Code Diagnosis Note [id number] Clint Millard MD [address] [address] 09/08/2017 19:51:30 09/12/2017 15:43:03 Acute bronchitis 92295453 J20.9 [id number] Destini Hernandez PACKING AND SHIPPING CLERK-[address] [address] 11/26/2017 12:35:32 11/28/2017 09:01:06 Acute urinary tract infection 447690412 N39.0 [id number] Clint Millard MD [address] [address] 12/15/2017 11:36:51 12/30/2017 09:06:43 Dysuria 02399928 R30.0 w/ back pain and trace hematuria. Will culture Body mass index 25-29 - overweight 582652009 Z68.27 BMI=27.5, discussed increasing physical activity and incorporat ing healthier meal choices. Depression screening 171 642119 Z13.89 PHQ9=0, negative Mild inter mittent asthma 404008756 J45.20 Stable, refilled inhaler Bacterial vaginosis 4197 52648 N76.0 pos. hx. Discussed treatment and PRN follow-up, in addition to hygeine. [id number] Clint Millard MD [address] [address] 01/13/2018 11:03:40 01/23/2018 15:30:18 Urinary tract infectious disease 17912168 N39.0 dysuria and trace leukocytes and blood on dip Fatigue 95453872 R53.83 worsening. Discussed workup. Discussed sleep hygeine and stress reduction/ management . Mild inter mittent asthma 486496743 J45.20 Stable, Discussed rescue inhaler use PRN [id number] Naila Franklin MD [address] [address] 01/17/2018 10:53:29 01/17/2018 16:12:26 Gynecologic examination 99351914 Z01.419 Enlarged uterus 00243312 4 N85.2 Pelvic US. RTC to discuss results 2 - 3 weeks. [id number] Clint Millard MD [address] [address] 02/09/2018 16:12:50 02/10/2018 09:03:19 Microscopic hematuria 694215208 R31.21 UA positive for moderate blood in urineNo CVA tenderness /STDs negatie on papHad trasvagina l ultrasound with results of fibroids. Has an appt with [facility] on 02/14 to follow-up with results Anemia 896044385 D64.9 Iron saturation 12Hg 11.4, Hct 33.5Discus sed management and required follow-up. .. as per above she does have some hematuria, which can all be playing a role in anemia.Pt verbalized understand hilario ofproposed plan of care. Vitamin D deficiency 347 21177 E55.9 Vit level 19Pt verbalized understand ing and importance of follow-up [id number] Naila Franklin MD [address] [address] 02/14/2018 14:01:09 02/16/2018 12:59:35 Uterine leiomyoma 13525907 D25.9 Mass of ovary 528703812 R19.09 RTC in 2-3 weeks. [id number] Naila Franklin MD [address] [address] 03/09/2018 12:32:56 03/29/2018 11:38:42 Pelvic mass 92673501 R19.00 MRI with7 cm left dermoid cyst and uterine fibroids. Discussed the nature of dermoids as noncancero us growths. Will need surgical interventi on to possibly include hysterecto my. [id number] Naila Franklin MD [address] [address] 03/29/2018 11:29:13 03/29/2018 12:07:43 Benign teratoma of ovary 233336006 D27.9 Discussed size of dermoid with possible abdominal procedure instead of laproscopy . Will get surgical clearance and RTC for scheduling . Will think about hysterecto my. [id number] Clint Millard MD [address] [address] 03/31/2018 11:40:57 04/03/2018 09:20:30 Pre-surgery evaluation 190460538 Z01.818 Will have surgery to correct/re move Vitamin D deficiency 347 70284 E55.9 Last Vit level 19Repeat level, continue 50,000 units once weekly [id number] Naila Franklin MD [address] [address] 04/20/2018 12:18:51 05/23/2018 11:21:37 Benign teratoma of ovary 601997191 D27.9 Discussed size of dermoid. Plans for laproscopy with possible conversion to laprotomy. Reviewed risks, benefits and alternativ es. Does not want hysterecto my. [id number] Clint Millard MD [place] [address] 05/23/2018 09:45:04 05/25/2018 09:47:06 Hypercholesterolemia 01885164 E78.00 CH 231; LDL 170. She is eating a lot of pork. Discussed cutting back. Pt. wants to trial lifestyle chnages and exercise for 3 months Administra tion of influenza vaccine 29429755 Z23 Informed consent. Discussed care instructio n Overweight 586460800 E66 .3 27.3, encouraged exercise 3-5 days a week. [id number] Naila Franklin MD [address] [address] 06/27/2018 12:54:11 06/28/2018 14:25:25 Endometriosis of pelvic peritoneum 008841819 N80.3 Postoperative visit 1836 52115 Z09 No signs of infection. Discussed final pathology. Continue NSAIDs prn for pain. RTC in 2 weeks, sooner if problems. Dysuria 90953943 R30.0 Dipstick without nitrites. Small wbcs. [id number] Naila Franklin MD [address] [address] 07/11/2018 10:56:54 07/12/2018 09:49:35 Postoperative visit 458088232 Z09 No signs of infection. Return to work next week. F/U prn [id number] Naila Franklin MD [address] [address] 04/02/2019 11:31:03 04/02/2019 14:42:58 Screening mammography 21289629 Z12.31 [id number] Naila Franklin MD [address] [address] 01/08/2020 10:36:03 01/08/2020 18:33:22 Dysuria 32246036 R30.0 -Phone visit during COVID 19 -presumed UTI. -Bactrim X 5 days. -Contact office if no improvemen t. 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 Encouraged to use compressio n stockings and order placed Bilateral swelling of finger of hands 6910282895 0520369 R22.33 H/o swollen fingers of both hands x 3 weeks with intermitte nt pain and stiffness during morning. Differenti als would be RA and OA- Pending ESR and CRP [id number] ANDRE PERKINS DO [place] [address] [address] 08/03/2023 11:06:47 08/10/2023 11:18:42 Mass of left breast 9689494374 6962119 N63.20 possible breast nodule - 07/28 CT showed prominent L axillary LN with asymmetric tissue and possible 1.5 cm nodule in left upper outer breast, recommende d correlatio n with dedicated breast imaging. A breast ultrasound was not able to be done inpatient. Also, Mammograms also not done inpatient. Tachycardia 3214331 R00. 0 This is likely 2/2 to anemia.Had full cardiac work up during hospitaliz ation that showed ECHO with > LVEF 65%, normal diastolic function. Delta trop negative, BNP 58, TSH 1.04, VBG normal, CMP w/o Gap. 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 physical exams findings present too,. There is a struggle with insurance and paying to get into see rheum for DMARDs. Will trial steroids for right now until she is able to figure out how to see rheum. I dont think MRI is warrented right now as it would not change disease management right now. [id number] Lisa Vu MD [facility] [address] [facility] [address] [place] [address] 09/08/2023 16:02:33 09/15/2023 09:24:25 Screening for malignant neoplasm of cervix 075096825 Z12.4 Last pap smear in 2018, results normalPap smear done today in the clinic. pt denied STD testingF/u with results. Dyspnea 493773712 R06.00 Acute, worsening recently. Not sure what [...] out Pulmonary fibrosis with PFTs Systemic sclerosis 86537 008 M34.9 Pt recently diagnosed with systemic [...] Recorded Time 9 text/html 43 y.o.here with [facility] program for breast exam and MMG order. No complaints. Some pain with cycles. History of uterine fibroids. Naila renee, [facility] 04/02/2019 14:42:50 0 text/html 44 y.o. for phone visit. Reports that she thinks she has a UTI. Feels similar to other UTIs. Has back pain and dysuria. No fever, chills or N/V. Naila renee, [facility] 01/08/2020 18:33:14 3 text/html Ms. Oquendo [...] or LOC Monique Rodrigez MD Attn: Accounting [facility], [place], [address], [facility] 07/01/2023 09:01:16 3 text/html 47 year old [...] some fatigue. FESTUS PERKINS DO Attn: Accounting,[address] [place], [address], [facility] 08/08/2023 14:13:40 4 text/html [...] taken OSH FESTUS PERKINS DO Attn: Accounting,[address] [place], [address], [place] [facility] 2023 14:01:04 OBGyn Episode No OBEpisode recorded.
--- OUTSIDE RECORDS SUMMARY | 2025-01-29 11:54 | XMS_ITS | Clinical Summary ---
Author Organization [facility] al Address [address] [place] [address] Care Team Providers Care Barn Operator Name Role Phone Amelia Tamayo MD Primary Care Provider iTti Moss MD Unavailable [phone] Mohan Rojas MD Unavailable [phone] Gail Castro RN Unavailable Unavailable Allergies Active [...] 10/12/2023 Assessment & Plan (10/19/2023 5:46 PM TIPPLE WORKER): Dffuse systemic sclerosis, s/p IVIG for progressive [...] outpatient Assessment & Plan (10/18/2023 12:59 PM TIPPLE WORKER): Dffuse systemic sclerosis, s/p IVIG for progressive [...] outpatient Assessment & Plan (10/12/2023 12:44 PM TIPPLE WORKER): Dffuse systemic sclerosis, s/p IVIG for progressive [...] 11/27. Assessment & Plan (10/19/2023 5:46 PM TIPPLE WORKER): TTE this admission with e/o acute RV [...] TTE. Assessment & Plan (10/18/2023 12:57 PM TIPPLE WORKER): TTE this admission with e/o acute RV [...] TTE. Assessment & Plan (10/12/2023 12:32 PM TIPPLE WORKER): TTE this admission with e/o acute RV [...] 10/04/2023 Assessment & Plan (10/21/2023 6:30 PM TIPPLE WORKER): Azra Little is a 48 year old [...] outpatient Assessment & Plan (10/18/2023 12:51 PM TIPPLE WORKER): Azra Little is a 48 year old [...] outpatient Assessment & Plan (10/12/2023 12:22 PM TIPPLE WORKER): Admitted with acute hypoxemic respiratory failure requiring [...] discharge Assessment & Plan (10/09/2023 9:53 AM TIPPLE WORKER): -presenting with shortness of breath for approximately [...] COVID Assessment & Plan (10/06/2023 1:11 PM TIPPLE WORKER): Acute-onset SOB on subacute SOB/NICHOLAS/BLEE x 4-6 [...] 10/04/2023 Assessment & Plan (10/09/2023 9:52 AM TIPPLE WORKER): -presenting with progressive NICHOLAS and exercise intolerance, episodic ALEJANDRO, episodic rash on upper extremities and chest. -serologies notable for positive SHYLA and anti-Scl70. -s/p IVIG for 4 days -rheumatology following Assessment & Plan (10/04/2023 5:37 PM TIPPLE WORKER): Presenting with 5-6 months of progressive NICHOLAS [...] 10/04/2023 Assessment & Plan (10/07/2023 11:15 AM TIPPLE WORKER): -baseline Hgb 9-10. -continue enteral iron q48 hours -cbc daily Assessment & Plan (10/04/2023 12:25 AM TIPPLE WORKER): Recent baseline Hgb 9-10s, admitted at 10.5 -> 8.8, likely secondary to admission hemoconcentration and subsequent phlebotomy, no clinical signs of bleeding. Fe 12, ferritin 133, TIBC 198, Tsat 6. - on PO iron, space to every other day - can consider IV iron after no longer infected GERD (gastroesophageal reflux disease) Assessment & Plan (10/07/2023 11:15 AM TIPPLE WORKER): -daily PPI Assessment & Plan (10/04/2023 12:26 AM TIPPLE WORKER): Having reflux symptoms, concerning for relation to scleroderma. - start PPI (new med) Lymphadenopathy 10/04/2023 Assessment & Plan (10/12/2023 12:26 PM TIPPLE WORKER): Chest and axillary adenopathy probably reactive. To be reassessed with next chest CT. Assessment & Plan (10/07/2023 11:15 AM TIPPLE WORKER): -recurrent scans with mediastinal LAD, questionable breast LAD. -recommend outpatient mammogram Assessment & Plan (10/04/2023 12:26 AM TIPPLE WORKER): Recurrent scans with mediastinal LAD, questionable breast LAD. - outpatient mammogram Severe protein-calorie malnutrition 10/04/2023 Assessment & Plan (10/07/2023 11:15 AM TIPPLE WORKER): -nutrition consult -encourage PO intake and nutritional supplements Dyspnea, unspecified type 10/01/2023 Breast mass 07/27/2023 Assessment & Plan (07/27/2023 10:50 AM TIPPLE WORKER): CT with breast asymmetry with axillary LN [...] 07/27/2023 Assessment & Plan (07/27/2023 10:27 AM TIPPLE WORKER): Associated with metromenorrhagia in setting if uterine fibroids. CBC with hemoglobin at 10 from 12 2 months ago in setting of menorrhagia. Has been on iron supplement but haven't been taking it. - rec follow up with her PROMPT CARE RN Acute on chronic respiratory failure 07/26/2023 Assessment [...] find out whether she can follow with [facility] rheum/pulm as an outpatient; if so, we are happy to see her in clinic, and this would be optimal since the majority of her workup has been performed at [facility]. In summary, our recommendations are [...] today Assessment & Plan (07/28/2023 1:19 PM TIPPLE WORKER): Admitted with worsening exertional dyspnea, orthopnea, bendopnea, [...] 05/25/2023 Assessment & Plan (07/27/2023 2:41 PM TIPPLE WORKER): Mild, intermittent LE edema. Patient endorses current upper extremity edema I cannot recognize on exam. - continue compression stocking - LE dop negative Asthma exacerbation 12/15/2017 Assessment & Plan (07/28/2023 1:20 PM TIPPLE WORKER): Prior asthma history, reporting shortness of breath, [...] 10/14/2023 Assessment & Plan (10/18/2023 12:55 PM TIPPLE WORKER): Diagnosed on admission after presenting with AHRF requiring ICU admission and BiPAP. Treated with Tamiflu 09/30-10/12. See acute hypoxemic respiratory failure problem. Assessment & Plan (10/11/2023 1:09 PM TIPPLE WORKER): Diagnosed on admission after presenting with AHRF requiring ICU admission and BiPAP. Has been on Tamiflu since 09/30. - Continue Tamiflu Assessment & Plan (10/09/2023 10:35 AM TIPPLE WORKER): -Will receive a total of 20 doses of tamiflu COVID 10/09/2023 10/14/2023 Assessment & Plan (10/18/2023 1:13 PM TIPPLE WORKER): Patient developed worsening SOB with worsening infiltrates on CT on 10/04, requiring transfer to the ICU. Repeat RVP on 10/08 positive for COVID. Received remdesivir and dexamethasone. 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 See acute hypoxemic respiratory failure problem. Assessment & Plan (10/18/2023 12:54 PM TIPPLE WORKER): Patient developed worsening SOB with worsening infiltrates on CT on 10/04, requiring transfer to the ICU. Repeat RVP on 10/08 positive for COVID. +COVID Ab test. Received remdesivir and dexamethasone. 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 See acute hypoxemic respiratory failure problem. Assessment & Plan (10/12/2023 12:25 PM TIPPLE WORKER): Patient developed worsening SOB with worsening infiltrates [...] plan. 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 Encounters Date Type Department Care Team Description 12/12/2024 Telephone [facility] [address] [facility] [phone] [place] [address] Rhina Hodge Referral - Lung Txp (Referral [...] experiencing loneliness or isolatio n Never 10/28/2023 [facility] Utilities Answer Date Recorded In the past 12 months has e [employer], gas, oil, or water [employer] threatened to shut off services in your [...] often do you attend chur ch or yazdanism services? 1 to 4 times per year 12/02/2023 Do you belong to any clubs o r organizations such as yarsanism groups, unions, fraternal or athletic groups, or [...] place to sleep or slept in a mcfp (including now)? No 12/02/2023 Personal Safety Answer Date Recorded Have you ever been in or are you currently in a harmful physical or emotional relationship or is someone making you feel afraid or unsafe? Denies 11/24/2023 Comments Unknown Sex and Gender Information Value Date Recorded Sex Assigned at Not on file Legal Sex Female 9:11 PM TIPPLE WORKER Gender Identity Not on file Sexual Orientation [...] HEPATITIS PANEL, ACUTE STAT 10/04/2023 5:46 PM TIPPLE WORKER SCREENING MAMMOGRAM BILATERAL W PAOLO 05/14/2019 8:21 AM CDT from Last 3 Months or Most Recently Relevant to Health Maintenance Results * (ABNORMAL) Hepatitis panel, acute Blood (10/04/2023 5:46 PM TIPPLE WORKER) Hep A IgM Reactive(A) Nonreactive [facility] Hep B core IgM Nonreactive Nonreactive [facility] Hep C Ab Nonreactive Nonreactive [facility] Comment:Antibodies to HCV no t detected. Does NOT exclude the possibility of recent exposure to HCV. Current interpretive data was last revised on 22 HepBsAg Nonreactive Nonreactive [facility] Blood 10/04/2023 5:46 PM TIPPLE WORKER 10/04/2023 6:23 PM TIPPLE WORKER us Chelly Salcido MD LAB MICROBIOLOGY - GENERAL O RDERABLES Final Result [facility] Department [place] [address] * Screening Mammogram Bilateral W Paolo (05/14/2019 8:21 AM CDT) Anatomical Region Laterality Modality Breast Bilateral Mammography 05/14/2019 8:27 AM CDT Narrative 05/14/2019 9:18 AM CDT Patient Name: AZRA LITTLE Dr: Naila Franklin MD D.O.B: 1975 Exam Date: 05/14/19820 Age: 43 Sex: Female MR#: [id number] Loc: RADIOLOGY REPORT Order #[id number] [facility] Argelia Bilat Screening 3D [...] made to exam dated: 03/06/2018 mammogram - [facility]. BREAST TISSUE: The tissue of both [...] age 39, based on guidelines of the [place] [employer] (ACR Practice Parameter for the Performance of Screening and Diagnostic Mammography) and [place] [employer]. For women with an elevated risk of breast cancer, please refer to the ACR Practice Parameter for specific screening recommendations. The patient will be entered into a reminder system with a target due date of 1 year for her next screening exam. Electronically signed by: Esdras Salgado M.D., md/:05/14/2019 09:18:42 Glass Enamel Mixer: Gail ROSENBERG (R)), [facility] letter sent: Normal Exam Reading location: BI-RADS: 2 Benign REPORT ELECTRONICALLY SIGNED IN OTHER VENDOR SYSTEM Resulting Agency Comment O Procedure Note Esdras Salgado MD - 05/14/2019 Patient Name: AZRA LITTLE Dr: Naila Franklin MD, D.O.B: 1975 Exam Date: 05/14/1921 Age: 43 Sex: Female MR#: [id number] Loc: RADIOLOGY REPORT Order #[id number] [facility] Argelia Bilat Screening 3D [...] is made to exam dated: 03/06/2018 mammogram -[facility]. BREAST TISSUE: The tissue of both [...] age 40, based on guidelines of the [place] [employer] (ACR Practice Parameter for the Performance of Screening and Diagnostic Mammography) and [place] [employer]. For women with an elevated risk of breast cancer, pleaserefer to the ACR Practice Parameter for specific screening recommendations. The patient will be entered into a reminder system with a target due dateof 1 year for her next screening exam. Electronically signed by: Esdras Salgado M.D., md/:05/14/2019 09:18:42 Glass Enamel Mixer: Gail RAMIRES(R)(Jcarlos), [facility] letter sent: Normal Exam Reading location: BI-RADS: 2 Benign REPORT ELECTRONICALLY SIGNED IN OTHER VENDOR SYSTEM us Naila Franklin MD IMG MAMMO PROCEDURES Final Re sult from Last 3 Months or Most Recently Relevant to Health Maintenance Insurance [facility] Advance Directives For more information, please contact: [phone] * Full Code (Latest Code Status on File) Date Activated Date Inactivated Comments 11/24/2023 7:16 PM 12/01/2023 9:01 PM * Full Code Date Activated Date Inactivated Comments 10/01/2023 3:54 PM 10/22/2023 5:23 PM * Full Code Date Activated Date Inactivated Comments 07/26/2023 9:54 PM 07/28/2023 9:43 PM Care Teams Barn Operator Relationship Specialty Start Date End Date Amelia Tamayo MD [address] [place] [address] PCP - General Family Medicine 10/31/23 Titi Moss MD [address] [place] [address] Family Medicine 12/28/23 Mohan Rojas MD [address] OF P[facility] [address] Pulmonary Disease 12/12/24 Gail Castro, exterior door installerTurning Lathe Tender 12/12/24
== END 2025-01-29 10:42 | disposition home or self-care (01) ==
PROVIDERS: PCP Nurse Practitioner Family; Visit Provider Nurse Practitioner Obstetrics & Gynecology
DX: N39.0 Urinary tract infection, site not specified (principal)
CPT/HCPCS: 87086; 87186

== ENCOUNTER 2025-02-12 11:14 | Outpatient (CLI) | payer OTHER, SELFPAY | END 2025-02-12 11:15 | disposition home or self-care (01) | LOC: ANHLAB 11:16 | PROVIDERS: PCP Nurse Practitioner Family; Visit Provider Nurse Practitioner Obstetrics & Gynecology | DX: N39.0 Urinary tract infection, site not specified (principal) | CPT/HCPCS: 87086 ==

== ENCOUNTER 2025-05-07 09:30 | Outpatient (RCR) | payer OTHER, SELFPAY ==
[2025-01-11 11:42] VITALS: BP 122/78; PULSE 88; RESP 20; O2SAT 98
== END 2025-05-07 23:59 | disposition home or self-care (01) ==
LOC: ANHCPREHAB 09:30
PROVIDERS: PCP Family Medicine
DX: J84.10 Pulmonary fibrosis, unspecified (principal)
CPT/HCPCS: 94625; G0239

== ENCOUNTER 2025-05-31 09:30 | Outpatient (RCR) | payer OTHER, SELFPAY | END 2025-05-31 10:30 | disposition home or self-care (01) | LOC: ANHCPREHAB 09:30 | PROVIDERS: PCP Nurse Practitioner Family | DX: J84.10 Pulmonary fibrosis, unspecified (principal) | CPT/HCPCS: G0239 ==

== ENCOUNTER 2025-05-31 13:19 | Outpatient (CLI) | payer OTHER, SELFPAY ==
--- NOTE | 2025-05-31 15:47 | WPDSIXMINUTE ---
Six Minute Walk Procedure Procedure Performed Pulmonary Stress Test (6 min walk) Six Minute Walk Six Minute Walk: This is a 6 minute walk test. The test was performed and interpreted in accordance with the 2014 ERS/ATS task force guidelines. Of note, patient wore 3 L nasal cannula which was her home setting Findings: The patient's resting 3 L NC oxygen saturation measured by pulse oximetry was 96%, the heart rate was 78 bpm, and the modified Nader dyspnea score was 2. Patient ambulated for 244 meters and oxygen saturation remained 95 to 98%. At the end of the study the heart rate was 102 bpm and the modified Nader dyspnea score was 4. The patient did not have desaturations with activity on 3 L nasal cannula. There are no prior studies for comparison.
== END 2025-05-31 13:20 | disposition home or self-care (01) ==
LOC: ANHPFT 13:20
PROVIDERS: PCP Nurse Practitioner Family
DX: J84.10 Pulmonary fibrosis, unspecified (principal)
CPT/HCPCS: 94618

== ENCOUNTER → 2025-06-05 09:18 | Outpatient (CLI) | payer OTHER, SELFPAY ==
--- NOTE | ~2025-06-05 | XR_ITS ---
EXAMINATION: XR shoulder LT min 2V, 06/05/2025 9:22 CDT HISTORY: M25.512 Pain in LT shoulder few months, no injury COMPARISON: No comparisons available. Findings: No acute fracture or malalignment. No significant degenerative changes. Soft tissues unremarkable. Impression: No acute fracture or malalignment. Reviewed, dictated and finalized at location P. Impression: No acute fracture or malalignment.
== END ==
LOC: EXPCRAD 09:19
PROVIDERS: PCP Nurse Practitioner Family; Visit Provider Nurse Practitioner Family
DX: M25.512 Pain in left shoulder (principal)
CPT/HCPCS: 73030